=== PATIENT | male | born 1980 | race American Indian/Alaskan Native ===

== ENCOUNTER 2016-11-02 08:32 | Outpatient (CLI) | payer MEDICARE ==
[2016-11-02 09:35] LABS: Blood Urea Nitrogen 16 mg/dL (9-20)
== END 2016-11-02 08:33 | disposition home or self-care (01) ==
LOC: CT 08:32
PROVIDERS: ATTEND Radiology Vascular & Interventional Radiology
DX: I70.221 Atherosclerosis of native arteries of extremities with rest pain, right leg (principal)
CPT/HCPCS: 36415; 82565; 84520

== ENCOUNTER 2016-11-21 11:20 | Inpatient (IN) | payer MEDICARE ==
[2016-11-21 13:29] LABS: Blood Urea Nitrogen 23 mg/dL (9-20)
[2016-11-21] MEDS ORDERED: DIPRIVAN 10 MG/ML IV ONE ×6 (13:52→17:26)
[2016-11-21] MEDS ORDERED: DILAUDID ONE (13:52)
[2016-11-21] MEDS ORDERED: VERSED ONE (13:52)
--- NOTE | 2016-11-21 13:52 | Anesthesia Day of Surgery ---
Anesthesia Day of Surgery - Day of Surgery Patient Examined: Yes Patient H&P Reviewed: Yes Patient is NPO: Yes Beta Blockers: Yes
--- NOTE | 2016-11-21 13:52 | Anesthesia Consultation ---
Anesthesia Consult and Med Hx Date of service: 11/21/16 - Airway Anesthetic Teeth Evaluation: Good ROM Head & Neck: Adequate Mental/Hyoid Distance: Adequate Mallampati Class: Class II Intubation Access Assessment: Probably Good - Pulmonary Exam CTA: Yes - Cardiac Exam Cardiac Exam: RRR - Pre-Operative Health Status ASA Pre-Surgery Classification: ASA3 Proposed Anesthetic Plan: General - Pulmonary Hx Smoking: Yes (1 PPD) Hx Asthma: Yes COPD: Yes Hx Pneumonia: No Hx Sleep Apnea: Yes (+CPAP) - Cardiovascular System Hx Hypertension: Yes Hx Heart Attack/AMI: No (Echo in 04/2013 revealed EF-20-25%) Hx Cardia Arrhythmia: Yes (AFIB) Hx Heart Murmur: Yes - Central Nervous System Hx Seizures: No CVA: No Hx Psychiatric Problems: No - Endocrine Hx Renal Disease: No (STONES) Hx End Stage Renal Disease: No Hx Non-Insulin Dependent Diabetes: No (PRE-DIABETES) Hx Thyroid Disease: No - Other Systems Hx Alcohol Use: Yes Hx Substance Use: No Hx Cancer: No Hx Obesity: Yes (MORBID)
[2016-11-21] MEDS ORDERED: BENADRYL ONE ×2 (14:00→14:02)
[2016-11-21] MEDS ORDERED: ANCEF/STERILE WATER 2 GM/20 ML 2 GM/20 ML SYRINGE IV ONE (14:02)
[2016-11-21] MEDS ORDERED: NACL 0.9% 500 ML 500 ML ONE (14:02)
[2016-11-21] MEDS ORDERED: WATER FOR INJ (PF) 10 ML ONE ×2 (14:04→16:41)
[2016-11-21] MEDS ORDERED: HEPARIN/NS 5000 UNIT/500ML(CATH LAB) 1,000 ML IR ONE (14:04)
[2016-11-21] MEDS ORDERED: HEPARIN 10,000 UNITS/10 ML ONE ×2 (14:04→16:47)
[2016-11-21] MEDS ORDERED: XYLOCAINE 2% INFILTRATI ONE (14:04)
[2016-11-21] MEDS ORDERED: HEPARIN/NS 5000 UNIT/500ML(CATH LAB) 500 ML IR ONE ×2 (14:33→16:20)
[2016-11-21] MEDS ORDERED: NITROGLYCERIN SYRINGE 3 ML ONE (14:48)
[2016-11-21] MEDS ORDERED: NITROGLYCERIN SYRINGE 9 ML ONE (14:55)
[2016-11-21] MEDS: CATHFLO ONE ×2 (15:02→15:41)
[2016-11-21] MEDS ORDERED: CATHFLO ONE (16:32)
[2016-11-21] MEDS ORDERED: NACL 0.9% 1000 ML 1,000 ML SHEATH SCH (17:00)
[2016-11-21] MEDS ORDERED: NACL 0.9% 1000 ML 1,000 ML EKOSCLUMEN SCH (17:00)
[2016-11-21] MEDS ORDERED: MORPHINE IV PRN (17:07)
[2016-11-21] MEDS ORDERED: ALUM-MAG HYDROX-SIMETH 200-200-20MG/5ML PO PRN (17:07)
[2016-11-21] MEDS ORDERED: ZOFRAN IV PRN (17:07)
[2016-11-21] MEDS ORDERED: MILK OF MAGNESIA PO PRN (17:07)
[2016-11-21] MEDS ORDERED: DULCOLAX PR PRN (17:07)
[2016-11-21] MEDS ORDERED: HEPARIN/ 0.45% NACL-25,000 UNIT/500 ML 25,000 UNIT/500 ML BAG ONE (17:12)
[2016-11-21] MEDS ORDERED: NACL 0.9% 1000 ML 1,000 ML ONE (17:12)
[2016-11-21 17:20] LABS: INR 1.18 (0.87-1.13)
[2016-11-21] MEDS: HEPARIN/ 0.45% NACL-25,000 UNIT/500 ML 25,000 UNIT/500 ML BAG SHEATH SCH ×2 (17:30→21:30)
[2016-11-21] MEDS: NACL 0.9% 1000 ML 1,000 ML IV SCH (17:30)
[2016-11-21] MEDS: CATHFLO 20 MG in NACL 0.9% 500 ML 500 ML EKOSDLUMEN SCH (17:30)
[2016-11-21 17:39] LABS: Partial Thromboplastin Time 171.4 Sec. (24.2-36.6)
[2016-11-21] MEDS ORDERED: ZOFRAN ONE (19:09)
[2016-11-21] MEDS ORDERED: LANOXIN IV ONE (20:00)
[2016-11-21] MEDS: LANOXIN PO SCH (20:28)
[2016-11-21] MEDS ORDERED: PERCOCET 5/325 ONE (20:59)
[2016-11-21] MEDS: PERCOCET 5/325 PO PRN (21:01)
[2016-11-21 22:17] LABS: Basophils % (Auto) 0.4 % (0.0-1.8); Hematocrit 51.9 % (35.5-45.6); Hemoglobin 16.8 gm/dl (11.8-15.2); Mean Corpuscular HGB Conc 32 % (32-34); Mean Corpuscular Hemoglobin 30 pg (28-32); Mean Corpuscular Volume 94 fl (84-94); Platelet Count 199 K/mm3 (140-440); Red Blood Count 5.55 M/mm3 (3.65-5.03); Red Cell Distribution Width 15.9 % (13.2-15.2); White Blood Count 20.1 K/mm3 (4.5-11.0)
[2016-11-21 22:29] LABS: INR 1.01 (0.87-1.13)
[2016-11-21 22:30] LABS: Anion Gap 17 mmol/L; Blood Urea Nitrogen 21 mg/dL (9-20); Calcium 9.3 mg/dL (8.4-10.2); Carbon Dioxide 22 mmol/L (22-30); Chloride 100.6 mmol/L (98-107); Glucose 259 mg/dL (75-100); Potassium 5.2 mmol/L (3.6-5.0); Sodium 134 mmol/L (137-145)
[2016-11-21 22:30] LABS: Partial Thromboplastin Time 26.7 Sec. (24.2-36.6)
[2016-11-22] MEDS: CATHFLO 20 MG in NACL 0.9% 500 ML 500 ML EKOSDLUMEN SCH (00:05)
[2016-11-22] MEDS: NACL 0.9% 1000 ML 1,000 ML IV SCH (00:12)
[2016-11-22] MEDS: PERCOCET 5/325 PO PRN ×4 (04:12→23:40)
[2016-11-22 04:51] LABS: Eosinophils % (Auto) 0.1 % (0.0-4.3); Hematocrit 51.7 % (35.5-45.6); Hemoglobin 16.6 gm/dl (11.8-15.2); Mean Corpuscular HGB Conc 32 % (32-34); Mean Corpuscular Hemoglobin 30 pg (28-32); Mean Corpuscular Volume 93 fl (84-94); Platelet Count 192 K/mm3 (140-440); Red Blood Count 5.53 M/mm3 (3.65-5.03); White Blood Count 17.9 K/mm3 (4.5-11.0)
[2016-11-22 04:58] LABS: INR 1.03 (0.87-1.13)
[2016-11-22 04:59] LABS: Partial Thromboplastin Time 26.1 Sec. (24.2-36.6)
--- NOTE | 2016-11-22 07:32 | History and Physical Report ---
History of Present Illness Date of examination: 11/21/16 Date of admission: 11/21/16 16:45 Chief complaint: Right foot ischemic rest pain History of present illness: 36 year old man with a history of A-fib and CHF. Has been having right foot pain with numbness and tingling for approximately 5-6 weeks. Worsens when walking. Was not on anticoagulation for his A-fib. Past History Past Medical History: atrial fib, CAD, heart failure, hypertension, other ( renal stones) Past Surgical History: Other (coronary stent) Social history: smoking Medications and Allergies Allergies Allergy/AdvReac Type Severity Reaction Status Date / Time ibuprofen [From Motrin] Allergy Swelling Verified 03/29/16 13:24 lisinopril Allergy COUGH Verified 03/29/16 13:24 metoprolol Allergy Nausea Verified 03/29/16 13:24 Iodinated Contrast Media - AdvReac KIDNEYS Verified 03/29/16 13:24 IV Dye SHUT DOWN Home Medications Medication Instructions Recorded Confirmed Last Taken Type RX: Digoxin [Lanoxin] 0.25 mg PO DAILY@1700 #30 tablet 06/01/14 11/21/16 Rx Aspirin [Aspirin TAB] 325 mg PO QDAY 11/21/16 11/21/16 11/20/16 History Furosemide [Lasix TAB] 40 mg PO QDAY 11/21/16 11/21/16 11/20/16 History Losartan [Cozaar] 50 mg PO QDAY 11/21/16 11/21/16 11/20/16 History Active Meds: Active Medications Al Hydrox/Mg Hydrox/Simethicone (Alum-Mag Hydrox-Simeth [id number]/5ml) 30 ml PO Q4H PRN PRN Reason: Indigestion Bisacodyl (Dulcolax) 10 mg MD QDAY PRN PRN Reason: constipation unrelieved by MOM Digoxin (Lanoxin) 0.125 mg PO DAILY@1700 [facility] Last Admin: 11/21/16 20:28 Dose: 0.125 mg Furosemide (Lasix) 40 mg PO DAILY@0600 [facility] Alteplase, Recombinant 20 mg/ (Sodium Chloride) 500 mls @ 25 mls/hr EKOSDLUMEN DIRECT [facility] Last Admin: 11/22/16 00:05 Dose: 25 mls/hr Heparin Sodium/Sodium Chloride (Heparin/ 0.45% Nacl-25,000 Unit/500 Ml) 25,000 unit in 500 mls @ 10 mls/hr SHEATH DIRECT [place]; 500 UNITS/HR PRN Reason: Protocol Last Admin: 11/21/16 21:30 Dose: 500 units/hr, 10 mls/hr Sodium Chloride (Nacl 0.9% 1000 Ml) 1,000 mls @ 30 mls/hr IV DIRECT [place] Last Admin: 11/22/16 00:12 Dose: 30 mls/hr Sodium Chloride (Nacl 0.9% 1000 Ml) 1,000 mls @ 30 mls/hr SHEATH DIRECT [place] Sodium Chloride (Nacl 0.9% 1000 Ml) 1,000 mls @ 35 mls/hr EKOSCLUMEN DIRECT [place] Losartan Potassium (Cozaar) 50 mg PO QDAY [place] Magnesium Hydroxide (Milk Of Magnesia) 30 ml PO Q4H PRN PRN Reason: Constipation Morphine Sulfate (Morphine) 2 mg IV Q4H PRN PRN Reason: Pain, Moderate (4-6) Last Admin: 11/21/16 19:00 Dose: 2 mg Morphine Sulfate (Morphine) 4 mg IV Q4H PRN PRN Reason: Pain , Severe (7-10) Last Admin: 11/22/16 00:00 Dose: 4 mg Ondansetron HCl (Zofran) 4 mg IV Q8H PRN PRN Reason: N/V unrelieved by Miki Last Admin: 11/21/16 19:20 Dose: 4 mg Oxycodone/Acetaminophen (Percocet 5/325) 2 tab PO Q4H PRN PRN Reason: Pain, Moderate (4-6) Last Admin: 11/22/16 04:12 Dose: 2 tab Review of Systems Cardiovascular: rapid/irregular heart beat, dyspnea on exertion, high blood pressure Respiratory: sleep apnea Genitourinary Male: kidney stones Endocrine: high blood sugars Exam - Constitutional Vitals: Temp Pulse Resp BP Pulse Ox 97.5 F L 81 14 131/78 98 11/22/16 04:00 11/22/16 06:01 11/22/16 06:01 11/22/16 06:01 11/22/16 06:01 General appearance: Present: mild distress - EENT Eyes: Present: PERRL ENT: hearing intact, clear oral mucosa - Neck Neck: Present: supple, normal ROM - Respiratory Respiratory effort: normal - Cardiovascular Rhythm: irregularly irregular Heart Sounds: Present: S1 & S2 - Extremities Extremities: abnormal (No palpable pulses in the right foot. Dopplerable with monophasic flow. Right foot cooler than the left. No ulcerations.) Extremity abnormal: pulses diminished, tenderness - Abdominal General gastrointestinal: Present: soft, non-tender, normal bowel sounds Male genitourinary: Present: deferred - Rectal Rectal Exam: deferred - Integumentary Integumentary: Present: clear - Musculoskeletal Musculoskeletal: strength equal bilaterally - Psychiatric Psychiatric: appropriate mood/affect - Neurologic Neurologic: moves all extremities, gait normal Results - Labs CBC & Chem 7: 11/22/16 12:29 11/22/16 12:37 Labs: Abnormal lab results 11/21/16 11/21/16 11/21/16 Range/Units 12:55 16:30 21:56 WBC 20.1 H (4.5-11.0) K/mm3 RBC 5.55 H (3.65-5.03) M/mm3 Hgb 16.8 H (11.8-15.2) gm/dl Hct 51.9 H (35.5-45.6) % RDW 15.9 H (13.2-15.2) % Lymph % (Auto) 6.0 L (13.4-35.0) % Shannon % (Auto) (0.0-7.3) % Shannon # 1.5 H (0.0-0.8) K/mm3 Seg Neutrophils % 86.3 H (40.0-70.0) % Seg Neutrophils # 17.3 H (1.8-7.7) K/mm3 PT 15.6 H (12.2-14.9) Sec. INR 1.18 H (0.87-1.13) APTT 171.4 H* (24.2-36.6) Sec. Sodium (137-145) mmol/L Potassium (3.6-5.0) mmol/L BUN 23 H (9-20) mg/dL Glucose (75-100) mg/dL 11/21/16 11/22/16 Range/Units 22:00 04:21 WBC 17.9 H (4.5-11.0) K/mm3 RBC 5.53 H (3.65-5.03) M/mm3 Hgb 16.6 H (11.8-15.2) gm/dl Hct 51.7 H (35.5-45.6) % RDW 16.0 H (13.2-15.2) % Lymph % (Auto) 7.6 L (13.4-35.0) % Shannon % (Auto) 9.6 H (0.0-7.3) % Shannon # 1.7 H (0.0-0.8) K/mm3 Seg Neutrophils % 82.7 H (40.0-70.0) % Seg Neutrophils # 14.8 H (1.8-7.7) K/mm3 PT (12.2-14.9) Sec. INR (0.87-1.13) APTT (24.2-36.6) Sec. Sodium 134 L (137-145) mmol/L Potassium 5.2 H (3.6-5.0) mmol/L BUN 21 H (9-20) mg/dL Glucose 259 H (75-100) mg/dL Assessment and Plan 1. Right lower extremity angiogram performed 2. Evidence for distal embolus involving the right anterior tibial, peroneal and posterior tibial arteries. 3. Attempted thrombectomy performed. 4. Infustion of tPA into the anterior tibial artery overnight with evaluation on 11/22/16
--- NOTE | 2016-11-22 07:35 | Vascular Lab Report ---
MISCELLANEOUS VESSEL IDENTIFICATION: COMMENTS ON THE SCAN: The left common femoral artery was identified and under real-time ultrasound guidance was cannulated. IMPRESSION: Successful ultrasound guided arterial cannulation.
[2016-11-22] MEDS ORDERED: BENADRYL PO NR ×3 (08:00→13:00)
--- NOTE | 2016-11-22 08:08 | Admit Criteria Form ---
Admission Criteria Documentation: VASCULAR DISEASE GRG Clinical Indications for Admission to Inpatient Care (Place 'X' for any and all applicable criteria): Hospital admission is needed for appropriate care of the patient because of ANY ONE of the following (1)(2)(3)(4): [ ]I. Life-threatening or limb-threatening skin ulcer as indicated by ANY ONE of the following(5): [ ]a) Surrounding cellulitis unresponsive to outpatient treatment [ ]b) Wet gangrene [ ]c) Lymphangitis [ ]d) Bacteremia [ ]II. Gangrene requiring intensity and frequency of care not manageable to outpatient, emergency, or observation level of care(5) [ ]III. Severe pain requiring acute inpatient management [X ]IV. Interventional revascularization (eg, surgery, thrombolysis) needed (eg , critical limb ischemia)(21) [ ]V. Urgent inpatient IV anticoagulation needed due to ALL of the following: [ ]a) Temporary subtherapeutic anticoagulation unacceptable because of high risk of short-term venous or arterial thromboembolism due to ANY ONE of the following(7)(8)(9): [ ]i) Venous thromboembolism within the past 12 months [ ]ii) Underlying malignancy [ ]iii) Patient with mechanical cardiac valve(10)(11) [ ]iv) Underlying hypercoagulable state (eg, protein C or protein S deficiency, antithrombin deficiency, antiphospholipid antibodies) [ ]v) Patient at high risk of thromboembolism (eg, status post orthopedic surgery, history of recurrent venous thromboembolism) [ ]vi) Atrial fibrillation with rheumatic valvular heart disease [ ]vii) Atrial fibrillation with 3 or MORE of the following : [ ]1) Congestive heart failure [ ]2) Hypertension [ ]3) Age 65 years or older [ ]4) Diabetes mellitus [ ]5) History of thromboembolism (eg, stroke, TIA , or systemic embolization) more than 3 months ago [ ]6) Female gender [ ]b) Contraindications to outpatient use of "bridging" agent or alternative oral anticoagulant as indicated by ALL of the following: [ ]i) Contraindication to outpatient use of low-molecular -weight heparin as "bridging" agent as indicated by ANY ONE of the following(8) : [ ]1) Documented current or history of heparin- induced thrombocytopenia(12) [ ]2) Severe thrombocytopenia (eg, platelet count less than 50,000/mm3 (50 x109/L)) [ ]3) Documented allergy to heparin, low- molecular-weight heparin, or pork products [ ]4) Renal failure (creatinine clearance < 30 mL /min/1.73m2 (0.50 mL/sec/1.73m2) or on dialysis) [ ]5) Inability to manage self-injection (eg, by patient, caregiver, or visiting nurse) [ ]ii) Contraindication to outpatient use of fondaparinux as "bridging" agent as indicated by ANY ONE of the following(13)(14)(15)(16): [ ]1) Severe thrombocytopenia (eg, platelet count less than 50,000/mm3 (50 x109/L)) [ ]2) Hypersensitivity to fondaparinux, related drugs, or product components [ ]3) Renal failure (creatinine clearance less than 30 mL/min/1.73m2 (0.50 mL/sec/1.73m2) or on dialysis) [ ]4) Inability to manage self-injection (eg, by patient, caregiver, or visiting nurse) [ ]iii) Oral direct thrombin inhibitor (eg, dabigatran) or oral coagulation factor Xa inhibitor (eg, rivaroxaban) not appropriate as oral anticoagulation (eg, indication not appropriate) or contraindicated (eg, hypersensitivity, renal failure)(13)(16)(17)(18)(19)(20) [ ]. Suspected severe acute ischemia due to peripheral vascular disease as indicated by ANY ONE of the following(5)(6): [ ]a) Tissue necrosis [ ]b) Severe pain [ ]c) Acute pulselessness [ ]d) Other evidence of acute severe ischemia (eg, lactic acidosis , motor dysfunction) [ ]VII. Acute or newly diagnosed major vessel (eg, aorta) dissection, rupture, or leakage(5)(6)(22)(23) [ ]VIII.Vascular Disease and ALL of the following: [ ]a) Symptom or finding for which emergency and observation care have failed or are not considered appropriate (Use General Criteria: Observation Care as appropriate) [ ]b) Presence of ANY ONE of the following: [ ]i) A General Admission Criteria [ ]ii) A Pediatric General Admission Criteria The [facility] content created by Radha Gallagher has been revised. The portions of the content which have been revised are identified through the use of italic text or in bold, and [facility] has neither reviewed nor approved the modified material. All other unmodified content is copyright [facility]. Please see references footnoted in the original [facility] edition 2016 Admission Criteria Met: Yes
[2016-11-22] MEDS: COZAAR PO SCH ×2 (09:28→12:01)
[2016-11-22] MEDS: DELTASONE PO SCH (09:30)
[2016-11-22] MEDS: LASIX PO SCH (12:00)
--- NOTE | 2016-11-22 12:08 | Consultation ---
History of Present Illness Consult date: 11/22/16 Requesting physician: NATASHA MARAVILLA History of present illness: PULMONARY/CCM CONSULT NOTE (Full dictation # [id number]) Please see dictated notes for full details Past History Past Medical History: atrial fib, CAD, heart failure, hypertension, other ( renal stones) Past Surgical History: Other (coronary stent) Social history: smoking Medications and Allergies Allergies Allergy/AdvReac Type Severity Reaction Status Date / Time ibuprofen [From Motrin] Allergy Swelling Verified 03/29/16 13:24 lisinopril Allergy COUGH Verified 03/29/16 13:24 metoprolol Allergy Nausea Verified 03/29/16 13:24 Iodinated Contrast Media - AdvReac KIDNEYS Verified 03/29/16 13:24 IV Dye SHUT DOWN Home Medications Medication Instructions Recorded Confirmed Last Taken Type Digoxin [Lanoxin] 0.25 mg PO DAILY@1700 #30 tablet 06/01/14 11/21/16 11/20/16 Rx Aspirin [Aspirin TAB] 325 mg PO QDAY 11/21/16 11/21/16 11/20/16 History Furosemide [Lasix TAB] 40 mg PO QDAY 11/21/16 11/21/16 11/20/16 History Losartan [Cozaar] 50 mg PO QDAY 11/21/16 11/21/16 11/20/16 History Active Meds: Active Medications Al Hydrox/Mg Hydrox/Simethicone (Alum-Mag Hydrox-Simeth [phone]/5ml) 30 ml PO Q4H PRN PRN Reason: Indigestion Bisacodyl (Dulcolax) 10 mg MO QDAY PRN PRN Reason: constipation unrelieved by MOM Digoxin (Lanoxin) 0.125 mg PO DAILY@1700 [facility] Last Admin: 11/21/16 20:28 Dose: 0.125 mg Diphenhydramine HCl (Benadryl) 50 mg PO PREOP NR Stop: 11/22/16 23:59 Diphenhydramine HCl (Benadryl) 50 mg PO ONCE NR Stop: 11/22/16 23:59 Last Admin: 11/22/16 09:30 Dose: 50 mg Furosemide (Lasix) 40 mg PO DAILY@0600 [facility] Last Admin: 11/22/16 12:00 Dose: Not Given Alteplase, Recombinant 20 mg/ (Sodium Chloride) 500 mls @ 25 mls/hr EKOSDLUMEN DIRECT [place] Last Admin: 11/22/16 00:05 Dose: 25 mls/hr Heparin Sodium/Sodium Chloride (Heparin/ 0.45% Nacl-25,000 Unit/500 Ml) 25,000 unit in 500 mls @ 10 mls/hr SHEATH DIRECT [place]; 500 UNITS/HR PRN Reason: Protocol Last Admin: 11/21/16 21:30 Dose: 500 units/hr, 10 mls/hr Sodium Chloride (Nacl 0.9% 1000 Ml) 1,000 mls @ 30 mls/hr IV DIRECT [place] Last Admin: 11/22/16 00:12 Dose: 30 mls/hr Sodium Chloride (Nacl 0.9% 1000 Ml) 1,000 mls @ 30 mls/hr SHEATH DIRECT [place] Sodium Chloride (Nacl 0.9% 1000 Ml) 1,000 mls @ 35 mls/hr EKOSCLUMEN DIRECT [place] Losartan Potassium (Cozaar) 50 mg PO QDAY [facility] Last Admin: 11/22/16 12:01 Dose: 50 mg Magnesium Hydroxide (Milk Of Magnesia) 30 ml PO Q4H PRN PRN Reason: Constipation Morphine Sulfate (Morphine) 2 mg IV Q4H PRN PRN Reason: Pain, Moderate (4-6) Last Admin: 11/21/16 19:00 Dose: 2 mg Morphine Sulfate (Morphine) 4 mg IV Q4H PRN PRN Reason: Pain , Severe (7-10) Last Admin: 11/22/16 00:00 Dose: 4 mg Ondansetron HCl (Zofran) 4 mg IV Q8H PRN PRN Reason: N/V unrelieved by Regjovani Last Admin: 11/21/16 19:20 Dose: 4 mg Oxycodone/Acetaminophen (Percocet 5/325) 2 tab PO Q4H PRN PRN Reason: Pain, Moderate (4-6) Last Admin: 11/22/16 09:25 Dose: 2 tab Prednisone (Deltasone) 50 mg PO QDAY [place] Last Admin: 11/22/16 09:30 Dose: 50 mg Physical Examination Vital signs: Vital Signs Temp Pulse Resp BP Pulse Ox 98.2 F 81 20 141/105 95 11/21/16 12:53 11/21/16 12:53 11/21/16 12:53 11/21/16 12:53 11/21/16 12:53 Results - Laboratory Findings CBC and BMP: 11/22/16 12:29 11/22/16 12:37 PT/INR, D-dimer PT 14.0 Sec. (12.2-14.9) 11/22/16 04:21 INR 1.03 (0.87-1.13) 11/22/16 04:21 Abnormal lab findings: Abnormal Labs 11/21/16 11/21/16 11/21/16 12:55 16:30 21:56 WBC 20.1 H RBC 5.55 H Hgb 16.8 H Hct 51.9 H RDW 15.9 H Lymph % (Auto) 6.0 L Gillespie % (Auto) Gillespie # 1.5 H Seg Neutrophils % 86.3 H Seg Neutrophils # 17.3 H PT 15.6 H INR 1.18 H APTT 171.4 H* Sodium Potassium BUN 23 H Glucose 11/21/16 11/22/16 22:00 04:21 WBC 17.9 H RBC 5.53 H Hgb 16.6 H Hct 51.7 H RDW 16.0 H Lymph % (Auto) 7.6 L Gillespie % (Auto) 9.6 H Gillespie # 1.7 H Seg Neutrophils % 82.7 H Seg Neutrophils # 14.8 H PT INR APTT Sodium 134 L Potassium 5.2 H BUN 21 H Glucose 259 H
[2016-11-22] MEDS: MORPHINE IV PRN ×3 (12:44→20:19)
[2016-11-22 12:53] LABS: Basophils % (Auto) 0.5 % (0.0-1.8); Eosinophils % (Auto) 0.1 % (0.0-4.3); Hematocrit 54.2 % (35.5-45.6); Hemoglobin 17.3 gm/dl (11.8-15.2); Mean Corpuscular HGB Conc 32 % (32-34); Mean Corpuscular Hemoglobin 30 pg (28-32); Mean Corpuscular Volume 94 fl (84-94); Platelet Count 194 K/mm3 (140-440); Red Blood Count 5.79 M/mm3 (3.65-5.03); Red Cell Distribution Width 15.6 % (13.2-15.2); White Blood Count 17.2 K/mm3 (4.5-11.0)
[2016-11-22 13:03] LABS: INR 1.02 (0.87-1.13)
[2016-11-22 13:04] LABS: Partial Thromboplastin Time 27.6 Sec. (24.2-36.6)
[2016-11-22 13:07] LABS: Anion Gap 18 mmol/L; Blood Urea Nitrogen 18 mg/dL (9-20); Calcium 9.5 mg/dL (8.4-10.2); Carbon Dioxide 25 mmol/L (22-30); Chloride 99.3 mmol/L (98-107); Glucose 191 mg/dL (75-100); Potassium 5.1 mmol/L (3.6-5.0); Sodium 137 mmol/L (137-145)
[2016-11-22] MEDS ORDERED: SUBLIMAZE ONE (13:57)
[2016-11-22] MEDS ORDERED: HEPARIN/NS 5000 UNIT/500ML(CATH LAB) 1,500 ML IR ONE (13:57)
[2016-11-22] MEDS ORDERED: VERSED IV ONE (13:57)
[2016-11-22] MEDS ORDERED: XYLOCAINE 2% INFILTRATI ONE (13:57)
[2016-11-22] MEDS ORDERED: ANCEF/STERILE WATER 2 GM/20 ML 2 GM/20 ML SYRINGE IV ONE (13:58)
[2016-11-22] MEDS ORDERED: NACL 0.9% 500 ML 500 ML ONE (13:58)
--- NOTE | 2016-11-22 14:12 | Progress Note ---
Assessment and Plan 1. Right lower extremity angiogram performed 2. Evidence for distal embolus involving the right anterior tibial, peroneal and posterior tibial arteries. 3. Attempted thrombectomy performed. 4. Infustion of tPA into the anterior tibial artery overnight with evaluation on 11/22/16 5. Repeat angio today with possible further intervention if needed. Subjective Date of service: 11/22/16 Principal diagnosis: Right foot ischemic rest pain Interval history: Patient s/p day one of EKOS catheter infusion right lower extremity. He states he has been having more throbbing pain in the right foot. His numbness has resolved however. No other complaints. Objective - Exam Narrative Exam: Left going sheath and EKOS catheter entrance site with blood tinged bandage. No hematoma. Right plaster machine tender to palpation. Remains mildly cool. Normal sensation. - Constitutional Vitals: Vital Signs - 12hr 11/22/16 11/22/16 11/22/16 02:00 02:31 03:01 Temperature Pulse Rate 124 H 105 H 96 H Pulse Rate [ Left From Monitor] Pulse Rate [ Left Radial] Respiratory 15 15 15 Rate Blood Pressure 124/87 124/87 126/91 O2 Sat by Pulse 96 96 92 Oximetry 11/22/16 11/22/16 11/22/16 03:31 04:00 04:01 Temperature 97.5 F L Pulse Rate 133 H 96 H Pulse Rate [ 96 H Left From Monitor] Pulse Rate [ 96 H Left Radial] Respiratory 22 15 Rate Blood Pressure 126/91 131/78 O2 Sat by Pulse 96 97 97 Oximetry 11/22/16 11/22/16 11/22/16 04:31 05:01 05:31 Temperature Pulse Rate 117 H 98 H 92 H Pulse Rate [ Left From Monitor] Pulse Rate [ Left Radial] Respiratory 17 13 15 Rate Blood Pressure 131/78 131/78 131/78 O2 Sat by Pulse 94 98 98 Oximetry 11/22/16 11/22/16 11/22/16 06:00 06:01 06:31 Temperature Pulse Rate 81 81 101 H Pulse Rate [ 93 H Left From Monitor] Pulse Rate [ Left Radial] Respiratory 14 14 20 Rate Blood Pressure 131/78 131/78 108/89 O2 Sat by Pulse 98 98 98 Oximetry 11/22/16 11/22/16 11/22/16 07:00 07:23 07:30 Temperature Pulse Rate 114 H 99 H 108 H Pulse Rate [ Left From Monitor] Pulse Rate [ Left Radial] Respiratory 14 13 13 Rate Blood Pressure 108/89 108/89 141/90 O2 Sat by Pulse 98 98 99 Oximetry 11/22/16 11/22/16 11/22/16 08:00 08:23 08:30 Temperature 98.6 F 98.6 F Pulse Rate 99 H 107 H 109 H Pulse Rate [ 103 H Left From Monitor] Pulse Rate [ 103 H Left Radial] Respiratory 13 18 13 Rate Blood Pressure 137/104 141/90 137/104 O2 Sat by Pulse 99 98 99 Oximetry 11/22/16 11/22/16 11/22/16 09:00 09:23 09:25 Temperature Pulse Rate 115 H 114 H Pulse Rate [ Left From Monitor] Pulse Rate [ Left Radial] Respiratory 21 18 24 Rate Blood Pressure 141/84 137/104 O2 Sat by Pulse 96 94 Oximetry 11/22/16 11/22/16 11/22/16 09:30 10:00 10:30 Temperature Pulse Rate 131 H 119 H 125 H Pulse Rate [ Left From Monitor] Pulse Rate [ Left Radial] Respiratory 22 14 13 Rate Blood Pressure 141/84 141/84 133/94 O2 Sat by Pulse 98 98 99 Oximetry 11/22/16 11/22/16 11/22/16 11:00 11:30 12:00 Temperature 97.9 F Pulse Rate 99 H 103 H Pulse Rate [ Left From Monitor] Pulse Rate [ Left Radial] Respiratory 16 14 Rate Blood Pressure 143/104 143/104 O2 Sat by Pulse 98 99 Oximetry 11/22/16 11/22/16 12:01 12:44 Temperature Pulse Rate 119 H Pulse Rate [ Left From Monitor] Pulse Rate [ Left Radial] Respiratory 15 Rate Blood Pressure 143/104 O2 Sat by Pulse Oximetry General appearance: Present: no acute distress - EENT Eyes: PERRL ENT: hearing intact - Respiratory Respiratory effort: normal - Cardiovascular Rhythm: irregularly irregular Extremity abnormal: pulses diminished (No palpable pulse on the right side. Capillary refill less than 5 sec. No ulcerations present.) - Labs CBC & Chem 7: 11/23/16 00:09 11/22/16 12:37 Labs: Abnormal lab results 11/21/16 11/21/16 11/21/16 Range/Units 16:30 21:56 22:00 WBC 20.1 H (4.5-11.0) K/mm3 RBC 5.55 H (3.65-5.03) M/mm3 Hgb 16.8 H (11.8-15.2) gm/dl Hct 51.9 H (35.5-45.6) % RDW 15.9 H (13.2-15.2) % Lymph % (Auto) 6.0 L (13.4-35.0) % Brooke % (Auto) (0.0-7.3) % Lymph # (1.2-5.4) K/mm3 Brooke # 1.5 H (0.0-0.8) K/mm3 Seg Neutrophils % 86.3 H (40.0-70.0) % Seg Neutrophils # 17.3 H (1.8-7.7) K/mm3 PT 15.6 H (12.2-14.9) Sec. INR 1.18 H (0.87-1.13) APTT 171.4 H* (24.2-36.6) Sec. Sodium 134 L (137-145) mmol/L Potassium 5.2 H (3.6-5.0) mmol/L BUN 21 H (9-20) mg/dL Glucose 259 H (75-100) mg/dL 11/22/16 11/22/16 11/22/16 Range/Units 04:21 12:29 12:37 WBC 17.9 H 17.2 H (4.5-11.0) K/mm3 RBC 5.53 H 5.79 H (3.65-5.03) M/mm3 Hgb 16.6 H 17.3 H (11.8-15.2) gm/dl Hct 51.7 H 54.2 H (35.5-45.6) % RDW 16.0 H 15.6 H (13.2-15.2) % Lymph % (Auto) 7.6 L 6.6 L (13.4-35.0) % Brooke % (Auto) 9.6 H 7.6 H (0.0-7.3) % Lymph # 1.1 L (1.2-5.4) K/mm3 Brooke # 1.7 H 1.3 H (0.0-0.8) K/mm3 Seg Neutrophils % 82.7 H 85.2 H (40.0-70.0) % Seg Neutrophils # 14.8 H 14.7 H (1.8-7.7) K/mm3 PT (12.2-14.9) Sec. INR (0.87-1.13) APTT (24.2-36.6) Sec. Sodium (137-145) mmol/L Potassium 5.1 H (3.6-5.0) mmol/L BUN (9-20) mg/dL Glucose 191 H (75-100) mg/dL
[2016-11-22] MEDS: LANOXIN PO SCH (15:00)
[2016-11-22] MEDS ORDERED: LANOXIN PO SCH (17:00)
[2016-11-22] MEDS: CARDIZEM/D5W 100MG/100ML 100 MG/100 ML BAG IV SCH (19:33)
[2016-11-23] LABS: INR 1.12 (0.87-1.13)
[2016-11-23 00:01] LABS: Partial Thromboplastin Time 27.3 Sec. (24.2-36.6)
[2016-11-23 00:33] LABS: Basophils % (Auto) 0.4 % (0.0-1.8); Eosinophils % (Auto) 0.1 % (0.0-4.3); Hematocrit 52.5 % (35.5-45.6); Hemoglobin 17.3 gm/dl (11.8-15.2); Mean Corpuscular HGB Conc 33 % (32-34); Mean Corpuscular Hemoglobin 31 pg (28-32); Mean Corpuscular Volume 93 fl (84-94); Platelet Count 190 K/mm3 (140-440); Red Blood Count 5.63 M/mm3 (3.65-5.03); Red Cell Distribution Width 15.6 % (13.2-15.2); White Blood Count 16.7 K/mm3 (4.5-11.0)
[2016-11-23 00:33] LABS: ISTAT Base Excess 1; ISTAT HCO3 26.5; ISTAT PCO2 46.3 (35-45); ISTAT PH 7.366 (7.35-7.45); ISTAT PO2 81 (80-105); ISTAT SO2 95; ISTAT TCO2 28
[2016-11-23] MEDS: LASIX PO SCH (05:35)
[2016-11-23] MEDS: CARDIZEM/D5W 100MG/100ML 100 MG/100 ML BAG IV SCH (05:36)
[2016-11-23] MEDS: PERCOCET 5/325 PO PRN ×3 (05:54→14:27)
--- NOTE | 2016-11-23 08:57 | Progress Note ---
Assessment and Plan 1. Right foot ischemic pain. Overall stable. tPA infusion performed for 24 hours. Re-evaluation yesterday demonstrates little impovement. Collateral flow into the foot. 2. Discussed with patient findings. 3. A-fib. Better controlled. Cardiology following. 4. 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 Will consider vascular surgery consult based on his ambulation today prior to discharge. Subjective Date of service: 11/23/16 Principal diagnosis: Right foot ischemic rest pain Interval history: Patient is s/p overnight infusion of tpa. He states he does not have any numbness in his foot any longer. Foot still feels cold. Intermittent pain which is relieved by percocet. Has no been ambulatory as of yet. Objective - Constitutional Vitals: Vital Signs - 12hr 11/22/16 11/22/16 11/22/16 21:00 21:10 21:13 Temperature 98.4 F 98.5 F Pulse Rate 113 H 134 H Pulse Rate [ Right Dorsalis Pedis] Respiratory 13 20 22 Rate Blood Pressure 148/79 145/68 135/76 O2 Sat by Pulse 93 98 98 Oximetry 11/22/16 11/22/16 11/22/16 21:15 21:16 21:30 Temperature Pulse Rate 114 H 98 H Pulse Rate [ Right Dorsalis Pedis] Respiratory 20 14 18 Rate Blood Pressure 145/101 140/104 O2 Sat by Pulse 93 94 Oximetry 11/22/16 11/22/16 11/22/16 21:46 22:00 22:16 Temperature Pulse Rate 107 H 108 H 88 Pulse Rate [ Right Dorsalis Pedis] Respiratory 22 20 15 Rate Blood Pressure 139/110 145/119 125/83 O2 Sat by Pulse 94 97 93 Oximetry 11/22/16 11/22/16 11/22/16 22:30 22:46 23:00 Temperature Pulse Rate 82 97 H 87 Pulse Rate [ Right Dorsalis Pedis] Respiratory 13 22 20 Rate Blood Pressure 125/88 137/82 167/98 O2 Sat by Pulse 94 94 98 Oximetry 11/22/16 11/22/16 11/22/16 23:15 23:30 23:34 Temperature Pulse Rate 85 83 102 H Pulse Rate [ 89 Right Dorsalis Pedis] Respiratory 18 16 21 Rate Blood Pressure 128/96 138/101 138/101 O2 Sat by Pulse 95 99 96 Oximetry 11/22/16 11/22/16 11/23/16 23:40 23:46 00:00 Temperature 98.9 F Pulse Rate 91 H 89 Pulse Rate [ Right Dorsalis Pedis] Respiratory 20 21 22 Rate Blood Pressure 131/86 129/90 O2 Sat by Pulse 96 96 Oximetry 11/23/16 11/23/16 11/23/16 00:15 00:30 00:45 Temperature Pulse Rate 102 H 83 78 Pulse Rate [ Right Dorsalis Pedis] Respiratory 22 19 15 Rate Blood Pressure 125/83 134/80 130/83 O2 Sat by Pulse 95 95 94 Oximetry 11/23/16 11/23/16 11/23/16 01:00 01:15 01:30 Temperature Pulse Rate 87 79 86 Pulse Rate [ Right Dorsalis Pedis] Respiratory 12 16 12 Rate Blood Pressure 136/88 128/85 137/84 O2 Sat by Pulse 96 96 88 Oximetry 11/23/16 11/23/16 11/23/16 01:46 02:00 02:16 Temperature Pulse Rate 91 H 68 55 L Pulse Rate [ Right Dorsalis Pedis] Respiratory 13 12 14 Rate Blood Pressure 112/68 113/71 117/63 O2 Sat by Pulse 85 90 84 Oximetry 11/23/16 11/23/16 11/23/16 02:30 02:45 03:00 Temperature Pulse Rate 73 72 71 Pulse Rate [ Right Dorsalis Pedis] Respiratory 11 L 15 14 Rate Blood Pressure 114/72 112/69 102/70 O2 Sat by Pulse 94 89 91 Oximetry 11/23/16 11/23/16 11/23/16 03:15 03:30 03:46 Temperature Pulse Rate 58 L 72 76 Pulse Rate [ Right Dorsalis Pedis] Respiratory 17 12 15 Rate Blood Pressure 94/51 116/78 114/72 O2 Sat by Pulse 89 91 Oximetry 11/23/16 11/23/16 11/23/16 04:00 04:16 04:30 Temperature 98.6 F Pulse Rate 73 58 L 76 Pulse Rate [ Right Dorsalis Pedis] Respiratory 13 13 19 Rate Blood Pressure 125/83 127/74 124/91 O2 Sat by Pulse 92 91 Oximetry 11/23/16 11/23/16 11/23/16 04:45 05:00 05:15 Temperature Pulse Rate 54 L 68 71 Pulse Rate [ Right Dorsalis Pedis] Respiratory 15 14 18 Rate Blood Pressure 122/84 130/85 122/82 O2 Sat by Pulse 92 94 93 Oximetry 11/23/16 11/23/16 11/23/16 05:30 05:45 06:00 Temperature Pulse Rate 64 71 63 Pulse Rate [ Right Dorsalis Pedis] Respiratory 14 11 L 20 Rate Blood Pressure 126/88 128/82 125/84 O2 Sat by Pulse 91 95 94 Oximetry 11/23/16 11/23/16 11/23/16 06:15 06:30 06:46 Temperature Pulse Rate 71 65 58 L Pulse Rate [ Right Dorsalis Pedis] Respiratory 16 19 19 Rate Blood Pressure 121/82 154/107 129/72 O2 Sat by Pulse 93 95 88 Oximetry 11/23/16 11/23/16 11/23/16 07:00 07:16 07:30 Temperature Pulse Rate 69 72 71 Pulse Rate [ Right Dorsalis Pedis] Respiratory 16 12 20 Rate Blood Pressure 119/62 131/86 139/85 O2 Sat by Pulse 82 L 94 Oximetry General appearance: Present: no acute distress - Respiratory Respiratory effort: normal - Cardiovascular Rhythm: irregularly irregular Extremity abnormal: pulses diminished (Right foot pulses continue to be absent without doppler signal. Right foot remains cool compared to the left. No signficant change overall. Normal sensation to light touch. Capillary refill <5 sec. Symmetric color bilaterally. No ulcerations present.) - Labs CBC & Chem 7: 11/23/16 00:09 11/22/16 12:37 Labs: Abnormal lab results 11/22/16 11/22/16 11/22/16 Range/Units 12:29 12:37 23:10 WBC 17.2 H (4.5-11.0) K/mm3 RBC 5.79 H (3.65-5.03) M/mm3 Hgb 17.3 H (11.8-15.2) gm/dl Hct 54.2 H (35.5-45.6) % RDW 15.6 H (13.2-15.2) % Lymph % (Auto) 6.6 L (13.4-35.0) % [place] % (Auto) 7.6 H (0.0-7.3) % Lymph # 1.1 L (1.2-5.4) K/mm3 [place] # 1.3 H (0.0-0.8) K/mm3 Seg Neutrophils % 85.2 H (40.0-70.0) % Seg Neutrophils # 14.7 H (1.8-7.7) K/mm3 PT 15.0 H (12.2-14.9) Sec. POC ABG pCO2 (35-45) Potassium 5.1 H (3.6-5.0) mmol/L Glucose 191 H (75-100) mg/dL 11/23/16 11/23/16 Range/Units 00:09 00:25 WBC 16.7 H (4.5-11.0) K/mm3 RBC 5.63 H (3.65-5.03) M/mm3 Hgb 17.3 H (11.8-15.2) gm/dl Hct 52.5 H (35.5-45.6) % RDW 15.6 H (13.2-15.2) % Lymph % (Auto) 6.1 L (13.4-35.0) % [place] % (Auto) (0.0-7.3) % Lymph # 1.0 L (1.2-5.4) K/mm3 [place] # (0.0-0.8) K/mm3 Seg Neutrophils % 90.0 H (40.0-70.0) % Seg Neutrophils # 15.0 H (1.8-7.7) K/mm3 PT (12.2-14.9) Sec. POC ABG pCO2 46.3 H (35-45) Potassium (3.6-5.0) mmol/L Glucose (75-100) mg/dL
--- NOTE | 2016-11-23 09:16 | Consultation ---
History of Present Illness Consult date: 11/23/16 Requesting physician: NATASHA MARAVILLA Consult reason: atrial fibrillation, known to you History of present illness: The patient is a 36 YO male with a past medical history significant for atrial fibrillation (has only been on ASA 325; has tried Xarelto and Pradaxa, has not been on anticoagulation secondary to hematuria - was advised to start Eliquis and to see Dr. Sesay for treatment of his kidney stones but he has not yet followed up), NICMP (has declined AICD in the past), PAD, kidney stones, COPD, KASANDRA (does not currently have CPAP d/t insurance issues), obesity, and tobacco use. Pt has seen several cardiologists, Dr. Andersen with [facility] and [facility]. He was recently consulted in our office by Dr. Veliz. He presented with c/o right foot pain with numbness, tingling, and pain that is worsened with activity for approximately 5-6 weeks. Per pt report, he presented on 11/21 for scheduled OP peripheral angiogram with possible intervention and evidence for distal embolus involving the right anterior tibial, peroneal and posterior tibial arteries was found. Thrombectomy was attempted and EKOS with tPA was initiated and pt was admitted. [facility] on 11[facility]22 for repeat angiogram and EKOS was d/c' d. During this admission, he was noted to be in AFib with RVR and thus cardiology has been consulted. He was initiated on digoxin per Dr. Veliz and is in AFib with CVR on evaluation. He denies any cardiac complaints. LHC done 11/01/2015 at [facility] showed normal coronaries with mild plaque in the PDA, severe NICMP, EF 25%. Echo done 11/17/2016 showed EF 25-30%, no clot in LV noted, moderate LVH, RV moderately dilated, mild RV systolic dysfunction, LA severely enlarged, mild MR, mild TR, mild pulmonary HTN, RVSP 41mmHg, mild CO , proximal ascending aorta mildly enlarged at 4cm. Past History Past Medical History: atrial fib, COPD, heart failure, hypertension, other ( renal stones; sleep apnea) Social history: lives with family, smoking Medications and Allergies Allergies Allergy/AdvReac Type Severity Reaction Status Date / Time ibuprofen [From Motrin] Allergy Swelling Verified 03/29/16 13:24 lisinopril Allergy COUGH Verified 03/29/16 13:24 metoprolol Allergy Nausea Verified 03/29/16 13:24 Iodinated Contrast Media - AdvReac KIDNEYS Verified 03/29/16 13:24 IV Dye SHUT DOWN Home Medications Medication Instructions Recorded Confirmed Last Taken Type Digoxin [Lanoxin] 0.25 mg PO DAILY@1700 #30 tablet 06/01/14 11/21/16 11/20/16 Rx Aspirin [Aspirin TAB] 325 mg PO QDAY 11/21/16 11/21/16 11/20/16 History Furosemide [Lasix TAB] 40 mg PO QDAY 11/21/16 11/21/16 11/20/16 History Losartan [Cozaar] 50 mg PO QDAY 11/21/16 11/21/16 11/20/16 History Active Meds: Active Medications Al Hydrox/Mg Hydrox/Simethicone (Alum-Mag Hydrox-Simeth [id number]/5ml) 30 ml PO Q4H PRN PRN Reason: Indigestion Bisacodyl (Dulcolax) 10 mg CO QDAY PRN PRN Reason: constipation unrelieved by MOM Digoxin (Lanoxin) 0.125 mg PO DAILY@1700 [place] Last Admin: 11/22/16 15:00 Dose: 0.125 mg Enoxaparin Sodium (Lovenox) 40 mg SUB-Q QDAY@2200 [place] Furosemide (Lasix) 40 mg PO DAILY@0600 [place] Last Admin: 11/23/16 05:35 Dose: 40 mg Diltiazem HCl (Cardizem/D5w 100mg/100ml) 100 mg in 100 mls @ 5 mls/hr IV TITR [place]; 5 MG/HR PRN Reason: Protocol Last Admin: 11/23/16 05:36 Dose: 5 mg/hr, 5 mls/hr Losartan Potassium (Cozaar) 50 mg PO QDAY [place] Last Admin: 11/22/16 12:01 Dose: 50 mg Magnesium Hydroxide (Milk Of Magnesia) 30 ml PO Q4H PRN PRN Reason: Constipation Morphine Sulfate (Morphine) 2 mg IV Q4H PRN PRN Reason: Pain, Moderate (4-6) Last Admin: 11/21/16 19:00 Dose: 2 mg Morphine Sulfate (Morphine) 4 mg IV Q4H PRN PRN Reason: Pain , Severe (7-10) Last Admin: 11/22/16 20:19 Dose: 4 mg Ondansetron HCl (Zofran) 4 mg IV Q8H PRN PRN Reason: N/V unrelieved by Reglan Last Admin: 11/21/16 19:20 Dose: 4 mg Oxycodone/Acetaminophen (Percocet 5/325) 2 tab PO Q4H PRN PRN Reason: Pain, Moderate (4-6) Last Admin: 11/23/16 05:54 Dose: 2 tab Pantoprazole (Protonix) 40 mg PO QDAY [place] Prednisone (Deltasone) 50 mg PO QDAY K[place] Last Admin: 11/22/16 09:30 Dose: 50 mg Review of Systems All systems: negative Musculoskeletal: other (RLE numbness, tingling, and pain) Physical Examination Vital Signs Temp Pulse Resp BP Pulse Ox 98.2 F 81 20 141/105 95 11/21/16 12:53 11/21/16 12:53 11/21/16 12:53 11/21/16 12:53 11/21/16 12:53 General appearance: no acute distress HEENT: Positive: PERRL, Normocephaly, Mucus Membranes Moist Neck: Positive: neck supple, trachea midline Cardiac: Positive: Reg Rate and Rhythm, S1/S2 Lungs: Positive: Normal Exam, clear to auscultation, Normal Breath Sounds Neuro: Positive: Grossly Intact, Cranial Nerve 2-12 Intact Abdomen: Positive: Unremarkable, Soft, Active Bowel Sounds. Negative: Tender Skin: Positive: Clear. Negative: Rash, Wound Musculoskeletal: No Fluid Collection, No Pain, Normal Range of Motion Extremities: Absent: edema Results 11/23/16 00:09 11/22/16 12:37 Coagulation 11/22/16 11/22/16 Range/Units 12:29 23:10 PT 13.9 15.0 H (12.2-14.9) Sec. INR 1.02 1.12 (0.87-1.13) APTT 27.6 27.3 (24.2-36.6) Sec. CBC 11/22/16 11/23/16 Range/Units 12:29 00:09 WBC 17.2 H 16.7 H (4.5-11.0) K/mm3 RBC 5.79 H 5.63 H (3.65-5.03) M/mm3 Hgb 17.3 H 17.3 H (11.8-15.2) gm/dl Hct 54.2 H 52.5 H (35.5-45.6) % Plt Count 194 190 (140-440) K/mm3 Lymph # 1.1 L 1.0 L (1.2-5.4) K/mm3 [place] # 1.3 H 0.6 (0.0-0.8) K/mm3 Eos # 0.0 0.0 (0.0-0.4) K/mm3 Baso # 0.1 0.1 (0.0-0.1) K/mm3 Comprehensive Metabolic Panel 11/22/16 Range/Units 12:37 Sodium 137 (137-145) mmol/L Potassium 5.1 H (3.6-5.0) mmol/L Chloride 99.3 (98-107) mmol/L Carbon Dioxide 25 (22-30) mmol/L BUN 18 (9-20) mg/dL Creatinine 1.0 (0.8-1.5) mg/dL Glucose 191 H (75-100) mg/dL Calcium 9.5 (8.4-10.2) mg/dL - Imaging and Cardiology Echo: report reviewed Cardiac cath: report reviewed EKG: pending Assessment and Plan Assessment: PAD / RLE embolus - s/p EKOS; Await vascular recommendations for further eval/ management. Atrial fibrillation with RVR --> now with CVR NICMP - normal coronaries on LHC 10/2015; EF 25-30% on echo 10/2016. KASANDRA HTN Leukocytosis - on prednisone per vascular specialist. Hyperkalemia H/o nephrolithiasis / hematura Tobacco use - cessation encouraged Obesity Noncompliance Plan: Obtain 12-lead EKG. Pt with CHADS score 2 and thus systemic anticoagulation in regards to AFib is recommend. Pt reports that is is agreeable to anticoaguation at this time. Will await vascular recommendations and readdress systemic AC prior to discharge. Continue PO digoxin. Cont home losartan and PO lasix. Initiate lopressor, 25mg PO BID. Hold for HR <60 and/or SBP <100. Repeat BMP in AM. Obtain thyroid panel in AM. Assessment and plan reviewed with pt at bedside. The patient has been seen in conjunction with Dr. NATASHA Valenzuela who agrees with the assessment and plan of care.
[2016-11-23] MEDS: COZAAR PO SCH (09:22)
[2016-11-23] MEDS: DELTASONE PO SCH (09:23)
[2016-11-23] MEDS ORDERED: PROTONIX PO SCH (10:00)
[2016-11-23] MEDS ORDERED: LOPRESSOR PO SCH (11:00)
[2016-11-23] MEDS ORDERED: ELIQUIS PO SCH (12:00)
[2016-11-23 13:04] VITALS: BP 140/95
--- NOTE | 2016-11-23 13:21 | Progress Note ---
Assessment and Plan - Patient Problems (1) Digital arterial occlusive disease Status: Acute Plan to address problem: - s/p vascular surgery intervention - clinically improved - will defer (2) Atrial fibrillation with RVR Status: Acute Plan to address problem: - seen by cardiology - rate control meds resumed (Digoxin; metoprolol) - on eliquis - better compliance counselled (3) Congestive heart failure Status: Acute Qualifiers: Congestive heart failure type: C Congestive heart failure chronicity: C Plan to address problem: - clinically stable - per cardiology Subjective Date of service: 11/23/16 Principal diagnosis: KASANDRA; CHF; Right foot ischemic rest pain Interval history: Seen and examined at bedside; 24 hour events reviewed; nursing and respiratory care staff consulted; no adverse overnight events reported to me; resting in bed ; denies acute chest pains or increased SOB; refused CPAP therapy overnight; seen by cardiology and anticoagulation recommended Objective Vital Signs - 12hr 11/23/16 11/23/16 11/23/16 01:30 01:46 02:00 Temperature Pulse Rate 86 91 H 68 Pulse Rate [ Left From Monitor] Respiratory 12 13 12 Rate Blood Pressure 137/84 112/68 113/71 O2 Sat by Pulse 88 85 90 Oximetry 11/23/16 11/23/16 11/23/16 02:16 02:30 02:45 Temperature Pulse Rate 55 L 73 72 Pulse Rate [ Left From Monitor] Respiratory 14 11 L 15 Rate Blood Pressure 117/63 114/72 112/69 O2 Sat by Pulse 84 94 89 Oximetry 11/23/16 11/23/16 11/23/16 03:00 03:15 03:30 Temperature Pulse Rate 71 58 L 72 Pulse Rate [ Left From Monitor] Respiratory 14 17 12 Rate Blood Pressure 102/70 94/51 116/78 O2 Sat by Pulse 91 89 Oximetry 11/23/16 11/23/16 11/23/16 03:46 04:00 04:16 Temperature 98.6 F Pulse Rate 76 73 58 L Pulse Rate [ Left From Monitor] Respiratory 15 13 13 Rate Blood Pressure 114/72 125/83 127/74 O2 Sat by Pulse 91 92 Oximetry 11/23/16 11/23/16 11/23/16 04:30 04:45 05:00 Temperature Pulse Rate 76 54 L 68 Pulse Rate [ Left From Monitor] Respiratory 19 15 14 Rate Blood Pressure 124/91 122/84 130/85 O2 Sat by Pulse 91 92 94 Oximetry 11/23/16 11/23/16 11/23/16 05:15 05:30 05:45 Temperature Pulse Rate 71 64 71 Pulse Rate [ Left From Monitor] Respiratory 18 14 11 L Rate Blood Pressure 122/82 126/88 128/82 O2 Sat by Pulse 93 91 95 Oximetry 11/23/16 11/23/16 11/23/16 06:00 06:15 06:30 Temperature Pulse Rate 63 71 65 Pulse Rate [ Left From Monitor] Respiratory 20 16 19 Rate Blood Pressure 125/84 121/82 154/107 O2 Sat by Pulse 94 93 95 Oximetry 11/23/16 11/23/16 11/23/16 06:46 07:00 07:16 Temperature Pulse Rate 58 L 69 72 Pulse Rate [ Left From Monitor] Respiratory 19 16 12 Rate Blood Pressure 129/72 119/62 131/86 O2 Sat by Pulse 88 82 L 94 Oximetry 11/23/16 11/23/16 11/23/16 07:30 07:46 08:00 Temperature 97.9 F Pulse Rate 71 78 74 Pulse Rate [ 92 H Left From Monitor] Respiratory 20 17 12 Rate Blood Pressure 139/85 127/79 133/87 O2 Sat by Pulse 91 92 Oximetry 11/23/16 11/23/16 11/23/16 08:15 08:30 08:46 Temperature Pulse Rate 74 75 92 H Pulse Rate [ Left From Monitor] Respiratory 11 L 13 17 Rate Blood Pressure 146/102 135/92 136/99 O2 Sat by Pulse 91 93 91 Oximetry 11/23/16 11/23/16 11/23/16 09:00 09:15 09:22 Temperature Pulse Rate 81 87 93 H Pulse Rate [ Left From Monitor] Respiratory 17 13 Rate Blood Pressure 135/92 114/75 125/84 O2 Sat by Pulse 90 94 Oximetry 11/23/16 11/23/16 11/23/16 09:30 09:45 10:00 Temperature Pulse Rate 76 84 95 H Pulse Rate [ 95 H Left From Monitor] Respiratory 14 18 18 Rate Blood Pressure 125/77 135/78 134/75 O2 Sat by Pulse 94 92 99 Oximetry 11/23/16 11/23/16 11/23/16 10:16 10:30 10:46 Temperature Pulse Rate 89 81 77 Pulse Rate [ Left From Monitor] Respiratory 15 10 L 20 Rate Blood Pressure 134/75 116/67 120/72 O2 Sat by Pulse 95 95 92 Oximetry 11/23/16 11/23/16 11/23/16 11:00 11:16 11:30 Temperature Pulse Rate 93 H 78 87 Pulse Rate [ Left From Monitor] Respiratory 18 21 17 Rate Blood Pressure 120/72 138/100 140/102 O2 Sat by Pulse 97 93 Oximetry 11/23/16 11/23/16 11/23/16 11:46 12:00 12:16 Temperature 97.6 F Pulse Rate 102 H 108 H 117 H Pulse Rate [ 95 H Left From Monitor] Respiratory 22 21 21 Rate Blood Pressure 121/96 121/96 140/95 O2 Sat by Pulse 90 92 91 Oximetry Constitutional: no acute distress, alert Eyes: non-icteric ENT: oropharynx moist Neck: supple, no lymphadenopathy Effort: normal Ascultation: Bilateral: clear Cardiovascular: irregular rhythm Gastrointestinal: normoactive bowel sounds, soft, non-tender, non-distended Integumentary: normal Extremities: no cyanosis, no edema, pulses normal, other (s/p EkOS for right foot digital ischemia) Neurologic: normal mental status, non-focal exam, pupils equal and round, motor strength normal and Psychiatric: mood appropriate, affect normal CBC and BMP: 11/23/16 00:09 11/22/16 12:37 ABG, PT/INR, D-dimer: ABG POC ABG pH 7.366 (7.35-7.45) 11/23/16 00:25 POC ABG pCO2 46.3 (35-45) H 11/23/16 00:25 POC ABG pO2 81 (80-105) 11/23/16 00:25 POC ABG HCO3 26.5 11/23/16 00:25 POC ABG Total CO2 28 11/23/16 00:25 POC ABG O2 Sat 95 11/23/16 00:25 PT/INR, D-dimer PT 15.0 Sec. (12.2-14.9) H 11/22/16 23:10 INR 1.12 (0.87-1.13) 11/22/16 23:10 Abnormal lab findings: Abnormal Labs 11/21/16 11/21/16 11/21/16 12:55 16:30 21:56 WBC 20.1 H RBC 5.55 H Hgb 16.8 H Hct 51.9 H RDW 15.9 H Lymph % (Auto) 6.0 L [place] % (Auto) Lymph # [place] # 1.5 H Seg Neutrophils % 86.3 H Seg Neutrophils # 17.3 H PT 15.6 H INR 1.18 H APTT 171.4 H* POC ABG pCO2 Sodium Potassium BUN 23 H Glucose 11/21/16 11/22/16 11/22/16 22:00 04:21 12:29 WBC 17.9 H 17.2 H RBC 5.53 H 5.79 H Hgb 16.6 H 17.3 H Hct 51.7 H 54.2 H RDW 16.0 H 15.6 H Lymph % (Auto) 7.6 L 6.6 L [place] % (Auto) 9.6 H 7.6 H Lymph # 1.1 L [place] # 1.7 H 1.3 H Seg Neutrophils % 82.7 H 85.2 H Seg Neutrophils # 14.8 H 14.7 H PT INR APTT POC ABG pCO2 Sodium 134 L Potassium 5.2 H BUN 21 H Glucose 259 H 11/22/16 11/22/16 11/23/16 12:37 23:10 00:09 WBC 16.7 H RBC 5.63 H Hgb 17.3 H Hct 52.5 H RDW 15.6 H Lymph % (Auto) 6.1 L [place] % (Auto) Lymph # 1.0 L [place] # Seg Neutrophils % 90.0 H Seg Neutrophils # 15.0 H PT 15.0 H INR APTT POC ABG pCO2 Sodium Potassium 5.1 H BUN Glucose 191 H 11/23/16 00:25 WBC RBC Hgb Hct RDW Lymph % (Auto) [place] % (Auto) Lymph # [place] # Seg Neutrophils % Seg Neutrophils # PT INR APTT POC ABG pCO2 46.3 H Sodium Potassium BUN Glucose
--- NOTE | 2016-11-23 17:58 | Consultation ---
History of Present Illness - Reason for Consult Consult date: 11/23/16 Requesting physician: NATASHA MARAVILLA - History of Present Illness This patient is a 36-year-old -[place] male that was admitted on 2016 due to right lower extremity ischemia. He has a history of atrial fibrillation. Unfortunately, anticoagulation had to be held due to hematuria. He was advised to follow with urology (due to kidney stones), but has not done so thus far. He developed right lower extremity discomfort approximately 5-6 weeks ago. He was evaluated by Dr Maravilla as an outpatient, and set up for angiography. This revealed evidence of distal mobilization involving the right anterior tibial, peroneal, and posterior tibial arteries. Mechanical thrombectomy was attempted, without significant improvement. Thrombolysis was performed overnight utilizing an EKOS catheter. Postoperatively the patient continued to have a cool pale right foot with distal discomfort. A Vascular surgery consult is requested to further evaluate. Past History Past Medical History: atrial fib, COPD, heart failure (with a reported ejection fraction of approximately 25%), hypertension, other (renal stones; sleep apnea) Past Surgical History: Other (coronary stent) Social history: lives with family, smoking (1 pack of cigarettes per day) Family history: diabetes Medications and Allergies Allergies Allergy/AdvReac Type Severity Reaction Status Date / Time ibuprofen [From Motrin] Allergy Swelling Verified 03/29/16 13:24 lisinopril Allergy COUGH Verified 03/29/16 13:24 metoprolol Allergy Nausea Verified 03/29/16 13:24 Iodinated Contrast Media - AdvReac KIDNEYS Verified 03/29/16 13:24 IV Dye SHUT DOWN Home Medications Medication Instructions Recorded Confirmed Last Taken Type Digoxin [Lanoxin] 0.25 mg PO DAILY@1700 #30 tablet 06/01/14 11/21/16 11/20/16 Rx Aspirin [Aspirin TAB] 325 mg PO QDAY 11/21/16 11/21/16 11/20/16 History Furosemide [Lasix TAB] 40 mg PO QDAY 11/21/16 11/21/16 11/20/16 History Losartan [Cozaar] 50 mg PO QDAY 11/21/16 11/21/16 11/20/16 History Review of Systems All systems: negative Exam - Constitutional Vitals: Temp Pulse Resp BP Pulse Ox 97.6 F 117 H 21 140/95 91 11/23/16 12:00 11/23/16 12:16 11/23/16 12:16 11/23/16 12:16 11/23/16 12:16 General appearance: Present: no acute distress - EENT Eyes: Present: EOM intact ENT: hearing intact - Neck Neck: Present: supple - Respiratory Respiratory effort: normal - Extremities Extremity abnormal: pulses diminished (nonpalpable pedal pulses on the right, palpable dorsalis pedis pulse on the left), other (patient's right foot is mildly pale and cool from his ankle to his toes. His skin appears viable without noticeable skin lesions) - Psychiatric Psychiatric: appropriate mood/affect, intact judgment & insight, cooperative - Neurologic Neurologic: no focal deficits (motor and sensory function to the right foot appeared to be intact), moves all extremities Results - Labs CBC & Chem 7: 11/23/16 00:09 11/22/16 12:37 Labs: Abnormal lab results 11/22/16 11/23/16 11/23/16 Range/Units 23:10 00:09 00:25 WBC 16.7 H (4.5-11.0) K/mm3 RBC 5.63 H (3.65-5.03) M/mm3 Hgb 17.3 H (11.8-15.2) gm/dl Hct 52.5 H (35.5-45.6) % RDW 15.6 H (13.2-15.2) % Lymph % (Auto) 6.1 L (13.4-35.0) % Lymph # 1.0 L (1.2-5.4) K/mm3 Seg Neutrophils % 90.0 H (40.0-70.0) % Seg Neutrophils # 15.0 H (1.8-7.7) K/mm3 PT 15.0 H (12.2-14.9) Sec. POC ABG pCO2 46.3 H (35-45) Assessment and Plan This patient has a history of atrial fibrillation. Anticoagulation had to be held due to hematuria. He developed right lower extremity pain approximate 5-6 weeks ago. Angiography was performed which revealed embolic disease to the tibial vessels. Mechanical thrombectomy and thrombolysis were attempted, but unsuccessful in restoring named blood vessels to his foot. He has multiple small collaterals. A vascular surgery consult was requested to evaluate for surgical options. Percutaneous intervention has been attempted. Unfortunately , bypass is unlikely to be successful as he does not have a target vessel. If a bypass were attempted and unsuccessful, it would likely necessitate amputation. Indications for amputation were discussed with the patient: Ascending infection , uncontrollable pain, or gangrene/uncontrolled wounds. At this point the patient does have [id number] discomfort (and he seems to tolerate). Although, his foot is presently viable. He has retained motor and sensory function at this point. He likely has decreased ability to heal distal wounds. We stressed he should avoid wounds and provide good foot care as this could escalate quickly and necessitate amputation. We stressed to the patient he should stop smoking immediately, as this likely increases the risk of amputation. He should follow up in our office in 1-2 weeks. If his condition deteriorates he can contact our office to be seen sooner if needed. - Patient Problems (1) Ischemia of right lower extremity Status: Acute (2) Afib Status: Chronic Qualifiers: Atrial fibrillation type: A (3) Tobacco abuse Status: Acute (4) History of noncompliance with medical treatment Status: Acute (5) Cardiomyopathy Status: Chronic Qualifiers: Cardiomyopathy type: C (6) COPD (chronic obstructive pulmonary disease) Status: Acute Qualifiers: COPD type: C Chronic bronchitis type: C Emphysema type: E (7) Obstructive sleep apnea Status: Acute
[2016-11-23] MEDS ORDERED: LOVENOX SUB-Q SCH (22:00)
--- NOTE | 2016-11-24 08:08 | Discharge Summary ---
Providers - Providers Date of Admission: 11/21/16 16:45 Date of discharge: 11/23/16 Attending physician: NATASHA MARAVILLA 11/22/16 22:17 Consult to Physician [CONS] Urgent Consulting Provider: NATASHA MARAVILLA Reason For Exam: [facility] consult to:: ethan Notified:: yes Was contact made?: Yes If yes, spoke with:: ethan 11/22/16 22:26 Consult to Physician [CONS] Urgent Consulting Provider: BERLIN LONG Reason For Exam: admit to ICU Place consult to:: [facility] Notified:: yes Was contact made?: Yes If yes, spoke with:: Dr long Time called:: 21:00 11/22/16 22:36 Consult to Physician [CONS] Urgent Consulting Provider: ESTEPHANIA GARZA Reason For Exam: Atrial fibrilation Notified:: no 11/23/16 12:59 Consult to Physician [CONS] Routine Consulting Provider: INEZ KIM Reason For Exam: Right foot ischemia Place consult to:: Inez Kim Notified:: yes Phone number called:: [phone] Was contact made?: Yes If yes, spoke with:: Inez Kim Time called:: 13:30 Primary care physician: SHLOMO HUITRON Hospitalization Reason for admission: Right foot rest pain Condition: Fair Pertinent studies: Right lower extremity arteriogram Procedures: Right lower extremity angiography Right lower extremity thrombectomy and thrombolysis and angioplasty Hospital course: Stable without complication Disposition: DC-01 TO HOME OR SELFCARE - Discharge Diagnoses (1) Atherosclerotic peripheral vascular disease with rest pain Status: Acute Core Measure Documentation - Palliative Care Palliative Care/ Comfort Measures: Not Applicable - Core Measures Any of the following diagnoses?: heart failure, none - VTE Discharge Requirements Deep Vein Thrombosis/Pulmonary Embolism Present on Admission: No - Acute VT Discharge Requirements Aspirin at discharge: Yes - Heart Failure Discharge Requirements WILLIE/ARB for LVSD if EF <40%: Yes Beta paco at discharge: Yes - Stroke Discharge Requirements Statin for LDL = or >70 mg/dl on DC: No Exam - Constitutional Vitals: Temp Pulse Resp BP Pulse Ox 97.6 F 117 H 21 140/95 91 11/23/16 12:00 11/23/16 12:16 11/23/16 12:16 11/23/16 12:16 11/23/16 12:16 General appearance: Present: mild distress - EENT Eyes: Present: PERRL ENT: hearing intact - Neck Neck: Present: supple - Respiratory Respiratory effort: normal - Cardiovascular Rhythm: irregularly irregular - Extremities Extremity abnormal: pulses diminished (Non palpable on the right. Foot is cool. No ulcerations or evidence for gangrene) Plan Activity: advance as tolerated Weight Bearing Status: Full Weight Bearing Diet: regular Special Instructions: smoking cessation, other (Need careful foot care and avoid any cuts or wounds. ) Follow up with: SHLOMO HUITRON MD [Primary Care Provider] - 7 Days NATASHA MARAVILLA MD [Staff Physician] - 7 Days
--- NOTE | 2016-11-25 09:47 | Operative Report ---
Operative Report Operative Report: Procedure: Right lower extremity arteriogram Right lower extremity thrombectomy Right lower extremity thrombolysis Right anterior tibial artery angioplasty Indication: Right foot ischemic rest pain Physician: Bryant Anesthesia: Provided by anesthesia service Contrast: 125 cc visipaque Procedure: Following informed and written consent the patient was taken to the angiographic suite and the left groin was prepped and draped in the usual sterile fashion. Lidocaine was used for local anesthetic and using ultrasound guidance the left common femoral artery and a micropuncture access set utilized and then the dilator exchanged for a 5 Fr vascular sheath. A rim catheter was utilized the cross over the bifurcation with the aid of a glide wire and this was exchanged for a 5 fr vertebral catheter which was advanced into the popliteal artery. Selective DSA runs were made to the foot. A 6 Fr cross over sheath was inserted. A v-18 guidewire was then advanced into the anterior tibial artery and a rubicon catheter along with the guidewire advanced into the distal AT. Selective injection was performed here as well. 4 mg of tPA was pulse sprayed into the AT. 200 mcg of nitroglycerin IA was also given (wtih a total of 800 mcq given throughout the procedure). Also 5000 units of heparin was given IV. The catheter was exchanged for a CAT-3 penumbra thrombectomy catheter and multiple passes with the catheter and separator was performed using vacuum assisted suction. Contrast was injected which demonstrated overall mild improvement. At this point another 4mg of tPA IA was given and an additional 1000 units of heparin intravenously. The anterior tibial artery was dilated witha 2 x 125 mm balloon from distal to mid level. This did not resolve the occlusion. Another pass with the CAT-3 was performed. The AT remained thombosed. AT this point an EKOS catheter was advanced into the anterior tibial artery and overnight infusion was established with the catheter and sheath secured to the left groin with a 3-0 ethilon suture and tegaderm. Infusion rate was set a 1mg per hour with standard EKOS protocol. The patient was transferred to the ICU for observation and re-evaluated tomorrow. Findings: Thee is evidence for subacute to chronic thrombus resulting in occlusion of the right mid anterior tibial artery and distal peroneal and posterior tibial arteries. The popliteal artery is widely patent. The remainder of the right lower extremity was unremarkable from previous recent arteriogram. There is extensive collateral flow from the peroneal resulting in reconstitution of collaterals to the dorsal foot. There is no visible distal AT or DP. The peroneal and posterior tibial arteries supply collateral flow to the plantar arch. Following thrombectomy, thrombolysis and angioplasty there was mild improvement. Impression: 1. Occlusion of right mid AT, distal peroneal and distal PT. 2. This is consistent with subacute to chronic thrombus likely from embolus 5-6 weeks ago. 3. Minimal improvement following intervention 4. Patient will placed on overnight infusion of thrombolytic and evaluated tomorrow
== END 2016-11-23 15:30 | disposition home or self-care (01) | DRG 271 ==
LOC: OPU 11:20 → CC1 16:45
PROVIDERS: ADMIT Radiology Vascular & Interventional Radiology; ATTEND Radiology Vascular & Interventional Radiology
PROC: 04CY3ZZ Extirpation of Matter from Lower Artery, Percutaneous Approach (ICD-10-PCS; principal; 2016-11-23)
PROC: 047P3ZZ Dilation of Right Anterior Tibial Artery, Percutaneous Approach (ICD-10-PCS; 2016-11-23)
PROC: 3E05317 Introduction of Other Thrombolytic into Peripheral Artery, Percutaneous Approach (ICD-10-PCS; 2016-11-23)
PROC: B41F1ZZ Fluoroscopy of Right Lower Extremity Arteries using Low Osmolar Contrast (ICD-10-PCS; 2016-11-23)
DX: I70.229 Atherosclerosis of native arteries of extremities with rest pain, unspecified extremity (principal); I42.9 Cardiomyopathy, unspecified; I74.3 Embolism and thrombosis of arteries of the lower extremities; Z68.41 Body mass index [BMI] 40.0-44.9, adult; F17.200 Nicotine dependence, unspecified, uncomplicated; I48.91 Unspecified atrial fibrillation; I50.9 Heart failure, unspecified; I11.0 Hypertensive heart disease with heart failure; I25.10 Atherosclerotic heart disease of native coronary artery without angina pectoris; I99.8 Other disorder of circulatory system; E66.9 Obesity, unspecified; E87.5 Hyperkalemia; G47.33 Obstructive sleep apnea (adult) (pediatric); Z83.3 Family history of diabetes mellitus; Z95.5 Presence of coronary angioplasty implant and graft; Z88.8 Allergy status to other drugs, medicaments and biological substances; Z91.041 Radiographic dye allergy status; Z91.19 Patient's noncompliance with other medical treatment and regimen
CPT/HCPCS: 36415; 36600; 37184; 37211; 37214; 37228; 75710; 76937; 80048; 82565; 82803; 83735; 84520; 85025; 85384; 85610; 85730; 93005; 93010; 96365; 96366; 96367; 96374; 96375; C1725; C1757; C1769; C1887; C1894; J0690; J1160; J1170; J1200; J1644; J2250; J2270; J2405; J2704; J2930; J2997; J3010; J3246; J7030; J7040; J7512; Q9967

== ENCOUNTER 2017-03-20 10:43 | Outpatient (CLI) | payer MEDICARE ==
--- NOTE | 2017-03-20 14:37 | Fluoroscopy Report ---
MODIFIED BARIUM SWALLOW History: dysphagia. Findings: Video radiography was provided by the radiologist for speech therapy to assess the swallowing mechanism. Please refer to the formal report by speech therapy. Impression: Successful modified barium swallow.
== END 2017-03-20 10:44 | disposition home or self-care (01) ==
LOC: PT 10:43
PROVIDERS: ATTEND Psychiatry & Neurology Neurology
DX: I69.952 Hemiplegia and hemiparesis following unspecified cerebrovascular disease affecting left dominant side (principal)
CPT/HCPCS: 74230; 92611; G8996; G8997; G8998

== ENCOUNTER 2019-07-24 04:22 | Emergency (ER) | payer MEDICARE ==
[2019-07-24] MEDS ORDERED: ACETAMINOPHEN 500 MG TAB PO ONE (04:39)
[2019-07-24] MEDS ORDERED: cloNIDine 0.2 MG TAB PO ONE (04:46)
--- NOTE | 2019-07-24 04:46 | Emergency Department Report ---
ED General Adult HPI - General Chief complaint: Dental/Oral Stated complaint: TOOTHACHE Time Seen by Provider: 07/24/19 04:39 Source: patient Mode of arrival: Ambulatory Limitations: No Limitations - History of Present Illness Initial comments: 38 y.o. male with PMHx of cardiomyopathy, CHF, COPD and CVA presents with complaint of dental pain. Patient complains of right upper molar pain. Patient states his tooth broke 2 months ago but states that today after eating a meal that the pain worsened for the past 12 hours and Tylenol was not controlling. Patient denies any sore throat. Patient denies any facial swelling. Patient denies any chest pain or shortness of breath. - Related Data Home Medications Medication Instructions Recorded Confirmed Last Taken Aspirin 325 mg PO QDAY 11/21/16 11/21/16 11/20/16 Furosemide [Lasix TAB] 40 mg PO QDAY 11/21/16 11/21/16 11/20/16 Losartan [Cozaar] 50 mg PO QDAY 11/21/16 11/21/16 11/20/16 Previous Rx's Medication Instructions Recorded Last Taken Type Digoxin [Lanoxin] 0.25 mg PO DAILY@1700 #30 tablet 06/01/14 11/20/16 Rx HYDROcodone/APAP 5-325 [Glennie 1 each PO Q6HR PRN #20 tablet 07/24/19 Unknown Rx 5/325] Penicillin Vk [Veetids TAB] 500 mg PO QID #21 tablet 07/24/19 Unknown Rx Allergies Allergy/AdvReac Type Severity Reaction Status Date / Time ibuprofen [From Motrin] Allergy Swelling Verified 03/29/16 13:24 lisinopril Allergy COUGH Verified 03/29/16 13:24 metoprolol Allergy Nausea Verified 03/29/16 13:24 Iodinated Contrast Media AdvReac KIDNEYS Verified 03/29/16 13:24 [Iodinated Contrast Media - SHUT DOWN IV Dye] ED Review of Systems ROS: Stated complaint: TOOTHACHE Other details as noted in HPI Constitutional: denies: chills, fever Eyes: denies: eye pain, eye discharge, vision change ENT: dental pain Respiratory: denies: cough, shortness of breath, wheezing Cardiovascular: denies: chest pain, palpitations Endocrine: no symptoms reported Gastrointestinal: denies: abdominal pain, nausea, diarrhea Genitourinary: denies: urgency, dysuria Musculoskeletal: denies: back pain, joint swelling, arthralgia Skin: denies: rash, lesions Neurological: denies: headache, weakness, paresthesias Psychiatric: denies: anxiety, depression Hematological/Lymphatic: denies: easy bleeding, easy bruising ED Past Medical Hx - Past Medical History Previous Medical History?: Yes Hx Hypertension: Yes Hx CVA: Yes Hx Heart Attack/AMI: Yes (Echo in 04/2013, EF-20-25%, [place] 2015) Hx Congestive Heart Failure: Yes Hx Diabetes: No Hx Renal Disease: Yes Hx Seizures: No Hx Kidney Stones: Yes Hx Asthma: Yes Hx COPD: Yes Additional medical history: a fib. , Cardiomyopathy 20% ejection fraction, atrial clot - Surgical History Past Surgical History?: Yes Hx Coronary Stent: Yes (10/2016) - Social History Smoking Status: Current Every Day Smoker Substance Use Type: None - Medications Home Medications: Home Medications Medication Instructions Recorded Confirmed Last Taken Type Digoxin [Lanoxin] 0.25 mg PO DAILY@1700 #30 tablet 06/01/14 11/21/16 11/20/16 Rx Aspirin 325 mg PO QDAY 11/21/16 11/21/16 11/20/16 History Furosemide [Lasix TAB] 40 mg PO QDAY 11/21/16 11/21/16 11/20/16 History Losartan [Cozaar] 50 mg PO QDAY 11/21/16 11/21/16 11/20/16 History HYDROcodone/APAP 5-325 [Glennie 1 each PO Q6HR PRN #20 tablet 07/24/19 Unknown Rx 5/325] Penicillin Vk [Veetids TAB] 500 mg PO QID #21 tablet 07/24/19 Unknown Rx ED Physical Exam - General Limitations: No Limitations General appearance: alert, other (uncomfortable) - Head Head exam: Present: atraumatic, normocephalic - Eye Eye exam: Present: normal appearance - ENT ENT exam: Present: mucous membranes moist, other (pain and dental fracture noted at tooth #4 with no surrounding erythema or exudate) - Neck Neck exam: Present: normal inspection - Respiratory Respiratory exam: Present: normal lung sounds bilaterally. Absent: respiratory distress - Cardiovascular Cardiovascular Exam: Present: regular rate, normal rhythm. Absent: systolic murmur, diastolic murmur, rubs, gallop - GI/Abdominal GI/Abdominal exam: Present: soft, normal bowel sounds - Rectal Rectal exam: Present: deferred - Extremities Exam Extremities exam: Present: normal inspection - Back Exam Back exam: Present: normal inspection - Neurological Exam Neurological exam: Present: alert, oriented X3 - Psychiatric Psychiatric exam: Present: normal affect, normal mood - Skin Skin exam: Present: warm, dry, intact, normal color. Absent: rash ED Course Vital Signs 07/24/19 07/24/19 07/24/19 04:26 04:58 05:10 Temperature 98.5 F Pulse Rate 95 H 85 Respiratory 18 18 Rate Blood Pressure 183/119 178/107 O2 Sat by Pulse 95 98 Oximetry ED Medical Decision Making - Medical Decision Making Patient received tylenol while in the emergency department. Patient also received clonidine therapy for his blood pressure while in emergency department. Patient be discharged to follow-up with oral surgery as an outpatient will be given Glennie and penicillin therapy as an outpatient. - Differential Diagnosis Dental Fracture; Dentalgia Critical care attestation.: If time is entered above; I have spent that time in minutes in the direct care of this critically ill patient, excluding procedure time. ED Disposition Clinical Impression: Pain, dental Disposition: - TO HOME OR SELFCARE Is pt being admited?: No Condition: Stable Instructions: Dental Caries (ED) Prescriptions: HYDROcodone/APAP 5-325 [Glennie 5/325] 1 each PO Q6HR PRN #20 tablet PRN Reason: Pain Penicillin Vk [Veetids TAB] 500 mg PO QID #21 tablet Referrals: MIRELA PERSAUD DDS [Staff Physician] - 3-5 Days Time of Disposition: 05:22 Print Language: TAMAZIGHT
[2019-07-24 06:13] VITALS: BP 146/97
== END 2019-07-24 05:30 | disposition home or self-care (01) ==
LOC: ED 04:22
DX: K08.89 Other specified disorders of teeth and supporting structures (principal); I11.0 Hypertensive heart disease with heart failure; I50.9 Heart failure, unspecified; J44.9 Chronic obstructive pulmonary disease, unspecified; I25.2 Old myocardial infarction; I48.91 Unspecified atrial fibrillation; F17.200 Nicotine dependence, unspecified, uncomplicated; Z87.442 Personal history of urinary calculi; Z91.041 Radiographic dye allergy status; Z86.73 Personal history of transient ischemic attack (TIA), and cerebral infarction without residual deficits; Z88.6 Allergy status to analgesic agent; Z88.8 Allergy status to other drugs, medicaments and biological substances; Z95.5 Presence of coronary angioplasty implant and graft; Z79.899 Other long term (current) drug therapy
CPT/HCPCS: 99282

== ENCOUNTER 2019-10-22 01:44 | Emergency (ER) | payer MEDICARE ==
--- NOTE | 2019-10-22 05:23 | Emergency Department Report ---
ED Extremity Problem HPI - General Chief complaint: Extremity Problem,Nontraumatic Stated complaint: LEFT FOOT SWOLLEN Source: patient Mode of arrival: Ambulatory Limitations: No Limitations - History of Present Illness Initial comments: Mr Ochoa is a 39 y/o aam with hx of htn,DVT, and chf on eliquis po for dvt, pt left foot pain and swllelling for 5 days. pt denies sob, no wheezing, no wang , no n/v no chest pain. left leg pain described as 5/10 on ofs. MD Complaint: extremity swelling Onset/Timin -: days(s) Location: lower extremity History of Same: Yes -: Yes myalgia, Yes arthralgia Severity scale (0 -10): 4 Quality: aching Consistency: intermittent Improves with: nothing Worsens with: nothing Associated Symptoms: denies other symptoms - Related Data Home Medications Medication Instructions Recorded Confirmed Last Taken Aspirin 325 mg PO QDAY 11/21/16 11/21/16 11/20/16 Furosemide [Lasix TAB] 40 mg PO QDAY 11/21/16 11/21/16 11/20/16 Losartan [Cozaar] 50 mg PO QDAY 11/21/16 11/21/16 11/20/16 Previous Rx's Medication Instructions Recorded Last Taken Type Digoxin [Lanoxin] 0.25 mg PO DAILY@1700 #30 tablet 06/01/14 11/20/16 Rx HYDROcodone/APAP 5-325 [[place] 1 each PO Q6HR PRN #20 tablet 07/24/19 Unknown Rx 5/325] Penicillin Vk [Veetids TAB] 500 mg PO QID #21 tablet 07/24/19 Unknown Rx cephALEXin [Keflex] 500 mg PO Q8HR #30 cap 10/22/19 Unknown Rx traMADoL [Ultram] 50 mg PO Q6HR PRN #12 tablet 10/22/19 Unknown Rx Allergies Allergy/AdvReac Type Severity Reaction Status Date / Time adhesive Allergy Rash Verified 10/22/19 01:51 ibuprofen [From Motrin] Allergy Swelling Verified 03/29/16 13:24 lisinopril Allergy COUGH Verified 03/29/16 13:24 metoprolol Allergy Nausea Verified 03/29/16 13:24 amiodarone AdvReac Nausea Verified 10/22/19 01:51 Iodinated Contrast Media AdvReac KIDNEYS Verified 03/29/16 13:24 [Iodinated Contrast Media - SHUT DOWN IV Dye] ED Review of Systems ROS: Stated complaint: LEFT FOOT SWOLLEN Other details as noted in HPI Constitutional: denies: chills, fever Eyes: denies: eye pain, eye discharge, vision change ENT: denies: ear pain, throat pain Respiratory: denies: cough, orthopnea, shortness of breath, SOB with exertion, wheezing Cardiovascular: denies: chest pain, palpitations Endocrine: no symptoms reported Gastrointestinal: denies: abdominal pain, nausea, diarrhea Genitourinary: denies: urgency, dysuria Musculoskeletal: denies: back pain, joint swelling, arthralgia Skin: denies: rash, lesions Neurological: denies: headache, weakness, paresthesias Psychiatric: denies: anxiety, depression Hematological/Lymphatic: denies: easy bleeding, easy bruising ED Past Medical Hx - Past Medical History Hx Hypertension: Yes Hx CVA: Yes Hx Heart Attack/AMI: Yes (Echo in 04/2013, EF-20-25%, [place] 2015) Hx Congestive Heart Failure: Yes Hx Diabetes: No Hx Renal Disease: Yes Hx Seizures: No Hx Kidney Stones: Yes Hx Asthma: Yes Hx COPD: Yes Additional medical history: a fib. , Cardiomyopathy 20% ejection fraction, atrial clot - Surgical History Hx Coronary Stent: Yes (10/2016) Additional Surgical History: r/l lithotripsy Mar 2019 - Social History Smoking Status: Current Every Day Smoker Substance Use Type: None - Medications Home Medications: Home Medications Medication Instructions Recorded Confirmed Last Taken Type Digoxin [Lanoxin] 0.25 mg PO DAILY@1700 #30 tablet 06/01/14 11/21/16 11/20/16 Rx Aspirin 325 mg PO QDAY 11/21/16 11/21/16 11/20/16 History Furosemide [Lasix TAB] 40 mg PO QDAY 11/21/16 11/21/16 11/20/16 History Losartan [Cozaar] 50 mg PO QDAY 11/21/16 11/21/16 11/20/16 History HYDROcodone/APAP 5-325 [[place] 1 each PO Q6HR PRN #20 tablet 07/24/19 Unknown Rx 5/325] Penicillin Vk [Veetids TAB] 500 mg PO QID #21 tablet 07/24/19 Unknown Rx cephALEXin [Keflex] 500 mg PO Q8HR #30 cap 10/22/19 Unknown Rx traMADoL [Ultram] 50 mg PO Q6HR PRN #12 tablet 10/22/19 Unknown Rx ED Physical Exam - General Limitations: No Limitations General appearance: alert, in no apparent distress - Head Head exam: Present: atraumatic, normocephalic - Eye Eye exam: Present: normal appearance, PERRL, EOMI Pupils: Present: normal accommodation - ENT ENT exam: Present: normal orophraynx, mucous membranes moist, TM's normal bilaterally. Absent: normal external ear exam - Neck Neck exam: Present: normal inspection, full ROM. Absent: lymphadenopathy - Respiratory Respiratory exam: Present: normal lung sounds bilaterally. Absent: respiratory distress, wheezes, stridor, chest wall tenderness - Cardiovascular Cardiovascular Exam: Present: regular rate, normal rhythm, normal heart sounds. Absent: systolic murmur, diastolic murmur, rubs, gallop - GI/Abdominal GI/Abdominal exam: Present: soft, normal bowel sounds. Absent: distended, tenderness, bruit, hernia - Rectal Rectal exam: Present: deferred - Extremities Exam Extremities exam: Present: full ROM, tenderness, normal capillary refill, pedal edema. Absent: joint swelling, calf tenderness - Back Exam Back exam: Present: normal inspection. Absent: tenderness, CVA tenderness (R), CVA tenderness (L) - Neurological Exam Neurological exam: Present: alert, CN II-XII intact, normal gait, reflexes normal. Absent: oriented X3, motor sensory deficit - Psychiatric Psychiatric exam: Present: normal affect, normal mood - Skin Skin exam: Present: warm, dry, intact, normal color. Absent: rash ED Course Vital Signs 10/22/19 01:51 Temperature 98.6 F Pulse Rate 73 Respiratory 18 Rate Blood Pressure 158/109 O2 Sat by Pulse 94 Oximetry ED Medical Decision Making - Medical Decision Making pt decline cxr :denies sob, states not chf exacerbation. labs: pt declines labs , states he was bitten ty outdoor insect , distal pulses are intact +2, rom intact, no calf tenderness, neg homans, plan: will follow up with pcp in 1-2 days, take medications as prescribed, pt verbalized agreeemet and understanding of discharge plan . Critical care attestation.: If time is entered above; I have spent that time in minutes in the direct care of this critically ill patient, excluding procedure time. ED Disposition Clinical Impression: Left leg cellulitis Disposition: DC- TO HOME OR SELFCARE Is pt being admited?: No Does the pt Need Aspirin: No Condition: Stable Instructions: Cellulitis (ED) Prescriptions: cephALEXin [Keflex] 500 mg PO Q8HR #30 cap traMADoL [Ultram] 50 mg PO Q6HR PRN #12 tablet PRN Reason: Pain Referrals: PRIMARY CARE,MD [Primary Care Provider] - 3-5 Days Forms: Work/School Release Form(ED) Time of Disposition: 05:52
[2019-10-22 05:33] LABS: Hematocrit 54.6 % (35.5-45.6); Hemoglobin 18.1 gm/dl (11.8-15.2); Mean Corpuscular HGB Conc 33 % (32-34); Mean Corpuscular Volume 95 fl (84-94); Platelet Count 228 K/mm3 (140-440); Red Blood Count 5.76 M/mm3 (3.65-5.03); Red Cell Distribution Width 14.2 % (13.2-15.2)
[2019-10-22 05:59] LABS: Alanine Aminotransferase 22 units/L (7-56); BUN/Creatinine Ratio 18; Blood Urea Nitrogen 18 mg/dL (9-20); Calcium 9.7 mg/dL (8.4-10.2); Hemolysis Index 30
[2019-10-22 06:31] VITALS: BP 149/97
== END 2019-10-22 06:33 | disposition home or self-care (01) ==
LOC: ED 01:44
DX: L03.116 Cellulitis of left lower limb (principal); I11.0 Hypertensive heart disease with heart failure; I50.9 Heart failure, unspecified; J44.9 Chronic obstructive pulmonary disease, unspecified; I48.91 Unspecified atrial fibrillation; F17.200 Nicotine dependence, unspecified, uncomplicated; Z87.442 Personal history of urinary calculi; Z79.899 Other long term (current) drug therapy; Z88.8 Allergy status to other drugs, medicaments and biological substances; Z88.6 Allergy status to analgesic agent; Z86.73 Personal history of transient ischemic attack (TIA), and cerebral infarction without residual deficits; Z98.890 Other specified postprocedural states
CPT/HCPCS: 36415; 80053; 83880; 85027; 99283

== ENCOUNTER 2021-12-19 11:34 | Inpatient (IN) | payer MEDICARE ==
[2021-12-19] MEDS ORDERED: SODIUM CHLORIDE 0.9% 1000 ML 2,000 ML IV ONE (12:26)
[2021-12-19] MEDS ORDERED: GLUCAGON (HUMAN RECOMBINANT) 1 MG/ML INJ IM ONE (12:31)
--- NOTE | 2021-12-19 13:03 | Emergency Department Report ---
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 Patient came to the ER today because of generalized weakness and also hypoglycemia Patient has also unable to urinate for the past 2 days. According to patient he has a CVA back in 2020 which resulted in complete left-sided weakness and patient is bed ridden. At the time my evaluation patient denies any discomfort. Patient denies fever shortness with dizziness blurred vision lightheadedness headache tinnitus ear pain runny nose sore throat loss of taste or smell chest pain palpitation short breath cough abdominal pain nausea vomiting diarrhea constipation joint pain muscle pain new rash and heat or cold intolerance - Related Data Home Medications Medication Instructions Recorded Confirmed Last Taken Aspirin 325 mg PO QDAY 11/21/16 11/21/16 11/20/16 Furosemide [Lasix TAB] 40 mg PO QDAY 11/21/16 11/21/16 11/20/16 Losartan [Cozaar] 50 mg PO QDAY 11/21/16 11/21/16 11/20/16 Previous Rx's Medication Instructions Recorded Last Taken Type Digoxin [Lanoxin] 0.25 mg PO DAILY@1700 #30 tablet 06/01/14 11/20/16 Rx HYDROcodone/APAP 5-325 [[place] 1 each PO Q6HR PRN #20 tablet 07/24/19 Unknown Rx 5/325] Penicillin Vk [Veetids TAB] 500 mg PO QID #21 tablet 07/24/19 Unknown Rx Acetaminophen [Acetaminophen TAB] 1,000 mg PO Q6HR #30 tablet 10/22/19 Unknown Rx cephALEXin [Keflex] 500 mg PO Q8HR #30 cap 10/22/19 Unknown Rx Allergies Allergy/AdvReac Type Severity Reaction Status Date / Time adhesive Allergy Rash Verified 12/19/21 14:07 ibuprofen [From Motrin] Allergy Swelling Verified 12/19/21 14:07 lisinopril Allergy COUGH Verified 12/19/21 14:07 metoprolol Allergy Nausea Verified 12/19/21 14:07 amiodarone AdvReac Nausea Verified 12/19/21 14:07 Iodinated Contrast Media AdvReac KIDNEYS Verified 12/19/21 14:07 [Iodinated Contrast Media - SHUT DOWN IV Dye] ED Review of Systems ROS: Stated complaint: NOT ABLE TO URINATE Other details as noted in HPI ED Past Medical Hx - Past Medical History Hx Hypertension: Yes Hx CVA: Yes Hx Heart Attack/AMI: Yes (Echo in 04/2013, EF-20-25%, [place] 2015) Hx Congestive Heart Failure: Yes Hx Diabetes: No Hx Renal Disease: Yes Hx Seizures: No Hx Kidney Stones: Yes Hx Asthma: Yes Hx COPD: Yes Additional medical history: a fib. , Cardiomyopathy 20% ejection fraction, atrial clot - Surgical History Hx Coronary Stent: Yes (10/2016) Additional Surgical History: r/l lithotripsy Mar 2019 - Social History Smoking Status: Current Every Day Smoker Substance Use Type: None - Medications Home Medications: Home Medications Medication Instructions Recorded Confirmed Last Taken Type Digoxin [Lanoxin] 0.25 mg PO DAILY@1700 #30 tablet 06/01/14 11/21/16 11/20/16 Rx Aspirin 325 mg PO QDAY 11/21/16 11/21/16 11/20/16 History Furosemide [Lasix TAB] 40 mg PO QDAY 11/21/16 11/21/16 11/20/16 History Losartan [Cozaar] 50 mg PO QDAY 11/21/16 11/21/16 11/20/16 History HYDROcodone/APAP 5-325 [[place] 1 each PO Q6HR PRN #20 tablet 07/24/19 Unknown Rx 5/325] Penicillin Vk [Veetids TAB] 500 mg PO QID #21 tablet 07/24/19 Unknown Rx Acetaminophen [Acetaminophen TAB] 1,000 mg PO Q6HR #30 tablet 10/22/19 Unknown Rx cephALEXin [Keflex] 500 mg PO Q8HR #30 cap 10/22/19 Unknown Rx ED Physical Exam - General Limitations: Physical Limitation ED Course Vital Signs 12/19/21 11:52 Temperature 99.0 F Pulse Rate 120 H Respiratory 16 Rate Blood Pressure 150/90 [Left] O2 Sat by Pulse 98 Oximetry - Reevaluation(s) Reevaluation #1: 12/19/21 13:00 Finger glucose of 28 and patient doesn't have IV access; therefore, Glucagon 1mg IM immediately. Pending nurse to obtain IV access. 12/19/21 14:32 D10 STARTED; NURSE BROUGHT TO MY ATTENTION PATIENT REFUSE STRAIGHT I/O AND WANTS TO URINATE ON HIS OWN; I HAVE SPOKE TO THE PATIENT AND STILL REFUSES STRAIGHT CATH; PATIENT AWARE HE IS DELAYING MEDICAL WORK UP AND CARE. 12/19/21 14:46 RECEIVED LAB OF ELEVATED K; INFORMED RN CALCIUM GLUCONATE, EKG, ETC. 12/19/21 14:[address] ESPOSITO AND DR. NAVARRETE (BRASS POURER) WHO ARE AWARE OF PATIENT AND APPRECIATE THEIR ASSISTANCE. ED Medical Decision Making - Lab Data Result diagrams: 12/19/21 13:19 12/19/21 13:19 Critical care attestation.: If time is entered above; I have spent that time in minutes in the direct care of this critically ill patient, excluding procedure time. ED Disposition Clinical Impression: GRANT (acute kidney injury), Hyperkalemia, Hypoglycemia Disposition: ADMITTED INPATIENT Is pt being admited?: Yes Does the pt Need Aspirin: No Condition: Stable Referrals: PRIMARY CARE, [Primary Care Provider] - 3-5 Days Time of Disposition: 14:57
[2021-12-19 14:27] LABS: Albumin 3.1 g/dL (3.9-5); Calcium 9.1 mg/dL (8.4-10.2); Hemoglobin 15.7 gm/dl (11.8-15.2); Mean Corpuscular HGB Conc 34 % (32-34); Mean Corpuscular Volume 90 fl (84-94); Platelet Count 306 K/mm3 (140-440); Red Blood Count 5.24 M/mm3 (3.65-5.03); Red Cell Distribution Width 14.2 % (13.2-15.2)
[2021-12-19] MEDS ORDERED: CALCIUM GLUCONATE 1,000 MG in SODIUM CHLORIDE 0.9% 100 ML IV ONE ×2 (14:46→23:22)
[2021-12-19] MEDS ORDERED: IPRATROPIUM/ALBUTEROL SULFATE 3 ML AMPUL.NEB IH ONE ×2 (14:48)
[2021-12-19] MEDS: DEXTROSE 10% IN WATER 1,000 ML IV SCH (15:12)
--- NOTE | 2021-12-19 15:25 | XRay Report ---
CHEST 1 VIEW 12/19/2021 2:15 PM INDICATION / CLINICAL INFORMATION: WEAKNESS. COMPARISON: None available FINDINGS: SUPPORT DEVICES: None. HEART / MEDIASTINUM: There is prominence of the cardiac silhouette. LUNGS / PLEURA: There is bilateral venous congestion. No pneumothorax. ADDITIONAL FINDINGS: No significant additional findings. IMPRESSION: 1. There is enlargement of cardiac silhouette. There is bilateral venous congestion. Signer Name: Tima Alvarenga MD Signed: 12/19/2021 3:21 PM Workstation Name: [email or web address]
[2021-12-19] MEDS ORDERED: CALC GLUCONATE 1GM/NS 100 ML 1 GM/100 ML BAG IV ONE ×2 (15:30→23:30)
[2021-12-19] MEDS ORDERED: GLUCAGON (HUMAN RECOMBINANT) 1 MG/ML INJ IV PRN (15:39)
[2021-12-19] MEDS ORDERED: CALC GLUCONATE 1GM/NS 100 ML 1 GM/100 ML BAG IV SCH (16:00)
[2021-12-19] MEDS ORDERED: ONDANSETRON 4 MG/2 ML INJ ONE (16:54)
[2021-12-19] MEDS ORDERED: FUROSEMIDE 40 MG TAB PO SCH (17:00)
[2021-12-19] MEDS: ONDANSETRON 4 MG/2 ML INJ IV PRN ×2 (17:00→23:30)
[2021-12-19] MEDS: DEXTROSE 50% IN WATER (25GM) 50 ML SYRINGE IV PRN ×2 (17:15→23:59)
[2021-12-19] MEDS ORDERED: ACETAMINOPHEN 500 MG TAB PO SCH (18:00)
[2021-12-19] MEDS ORDERED: DIGOXIN 0.25 MG TAB PO SCH (18:00)
[2021-12-19] MEDS ORDERED: hydrALAZINE 20 MG/1 ML INJ IV PRN (18:41)
[2021-12-19] MEDS ORDERED: dilTIAZem 25 MG/5 ML INJ IV ONE (19:24)
[2021-12-19] MEDS ORDERED: HEPARIN 5,000 UNIT/1 ML VIAL ONE (19:31)
[2021-12-19] MEDS: amLODIPine 10 MG TAB PO SCH (19:40)
[2021-12-19] MEDS ORDERED: AMIODARONE 900 MG in DEXTROSE 5% IN WATER 482 ML IV SCH (20:00)
[2021-12-19 23:18] LABS: Calcium 8.8 mg/dL (8.4-10.2)
[2021-12-19] MEDS ORDERED: DEXTROSE 50% IN WATER (25GM) 50 ML SYRINGE IV PRN (23:23)
[2021-12-19] MEDS ORDERED: SODIUM BICARB 8.4% 50 MEQ/50 ML SYRINGE IV ONE (23:34)
[2021-12-19] MEDS ORDERED: DEXTROSE 10% IN WATER 1,000 ML IV SCH (23:45)
[2021-12-19] MEDS ORDERED: SODIUM BICARBONATE 150 MEQ in DEXTROSE 5% IN WATER 1,000 ML IV SCH (23:45)
--- NOTE | 2021-12-19 23:52 | Event Note ---
Date: 12/19/21 41 years old male with history of diabetes was admitted by Dr. Taylor because of potassium of 7.2, glucose 49, BUN 107 and creatinine 15.7. Will consult nephrology. We will put the patient up calcium gluconate, D10 and D50 and bicarb drip and give Kayexalate 30 g p.o. every 4 hours x3. Recheck BMP. Transfer the patient to the ICU and consulted critical care. Case discussed with Dr. Harris
[2021-12-19] MEDS: HEPARIN 5,000 UNIT/1 ML VIAL SUB-Q SCH (23:58)
[2021-12-20 01:36] LABS: Calcium 8.8 mg/dL (8.4-10.2)
[2021-12-20] MEDS: DEXTROSE 50% IN WATER (25GM) 50 ML SYRINGE IV PRN (03:43)
[2021-12-20] MEDS: SODIUM POLYSTYRENE 15 GM/60 ML ORAL LIQD PO SCH ×3 (03:45→10:05)
[2021-12-20] MEDS: DEXTROSE 10% IN WATER 1,000 ML IV SCH ×2 (04:28→23:12)
[2021-12-20 05:21] LABS: Hematocrit 41.1 % (35.5-45.6); Hemoglobin 13.5 gm/dl (11.8-15.2); Mean Corpuscular HGB Conc 33 % (32-34); Mean Corpuscular Volume 91 fl (84-94); Platelet Count 283 K/mm3 (140-440); Red Blood Count 4.51 M/mm3 (3.65-5.03); Red Cell Distribution Width 14.3 % (13.2-15.2)
[2021-12-20 05:34] LABS: Albumin 2.4 g/dL (3.9-5); Calcium 8.9 mg/dL (8.4-10.2)
--- NOTE | 2021-12-20 05:44 | History and Physical Report ---
History of Present Illness Date of examination: 12/19/21 Date of admission: 12/19/21 16:54 Chief complaint: Severe weakness and low blood glucose levels History of present illness: 41-year-old -Welsh male with history of hypertension and right cerebrovascular accident in May 2020 with left side hemiplegia and bedridden and noncompliant comes in for generalized weakness and low blood glucose level. Patient called EMS. As per EMS blood glucose levels were in the 40s. Patient also not able to urinate for 2 days. Shortness of breath present. Patient has been bedridden for the last 1 and half years since May 2020. Patient was admitted to [facility] in May 2020. His baseline Creatinine was 18/1.0 on 10/22/2019. No chest pain. Shortness of breath on minimal exertion present. No fever or chills. 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 Takes his blood pressure medicine. Does not know whether it is controlled or not. Patient has a history of cardiac stent in 2016 and cardiomyopathy with ejection fraction of 20% and atrial fibrillation but not on any anticoagulation. Nausea present. No vomiting. ED Course--in the emergency room blood pressure was very high with the diastolics in 120 and potassium of 7.3 and a creatinine of about 18 - Past Medical History --Hypertension: Yes --CVA: Yes --Heart Attack/AMI: Yes (Echo in 04/2013, EF-20-25%, [place] 2015) --Congestive Heart Failure: Yes --Renal Disease: Yes --Kidney Stones: Yes --Asthma: Yes --COPD: Yes --Additional medical history: a fib. , Cardiomyopathy 20% ejection fraction, atrial clot - Surgical History --Coronary Stent: Yes (10/2016) --Additional Surgical History: r/l lithotripsy Mar 2019 - Social History Smoking Status: Current Every Day Smoker Substance Use Type: None - Medications Home Medications: Home Medications Medication Instructions Recorded Confirmed Last Taken Type Digoxin [Lanoxin] 0.25 mg PO DAILY@1700 #30 tablet 06/01/14 11/21/16 11/20/16 Rx Aspirin 325 mg PO QDAY 11/21/16 11/21/16 11/20/16 History Furosemide [Lasix TAB] 40 mg PO QDAY 11/21/16 11/21/16 11/20/16 History Losartan [Cozaar] 50 mg PO QDAY 11/21/16 11/21/16 11/20/16 History HYDROcodone/APAP 5-325 [[place] 1 each PO Q6HR PRN #20 tablet 07/24/19 Unknown Rx 5/325] Penicillin Vk [Veetids TAB] 500 mg PO QID #21 tablet 07/24/19 Unknown Rx Acetaminophen [Acetaminophen TAB] 1,000 mg PO Q6HR #30 tablet 10/22/19 Unknown Rx cephALEXin patient is s/p cardiac stent and 2017 and has history of cardiomyopathy with ejection fraction of 20%. Also A. fib but not on any anticoagulation. 500 mg PO Q8HR #30 cap 10/22/19 Unknown Rx Review of Systems ROS: Constitutional generalized weakness HEENT no sore throat no post nasal drip no diplopia Neck no neck stiffness no lymph gland enlargement Chest and lungs shortness of breath present. CVS left hemiplegia and bedridden GI no nausea no vomiting no diarrhea Genitourinary system no dysuria no flank pain Musculoskeletal system no muscle pains no joint pains BOBTAILER no syncope no seizures Skin no rash no itching Psychiatric no depression no homicidal or suicidal tendencies Hematologic no lymphedema or bruising Endocrine no polydipsia no polyuria no cold intolerance no heat intolerance Medications and Allergies Allergies Allergy/AdvReac Type Severity Reaction Status Date / Time adhesive Allergy Rash Verified 12/19/21 14:07 ibuprofen [From Motrin] Allergy Swelling Verified 12/19/21 14:07 lisinopril Allergy COUGH Verified 12/19/21 14:07 metoprolol Allergy Nausea Verified 12/19/21 14:07 amiodarone AdvReac Nausea Verified 12/19/21 14:07 Iodinated Contrast Media AdvReac KIDNEYS Verified 12/19/21 14:07 [Iodinated Contrast Media - SHUT DOWN IV Dye] Home Medications Medication Instructions Recorded Confirmed Last Taken Type Digoxin [Lanoxin] 0.25 mg PO DAILY@1700 #30 tablet 06/01/14 11/21/16 11/20/16 Rx Aspirin 325 mg PO QDAY 11/21/16 11/21/16 11/20/16 History Furosemide [Lasix TAB] 40 mg PO QDAY 11/21/16 11/21/16 11/20/16 History Losartan [Cozaar] 50 mg PO QDAY 11/21/16 11/21/16 11/20/16 History HYDROcodone/APAP 5-325 [[place] 1 each PO Q6HR PRN #20 tablet 07/24/19 Unknown Rx 5/325] Penicillin Vk [Veetids TAB] 500 mg PO QID #21 tablet 07/24/19 Unknown Rx Acetaminophen [Acetaminophen TAB] 1,000 mg PO Q6HR #30 tablet 10/22/19 Unknown Rx cephALEXin [Keflex] 500 mg PO Q8HR #30 cap 10/22/19 Unknown Rx Active Meds: Active Medications Acetaminophen (Acetaminophen 325 Mg Tab) 650 mg PO Q4H PRN PRN Reason: Pain MILD(1-3)/Fever >100.5/[place] Amlodipine Besylate (Amlodipine 10 Mg Tab) 10 mg PO QDAY [facility] Last Admin: 12/19/21 19:40 Dose: 10 mg Aspirin (Aspirin 325 Mg Tab) 325 mg PO QDAY [facility] Dextrose (Dextrose 50% In Water (25gm) 50 Ml Syringe) 0 ml IV Q1H PRN PRN Reason: Hypoglycemia Last Admin: 12/20/21 03:43 Dose: 50 ml Dextrose (Dextrose 50% In Water (25gm) 50 Ml Syringe) 100 ml IV Q30MIN PRN; Protocol PRN Reason: Hypoglycemia Digoxin (Digoxin 0.25 Mg Tab) 0.25 mg PO DAILY@1700 [facility] Last Admin: 12/19/21 19:43 Dose: 0.25 mg Glucagon (Glucagon (Human Recombinant) 1 Mg/Ml Inj) 1 mg IV Q1H PRN PRN Reason: Hypoglycemia Last Admin: 12/19/21 16:08 Dose: 1 mg Heparin Sodium (Porcine) (Heparin 5,000 Unit/1 Ml Vial) 5,000 unit SUB-Q Q12HR [facility] Last Admin: 12/19/21 23:58 Dose: 5,000 unit Hydralazine HCl (Hydralazine 20 Mg/1 Ml Inj) 10 mg IV Q2H PRN PRN Reason: Blood Pressure Hydralazine HCl (Hydralazine 100 Mg Tab) 100 mg PO Q8HR [facility] Dextrose (D10w) 1,000 mls @ 100 mls/hr IV DIRECT [facility] Last Admin: 12/20/21 04:28 Dose: 100 mls/hr CALC GLUCONATE 1GM/NS 100 ML (Calcium Gluonate/Ns 1,000mg/100ml) 1 gm in 100 mls @ 200 mls/hr IV Q30MIN [place] Stop: 12/20/21 16:29 Last Admin: 12/19/21 18:04 Dose: 200 mls/hr Amiodarone HCl 900 mg/ (Dextrose) 500 mls @ 33.333 mls/hr IV DIRECT [place]; Protocol Dextrose (D10w) 1,000 mls @ 100 mls/hr IV DIRECT [place] Sodium Bicarbonate 150 meq/ (Dextrose) 1,150 mls @ 100 mls/hr IV DIRECT [place] Last Admin: 12/20/21 01:10 Dose: 100 mls/hr Morphine Sulfate (Morphine 2 Mg/1 Ml Inj) 2 mg IV Q4H PRN PRN Reason: Pain, Moderate (4-6) Ondansetron HCl (Ondansetron 4 Mg/2 Ml Inj) 4 mg IV Q8H PRN PRN Reason: Nausea And Vomiting Last Admin: 12/19/21 23:30 Dose: 4 mg Oxycodone/Acetaminophen (Oxycodone /Acetaminophen 5-325mg Tab) 1 tab PO Q6H PRN PRN Reason: Pain, Moderate (4-6) Sodium Chloride (Sodium Chloride 0.9% 10 Ml Flush Syringe) 10 ml IV BID [place] Last Admin: 12/19/21 23:58 Dose: 10 ml Sodium Chloride (Sodium Chloride 0.9% 10 Ml Flush Syringe) 10 ml IV PRN PRN PRN Reason: LINE FLUSH Sodium Polystyrene Sulfonate (Sodium Polystyrene 15 Gm/60 Ml Oral Liqd) 30 gm PO Q4HR [place] Stop: 12/20/21 10:01 Last Admin: 12/20/21 03:45 Dose: 30 gm Exam - Constitutional Vitals: Temp Pulse Resp BP Pulse Ox 98.2 F 106 H 40 H 128/76 95 12/20/21 04:00 12/20/21 04:57 12/20/21 04:41 12/20/21 04:41 12/20/21 04:41 General appearance: Present: mild distress, well-nourished - EENT Eyes: Present: PERRL ENT: hearing intact, clear oral mucosa - Neck Neck: Present: supple, normal ROM - Respiratory Respiratory effort: normal Respiratory: bilateral: CTA - Cardiovascular Heart rate: 120 Rhythm: irregularly irregular Heart Sounds: Present: S1 & S2. Absent: rub, click - Extremities Extremities: no ischemia, pulses symmetrical, No edema Peripheral Pulses: within normal limits - Abdominal General gastrointestinal: Present: soft, non-tender, non-distended, normal bowel sounds Male genitourinary: Present: normal - Integumentary Integumentary: Present: clear, warm, dry - Musculoskeletal Musculoskeletal: left sided weakness (Left hemiplegia) - Psychiatric Psychiatric: appropriate mood/affect, intact judgment & insight - Neurologic Neurologic: CNII-XII intact, focal deficits (Left hemiplegia), moves all extremities HEART Score - HEART Score Age: 45-65 Risk factors: > 3 risk factors or hx of atherosclerotic disease Troponin: 1-3x normal limit - Critical Actions Critical Actions: 4-6 pts:12-16.6% risk of adverse cardiac event. Should be admitted Results - Labs CBC & Chem 7: 12/20/21 04:16 12/20/21 04:16 Labs: Laboratory Last Values WBC 16.0 K/mm3 (4.5-11.0) H 12/20/21 04:16 RBC 4.51 M/mm3 (3.65-5.03) 12/20/21 04:16 Hgb 13.5 gm/dl (11.8-15.2) 12/20/21 04:16 Hct 41.1 % (35.5-45.6) 12/20/21 04:16 MCV 91 fl (84-94) 12/20/21 04:16 MCH 30 pg (28-32) 12/20/21 04:16 MCHC 33 % (32-34) 12/20/21 04:16 RDW 14.3 % (13.2-15.2) 12/20/21 04:16 Plt Count 283 K/mm3 (140-440) 12/20/21 04:16 Sodium 127 mmol/L (137-145) L 12/20/21 04:16 Potassium 7.2 mmol/L (3.6-5.0) H* 12/20/21 04:16 Chloride 92.6 mmol/L (98-107) L 12/20/21 04:16 Carbon Dioxide 14 mmol/L (22-30) L 12/20/21 04:16 Anion Gap 28 mmol/L 12/20/21 04:16 BUN 113 mg/dL (9-20) H 12/20/21 04:16 Creatinine 16.1 mg/dL (0.8-1.3) H 12/20/21 04:16 Estimated GFR 4 ml/min 12/20/21 04:16 BUN/Creatinine Ratio 7 % 12/20/21 04:16 Glucose 83 mg/dL (75-100) 12/20/21 04:16 POC Glucose 112 mg/dL (70-105) H 12/20/21 05:30 Calcium 8.9 mg/dL (8.4-10.2) 12/20/21 04:16 Magnesium 2.00 mg/dL (1.7-2.3) 12/19/21 13:19 Total Bilirubin 0.80 mg/dL (0.1-1.2) 12/20/21 04:16 AST 45 units/L (5-40) H 12/20/21 04:16 ALT 33 units/L (7-56) 12/20/21 04:16 Alkaline Phosphatase 131 units/L (35-129) H 12/20/21 04:16 Total Protein 7.2 g/dL (6.3-8.2) 12/20/21 04:16 Albumin 2.4 g/dL (3.9-5) L 12/20/21 04:16 Albumin/Globulin Ratio 0.5 % 12/20/21 04:16 Short CBC 12/19/21 12/20/21 Range/Units 13:19 04:16 WBC 15.3 H 16.0 H (4.5-11.0) K/mm3 Hgb 15.7 H 13.5 (11.8-15.2) gm/dl Hct 47.0 H 41.1 (35.5-45.6) % Plt Count 306 283 (140-440) K/mm3 BMP 12/19/21 12/19/21 12/20/21 13:19 22:33 00:56 Sodium 128 L 130 L 130 L Potassium 7.2 H* 7.8 H* 7.2 H* Chloride 93.1 L 92.6 L 92.2 L Carbon Dioxide 17 L 17 L 17 L BUN 107 H 110 H 111 H Creatinine 15.7 H 16.5 H 16.0 H Glucose 54 L 49 L 103 H Calcium 9.1 8.8 8.8 12/20/21 04:16 Sodium 127 L Potassium 7.2 H* Chloride 92.6 L Carbon Dioxide 14 L BUN 113 H Creatinine 16.1 H Glucose 83 Calcium 8.9 Liver Function 12/19/21 12/20/21 Range/Units 13:19 04:16 Total Bilirubin 0.70 0.80 (0.1-1.2) mg/dL AST 61 H 45 H (5-40) units/L ALT 37 33 (7-56) units/L Alkaline Phosphatase 138 H 131 H (35-129) units/L Albumin 3.1 L 2.4 L (3.9-5) g/dL - Imaging and Cardiology EKG: report reviewed (Atrial fibrillation with heart rate of 120) Chest x-ray: report reviewed Imaging and Cardiology: Chest x-ray Enlargement of cardiac silhouette Bilateral venous congestion Assessment and Plan Assessment and plan: Critical care statement The high probability OF a clinically significant sudden or life-threatening deterioration of the cardiorespiratory system and endocrine system required my full and direct attention, intervention and postoperative management. The aggregate critical l care time was 62 minutes. The time is in addition to time spent performing reported procedures but includes the followin: Data review and interpretation 2: Patient assessment and monitoring of vital signs 3: Documentation 4:: Medication orders and management Advance Directives: Yes (Full code) VTE prophylaxis?: Chemical Plan of care discussed with patient/family: Yes - Patient Problems (1) Hypertensive emergency Current Visit: Yes Status: Acute Plan to address problem: Patient initiated on hydralazine 100 mg every 8 hours: Coreg and amlodipine. IV hydralazine 10 mg every 3 hours as needed. Cardene drip if necessary. (2) Hypoglycemia Current Visit: Yes Status: Acute Plan to address problem: Persistent hypoglycemia Secondary to worsening renal function D50 W and IV glucagon as necessary. IV D5NSW at 75 mL/h for the next 8 to 12 hours. May precipitate more volume overload. Close observation. (3) Hyperkalemia Current Visit: Yes Status: Acute Plan to address problem: Treated to have hyperkalemia aggressively. Patient given Kayexalate calcium gluconate IV, sodium bicarbonate and IV insulin. Repeat BMP. Discussed with nephrology. Patient may need emergent hemodialysis. (4) GRANT (acute kidney injury) Current Visit: Yes Status: Acute Plan to address problem: Baseline wasBUN/creatinine was 18 and 1.0 Creatinine has increased from 1.0-15.7 and 24 months. Patient was not following up with any nephrology. Noncompliance. Possible new onset end-stage renal disease. Work-up for ESRD defer to nephrology. Vascular surgery consult for Vas-Cath. (5) CHF (congestive heart failure), NYHA class II Current Visit: Yes Status: Chronic Qualifiers: Congestive heart failure chronicity: chronic Plan to address problem: On Lasix. Patient has not been urinating. For the last 48 hrs. Needs emergent hemodialysis for removal of volume. Needs emergent hemodialysis for volume removal. (6) Atrial fibrillation with RVR Current Visit: No Status: Acute Plan to address problem: Patient initiated on IV diltiazem. Patient is allergic to amiodarone. (7) DVT prophylaxis Current Visit: Yes Status: Acute Plan to address problem: On heparin and GI prophylaxis (8) Advance care planning Current Visit: Yes Status: Acute Plan to address problem: Disease education conducted, care plan discussed, diagnosis discussed, prognosis discussed. Patient and mother acknowledges understanding of the care plan Care plan +30 minutes.
[2021-12-20 06:04] LABS: Basophils % (Manual) 0 % (0.0-1.8); Eosinophils % (Manual) 0 % (0.0-4.3); Total Cells Counted 100
[2021-12-20 06:05] LABS: Platelet Estimate Consistent w Auto
[2021-12-20] MEDS: hydrALAZINE 100 MG TAB PO SCH ×3 (06:28→21:41)
[2021-12-20] MEDS ORDERED: SODIUM CHLORIDE 0.9% 100 ML IV PRN (07:08)
--- NOTE | 2021-12-20 09:41 | Electrocardiograph Report ---
[facility] [place] Test Date: 2021-12-19 Test Time: 13:55:08 Pat Name: VALENCIA YANES Department: Room: A257 Gender: M Events Intern: NURSE : 1980 Requested By: FLORA GRAHAM Order Number: [id number] Reading MD: Thanh Valenzuela Measurements Intervals [place] Rate: 122 P: NV: QRS: 187 QRSD: 88 T: 34 QT: 320 QTc: 456 Interpretive Statements Atrial fibrillation Anterolateral infarct, old No previous ECG available for comparison Electronically Signed On 12-20-2021 9:40:34 EDT by Thanh Valenzuela
--- NOTE | 2021-12-20 10:14 | Procedure Note ---
Date of procedure: 12/20/21 Pre-op diagnosis: apolinar requiring HD, Acute metabolic encephalopathy Post-op diagnosis: same Procedure: Statement of consent: Telephone consent obtained from mother Peggy Ochoa at [phone] Trialysis catheter was placed in Right internal jugular vein. Sterile technique was utilized. Patient prepped and placed in trendelenburg position. Area prepped with chlorhexidine/ full body drape utilized. Target vessel visualized with ultrasound. Using seldinger technique, a finder needle was used to puncture target vessel. Wire was threaded through the needle, skin was nicked and needle was withdrawn over wire. A dilator was passed over the wire and tract was dilated. A central venous line catheter was threaded over a wire. All three ports withdrew blood and flushed without difficulty with saline. Line sutured in place, biopatch not available and dressed with tegaderm. Chest x-ray to confirm placement. Pt tolerated procedure well. VS remained stable throughout procedure. (time spent placing line not included in daily critical care time) CCT: 60 mins
[2021-12-20] MEDS: HEPARIN 5,000 UNIT/1 ML VIAL SUB-Q SCH ×2 (10:16→21:40)
[2021-12-20] MEDS: ASPIRIN 325 MG TAB PO SCH (10:17)
[2021-12-20] MEDS: amLODIPine 10 MG TAB PO SCH (10:18)
--- NOTE | 2021-12-20 10:27 | XRay Report ---
CHEST 1 VIEW 12/20/2021 10:11 AM INDICATION / CLINICAL INFORMATION: trialysis catheter placement verification.. COMPARISON: 12/19/2021 FINDINGS: SUPPORT DEVICES: Right IJ central venous catheter tip projects over superior cavoatrial junction. HEART / MEDIASTINUM: Stable cardiomegaly. LUNGS / PLEURA: Stable pulmonary vascular congestion. No pneumothorax. ADDITIONAL FINDINGS: No significant additional findings. IMPRESSION: 1. Right IJ CVL tip projects over the superior cavoatrial junction. Signer Name: Prieto Solis MD Signed: 12/20/2021 10:22 AM Workstation Name: [id number]
--- NOTE | 2021-12-20 10:30 | Consultation ---
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 patient is brought in by EMS who reports that blood glucose levels were in the 40s. Patient states that he carcamo d decreased urine output for the last 2 days. Patient has been bedridden for the last 1 and half years since May 2020. Patient has a history of cardiac stent in 2016 and cardiomyopathy with ejection fraction of 20% and atrial fibrillation but not on any anticoagulation. Patient was admitted to [facility] in May 2020. His baseline Creatinine was 18/1.0 on 10/22/2019. 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 No chest pain. No fever or chills. Nausea present. No vomiting. Labs in ER showed elevated BUN/Cr at 113/16mg/dl with elevated K > 7 and low Na at 127. renal consult is requested for management of Acute renal failure, hyperkalemia. Past History Past Medical History: atrial fib, heart failure, hypertension, renal failure, stroke Past Surgical History: PTCA Social history: denies: smoking, alcohol abuse, prescription drug abuse, IV drug use Family history: hypertension Medications and Allergies Allergies Allergy/AdvReac Type Severity Reaction Status Date / Time adhesive Allergy Rash Verified 12/19/21 14:07 ibuprofen [From Motrin] Allergy Swelling Verified 12/19/21 14:07 lisinopril Allergy COUGH Verified 12/19/21 14:07 metoprolol Allergy Nausea Verified 12/19/21 14:07 amiodarone AdvReac Nausea Verified 12/19/21 14:07 Iodinated Contrast Media AdvReac KIDNEYS Verified 12/19/21 14:07 [Iodinated Contrast Media - SHUT DOWN IV Dye] Home Medications Medication Instructions Recorded Confirmed Last Taken Type Digoxin [Lanoxin] 0.25 mg PO DAILY@1700 #30 tablet 06/01/14 11/21/16 11/20/16 Rx Aspirin 325 mg PO QDAY 11/21/16 11/21/16 11/20/16 History Furosemide [Lasix TAB] 40 mg PO QDAY 11/21/16 11/21/16 11/20/16 History Losartan [Cozaar] 50 mg PO QDAY 11/21/16 11/21/16 11/20/16 History HYDROcodone/APAP 5-325 [[place] 1 each PO Q6HR PRN #20 tablet 07/24/19 Unknown Rx 5/325] Penicillin Vk [Veetids TAB] 500 mg PO QID #21 tablet 07/24/19 Unknown Rx Acetaminophen [Acetaminophen TAB] 1,000 mg PO Q6HR #30 tablet 10/22/19 Unknown Rx cephALEXin [Keflex] 500 mg PO Q8HR #30 cap 10/22/19 Unknown Rx Active Meds: Active Medications Acetaminophen (Acetaminophen 325 Mg Tab) 650 mg PO Q4H PRN PRN Reason: Pain MILD(1-3)/Fever >100.5/CARCAMO Amlodipine Besylate (Amlodipine 10 Mg Tab) 10 mg PO QDAY COUNTS INCLUDE 234 BEDS AT THE [facility] Last Admin: 12/19/21 19:40 Dose: 10 mg Aspirin (Aspirin 325 Mg Tab) 325 mg PO QDAY COUNTS INCLUDE 234 BEDS AT THE [facility] Dextrose (Dextrose 50% In Water (25gm) 50 Ml Syringe) 0 ml IV Q1H PRN PRN Reason: Hypoglycemia Last Admin: 12/20/21 03:43 Dose: 50 ml Dextrose (Dextrose 50% In Water (25gm) 50 Ml Syringe) 100 ml IV Q30MIN PRN; Protocol PRN Reason: Hypoglycemia Digoxin (Digoxin 0.25 Mg Tab) 0.25 mg PO DAILY@1700 COUNTS INCLUDE 234 BEDS AT THE [facility] Last Admin: 12/19/21 19:43 Dose: 0.25 mg Glucagon (Glucagon (Human Recombinant) 1 Mg/Ml Inj) 1 mg IV Q1H PRN PRN Reason: Hypoglycemia Last Admin: 12/19/21 16:08 Dose: 1 mg Heparin Sodium (Porcine) (Heparin 5,000 Unit/1 Ml Vial) 5,000 unit SUB-Q Q12HR COUNTS INCLUDE 234 BEDS AT THE [facility] Last Admin: 12/19/21 23:58 Dose: 5,000 unit Hydralazine HCl (Hydralazine 20 Mg/1 Ml Inj) 10 mg IV Q2H PRN PRN Reason: Blood Pressure Hydralazine HCl (Hydralazine 100 Mg Tab) 100 mg PO Q8HR COUNTS INCLUDE 234 BEDS AT THE [facility] Last Admin: 12/20/21 06:28 Dose: 100 mg CALC GLUCONATE 1GM/NS 100 ML (Calcium Gluonate/Ns 1,000mg/100ml) 1 gm in 100 mls @ 200 mls/hr IV Q30MIN KAROLINA Stop: 12/20/21 16:29 Last Admin: 12/19/21 18:04 Dose: 200 mls/hr Dextrose (D10w) 1,000 mls @ 100 mls/hr IV DIRECT KAROLINA Sodium Bicarbonate 150 meq/ (Dextrose) 1,150 mls @ 100 mls/hr IV DIRECT K[place]OLINA Last Admin: 12/20/21 01:10 Dose: 100 mls/hr Sodium Chloride (Nacl 0.9%) 100 mls @ 999 mls/hr IV KEVIN PRN PRN Reason: Hypotension Morphine Sulfate (Morphine 2 Mg/1 Ml Inj) 2 mg IV Q4H PRN PRN Reason: Pain, Moderate (4-6) Ondansetron HCl (Ondansetron 4 Mg/2 Ml Inj) 4 mg IV Q8H PRN PRN Reason: Nausea And Vomiting Last Admin: 12/19/21 23:30 Dose: 4 mg Oxycodone/Acetaminophen (Oxycodone /Acetaminophen 5-325mg Tab) 1 tab PO Q6H PRN PRN Reason: Pain, Moderate (4-6) Sodium Chloride (Sodium Chloride 0.9% 10 Ml Flush Syringe) 10 ml IV BID KAROLINA Last Admin: 12/19/21 23:58 Dose: 10 ml Sodium Chloride (Sodium Chloride 0.9% 10 Ml Flush Syringe) 10 ml IV PRN PRN PRN Reason: LINE FLUSH Review of Systems All systems: negative Constitutional: fatigue, weakness, malaise Cardiovascular: lightheadedness, dyspnea on exertion Exam - Vital Signs Vital signs: Vital Signs Temp Pulse Resp BP Pulse Ox 99.0 F 120 H 16 150/90 98 12/19/21 11:52 12/19/21 11:52 12/19/21 11:52 12/19/21 11:52 12/19/21 11:52 - General Appearance General appearance: well-developed, appears stated age EENT: ATNC, PERRL, mucous membranes moist Neck: Present: neck supple Respiratory: Decreased Breath Sounds Heart: regular, S1S2 Gastrointestinal: Present: normoactive bowel sounds, obese Integumentary: no rash Neurologic: no focal deficit, alert and oriented x3, strength 5/5, CN 3-12 intact Psychiatric: mood/affect appropriate, cooperative Results - Lab Results 12/20/21 04:16 12/20/21 04:16 Most recent lab results Calcium 8.9 mg/dL (8.4-10.2) 12/20/21 04:16 Magnesium 2.00 mg/dL (1.7-2.3) 12/19/21 13:19 Assessment and Plan - Patient Problems (1) GRANT (acute kidney injury) Current Visit: Yes Status: Acute Plan to address problem: given refractory hyperkalemia and metabolic acidosis, will initiate HD via vascath. Appreciate ICU team for vascath placement. plan for daily HD x 3 days for correction of solute clearance, hyperkalemia, metabolic acidosis. check renal US to rule out obstructive uropathy. check UA, urine lytes, urine protein/Cr ratio. avoid nephrotoxins, NSAIDs, IV contrast. Will monitor lytes and renal parameters closely and make further recommendations (2) Hyperkalemia Current Visit: Yes Status: Acute Plan to address problem: persistent hyperkalemia s/p medical treatment, will initiate HD (3) CHF (congestive heart failure), NYHA class II Current Visit: Yes Status: Chronic Qualifiers: Congestive heart failure chronicity: chronic Plan to address problem: volume control with HD. Echo pending, follow cardiology recommendations (4) Hyponatremia Current Visit: Yes Status: Acute Plan to address problem: likely hypervolemic hyponatremia, to be corrected with volume control via HD (5) Atrial fibrillation with RVR Current Visit: No Status: Acute
[2021-12-20] MEDS ORDERED: DEXTROSE 50% IN WATER (25GM) 50 ML SYRINGE IV PRN (10:45)
--- NOTE | 2021-12-20 10:55 | Consultation ---
History of Present Illness - Reason for Consult Consult date: 12/20/21 Hypoglycemia, Hyperkalemia Requesting physician: BIBI FOREMAN - History of Present Illness Called around 11:30pm last night first, by ICU nurse that this patient was deemed for step down with a K of 7.2 and on a D10 drip. I was not consulted as it was not an ICU patient. about 15 mins later, called by Dr. Foreman for admission and consult to the ICU secondary to hypoglycemia and hyperkalemia. Patient was first evaluated around 1300 yesterday for generalized weakness. Labs were back around 1400. This am, vascath placed and now patient is currently undergoing HD. Past History Past Medical History: atrial fib, diabetes (on oral medications), heart failure, hypertension, renal failure, stroke Past Surgical History: PTCA Social history: denies: smoking, alcohol abuse, prescription drug abuse, IV drug use Family history: hypertension Medications and Allergies Allergies Allergy/AdvReac Type Severity Reaction Status Date / Time adhesive Allergy Rash Verified 12/19/21 14:07 ibuprofen [From Motrin] Allergy Swelling Verified 12/19/21 14:07 lisinopril Allergy COUGH Verified 12/19/21 14:07 metoprolol Allergy Nausea Verified 12/19/21 14:07 amiodarone AdvReac Nausea Verified 12/19/21 14:07 Iodinated Contrast Media AdvReac KIDNEYS Verified 12/19/21 14:07 [Iodinated Contrast Media - SHUT DOWN IV Dye] Home Medications Medication Instructions Recorded Confirmed Last Taken Type Digoxin [Lanoxin] 0.25 mg PO DAILY@1700 #30 tablet 06/01/14 11/21/16 11/20/16 Rx Aspirin 325 mg PO QDAY 11/21/16 11/21/16 11/20/16 History Furosemide [Lasix TAB] 40 mg PO QDAY 11/21/16 11/21/16 11/20/16 History Losartan [Cozaar] 50 mg PO QDAY 11/21/16 11/21/16 11/20/16 History HYDROcodone/APAP 5-325 [[place] 1 each PO Q6HR PRN #20 tablet 07/24/19 Unknown Rx 5/325] Penicillin Vk [Veetids TAB] 500 mg PO QID #21 tablet 07/24/19 Unknown Rx Acetaminophen [Acetaminophen TAB] 1,000 mg PO Q6HR #30 tablet 10/22/19 Unknown Rx cephALEXin [Keflex] 500 mg PO Q8HR #30 cap 10/22/19 Unknown Rx Active Meds: Active Medications Acetaminophen (Acetaminophen 325 Mg Tab) 650 mg PO Q4H PRN PRN Reason: Pain MILD(1-3)/Fever >100.5/[place] Amlodipine Besylate (Amlodipine 10 Mg Tab) 10 mg PO QDAY [facility] Last Admin: 12/19/21 19:40 Dose: 10 mg Aspirin (Aspirin 325 Mg Tab) 325 mg PO QDAY [facility] Dextrose (Dextrose 50% In Water (25gm) 50 Ml Syringe) 50 ml IV Q30MIN PRN; Protocol PRN Reason: Hypoglycemia Glucagon (Glucagon (Human Recombinant) 1 Mg/Ml Inj) 1 mg IV Q1H PRN PRN Reason: Hypoglycemia Last Admin: 12/19/21 16:08 Dose: 1 mg Heparin Sodium (Porcine) (Heparin 5,000 Unit/1 Ml Vial) 5,000 unit SUB-Q Q12HR [facility] Last Admin: 12/19/21 23:58 Dose: 5,000 unit Hydralazine HCl (Hydralazine 20 Mg/1 Ml Inj) 10 mg IV Q2H PRN PRN Reason: Blood Pressure Hydralazine HCl (Hydralazine 100 Mg Tab) 100 mg PO Q8HR [facility] Last Admin: 12/20/21 06:28 Dose: 100 mg CALC GLUCONATE 1GM/NS 100 ML (Calcium Gluonate/Ns 1,000mg/100ml) 1 gm in 100 mls @ 200 mls/hr IV Q30MIN [facility] Stop: 12/20/21 16:29 Last Admin: 12/19/21 18:04 Dose: 200 mls/hr Dextrose (D10w) 1,000 mls @ 100 mls/hr IV DIRECT KAROLINA Sodium Bicarbonate 150 meq/ (Dextrose) 1,150 mls @ 100 mls/hr IV DIRECT KAROLINA Last Admin: 12/20/21 01:10 Dose: 100 mls/hr Sodium Chloride (Nacl 0.9%) 100 mls @ 999 mls/hr IV KEVIN PRN PRN Reason: Hypotension Morphine Sulfate (Morphine 2 Mg/1 Ml Inj) 2 mg IV Q4H PRN PRN Reason: Pain, Moderate (4-6) Ondansetron HCl (Ondansetron 4 Mg/2 Ml Inj) 4 mg IV Q8H PRN PRN Reason: Nausea And Vomiting Last Admin: 12/19/21 23:30 Dose: 4 mg Oxycodone/Acetaminophen (Oxycodone /Acetaminophen 5-325mg Tab) 1 tab PO Q6H PRN PRN Reason: Pain, Moderate (4-6) Sodium Chloride (Sodium Chloride 0.9% 10 Ml Flush Syringe) 10 ml IV BID KAROLINA Last Admin: 12/19/21 23:58 Dose: 10 ml Sodium Chloride (Sodium Chloride 0.9% 10 Ml Flush Syringe) 10 ml IV PRN PRN PRN Reason: LINE FLUSH Review of Systems All systems: negative Genitourinary Male: urinary retention Exam - Constitutional Vitals: Temp Pulse Resp BP Pulse Ox 97.3 F L 111 H 20 125/88 93 12/20/21 10:15 12/20/21 10:45 12/20/21 10:15 12/20/21 10:45 12/20/21 07:31 General appearance: Present: no acute distress, disheveled - EENT Eyes: Present: PERRL ENT: hearing intact - Neck Neck: Present: supple, normal ROM - Respiratory Respiratory effort: normal Respiratory: bilateral: diminished - Cardiovascular Rhythm: other (tachy) - Extremities Extremities: no ischemia - Abdominal General gastrointestinal: Present: soft, non-tender Male genitourinary: Present: deferred - Rectal Rectal Exam: deferred - Integumentary Integumentary: Present: warm, dry Results - Labs CBC & Chem 7: 12/20/21 04:16 12/20/21 04:16 Labs: Abnormal lab results 12/19/21 12/19/21 12/19/21 Range/Units 12:30 12:46 13:19 WBC 15.3 H (4.5-11.0) K/mm3 RBC 5.24 H (3.65-5.03) M/mm3 Hgb 15.7 H (11.8-15.2) gm/dl Hct 47.0 H (35.5-45.6) % Seg Neuts % (Manual) (40.0-70.0) % Lymphocytes % (Manual) (13.4-35.0) % Monocytes % (Manual) (0.0-7.3) % Seg Neutrophils # Man (1.8-7.7) K/mm3 Monocytes # (Manual) (0.0-0.8) K/mm3 Sodium (137-145) mmol/L Potassium (3.6-5.0) mmol/L Chloride (98-107) mmol/L Carbon Dioxide (22-30) mmol/L BUN (9-20) mg/dL Creatinine (0.8-1.3) mg/dL Glucose (75-100) mg/dL POC Glucose 28 L 44 L (70-105) mg/dL AST (5-40) units/L Alkaline Phosphatase (35-129) units/L Albumin (3.9-5) g/dL 12/19/21 12/19/21 12/19/21 Range/Units 13:19 13:33 14:01 WBC (4.5-11.0) K/mm3 RBC (3.65-5.03) M/mm3 Hgb (11.8-15.2) gm/dl Hct (35.5-45.6) % Seg Neuts % (Manual) (40.0-70.0) % Lymphocytes % (Manual) (13.4-35.0) % Monocytes % (Manual) (0.0-7.3) % Seg Neutrophils # Man (1.8-7.7) K/mm3 Monocytes # (Manual) (0.0-0.8) K/mm3 Sodium 128 L (137-145) mmol/L Potassium 7.2 H* (3.6-5.0) mmol/L Chloride 93.1 L (98-107) mmol/L Carbon Dioxide 17 L (22-30) mmol/L BUN 107 H (9-20) mg/dL Creatinine 15.7 H (0.8-1.3) mg/dL Glucose 54 L (75-100) mg/dL POC Glucose 67 L 57 L (70-105) mg/dL AST 61 H (5-40) units/L Alkaline Phosphatase 138 H (35-129) units/L Albumin 3.1 L (3.9-5) g/dL 12/19/21 12/19/21 12/19/21 Range/Units 14:57 15:31 16:58 WBC (4.5-11.0) K/mm3 RBC (3.65-5.03) M/mm3 Hgb (11.8-15.2) gm/dl Hct (35.5-45.6) % Seg Neuts % (Manual) (40.0-70.0) % Lymphocytes % (Manual) (13.4-35.0) % Monocytes % (Manual) (0.0-7.3) % Seg Neutrophils # Man (1.8-7.7) K/mm3 Monocytes # (Manual) (0.0-0.8) K/mm3 Sodium (137-145) mmol/L Potassium (3.6-5.0) mmol/L Chloride (98-107) mmol/L Carbon Dioxide (22-30) mmol/L BUN (9-20) mg/dL Creatinine (0.8-1.3) mg/dL Glucose (75-100) mg/dL POC Glucose 47 L 52 L 49 L (70-105) mg/dL AST (5-40) units/L Alkaline Phosphatase (35-129) units/L Albumin (3.9-5) g/dL 12/19/21 12/19/21 12/20/21 Range/Units 22:33 23:53 00:56 WBC (4.5-11.0) K/mm3 RBC (3.65-5.03) M/mm3 Hgb (11.8-15.2) gm/dl Hct (35.5-45.6) % Seg Neuts % (Manual) (40.0-70.0) % Lymphocytes % (Manual) (13.4-35.0) % Monocytes % (Manual) (0.0-7.3) % Seg Neutrophils # Man (1.8-7.7) K/mm3 Monocytes # (Manual) (0.0-0.8) K/mm3 Sodium 130 L 130 L (137-145) mmol/L Potassium 7.8 H* 7.2 H* (3.6-5.0) mmol/L Chloride 92.6 L 92.2 L (98-107) mmol/L Carbon Dioxide 17 L 17 L (22-30) mmol/L BUN 110 H 111 H (9-20) mg/dL Creatinine 16.5 H 16.0 H (0.8-1.3) mg/dL Glucose 49 L 103 H (75-100) mg/dL POC Glucose 49 L (70-105) mg/dL AST (5-40) units/L Alkaline Phosphatase (35-129) units/L Albumin (3.9-5) g/dL 12/20/21 12/20/21 12/20/21 Range/Units 03:32 04:13 04:16 WBC 16.0 H (4.5-11.0) K/mm3 RBC (3.65-5.03) M/mm3 Hgb (11.8-15.2) gm/dl Hct (35.5-45.6) % Seg Neuts % (Manual) 78.0 H (40.0-70.0) % Lymphocytes % (Manual) 11.0 L (13.4-35.0) % Monocytes % (Manual) 11.0 H (0.0-7.3) % Seg Neutrophils # Man 12.5 H (1.8-7.7) K/mm3 Monocytes # (Manual) 1.8 H (0.0-0.8) K/mm3 Sodium (137-145) mmol/L Potassium (3.6-5.0) mmol/L Chloride (98-107) mmol/L Carbon Dioxide (22-30) mmol/L BUN (9-20) mg/dL Creatinine (0.8-1.3) mg/dL Glucose (75-100) mg/dL POC Glucose 62 L 113 H (70-105) mg/dL AST (5-40) units/L Alkaline Phosphatase (35-129) units/L Albumin (3.9-5) g/dL 12/20/21 12/20/21 Range/Units 04:16 05:30 WBC (4.5-11.0) K/mm3 RBC (3.65-5.03) M/mm3 Hgb (11.8-15.2) gm/dl Hct (35.5-45.6) % Seg Neuts % (Manual) (40.0-70.0) % Lymphocytes % (Manual) (13.4-35.0) % Monocytes % (Manual) (0.0-7.3) % Seg Neutrophils # Man (1.8-7.7) K/mm3 Monocytes # (Manual) (0.0-0.8) K/mm3 Sodium 127 L (137-145) mmol/L Potassium 7.2 H* (3.6-5.0) mmol/L Chloride 92.6 L (98-107) mmol/L Carbon Dioxide 14 L (22-30) mmol/L BUN 113 H (9-20) mg/dL Creatinine 16.1 H (0.8-1.3) mg/dL Glucose (75-100) mg/dL POC Glucose 112 H (70-105) mg/dL AST 45 H (5-40) units/L Alkaline Phosphatase 131 H (35-129) units/L Albumin 2.4 L (3.9-5) g/dL - Imaging and Cardiology Chest x-ray: image reviewed (Cardiomegaly with venous congestion) Assessment and Plan 41 y/o male with hyperkalemia, secondary to acute renal failure of unknown etiology with hypoglycemia likely secondary to oral medications not fully being cleared secondary to renal impairment. 1. Renal-nephro already ordered HD and patient is on it. Unsure if bladder scan was done but patient has no Gunderson as he refused it in the ED. Still would consider bladder scan and will discuss placement of gunderson based on scan results. HD per renal. Likely needs renal ultrasound as well. 2. Endocrine-persistent hypoglycemia requiring D10 drip. Once patient has 3 consecutive sugars greater than 180 then would be ok with stopping D10. Hopeful HD will help to remove active metabolites of drugs that maybe adding to continu ed hypoglycemia. If not improvement post HD, will need further work up. Ok with feeding patient as long as he remains alert and can protect his airway. Continue q1 hour finger sticks 3. Cardiovascular-tachycardic. Questionable afib. Awaiting 12 lead EKG. Hold on therapy for right now. Cards is following as well. Stopped Dig given renal function. 4. GI- ok with feeding patient, needs prophylaxis for ulcers. 5. Neuro-some confusion on questioning but for the most part stable, will co ntinue to monitor 6. Guarded prognosis. CCt 31 minutes.
[2021-12-20 11:59] LABS: Hepatitis B Surface Antigen Non-Reactive (Negative); Hepatitis C Virus Antibody Non-Reactive (NonReactive)
[2021-12-20 15:29] LABS: Calcium 8.9 mg/dL (8.4-10.2)
--- NOTE | 2021-12-20 15:29 | Consultation ---
History of Present Illness Consult date: 12/20/21 Requesting physician: NASIR CARBAJAL History of present illness: Patient is a 41-year-old male with a past medical history of HFrEF, nonischemic cardiomyopathy, chronic A. 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 History is taken from chart due to patient mental status. Per documentation patient's civil defense director reported patient having weakness and unable to urinate for 2 days EMS was notified and found marie cope to to be hypoglycemic. Patient transported to ED for further evaluation. In the ED patient was found to be hyperkalemic with a potassium of 7.3 and a creatinine of 16. Of note patient was also in A. fib however patient is appears not to be on anticoagulation for unknown reason. Patient is previously unknown to our practice cardiology was consulted for heart failure. Past History Past Medical History: atrial fib, diabetes (on oral medications), heart failure, hypertension, renal failure, stroke Past Surgical History: PTCA Social history: denies: smoking, alcohol abuse, prescription drug abuse, IV drug use Family history: hypertension Medications and Allergies Allergies Allergy/AdvReac Type Severity Reaction Status Date / Time adhesive Allergy Rash Verified 12/19/21 14:07 ibuprofen [From Motrin] Allergy Swelling Verified 12/19/21 14:07 lisinopril Allergy COUGH Verified 12/19/21 14:07 metoprolol Allergy Nausea Verified 12/19/21 14:07 amiodarone AdvReac Nausea Verified 12/19/21 14:07 Iodinated Contrast Media AdvReac KIDNEYS Verified 12/19/21 14:07 [Iodinated Contrast Media - SHUT DOWN IV Dye] Home Medications Medication Instructions Recorded Confirmed Last Taken Type Digoxin [Lanoxin] 0.25 mg PO DAILY@1700 #30 tablet 06/01/14 11/21/16 11/20/16 Rx Aspirin 325 mg PO QDAY 11/21/16 11/21/16 11/20/16 History Furosemide [Lasix TAB] 40 mg PO QDAY 11/21/16 11/21/16 11/20/16 History Losartan [Cozaar] 50 mg PO QDAY 11/21/16 11/21/16 11/20/16 History HYDROcodone/APAP 5-325 [[place] 1 each PO Q6HR PRN #20 tablet 07/24/19 Unknown Rx 5/325] Penicillin Vk [Veetids TAB] 500 mg PO QID #21 tablet 07/24/19 Unknown Rx Acetaminophen [Acetaminophen TAB] 1,000 mg PO Q6HR #30 tablet 10/22/19 Unknown Rx cephALEXin [Keflex] 500 mg PO Q8HR #30 cap 10/22/19 Unknown Rx Active Meds: Active Medications Acetaminophen (Acetaminophen 325 Mg Tab) 650 mg PO Q4H PRN PRN Reason: Pain MILD(1-3)/Fever >100.5/CARCAMO Amlodipine Besylate (Amlodipine 10 Mg Tab) 10 mg PO QDAY [facility] Last Admin: 12/20/21 10:18 Dose: 10 mg Aspirin (Aspirin 325 Mg Tab) 325 mg PO QDAY [facility] Last Admin: 12/20/21 10:17 Dose: 325 mg Dextrose (Dextrose 50% In Water (25gm) 50 Ml Syringe) 50 ml IV Q30MIN PRN; Protocol PRN Reason: Hypoglycemia Glucagon (Glucagon (Human Recombinant) 1 Mg/Ml Inj) 1 mg IV Q1H PRN PRN Reason: Hypoglycemia Last Admin: 12/19/21 16:08 Dose: 1 mg Heparin Sodium (Porcine) (Heparin 5,000 Unit/1 Ml Vial) 5,000 unit SUB-Q Q12HR [facility] Last Admin: 12/20/21 10:16 Dose: 5,000 unit Hydralazine HCl (Hydralazine 20 Mg/1 Ml Inj) 10 mg IV Q2H PRN PRN Reason: Blood Pressure Hydralazine HCl (Hydralazine 100 Mg Tab) 100 mg PO Q8HR [facility] Last Admin: 12/20/21 06:28 Dose: 100 mg CALC GLUCONATE 1GM/NS 100 ML (Calcium Gluonate/Ns 1,000mg/100ml) 1 gm in 100 mls @ 200 mls/hr IV Q30MIN [facility] Stop: 12/20/21 16:29 Last Admin: 12/19/21 18:04 Dose: 200 mls/hr Sodium Chloride (Nacl 0.9%) 100 mls @ 999 mls/hr IV KEVIN PRN PRN Reason: Hypotension Dextrose (D10w) 1,000 mls @ 75 mls/hr IV DIRECT KAROLINA Morphine Sulfate (Morphine 2 Mg/1 Ml Inj) 2 mg IV Q4H PRN PRN Reason: Pain, Moderate (4-6) Ondansetron HCl (Ondansetron 4 Mg/2 Ml Inj) 4 mg IV Q8H PRN PRN Reason: Nausea And Vomiting Last Admin: 12/19/21 23:30 Dose: 4 mg Oxycodone/Acetaminophen (Oxycodone /Acetaminophen 5-325mg Tab) 1 tab PO Q6H PRN PRN Reason: Pain, Moderate (4-6) Sodium Chloride (Sodium Chloride 0.9% 10 Ml Flush Syringe) 10 ml IV BID KAROLINA Last Admin: 12/20/21 10:17 Dose: 10 ml Sodium Chloride (Sodium Chloride 0.9% 10 Ml Flush Syringe) 10 ml IV PRN PRN PRN Reason: LINE FLUSH Review of Systems ROS unobtainable: due to mental status Physical Examination Vital Signs Temp Pulse Resp BP Pulse Ox 99.0 F 120 H 16 150/90 98 12/19/21 11:52 12/19/21 11:52 12/19/21 11:52 12/19/21 11:52 12/19/21 11:52 General appearance: no acute distress Neck: Positive: trachea midline Cardiac: Positive: irregularly irregular Lungs: Positive: Decreased Breath Sounds Neuro: Positive: Grossly Intact Abdomen: Positive: Soft Skin: Negative: Rash, Suspicious Lesions, Ulceration Extremities: Present: upper extr. pulses, edema Results 12/20/21 04:16 12/20/21 11:27 Cardiac Enzymes 12/20/21 Range/Units 04:16 AST 45 H (5-40) units/L CBC 12/20/21 Range/Units 04:16 WBC 16.0 H (4.5-11.0) K/mm3 RBC 4.51 (3.65-5.03) M/mm3 Hgb 13.5 (11.8-15.2) gm/dl Hct 41.1 (35.5-45.6) % Plt Count 283 (140-440) K/mm3 Comprehensive Metabolic Panel 12/19/21 12/20/21 12/20/21 Range/Units 22:33 00:56 04:16 Sodium 130 L 130 L 127 L (137-145) mmol/L Potassium 7.8 H* 7.2 H* 7.2 H* (3.6-5.0) mmol/L Chloride 92.6 L 92.2 L 92.6 L (98-107) mmol/L Carbon Dioxide 17 L 17 L 14 L (22-30) mmol/L BUN 110 H 111 H 113 H (9-20) mg/dL Creatinine 16.5 H 16.0 H 16.1 H (0.8-1.3) mg/dL Glucose 49 L 103 H 83 (75-100) mg/dL Calcium 8.8 8.8 8.9 (8.4-10.2) mg/dL AST 45 H (5-40) units/L ALT 33 (7-56) units/L Alkaline Phosphatase 131 H (35-129) units/L Total Protein 7.2 (6.3-8.2) g/dL Albumin 2.4 L (3.9-5) g/dL 12/20/21 Range/Units 11:27 Sodium 133 L (137-145) mmol/L Potassium 5.4 H D (3.6-5.0) mmol/L Chloride 93.3 L (98-107) mmol/L Carbon Dioxide 21 L D (22-30) mmol/L BUN 96 H (9-20) mg/dL Creatinine 13.6 H (0.8-1.3) mg/dL Glucose 130 H (75-100) mg/dL Calcium 8.0 L (8.4-10.2) mg/dL AST (5-40) units/L ALT (7-56) units/L Alkaline Phosphatase (35-129) units/L Total Protein (6.3-8.2) g/dL Albumin (3.9-5) g/dL - Imaging and Cardiology Echo: report reviewed Assessment and Plan Patient is a 41-year-old male with a past medical history of HFrEF, nonischemic cardiomyopathy, chronic A. 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 fib Echo 04/04/2020-the study was technically difficult in quality. Arrhythmia was noted during the study LVEF is moderately decreased 35-40%. Regional wall motion abnormalities noted RV moderately dilated. RV systolic function is moderately reduced. RVSP is mildly elevated No pericardial effusion No definite or significant change in the EF from 03/11/2018 Consider an infiltrative cardiomyopathy such as amyloid Echo 12/20/2021-EF 20 to 25% moderate concentric LVH. Right ventricle is dilated. Right ventricle hypokinetic. Left atrium is severely dilated. Right atrium dilated Per documentation outpatient medications: Losartan 50 mg p.o. daily Lasix 40 mg p.o. daily, digoxin 0.25 mg p.o. daily, asa Plan: No EKG in chart. EKG pending Telemetry reviewed patient appears to be in A. fib rate 110s-120s No amiodarone or beta-paco due to documented allergy Review of records shows patient not started on anticoagulation in 2020 due to concern of hemorrhagic conversion. Unclear as to why patient is not currently on anticoagulation as an outpatient. Due to patients mental status would recommend clearance from neurology before starting anticoagulation Due to renal function digoxin currently being held Increased heart rate may be compensatory due to acute renal failure. Will continue to monitor Due to low EF did not recommend diltiazem at this time BNP noted to be elevated patient appears hypervolemic on exam however due to renal function will defer to nephrology recommendations for volume management No WILLIE/ARB due to renal function Patient seen in conjunction with Dr. Valenzuela who agrees with plan of care 30 minutes critical care time spent care coordination. - Patient Problems (1) GRANT (acute kidney injury) Current Visit: Yes Status: Acute (2) Hyperkalemia Current Visit: Yes Status: Acute (3) Hypoglycemia Current Visit: Yes Status: Acute (4) Hyponatremia Current Visit: Yes Status: Acute (5) Acute on chronic systolic CHF (congestive heart failure) Current Visit: No Status: Acute (6) Atrial fibrillation with RVR Current Visit: No Status: Acute (7) COPD (chronic obstructive pulmonary disease) Current Visit: No Status: Acute (8) History of noncompliance with medical treatment Current Visit: No Status: Acute (9) Obesity Current Visit: No Status: Acute (10) Cardiomyopathy Current Visit: No Status: Chronic
[2021-12-20] MEDS: ACETAMINOPHEN 325 MG TAB PO PRN (16:10)
[2021-12-20 16:56] LABS: Calcium 7.9 mg/dL (8.4-10.2)
--- NOTE | 2021-12-20 17:58 | Progress Note ---
Assessment and Plan Assessment and plan: This is a 41-year-old male with HTN, right-sided CVA with residual left-sided hemiplegia and bedridden's, HFrEF, [place] s/p stent placement, DM, asthma, COPD, current nicotine abuse, A. fib and noncompliance with A. fib with RVR, acute kidney injury with hypoglycemia and severe hypercalcemia Neuro: Acute metabolic encephalopathy, h/o right-sided CVA with residual left- sided hemiplegia and bedridden -Reorientation as needed -Maintain sleep-wake cycle -As needed analgesia -Neurology consulted, appreciate recommendations -consulted for guidence re anticougulation per cards request Cardiac: A. fib, Acute on Chronic Systolic HF, h/o [place] s/p stent placement, nonischemic cardiomyopathy, chronic A. fib -Cardiology consulted, appreciate recommendations -Blood pressure monitoring per protocol -Echocardiogram shows LVEF of 20 to 25%, severe hypokinesis of septal wall and apex -Digoxin discontinued -Hydralazine PO rosalina and PRN IV -Per cards: No amiodarone or beta-paco due to documented allergy, Due to low EF did not recommend diltiazem at this time, No WILLIE/ARB due to renal function -Admit proBNP [id number] Respiratory: h/o COPD -Currently on room air -CCM consulted, appreciate recommendations -Supplemental oxygen as needed -SPO2 monitoring -Pulmonary hygiene GI: Morbid obesity, mild protein calorie malnutrition -24 hours +10 mL -PPI -Renal cardiac CC diet with supplement -BR: Colace : Acute kidney injury, severe hyperkalemia, hyponatremia, metabolic acidosis -Nephrology consulted, appreciate recommendations -HD catheter placed today on 12/20 -HD per nephrology -Strict intake and output -Bladder scan possible placement of Silver catheter -Renally dose medications -Avoid nephrotoxic medications -Urine lites pending -Renal ultrasound pending -Trend BMP ID: SIRS, r/o sepsis -Tmax 101.5, tachycardia, leukocystosis, GRANT -UA pending -BC x 2 -cxr shows venous congestion -WODN consulted -f/u blood culture -Monitor WBC and temperature curve Endo: Hypoglycemia, h/o DM -Avoid hypoglycemia -D10 gtt -Accu-Cheks q. 1 Heme: Leukocytosis -Trend CBC -Transfuse hemoglobin less than 7 -SCDs to BLE while in bed The high probability of a clinically significant, sudden or life threatening det erioration of the [multi] system(s) required my full and direct attention, intervention and personal management. The aggregate critical care time was [60] minutes. This time is in addition to time spent performing reported procedures but includes the following: [x] Data Review and interpretation [x] Patient assessment and monitoring of vital signs [x] Documentation [x] Medication orders and management Disposition Plan: icu Total Time Spent with Patient (Minutes): 60 History Interval history: This is a 41-year-old male with HTN, right CVA (05/2020) with residual left-sided hemiplegia and bedridden, heart failure with reduced EF (EF 20 to 25% in 2012), [place] in 2015, s/p stent placement in 2016, DM, COPD,, current nicotine abuse, A. fib and noncompliance who presented to the emergency department on 12/19 via EMS for generalized weakness and low blood glucose. Per EMS patient's blood glucose levels were in the 40s and he complained of inability to urinate for 2 days and shortness of breath. Patient was admitted to [facility] in May 2020 and is status BUN/creatinine on 10/22/2019 was noted to be 18/1.0. Patient presented to emergency department with fever of 99, HR 120, BP 150/90, lab work showed leukocytosis, hyponatremia at 128, hyperkalemia at 7.2, metabolic acidosis of 17, elevated BUN/creatinine at 107/15.7 and hyperglycemia 54. Patient was medically treated with calcium gluconate and bicarbonate, received 2 L normal saline bolus and it was noted that patient refused Silver catheter placement. Nephrology was consulted in the emergency department. Patient was admitted to the hospitalist service with hypertensive emergency, hypoglycemia, hyperkalemia, acute kidney injury, A. fib RVR and CHF with consults to [facility] and cardiology. Hospital course to date: 12/20: Vas-Cath placed for emergent hemodialysis for which she received. RN asked to BladderScan the patient for possible placement of Silver catheter. Renal ultrasound pending. Sodium bicarbonate drip was discontinued due to bicarbonate improvement into the 20s and D10 was decreased to 75. Digoxin discontinued. Neurology consulted for guidance for anticoagulation as patient w as initially not anticoagulated for risk of hemorrhagic conversion of CVA. Hospitalist Physical - Constitutional Vitals: Temp Pulse Resp BP Pulse Ox 99.2 F 127 H 18 127/79 98 12/20/21 16:32 12/20/21 17:21 12/20/21 17:21 12/20/21 17:21 12/20/21 17:21 General appearance: Present: no acute distress - EENT Eyes: Present: PERRL, EOM intact ENT: hearing intact, poor dentition - Neck Neck: Present: normal ROM - Respiratory Respiratory effort: normal Respiratory: bilateral: diminished - Cardiovascular Rhythm: regular Heart Sounds: Present: S1 & S2. Absent: systolic murmur, diastolic murmur - Extremities Extremities: no ischemia, pulses intact, pulses symmetrical, normal temperature, normal color Extremity abnormal: edema Peripheral Pulses: within normal limits - Abdominal General gastrointestinal: soft, non-tender, normal bowel sounds - Integumentary Integumentary: Present: warm, dry - Psychiatric Psychiatric: cooperative - Neurologic Neurologic: CNII-XII intact, no focal deficits, moves all extremities - Allied Health Allied health notes reviewed: nursing, RT, social work HEART Score - HEART Score Age: 45-65 Risk factors: > 3 risk factors or hx of atherosclerotic disease Troponin: 1-3x normal limit - Critical Actions Critical Actions: 4-6 pts:12-16.6% risk of adverse cardiac event. Should be admi tted Results - Labs CBC & Chem 7: 12/20/21 04:16 12/20/21 Unknown Labs: Laboratory Last Values WBC 16.0 K/mm3 (4.5-11.0) H 12/20/21 04:16 RBC 4.51 M/mm3 (3.65-5.03) 12/20/21 04:16 Hgb 13.5 gm/dl (11.8-15.2) 12/20/21 04:16 Hct 41.1 % (35.5-45.6) 12/20/21 04:16 MCV 91 fl (84-94) 12/20/21 04:16 MCH 30 pg (28-32) 12/20/21 04:16 MCHC 33 % (32-34) 12/20/21 04:16 RDW 14.3 % (13.2-15.2) 12/20/21 04:16 Plt Count 283 K/mm3 (140-440) 12/20/21 04:16 Add Manual Diff Complete 12/20/21 04:16 Total Counted 100 12/20/21 04:16 Seg Neuts % (Manual) 78.0 % (40.0-70.0) H 12/20/21 04:16 Band Neutrophils % 0 % 12/20/21 04:16 Lymphocytes % (Manual) 11.0 % (13.4-35.0) L 12/20/21 04:16 Reactive Lymphs % (Man) 0 % 12/20/21 04:16 Monocytes % (Manual) 11.0 % (0.0-7.3) H 12/20/21 04:16 Eosinophils % (Manual) 0 % (0.0-4.3) 12/20/21 04:16 Basophils % (Manual) 0 % (0.0-1.8) 12/20/21 04:16 Metamyelocytes % 0 % 12/20/21 04:16 Myelocytes % 0 % 12/20/21 04:16 Promyelocytes % 0 % 12/20/21 04:16 Blast Cells % 0 % 12/20/21 04:16 Nucleated RBC % Not Reportable 12/20/21 04:16 Seg Neutrophils # Man 12.5 K/mm3 (1.8-7.7) H 12/20/21 04:16 Band Neutrophils # 0.0 K/mm3 12/20/21 04:16 Lymphocytes # (Manual) 1.8 K/mm3 (1.2-5.4) 12/20/21 04:16 Abs React Lymphs (Man) 0.0 K/mm3 12/20/21 04:16 Monocytes # (Manual) 1.8 K/mm3 (0.0-0.8) H 12/20/21 04:16 Eosinophils # (Manual) 0.0 K/mm3 (0.0-0.4) 12/20/21 04:16 Basophils # (Manual) 0.0 K/mm3 (0.0-0.1) 12/20/21 04:16 Metamyelocytes # 0.0 K/mm3 12/20/21 04:16 Myelocytes # 0.0 K/mm3 12/20/21 04:16 Promyelocytes # 0.0 K/mm3 12/20/21 04:16 Blast Cells # 0.0 K/mm3 12/20/21 04:16 WBC Morphology Not Reportable 12/20/21 04:16 Hypersegmented Neuts Not Reportable 12/20/21 04:16 Hyposegmented Neuts Not Reportable 12/20/21 04:16 Hypogranular Neuts Not Reportable 12/20/21 04:16 Smudge Cells Not Reportable 12/20/21 04:16 Toxic Granulation Not Reportable 12/20/21 04:16 Toxic Vacuolation Not Reportable 12/20/21 04:16 Dohle Bodies Not Reportable 12/20/21 04:16 Pelger-Huet Anomaly Not Reportable 12/20/21 04:16 Fern Rods Not Reportable 12/20/21 04:16 Platelet Estimate Consistent w auto 12/20/21 04:16 Clumped Platelets Not Reportable 12/20/21 04:16 Plt Clumps, EDTA Not Reportable 12/20/21 04:16 Large Platelets Not Reportable 12/20/21 04:16 Giant Platelets Not Reportable 12/20/21 04:16 Platelet Satelliting Not Reportable 12/20/21 04:16 Plt Morphology Comment Not Reportable 12/20/21 04:16 RBC Morphology Not Reportable 12/20/21 04:16 Dimorphic RBCs Not Reportable 12/20/21 04:16 Polychromasia Not Reportable 12/20/21 04:16 Hypochromasia Not Reportable 12/20/21 04:16 Poikilocytosis Not Reportable 12/20/21 04:16 Anisocytosis Not Reportable 12/20/21 04:16 Microcytosis Not Reportable 12/20/21 04:16 Macrocytosis Not Reportable 12/20/21 04:16 Spherocytes Not Reportable 12/20/21 04:16 Pappenheimer Bodies Not Reportable 12/20/21 04:16 Sickle Cells Not Reportable 12/20/21 04:16 Target Cells Not Reportable 12/20/21 04:16 Tear Drop Cells Not Reportable 12/20/21 04:16 Ovalocytes Not Reportable 12/20/21 04:16 Helmet Cells Not Reportable 12/20/21 04:16 [place] Bodies Not Reportable 12/20/21 04:16 [place] Rings Not Reportable 12/20/21 04:16 [place] Cells Not Reportable 12/20/21 04:16 Bite Cells Not Reportable 12/20/21 04:16 Crenated Cell Not Reportable 12/20/21 04:16 Elliptocytes Not Reportable 12/20/21 04:16 Acanthocytes (Spur) Not Reportable 12/20/21 04:16 Rouleaux Not Reportable 12/20/21 04:16 Hemoglobin C Crystals Not Reportable 12/20/21 04:16 Schistocytes Not Reportable 12/20/21 04:16 Malaria parasites Not Reportable 12/20/21 04:16 Abhishek Bodies Not Reportable 12/20/21 04:16 Hem Pathologist Commnt No 12/20/21 04:16 Sodium 129 mmol/L (137-145) L 12/20/21 Unknown Potassium 7.5 mmol/L (3.6-5.0) H* D 12/20/21 Unknown Chloride 91.8 mmol/L (98-107) L 12/20/21 Unknown Carbon Dioxide 13 mmol/L (22-30) L D 12/20/21 Unknown Anion Gap 32 mmol/L 12/20/21 Unknown BUN 113 mg/dL (9-20) H 12/20/21 Unknown Creatinine 16.1 mg/dL (0.8-1.3) H 12/20/21 Unknown Estimated GFR 4 ml/min 12/20/21 Unknown BUN/Creatinine Ratio 7 % 12/20/21 Unknown Glucose 83 mg/dL (75-100) 12/20/21 Unknown POC Glucose 84 mg/dL (70-105) 12/20/21 16:08 Calcium 8.9 mg/dL (8.4-10.2) 12/20/21 Unknown Magnesium 2.00 mg/dL (1.7-2.3) 12/19/21 13:19 Total Bilirubin 0.80 mg/dL (0.1-1.2) 12/20/21 04:16 AST 45 units/L (5-40) H 12/20/21 04:16 ALT 33 units/L (7-56) 12/20/21 04:16 Alkaline Phosphatase 131 units/L (35-129) H 12/20/21 04:16 NT-Pro-B Natriuret Pep 01240 pg/mL (0-450) H 12/20/21 04:16 Total Protein 7.2 g/dL (6.3-8.2) 12/20/21 04:16 Albumin 2.4 g/dL (3.9-5) L 12/20/21 04:16 Albumin/Globulin Ratio 0.5 % 12/20/21 04:16 Hepatitis A IgM Ab Non-reactive (NonReactive) 12/20/21 11:10 Hep Bs Antigen Non-reactive (Negative) 12/20/21 11:10 Hep B Core IgM Ab Non-reactive (NonReactive) 12/20/21 11:10 Hepatitis C Antibody Non-reactive (NonReactive) 12/20/21 11:10 Active Medications - Current Medications Current Medications: Generic Name Dose Route Start Last Admin Trade Name Freq PRN Reason Stop Dose Admin Acetaminophen 650 mg 12/19/21 16:54 12/20/21 16:10 Acetaminophen 325 Mg Tab PO 650 mg Q4H PRN Administration Pain MILD(1-3)/Fever >100.5/CARCAMO Amlodipine Besylate 10 mg 12/19/21 20:00 12/20/21 10:18 Amlodipine 10 Mg Tab PO 10 mg QDAY ROSALINA Administration Aspirin 325 mg 12/20/21 10:00 12/20/21 10:17 Aspirin 325 Mg Tab PO 325 mg QDAY ROSALINA Administration Dextrose 50 ml 12/20/21 10:45 Dextrose 50% In Water (25gm) 50 Ml Syringe IV Q30MIN PRN Hypoglycemia Protocol Glucagon 1 mg 12/19/21 15:39 12/19/21 16:08 Glucagon (Human Recombinant) 1 Mg/Ml Inj IV 1 mg Q1H PRN Administration Hypoglycemia Heparin Sodium (Porcine) 5,000 unit 12/19/21 22:00 12/20/21 10:16 Heparin 5,000 Unit/1 Ml Vial SUB-Q 5,000 unit Q12HR ROSALINA Administration Hydralazine HCl 10 mg 12/19/21 18:41 Hydralazine 20 Mg/1 Ml Inj IV Q2H PRN Blood Pressure Hydralazine HCl 100 mg 12/19/21 22:00 12/20/21 16:08 Hydralazine 100 Mg Tab PO 100 mg Q8HR ROSALINA Administration Sodium Chloride 100 mls @ 999 mls/hr 12/20/21 07:08 Nacl 0.9% IV KEVIN PRN Hypotension Dextrose 1,000 mls @ 75 mls/hr 12/20/21 14:00 D10w IV DIRECT ROSALINA Morphine Sulfate 2 mg 12/19/21 16:54 Morphine 2 Mg/1 Ml Inj IV Q4H PRN Pain, Moderate (4-6) Ondansetron HCl 4 mg 12/19/21 16:54 12/19/21 23:30 Ondansetron 4 Mg/2 Ml Inj IV 4 mg Q8H PRN Administration Nausea And Vomiting Oxycodone/Acetaminophen 1 tab 12/19/21 16:54 Oxycodone /Acetaminophen 5-325mg Tab PO Q6H PRN Pain, Moderate (4-6) Sodium Chloride 10 ml 12/19/21 22:00 12/20/21 10:17 Sodium Chloride 0.9% 10 Ml Flush Syringe IV 10 ml BID ROSALINA Administration Sodium Chloride 10 ml 12/19/21 16:54 Sodium Chloride 0.9% 10 Ml Flush Syringe IV PRN PRN LINE FLUSH
[2021-12-20] MEDS: MORPHINE 2 MG/1 ML INJ IV PRN (19:08)
[2021-12-20 21:25] LABS: Hematocrit 41.2 % (35.5-45.6); Hemoglobin 13.7 gm/dl (11.8-15.2); Mean Corpuscular HGB Conc 33 % (32-34); Mean Corpuscular Volume 89 fl (84-94); Platelet Count 262 K/mm3 (140-440); Red Cell Distribution Width 14.2 % (13.2-15.2)
[2021-12-20 21:36] LABS: Calcium 7.9 mg/dL (8.4-10.2)
[2021-12-21] MEDS: oxyCODONE /ACETAMINOPHEN 5-325MG TAB PO PRN ×3 (01:21→23:18)
[2021-12-21 03:50] LABS: Hematocrit 38.8 % (35.5-45.6); Hemoglobin 12.9 gm/dl (11.8-15.2); Mean Corpuscular HGB Conc 33 % (32-34); Mean Corpuscular Volume 89 fl (84-94); Platelet Count 260 K/mm3 (140-440); Red Blood Count 4.36 M/mm3 (3.65-5.03); Red Cell Distribution Width 14.5 % (13.2-15.2)
[2021-12-21 04:01] LABS: Albumin 2.6 g/dL (3.9-5); Calcium 7.9 mg/dL (8.4-10.2)
[2021-12-21] MEDS: hydrALAZINE 100 MG TAB PO SCH (05:44)
[2021-12-21] MEDS ORDERED: MAGNESIUM SULFATE 2 GM/50 ML BAG IV SCH (08:00)
[2021-12-21] MEDS: ONDANSETRON 4 MG/2 ML INJ IV PRN (08:14)
[2021-12-21] MEDS: MORPHINE 2 MG/1 ML INJ IV PRN ×2 (08:21→13:48)
--- NOTE | 2021-12-21 09:03 | Electrocardiograph Report ---
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
[2021-12-21] MEDS: ASPIRIN 325 MG TAB PO SCH (09:34)
[2021-12-21] MEDS: HEPARIN 5,000 UNIT/1 ML VIAL SUB-Q SCH (09:36)
[2021-12-21] MEDS: amLODIPine 5 MG TAB PO SCH (09:36)
[2021-12-21] MEDS: ACETAMINOPHEN 325 MG TAB PO PRN (09:52)
--- NOTE | 2021-12-21 09:52 | Ultrasound Report ---
ULTRASOUND RENAL INDICATION: GRANT. COMPARISON: No relevant prior imaging study available. FINDINGS: RIGHT KIDNEY: Size: 13.1 cm. Echogenicity: Echogenic. Cortical thickness: Normal. Hydronephrosis: None. Cyst or mass: Several simple cysts, largest of which measures 4 cm. Stones: None. LEFT KIDNEY: Size: 13.8 cm. Echogenicity: Echogenic. Cortical thickness: Normal. Hydronephrosis: None. Cyst or mass: Simple 2.1 cm left renal cyst. Stones: None. Urinary Bladder: No significant abnormality. Free Fluid: None. Additional Findings: None. IMPRESSION 1. Echogenic kidneys characteristic for medical renal disease. No hydronephrosis. 2. Simple bilateral renal cysts Signer Name: Kashif Weiss MD Signed: 12/21/2021 9:48 AM Workstation Name: [id number]
--- NOTE | 2021-12-21 10:42 | Progress Note ---
Assessment and Plan - Patient Problems (1) GRANT (acute kidney injury) Current Visit: Yes Status: Acute Plan to address problem: given refractory hyperkalemia and metabolic acidosis, initiated HD via vascath on 12/20/21. plan for daily HD x 3 days for correction of solute clearance, hyperkalemia, metabolic acidosis. renal US showed echogenic kidneys ch aracteristic for medical renal disease, no hydronephrosis seen. avoid nephrotoxins, NSAIDs, IV contrast. Will monitor lytes and renal parameters closely and make further recommendations (2) Hyperkalemia Current Visit: Yes Status: Acute Plan to address problem: persistent hyperkalemia s/p medical treatment, to be corrected with daily HD. cont 2g K renal diet (3) CHF (congestive heart failure), NYHA class II Current Visit: Yes Status: Chronic Qualifiers: Congestive heart failure chronicity: chronic Plan to address problem: volume control with HD. Echo showed LVEF 20 to 25% moderate concentric LVH. Right ventricle is dilated. Right ventricle hypokinetic. Left atrium is severely dilated. Right atrium dilated. follow cardiology recommendations (4) Hyponatremia Current Visit: Yes Status: Acute Plan to address problem: likely hypervolemic hyponatremia, to be corrected with volume control via HD (5) Atrial fibrillation with RVR Current Visit: No Status: Acute Subjective Date of service: 12/21/21 Principal diagnosis: GRANT Interval history: patient seen in the ICU, tolerated HD well yesterday. no overnight events reported. Objective - Vital Signs Vital signs: Vital Signs - 12hr 12/20/21 12/20/21 12/20/21 22:46 23:00 23:02 Temperature Pulse Rate 146 H 164 H 163 H Pulse Rate [ From Monitor] Respiratory 18 18 22 Rate Blood Pressure 125/92 116/78 116/78 O2 Sat by Pulse 100 99 97 Oximetry 12/20/21 12/20/21 12/20/21 23:15 23:30 23:45 Temperature Pulse Rate 162 H 145 H 145 H Pulse Rate [ From Monitor] Respiratory 18 17 18 Rate Blood Pressure 109/72 114/84 113/86 O2 Sat by Pulse 95 96 95 Oximetry 12/20/21 12/20/21 12/21/21 23:56 23:58 00:00 Temperature 99.9 F H Pulse Rate 151 H 158 H Pulse Rate [ 157 H From Monitor] Respiratory 19 18 Rate Blood Pressure 116/88 O2 Sat by Pulse 96 98 Oximetry 12/21/21 12/21/21 12/21/21 00:15 00:30 00:46 Temperature Pulse Rate 160 H 140 H 149 H Pulse Rate [ From Monitor] Respiratory 18 19 20 Rate Blood Pressure 122/82 105/76 114/72 O2 Sat by Pulse 97 97 97 Oximetry 12/21/21 12/21/21 12/21/21 01:00 01:15 01:30 Temperature Pulse Rate 146 H 149 H 134 H Pulse Rate [ From Monitor] Respiratory 15 20 20 Rate Blood Pressure 114/72 133/79 141/81 O2 Sat by Pulse 96 98 99 Oximetry 12/21/21 12/21/21 12/21/21 01:46 02:00 02:16 Temperature Pulse Rate 136 H 136 H 153 H Pulse Rate [ From Monitor] Respiratory 20 19 20 Rate Blood Pressure 126/81 122/75 113/66 O2 Sat by Pulse 97 97 96 Oximetry 12/21/21 12/21/21 12/21/21 02:30 02:45 03:00 Temperature Pulse Rate 149 H 133 H 148 H Pulse Rate [ From Monitor] Respiratory 19 16 15 Rate Blood Pressure 113/66 116/71 114/80 O2 Sat by Pulse 96 99 96 Oximetry 12/21/21 12/21/21 12/21/21 03:15 03:30 03:45 Temperature Pulse Rate 148 H 147 H 124 H Pulse Rate [ From Monitor] Respiratory 16 17 13 Rate Blood Pressure 116/65 107/78 114/74 O2 Sat by Pulse 96 96 95 Oximetry 12/21/21 12/21/21 12/21/21 03:57 04:00 04:15 Temperature 99.1 F Pulse Rate 137 H 135 H 137 H Pulse Rate [ 157 H From Monitor] Respiratory 19 15 17 Rate Blood Pressure 112/72 96/72 O2 Sat by Pulse 96 94 93 Oximetry 12/21/21 12/21/21 12/21/21 04:30 04:46 05:00 Temperature Pulse Rate 139 H 155 H 144 H Pulse Rate [ From Monitor] Respiratory 16 16 20 Rate Blood Pressure 100/70 120/78 102/75 O2 Sat by Pulse 93 94 92 Oximetry 12/21/21 12/21/21 12/21/21 05:15 05:30 05:45 Temperature Pulse Rate 128 H 143 H 140 H Pulse Rate [ From Monitor] Respiratory 16 17 15 Rate Blood Pressure 107/83 107/83 115/62 O2 Sat by Pulse 93 94 93 Oximetry 12/21/21 12/21/21 12/21/21 06:00 06:15 06:30 Temperature Pulse Rate 153 H 144 H 161 H Pulse Rate [ From Monitor] Respiratory 16 16 13 Rate Blood Pressure 115/62 117/69 122/80 O2 Sat by Pulse 93 93 97 Oximetry 12/21/21 12/21/21 12/21/21 06:46 07:00 07:15 Temperature Pulse Rate 150 H 140 H 143 H Pulse Rate [ From Monitor] Respiratory 15 16 14 Rate Blood Pressure 121/86 112/88 115/87 O2 Sat by Pulse 95 98 98 Oximetry 12/21/21 12/21/21 12/21/21 07:30 07:45 08:00 Temperature 99.9 F H Pulse Rate 153 H 127 H 123 H Pulse Rate [ 125 H From Monitor] Respiratory 14 13 16 Rate Blood Pressure 113/77 115/82 126/99 O2 Sat by Pulse 95 95 95 Oximetry 12/21/21 12/21/21 12/21/21 08:15 08:21 08:30 Temperature Pulse Rate 139 H 136 H Pulse Rate [ From Monitor] Respiratory 19 19 15 Rate Blood Pressure 125/98 125/98 O2 Sat by Pulse 96 96 Oximetry 12/21/21 12/21/21 12/21/21 08:45 08:51 09:00 Temperature Pulse Rate 136 H 159 H Pulse Rate [ From Monitor] Respiratory 14 19 13 Rate Blood Pressure 131/90 131/96 O2 Sat by Pulse 97 96 Oximetry 12/21/21 12/21/21 12/21/21 09:16 09:30 09:36 Temperature Pulse Rate 132 H 148 H 144 H Pulse Rate [ From Monitor] Respiratory 20 18 Rate Blood Pressure 137/87 144/100 144/100 O2 Sat by Pulse 97 96 Oximetry 12/21/21 12/21/21 12/21/21 09:46 09:52 10:00 Temperature Pulse Rate 140 H 141 H Pulse Rate [ From Monitor] Respiratory 16 16 15 Rate Blood Pressure 140/74 130/94 O2 Sat by Pulse 94 94 Oximetry 12/21/21 10:21 Temperature Pulse Rate Pulse Rate [ From Monitor] Respiratory 19 Rate Blood Pressure O2 Sat by Pulse Oximetry - General Appearance General appearance: well-developed, well-nourished, appears stated age, obese EENT: ATNC, PERRL, mucous membranes moist Neck: no JVD Respiratory: Present: Clear to Ascultation Cardiology: regular, S1S2 Gastrointestinal: normoactive bowel sounds Integumentary: no rash Neurologic: no focal deficit, alert and oriented x3, strength 5/5, CN 3-12 intact Psychiatric: mood/affect appropriate, cooperative - Lab 12/21/21 Unknown 12/21/21 04:00 Most recent lab results Calcium 7.9 mg/dL (8.4-10.2) L 12/21/21 04:00 Phosphorus 7.40 mg/dL (2.5-4.5) H 12/21/21 04:00 Magnesium 1.50 mg/dL (1.7-2.3) L 12/21/21 04:00 Medications & Allergies - Medications Allergies/Adverse Reactions: Allergies adhesive Allergy (Verified 12/19/21 14:07) Rash ibuprofen [From Motrin] Allergy (Verified 12/19/21 14:07) Swelling lisinopril Allergy (Verified 12/19/21 14:07) COUGH metoprolol Allergy (Verified 12/19/21 14:07) Nausea amiodarone Adverse Reaction (Verified 12/19/21 14:07) Nausea Iodinated Contrast Media [Iodinated Contrast Media - IV Dye] Adverse Reaction (V erified 12/19/21 14:07) KIDNEYS SHUT DOWN Home Medications: Home Medications Medication Instructions Recorded Confirmed Last Taken Type Digoxin [Lanoxin] 0.25 mg PO DAILY@1700 #30 tablet 06/01/14 11/21/16 11/20/16 Rx Aspirin 325 mg PO QDAY 11/21/16 11/21/16 11/20/16 History Furosemide [Lasix TAB] 40 mg PO QDAY 11/21/16 11/21/16 11/20/16 History Losartan [Cozaar] 50 mg PO QDAY 11/21/16 11/21/16 11/20/16 History HYDROcodone/APAP 5-325 [[place] 1 each PO Q6HR PRN #20 tablet 07/24/19 Unknown Rx 5/325] Penicillin Vk [Veetids TAB] 500 mg PO QID #21 tablet 07/24/19 Unknown Rx Acetaminophen [Acetaminophen TAB] 1,000 mg PO Q6HR #30 tablet 10/22/19 Unknown Rx cephALEXin [Keflex] 500 mg PO Q8HR #30 cap 10/22/19 Unknown Rx Active Medications: Generic Name Dose Route Start Last Admin Trade Name Freq PRN Reason Stop Dose Admin Acetaminophen 650 mg 12/19/21 16:54 12/21/21 09:52 Acetaminophen 325 Mg Tab PO 650 mg Q4H PRN Administration Pain MILD(1-3)/Fever >100.5/CARCAMO Amlodipine Besylate 5 mg 12/21/21 10:00 12/21/21 09:36 Amlodipine 5 Mg Tab PO 5 mg QDAY KAROLINA Administration Aspirin 325 mg 12/20/21 10:00 12/21/21 09:34 Aspirin 325 Mg Tab PO 325 mg QDAY KAROLINA Administration Dextrose 50 ml 12/20/21 10:45 Dextrose 50% In Water (25gm) 50 Ml Syringe IV Q30MIN PRN Hypoglycemia Protocol Glucagon 1 mg 12/19/21 15:39 12/19/21 16:08 Glucagon (Human Recombinant) 1 Mg/Ml Inj IV 1 mg Q1H PRN Administration Hypoglycemia Heparin Sodium (Porcine) 5,000 unit 12/19/21 22:00 12/21/21 09:36 Heparin 5,000 Unit/1 Ml Vial SUB-Q 5,000 unit Q12HR KAROLINA Administration Hydralazine HCl 10 mg 12/19/21 18:41 Hydralazine 20 Mg/1 Ml Inj IV Q2H PRN Blood Pressure Sodium Chloride 100 mls @ 999 mls/hr 12/20/21 07:08 Nacl 0.9% IV KEVIN PRN Hypotension Dextrose 1,000 mls @ 75 mls/hr 12/20/21 14:00 12/20/21 23:12 D10w IV 75 mls/hr DIRECT KAROLINA Administration Magnesium Sulfate 2 gm in 50 mls @ 25 mls/hr 12/21/21 08:00 12/21/21 08:19 Magnesium Sulfate 2gm/50ml IV 12/21/21 12:00 25 mls/hr ONCE@0800 KAROLINA Administration Morphine Sulfate 2 mg 12/19/21 16:54 12/21/21 08:21 Morphine 2 Mg/1 Ml Inj IV 2 mg Q4H PRN Administration Pain, Moderate (4-6) Ondansetron HCl 4 mg 12/19/21 16:54 12/21/21 08:14 Ondansetron 4 Mg/2 Ml Inj IV 4 mg Q8H PRN Administration Nausea And Vomiting Oxycodone/Acetaminophen 1 tab 12/19/21 16:54 12/21/21 10:21 Oxycodone /Acetaminophen 5-325mg Tab PO 1 tab Q6H PRN Administration Pain, Moderate (4-6) Sodium Chloride 10 ml 12/19/21 22:00 12/21/21 09:38 Sodium Chloride 0.9% 10 Ml Flush Syringe IV 10 ml BID KAROLINA Administration Sodium Chloride 10 ml 12/19/21 16:54 Sodium Chloride 0.9% 10 Ml Flush Syringe IV PRN PRN LINE FLUSH
[2021-12-21] MEDS: DEXTROSE 10% IN WATER 1,000 ML IV SCH (11:14)
[2021-12-21] MEDS ORDERED: AMIODARONE 75 MG in DEXTROSE 5% IN WATER 97 ML IV SCH (11:15)
[2021-12-21] MEDS: AMIODARONE 900 MG in DEXTROSE 5% IN WATER 482 ML IV SCH (11:58)
[2021-12-21] MEDS ORDERED: ONDANSETRON 4 MG/2 ML INJ IV PRN (12:00)
--- NOTE | 2021-12-21 12:01 | Progress Note ---
Assessment and Plan 41 y/o male with hyperkalemia, secondary to acute renal failure of unknown etiology with hypoglycemia likely secondary to oral medications not fully being cleared secondary to renal impairment. 12/21/21: Bladder scan showed no urine in bladder so will hold on gunderson placement. HD per renal for 3 days straight so again tomorrow. Patient still on D10 at 75 and highest Blood sugar has been 195. Will continue for now but will drop down to 50. Has a diet. Likely oral hypoglycemics are still in system. If not improved after HD session tomorrow, may need to ask renal about further sessions to help with removal of active metabolites. Given that no real allergy to amio, cards will initiate today. Weighed the risk and benefits and will start anticoagulation but with heparin as patient will likely need long-term dialysis catheter placement. Continue ICU care. Prognosis still remains guarded. 1. Renal-nephro already ordered HD and patient is on it. Unsure if bladder scan was done but patient has no Gunderson as he refused it in the ED. Still would consider bladder scan and will discuss placement of gunderson based on scan results. HD per renal. Likely needs renal ultrasound as well. 2. Endocrine-persistent hypoglycemia requiring D10 drip. Once patient has 3 consecutive sugars greater than 180 then would be ok with stopping D10. Hopeful HD will help to remove active metabolites of drugs that maybe adding to continued hypoglycemia. If not improvement post HD, will need further work up. Ok with feeding patient as long as he remains alert and can protect his airway. Continue q1 hour finger sticks 3. Cardiovascular-tachycardic. Questionable afib. Awaiting 12 lead EKG. Hold on therapy for right now. Cards is following as well. Stopped Dig given renal function. 4. GI- ok with feeding patient, needs prophylaxis for ulcers. 5. Neuro-some confusion on questioning but for the most part stable, will cont inue to monitor 6. Guarded prognosis. CCt 31 minutes. Subjective Date of service: 12/21/21 Principal diagnosis: GRANT Interval history: No acute events overnight. Tolerated HD on yesterday. Currently undergoing HD now. K is better, BUN is better. Rate is still not controlled. Allergy to Amio is not a true allergy, only nausea. Objective - Constitutional Vitals: Vital Signs - 12hr 12/20/21 12/20/21 12/21/21 23:56 23:58 00:00 Temperature 99.9 F H Pulse Rate 151 H 158 H Pulse Rate [ 157 H From Monitor] Respiratory 19 18 Rate Blood Pressure 116/88 O2 Sat by Pulse 96 98 Oximetry O2 Sat by Pulse Oximetry [ Anterior Bilateral Throughout] 12/21/21 12/21/21 12/21/21 00:15 00:30 00:46 Temperature Pulse Rate 160 H 140 H 149 H Pulse Rate [ From Monitor] Respiratory 18 19 20 Rate Blood Pressure 122/82 105/76 114/72 O2 Sat by Pulse 97 97 97 Oximetry O2 Sat by Pulse Oximetry [ Anterior Bilateral Throughout] 12/21/21 12/21/21 12/21/21 01:00 01:15 01:30 Temperature Pulse Rate 146 H 149 H 134 H Pulse Rate [ From Monitor] Respiratory 15 20 20 Rate Blood Pressure 114/72 133/79 141/81 O2 Sat by Pulse 96 98 99 Oximetry O2 Sat by Pulse Oximetry [ Anterior Bilateral Throughout] 12/21/21 12/21/21 12/21/21 01:46 02:00 02:16 Temperature Pulse Rate 136 H 136 H 153 H Pulse Rate [ From Monitor] Respiratory 20 19 20 Rate Blood Pressure 126/81 122/75 113/66 O2 Sat by Pulse 97 97 96 Oximetry O2 Sat by Pulse Oximetry [ Anterior Bilateral Throughout] 12/21/21 12/21/21 12/21/21 02:30 02:45 03:00 Temperature Pulse Rate 149 H 133 H 148 H Pulse Rate [ From Monitor] Respiratory 19 16 15 Rate Blood Pressure 113/66 116/71 114/80 O2 Sat by Pulse 96 99 96 Oximetry O2 Sat by Pulse Oximetry [ Anterior Bilateral Throughout] 12/21/21 12/21/21 12/21/21 03:15 03:30 03:45 Temperature Pulse Rate 148 H 147 H 124 H Pulse Rate [ From Monitor] Respiratory 16 17 13 Rate Blood Pressure 116/65 107/78 114/74 O2 Sat by Pulse 96 96 95 Oximetry O2 Sat by Pulse Oximetry [ Anterior Bilateral Throughout] 12/21/21 12/21/21 12/21/21 03:57 04:00 04:15 Temperature 99.1 F Pulse Rate 137 H 135 H 137 H Pulse Rate [ 157 H From Monitor] Respiratory 19 15 17 Rate Blood Pressure 112/72 96/72 O2 Sat by Pulse 96 94 93 Oximetry O2 Sat by Pulse Oximetry [ Anterior Bilateral Throughout] 12/21/21 12/21/21 12/21/21 04:30 04:46 05:00 Temperature Pulse Rate 139 H 155 H 144 H Pulse Rate [ From Monitor] Respiratory 16 16 20 Rate Blood Pressure 100/70 120/78 102/75 O2 Sat by Pulse 93 94 92 Oximetry O2 Sat by Pulse Oximetry [ Anterior Bilateral Throughout] 12/21/21 12/21/21 12/21/21 05:15 05:30 05:45 Temperature Pulse Rate 128 H 143 H 140 H Pulse Rate [ From Monitor] Respiratory 16 17 15 Rate Blood Pressure 107/83 107/83 115/62 O2 Sat by Pulse 93 94 93 Oximetry O2 Sat by Pulse Oximetry [ Anterior Bilateral Throughout] 12/21/21 12/21/21 12/21/21 06:00 06:15 06:30 Temperature Pulse Rate 153 H 144 H 161 H Pulse Rate [ From Monitor] Respiratory 16 16 13 Rate Blood Pressure 115/62 117/69 122/80 O2 Sat by Pulse 93 93 97 Oximetry O2 Sat by Pulse Oximetry [ Anterior Bilateral Throughout] 12/21/21 12/21/21 12/21/21 06:46 07:00 07:15 Temperature Pulse Rate 150 H 140 H 143 H Pulse Rate [ From Monitor] Respiratory 15 16 14 Rate Blood Pressure 121/86 112/88 115/87 O2 Sat by Pulse 95 98 98 Oximetry O2 Sat by Pulse Oximetry [ Anterior Bilateral Throughout] 12/21/21 12/21/21 12/21/21 07:30 07:45 08:00 Temperature 99.9 F H Pulse Rate 153 H 127 H 123 H Pulse Rate [ 125 H From Monitor] Respiratory 14 13 16 Rate Blood Pressure 113/77 115/82 126/99 O2 Sat by Pulse 95 95 95 Oximetry O2 Sat by Pulse Oximetry [ Anterior Bilateral Throughout] 12/21/21 12/21/21 12/21/21 08:15 08:21 08:30 Temperature Pulse Rate 139 H 136 H Pulse Rate [ From Monitor] Respiratory 19 19 15 Rate Blood Pressure 125/98 125/98 O2 Sat by Pulse 96 96 Oximetry O2 Sat by Pulse Oximetry [ Anterior Bilateral Throughout] 12/21/21 12/21/21 12/21/21 08:45 08:51 09:00 Temperature Pulse Rate 136 H 159 H Pulse Rate [ From Monitor] Respiratory 14 19 13 Rate Blood Pressure 131/90 131/96 O2 Sat by Pulse 97 96 Oximetry O2 Sat by Pulse Oximetry [ Anterior Bilateral Throughout] 12/21/21 12/21/21 12/21/21 09:16 09:30 09:36 Temperature Pulse Rate 132 H 148 H 144 H Pulse Rate [ From Monitor] Respiratory 20 18 Rate Blood Pressure 137/87 144/100 144/100 O2 Sat by Pulse 97 96 Oximetry O2 Sat by Pulse Oximetry [ Anterior Bilateral Throughout] 12/21/21 12/21/21 12/21/21 09:40 09:46 09:52 Temperature 99.9 F H Pulse Rate 122 H 140 H Pulse Rate [ From Monitor] Respiratory 20 16 16 Rate Blood Pressure 130/94 140/74 O2 Sat by Pulse 94 Oximetry O2 Sat by Pulse 96 Oximetry [ Anterior Bilateral Throughout] 12/21/21 12/21/21 12/21/21 10:00 10:10 10:15 Temperature Pulse Rate 141 H 122 H 169 H Pulse Rate [ From Monitor] Respiratory 15 17 Rate Blood Pressure 130/94 130/94 136/93 O2 Sat by Pulse 94 96 Oximetry O2 Sat by Pulse Oximetry [ Anterior Bilateral Throughout] 12/21/21 12/21/21 12/21/21 10:21 10:30 10:45 Temperature Pulse Rate 145 H 144 H Pulse Rate [ From Monitor] Respiratory 19 20 16 Rate Blood Pressure 137/89 130/82 O2 Sat by Pulse 96 97 Oximetry O2 Sat by Pulse Oximetry [ Anterior Bilateral Throughout] 12/21/21 12/21/21 12/21/21 10:46 11:00 11:15 Temperature Pulse Rate 147 H 136 H 138 H Pulse Rate [ From Monitor] Respiratory 15 Rate Blood Pressure 130/82 124/90 114/79 O2 Sat by Pulse 97 Oximetry O2 Sat by Pulse Oximetry [ Anterior Bilateral Throughout] 12/21/21 12/21/21 11:30 11:45 Temperature Pulse Rate 135 H 133 H Pulse Rate [ From Monitor] Respiratory Rate Blood Pressure 121/76 124/74 O2 Sat by Pulse Oximetry O2 Sat by Pulse Oximetry [ Anterior Bilateral Throughout] - Labs CBC & Chem 7: 12/21/21 Unknown 12/21/21 04:00 Labs: Abnormal lab results 12/20/21 12/20/21 12/20/21 Range/Units 11:27 16:15 21:00 WBC 16.8 H (4.5-11.0) K/mm3 Sodium 131 L (137-145) mmol/L Potassium 5.4 H D (3.6-5.0) mmol/L Chloride 91.1 L (98-107) mmol/L Carbon Dioxide 21 L D (22-30) mmol/L BUN 79 H (9-20) mg/dL Creatinine 13.6 H 12.1 H (0.8-1.3) mg/dL Glucose (75-100) mg/dL POC Glucose (70-105) mg/dL Calcium 7.9 L (8.4-10.2) mg/dL Phosphorus (2.5-4.5) mg/dL Magnesium (1.7-2.3) mg/dL AST (5-40) units/L Albumin (3.9-5) g/dL 12/20/21 12/20/21 12/20/21 Range/Units 21:00 23:57 Unknown WBC (4.5-11.0) K/mm3 Sodium 129 L 129 L (137-145) mmol/L Potassium 7.5 H* D (3.6-5.0) mmol/L Chloride 89.7 L 91.8 L (98-107) mmol/L Carbon Dioxide 13 L D (22-30) mmol/L BUN 83 H 113 H (9-20) mg/dL Creatinine 13.0 H 16.1 H (0.8-1.3) mg/dL Glucose (75-100) mg/dL POC Glucose 112 H (70-105) mg/dL Calcium 7.9 L (8.4-10.2) mg/dL Phosphorus (2.5-4.5) mg/dL Magnesium (1.7-2.3) mg/dL AST (5-40) units/L Albumin (3.9-5) g/dL 12/21/21 12/21/21 12/21/21 Range/Units 01:04 02:00 04:00 WBC (4.5-11.0) K/mm3 Sodium 128 L (137-145) mmol/L Potassium 5.1 H (3.6-5.0) mmol/L Chloride 88.0 L (98-107) mmol/L Carbon Dioxide (22-30) mmol/L BUN 84 H (9-20) mg/dL Creatinine 13.5 H (0.8-1.3) mg/dL Glucose 139 H (75-100) mg/dL POC Glucose 117 H 127 H (70-105) mg/dL Calcium 7.9 L (8.4-10.2) mg/dL Phosphorus 7.40 H (2.5-4.5) mg/dL Magnesium 1.50 L (1.7-2.3) mg/dL AST 65 H (5-40) units/L Albumin 2.6 L (3.9-5) g/dL 12/21/21 12/21/21 12/21/21 Range/Units 05:43 08:34 10:18 WBC (4.5-11.0) K/mm3 Sodium (137-145) mmol/L Potassium (3.6-5.0) mmol/L Chloride (98-107) mmol/L Carbon Dioxide (22-30) mmol/L BUN (9-20) mg/dL Creatinine (0.8-1.3) mg/dL Glucose (75-100) mg/dL POC Glucose 138 H 195 H 180 H (70-105) mg/dL Calcium (8.4-10.2) mg/dL Phosphorus (2.5-4.5) mg/dL Magnesium (1.7-2.3) mg/dL AST (5-40) units/L Albumin (3.9-5) g/dL 12/21/21 Range/Units Unknown WBC 17.9 H (4.5-11.0) K/mm3 Sodium (137-145) mmol/L Potassium (3.6-5.0) mmol/L Chloride (98-107) mmol/L Carbon Dioxide (22-30) mmol/L BUN (9-20) mg/dL Creatinine (0.8-1.3) mg/dL Glucose (75-100) mg/dL POC Glucose (70-105) mg/dL Calcium (8.4-10.2) mg/dL Phosphorus (2.5-4.5) mg/dL Magnesium (1.7-2.3) mg/dL AST (5-40) units/L Albumin (3.9-5) g/dL Medications & Allergies - Medications Allergies/Adverse Reactions: Allergies adhesive Allergy (Verified 12/19/21 14:07) Rash ibuprofen [From Motrin] Allergy (Verified 12/19/21 14:07) Swelling lisinopril Allergy (Verified 12/19/21 14:07) COUGH metoprolol Allergy (Verified 12/19/21 14:07) Nausea amiodarone Adverse Reaction (Verified 12/19/21 14:07) Nausea Iodinated Contrast Media [Iodinated Contrast Media - IV Dye] Adverse Reaction (Verified 12/19/21 14:07) KIDNEYS SHUT DOWN Home Medications: Home Medications Medication Instructions Recorded Confirmed Last Taken Type Digoxin [Lanoxin] 0.25 mg PO DAILY@1700 #30 tablet 06/01/14 11/21/16 11/20/16 Rx Aspirin 325 mg PO QDAY 11/21/16 11/21/16 11/20/16 History Furosemide [Lasix TAB] 40 mg PO QDAY 11/21/16 11/21/16 11/20/16 History Losartan [Cozaar] 50 mg PO QDAY 11/21/16 11/21/16 11/20/16 History HYDROcodone/APAP 5-325 [[place] 1 each PO Q6HR PRN #20 tablet 07/24/19 Unknown Rx 5/325] Penicillin Vk [Veetids TAB] 500 mg PO QID #21 tablet 07/24/19 Unknown Rx Acetaminophen [Acetaminophen TAB] 1,000 mg PO Q6HR #30 tablet 10/22/19 Unknown Rx cephALEXin [Keflex] 500 mg PO Q8HR #30 cap 10/22/19 Unknown Rx Active Medications: Generic Name Dose Route Start Last Admin Trade Name Freq PRN Reason Stop Dose Admin Acetaminophen 650 mg 12/19/21 16:54 12/21/21 09:52 Acetaminophen 325 Mg Tab PO 650 mg Q4H PRN Administration Pain MILD(1-3)/Fever >100.5/[place] Amlodipine Besylate 5 mg 12/21/21 10:00 12/21/21 09:36 Amlodipine 5 Mg Tab PO 5 mg QDAY KAROLINA Administration Aspirin 325 mg 12/20/21 10:00 12/21/21 09:34 Aspirin 325 Mg Tab PO 325 mg QDAY KAROLINA Administration Dextrose 50 ml 12/20/21 10:45 Dextrose 50% In Water (25gm) 50 Ml Syringe IV Q30MIN PRN Hypoglycemia Protocol Glucagon 1 mg 12/19/21 15:39 12/19/21 16:08 Glucagon (Human Recombinant) 1 Mg/Ml Inj IV 1 mg Q1H PRN Administration Hypoglycemia Hydralazine HCl 10 mg 12/19/21 18:41 Hydralazine 20 Mg/1 Ml Inj IV Q2H PRN Blood Pressure Sodium Chloride 100 mls @ 999 mls/hr 12/20/21 07:08 Nacl 0.9% IV KEVIN PRN Hypotension Dextrose 1,000 mls @ 50 mls/hr 12/20/21 14:00 12/21/21 11:14 D10w IV 50 mls/hr DIRECT KAROLINA Administration Magnesium Sulfate 2 gm in 50 mls @ 25 mls/hr 12/21/21 08:00 12/21/21 08:19 Magnesium Sulfate 2gm/50ml IV 12/21/21 12:00 25 mls/hr ONCE@0800 KAROLINA Administration Amiodarone HCl 75 mg/ Dextrose 98.5 mls @ 600 mls/hr 12/21/21 11:15 12/21/21 11:49 IV 12/21/21 12:15 600 mls/hr ONCE@1115 KAROLINA Administration Amiodarone HCl 900 mg/ 500 mls @ 33.333 mls/hr 12/21/21 11:15 Dextrose IV DIRECT KAROLINA Protocol 1 MG/MIN Heparin Sodium/Sodium Chloride 25,000 unit in 500 mls @ 30 mls/hr 12/21/21 12:00 Heparin/ 0.45% Nacl-25,000 Unit/500 Ml IV TITR KAROLINA Protocol 1,500 UNITS/HR Ceftriaxone Sodium 2 gm in 100 mls @ 200 mls/hr 12/21/21 12:00 Rocephin/Ns 2 Gm/100 Ml IV Q24H KAROLINA Protocol Morphine Sulfate 2 mg 12/19/21 16:54 12/21/21 08:21 Morphine 2 Mg/1 Ml Inj IV 2 mg Q4H PRN Administration Pain, Moderate (4-6) Ondansetron HCl 4 mg 12/21/21 12:00 Ondansetron 4 Mg/2 Ml Inj IV Q6H PRN Nausea And Vomiting Oxycodone/Acetaminophen 1 tab 12/19/21 16:54 12/21/21 10:21 Oxycodone /Acetaminophen 5-325mg Tab PO 1 tab Q6H PRN Administration Pain, Moderate (4-6) Sodium Chloride 10 ml 12/19/21 22:00 12/21/21 09:38 Sodium Chloride 0.9% 10 Ml Flush Syringe IV 10 ml BID KAROLINA Administration Sodium Chloride 10 ml 12/19/21 16:54 Sodium Chloride 0.9% 10 Ml Flush Syringe IV PRN PRN LINE FLUSH HEART Score - HEART Score Age: 45-65 Risk factors: > 3 risk factors or hx of atherosclerotic disease Troponin: 1-3x normal limit - Critical Actions Critical Actions: 4-6 pts:12-16.6% risk of adverse cardiac event. Should be admitted
--- NOTE | 2021-12-21 12:30 | Progress Note ---
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 fib and noncompliance with A. fib with RVR, acute kidney injury with hypoglycemia and severe hypercalcemia Neuro: Acute metabolic encephalopathy, h/o right-sided CVA with residual left- sided hemiplegia and bedridden -Reorientation as needed -Maintain sleep-wake cycle -As needed analgesia -Neurology consulted, appreciate recommendations -consulted for guidance re anticoagulation per cards request -PT/OT consulted Cardiac: A. fib, Acute on Chronic Systolic HF, h/o SC s/p stent placement, nonischemic cardiomyopathy, chronic A. fib -Cardiology consulted, appreciate recommendations -Blood pressure monitoring per protocol -Echocardiogram shows LVEF of 20 to 25%, severe hypokinesis of septal wall and apex -Digoxin discontinued -Dc hydral, reduce amlodipine -Amio bolus and gtt -Per cards: Due to low EF did not recommend diltiazem at this time, No WILLIE/ARB due to renal function -Admit proBNP [id number] Respiratory: h/o COPD -Currently on room air -CCM consulted, appreciate recommendations -Supplemental oxygen as needed -SPO2 monitoring -Pulmonary hygiene GI: Morbid obesity, mild protein calorie malnutrition -24 hours +10 mL -PPI -Renal cardiac CC diet with supplement -BR: Colace : Acute kidney injury, Hyperkalemia, hyponatremia, hypochloremia, hypomagnesemia ,metabolic acidosis -Nephrology consulted, appreciate recommendations -HD catheter placed 12/20 -HD per nephrology -Strict intake and output -Renally dose medications -Avoid nephrotoxic medications -Urine lites pending -Renal ultrasound consistent with medical renal disease -Replete Mg -Trend BMP ID: SIRS, r/o Sepsis -Tmax 101.5, tachycardia, leukocystosis, GRANT -UA pending -BC x 2 pending -cxr shows venous congestion -WOCN consulted for right great toe -Started on rocephin -f/u blood culture -Monitor WBC and temperature curve Endo: Hypoglycemia, h/o DM -Avoid hypoglycemia -D10 gtt -Accu-Cheks q. 2 Heme: Leukocytosis -Trend CBC -Transfuse hemoglobin less than 7 -SCDs to BLE while in bed The high probability of a clinically significant, sudden or life threatening deterioration of the [multi] system(s) required my full and direct attention, intervention and personal management. The aggregate critical care time was [60] minutes. This time is in addition to time spent performing reported procedures but includes the following: [x] Data Review and interpretation [x] Patient assessment and monitoring of vital signs [x] Documentation [x] Medication orders and management Disposition Plan: icu Total Time Spent with Patient (Minutes): 60 History Interval history: This is a 41-year-old male with HTN, right CVA (05/2020) with residual left-sided hemiplegia and bedridden, heart failure with reduced EF (EF 20 to 25% in 2012), SC in 2015, s/p stent placement in 2016, DM, COPD, current nicotine abuse, A. fib and noncompliance who presented to the emergency department on 12/19 via EMS for generalized weakness and low blood glucose. Per EMS patient's blood glucose levels were in the 40s and he complained of inability to urinate for 2 days and shortness of breath. Patient was admitted to [facility] in May 2020 and is status BUN/creatinine on 10/22/2019 was noted to be 18/1.0. Patient presented to emergency department with fever of 99, HR 120, BP 150/90, lab work showed leukocytosis, hyponatremia at 128, hyperkalemia at 7.2, metabolic acidosis of 17, elevated BUN/creatinine at 107/15.7 and hyperglycemia 54. Patient was medically treated with calcium gluconate and bicarbonate, received 2 L normal saline bolus and it was noted that patient refused Silver catheter placement. Nephrology was consulted in the emergency department. Patient was admitted to the hospitalist service with hypertensive emergency, hypoglycemia, hyperkalemia, acute kidney injury, A. fib RVR and CHF with consults to [facility] and cardiology. Hospital course to date: 12/20: Vas-Cath placed for emergent hemodialysis for which she received. RN asked to BladderScan the patient for possible placement of Silver catheter. Renal ultrasound pending. Sodium bicarbonate drip was discontinued due to bicarbonate improvement into the 20s and D10 was decreased to 75. Digoxin discontinued. Neurology consulted for guidance for anticoagulation as patient was initially not anticoagulated for risk of hemorrhagic conversion of CVA. 12/21: Cardio will start amio as documented allergy is not a true allergy. HD again today. DC hydral given and decrease amlodipine re soft BPs. Bladder scan revealed no urine. [facility] will like to continue D10 but decrease rate and will start heparin gtt given afib (was on home eliquis) given possible need for vascath. Hospitalist Physical - Constitutional Vitals: Temp Pulse Resp BP Pulse Ox 99.9 F H 135 H 15 127/81 97 12/21/21 09:40 12/21/21 12:00 12/21/21 11:00 12/21/21 12:00 12/21/21 11:00 General appearance: Present: no acute distress - EENT Eyes: Present: PERRL, EOM intact ENT: hearing intact, clear oral mucosa, dentition normal - Neck Neck: Present: normal ROM - Respiratory Respiratory effort: normal Respiratory: bilateral: diminished - Cardiovascular Rhythm: regular Heart Sounds: Present: S1 & S2. Absent: systolic murmur, diastolic murmur - Extremities Extremities: no ischemia, pulses intact, pulses symmetrical, normal temperature, normal color Extremity abnormal: edema Peripheral Pulses: within normal limits - Abdominal General gastrointestinal: soft, non-tender, non-distended, normal bowel sounds - Integumentary Integumentary: Present: warm, dry - Psychiatric Psychiatric: cooperative - Neurologic Neurologic: CNII-XII intact, focal deficits (hemiplegia to left ) - Allied Health Allied health notes reviewed: nursing, RT, social work HEART Score - HEART Score Age: 45-65 Risk factors: > 3 risk factors or hx of atherosclerotic disease Troponin: 1-3x normal limit - Critical Actions Critical Actions: 4-6 pts:12-16.6% risk of adverse cardiac event. Should be admitted Results - Labs CBC & Chem 7: 12/21/21 Unknown 12/21/21 04:00 Labs: Laboratory Last Values WBC 17.9 K/mm3 (4.5-11.0) H 12/21/21 Unknown RBC 4.36 M/mm3 (3.65-5.03) 12/21/21 Unknown Hgb 12.9 gm/dl (11.8-15.2) 12/21/21 Unknown Hct 38.8 % (35.5-45.6) 12/21/21 Unknown MCV 89 fl (84-94) 12/21/21 Unknown MCH 30 pg (28-32) 12/21/21 Unknown MCHC 33 % (32-34) 12/21/21 Unknown RDW 14.5 % (13.2-15.2) 12/21/21 Unknown Plt Count 260 K/mm3 (140-440) 12/21/21 Unknown Add Manual Diff Complete 12/20/21 04:16 Total Counted 100 12/20/21 04:16 Seg Neuts % (Manual) 78.0 % (40.0-70.0) H 12/20/21 04:16 Band Neutrophils % 0 % 12/20/21 04:16 Lymphocytes % (Manual) 11.0 % (13.4-35.0) L 12/20/21 04:16 Reactive Lymphs % (Man) 0 % 12/20/21 04:16 Monocytes % (Manual) 11.0 % (0.0-7.3) H 12/20/21 04:16 Eosinophils % (Manual) 0 % (0.0-4.3) 12/20/21 04:16 Basophils % (Manual) 0 % (0.0-1.8) 12/20/21 04:16 Metamyelocytes % 0 % 12/20/21 04:16 Myelocytes % 0 % 12/20/21 04:16 Promyelocytes % 0 % 12/20/21 04:16 Blast Cells % 0 % 12/20/21 04:16 Nucleated RBC % Not Reportable 12/20/21 04:16 Seg Neutrophils # Man 12.5 K/mm3 (1.8-7.7) H 12/20/21 04:16 Band Neutrophils # 0.0 K/mm3 12/20/21 04:16 Lymphocytes # (Manual) 1.8 K/mm3 (1.2-5.4) 12/20/21 04:16 Abs React Lymphs (Man) 0.0 K/mm3 12/20/21 04:16 Monocytes # (Manual) 1.8 K/mm3 (0.0-0.8) H 12/20/21 04:16 Eosinophils # (Manual) 0.0 K/mm3 (0.0-0.4) 12/20/21 04:16 Basophils # (Manual) 0.0 K/mm3 (0.0-0.1) 12/20/21 04:16 Metamyelocytes # 0.0 K/mm3 12/20/21 04:16 Myelocytes # 0.0 K/mm3 12/20/21 04:16 Promyelocytes # 0.0 K/mm3 12/20/21 04:16 Blast Cells # 0.0 K/mm3 12/20/21 04:16 WBC Morphology Not Reportable 12/20/21 04:16 Hypersegmented Neuts Not Reportable 12/20/21 04:16 Hyposegmented Neuts Not Reportable 12/20/21 04:16 Hypogranular Neuts Not Reportable 12/20/21 04:16 Smudge Cells Not Reportable 12/20/21 04:16 Toxic Granulation Not Reportable 12/20/21 04:16 Toxic Vacuolation Not Reportable 12/20/21 04:16 Dohle Bodies Not Reportable 12/20/21 04:16 Pelger-Huet Anomaly Not Reportable 12/20/21 04:16 Fern Rods Not Reportable 12/20/21 04:16 Platelet Estimate Consistent w auto 12/20/21 04:16 Clumped Platelets Not Reportable 12/20/21 04:16 Plt Clumps, EDTA Not Reportable 12/20/21 04:16 Large Platelets Not Reportable 12/20/21 04:16 Giant Platelets Not Reportable 12/20/21 04:16 Platelet Satelliting Not Reportable 12/20/21 04:16 Plt Morphology Comment Not Reportable 12/20/21 04:16 RBC Morphology Not Reportable 12/20/21 04:16 Dimorphic RBCs Not Reportable 12/20/21 04:16 Polychromasia Not Reportable 12/20/21 04:16 Hypochromasia Not Reportable 12/20/21 04:16 Poikilocytosis Not Reportable 12/20/21 04:16 Anisocytosis Not Reportable 12/20/21 04:16 Microcytosis Not Reportable 12/20/21 04:16 Macrocytosis Not Reportable 12/20/21 04:16 Spherocytes Not Reportable 12/20/21 04:16 Pappenheimer Bodies Not Reportable 12/20/21 04:16 Sickle Cells Not Reportable 12/20/21 04:16 Target Cells Not Reportable 12/20/21 04:16 Tear Drop Cells Not Reportable 12/20/21 04:16 Ovalocytes Not Reportable 12/20/21 04:16 Helmet Cells Not Reportable 12/20/21 04:16 George-Burleigh Bodies Not Reportable 12/20/21 04:16 Nutrioso Rings Not Reportable 12/20/21 04:16 Lisman Cells Not Reportable 12/20/21 04:16 Bite Cells Not Reportable 12/20/21 04:16 Crenated Cell Not Reportable 12/20/21 04:16 Elliptocytes Not Reportable 12/20/21 04:16 Acanthocytes (Spur) Not Reportable 12/20/21 04:16 Rouleaux Not Reportable 12/20/21 04:16 Hemoglobin C Crystals Not Reportable 12/20/21 04:16 Schistocytes Not Reportable 12/20/21 04:16 Malaria parasites Not Reportable 12/20/21 04:16 Abhishek Bodies Not Reportable 12/20/21 04:16 Hem Pathologist Commnt No 12/20/21 04:16 Sodium 128 mmol/L (137-145) L 12/21/21 04:00 Potassium 5.1 mmol/L (3.6-5.0) H 12/21/21 04:00 Chloride 88.0 mmol/L (98-107) L 12/21/21 04:00 Carbon Dioxide 24 mmol/L (22-30) 12/21/21 04:00 Anion Gap 21 mmol/L 12/21/21 04:00 BUN 84 mg/dL (9-20) H 12/21/21 04:00 Creatinine 13.5 mg/dL (0.8-1.3) H 12/21/21 04:00 Estimated GFR 5 ml/min 12/21/21 04:00 BUN/Creatinine Ratio 6 % 12/21/21 04:00 Glucose 139 mg/dL (75-100) H 12/21/21 04:00 POC Glucose 180 mg/dL (70-105) H 12/21/21 10:18 Calcium 7.9 mg/dL (8.4-10.2) L 12/21/21 04:00 Phosphorus 7.40 mg/dL (2.5-4.5) H 12/21/21 04:00 Magnesium 1.50 mg/dL (1.7-2.3) L 12/21/21 04:00 Total Bilirubin 0.70 mg/dL (0.1-1.2) 12/21/21 04:00 AST 65 units/L (5-40) H 12/21/21 04:00 ALT 36 units/L (7-56) 12/21/21 04:00 Alkaline Phosphatase 129 units/L (35-129) 12/21/21 04:00 NT-Pro-B Natriuret Pep 00621 pg/mL (0-450) H 12/20/21 04:16 Total Protein 6.5 g/dL (6.3-8.2) 12/21/21 04:00 Albumin 2.6 g/dL (3.9-5) L 12/21/21 04:00 Albumin/Globulin Ratio 0.7 % 12/21/21 04:00 Hepatitis A IgM Ab Non-reactive (NonReactive) 12/20/21 11:10 Hep Bs Antigen Non-reactive (Negative) 12/20/21 11:10 Hep B Core IgM Ab Non-reactive (NonReactive) 12/20/21 11:10 Hepatitis C Antibody Non-reactive (NonReactive) 12/20/21 11:10 Microbiology: Microbiology 12/20/21 18:00 Peripheral/Venous Blood Culture - Preliminary Culture in Progress 12/20/21 18:00 Peripheral/Venous Blood Culture - Preliminary Culture in Progress Active Medications - Current Medications Current Medications: Generic Name Dose Route Start Last Admin Trade Name Freq PRN Reason Stop Dose Admin Acetaminophen 650 mg 12/19/21 16:54 12/21/21 09:52 Acetaminophen 325 Mg Tab PO 650 mg Q4H PRN Administration Pain MILD(1-3)/Fever >100.5/CARCAMO Amlodipine Besylate 5 mg 12/21/21 10:00 12/21/21 09:36 Amlodipine 5 Mg Tab PO 5 mg QDAY KAROLINA Administration Aspirin 325 mg 12/20/21 10:00 12/21/21 09:34 Aspirin 325 Mg Tab PO 325 mg QDAY KAROLINA Administration Dextrose 50 ml 12/20/21 10:45 Dextrose 50% In Water (25gm) 50 Ml Syringe IV Q30MIN PRN Hypoglycemia Protocol Glucagon 1 mg 12/19/21 15:39 12/19/21 16:08 Glucagon (Human Recombinant) 1 Mg/Ml Inj IV 1 mg Q1H PRN Administration Hypoglycemia Hydralazine HCl 10 mg 12/19/21 18:41 Hydralazine 20 Mg/1 Ml Inj IV Q2H PRN Blood Pressure Sodium Chloride 100 mls @ 999 mls/hr 12/20/21 07:08 Nacl 0.9% IV KEVIN PRN Hypotension Dextrose 1,000 mls @ 50 mls/hr 12/20/21 14:00 12/21/21 11:14 D10w IV 50 mls/hr DIRECT KAROLINA Administration Amiodarone HCl 900 mg/ 500 mls @ 33.333 mls/hr 12/21/21 11:15 12/21/21 11:58 Dextrose IV 1 mg/min DIRECT KAROLINA 33.333 mls/hr Administration Protocol 1 MG/MIN Heparin Sodium/Sodium Chloride 25,000 unit in 500 mls @ 30 mls/hr 12/21/21 12:00 Heparin/ 0.45% Nacl-25,000 Unit/500 Ml IV TITR KAROLINA Protocol 1,500 UNITS/HR Ceftriaxone Sodium 2 gm in 100 mls @ 200 mls/hr 12/21/21 12:00 Rocephin/Ns 2 Gm/100 Ml IV Q24H KAROLINA Protocol Morphine Sulfate 2 mg 12/19/21 16:54 12/21/21 08:21 Morphine 2 Mg/1 Ml Inj IV 2 mg Q4H PRN Administration Pain, Moderate (4-6) Ondansetron HCl 4 mg 12/21/21 12:00 Ondansetron 4 Mg/2 Ml Inj IV Q6H PRN Nausea And Vomiting Oxycodone/Acetaminophen 1 tab 12/19/21 16:54 12/21/21 10:21 Oxycodone /Acetaminophen 5-325mg Tab PO 1 tab Q6H PRN Administration Pain, Moderate (4-6) Sodium Chloride 10 ml 12/19/21 22:00 12/21/21 09:38 Sodium Chloride 0.9% 10 Ml Flush Syringe IV 10 ml BID KAROLINA Administration Sodium Chloride 10 ml 12/19/21 16:54 Sodium Chloride 0.9% 10 Ml Flush Syringe IV PRN PRN LINE FLUSH
--- NOTE | 2021-12-21 12:34 | Progress Note ---
Assessment and Plan Patient is a 41-year-old male with a past medical history of HFrEF, nonischemic cardiomyopathy, chronic A. 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 fib Echo 04/04/2020-the study was technically difficult in quality. Arrhythmia was noted during the study LVEF is moderately decreased 35-40%. Regional wall motion abnormalities noted RV moderately dilated. RV systolic function is moderately reduced. RVSP is mildly elevated No pericardial effusion No definite or significant change in the EF from 03/11/2018 Consider an infiltrative cardiomyopathy such as amyloid Echo 12/20/2021-EF 20 to 25% moderate concentric LVH. Right ventricle is dilated. Right ventricle hypokinetic. Left atrium is severely dilated. Right atrium dilated Per documentation outpatient medications: Losartan 50 mg p.o. daily Lasix 40 mg p.o. daily, digoxin 0.25 mg p.o. daily, asa Plan: EKG shows A. fib with RVR rate 127 old anterolateral infarct. No acute ischemic change Telemetry reviewed patient appears to be in A. fib rate 140s Patient's documented allergy to amiodarone does not appear to be a true allergy will initiate half amnio bolus and drip Per conversation with staff patient reports being on Eliquis as an outpatient for anticoagulation however due to patient possibly needing permacath placement patient to be anticoagulated with heparin drip at this time Due to renal function digoxin currently being held BNP noted to be elevated patient appears hypervolemic on exam however due to renal function will defer to nephrology recommendations for volume management No WILLIE/ARB due to renal function Patient seen in conjunction with Dr. Valenzuela who agrees with plan of care 30 minutes critical care time spent care coordination. - Patient Problems (1) GRANT (acute kidney injury) Current Visit: Yes Status: Acute (2) Hyperkalemia Current Visit: Yes Status: Acute (3) Hypoglycemia Current Visit: Yes Status: Acute (4) Hyponatremia Current Visit: Yes Status: Acute (5) Acute on chronic systolic CHF (congestive heart failure) Current Visit: No Status: Acute (6) Atrial fibrillation with RVR Current Visit: No Status: Acute (7) COPD (chronic obstructive pulmonary disease) Current Visit: No Status: Acute (8) History of noncompliance with medical treatment Current Visit: No Status: Acute (9) Obesity Current Visit: No Status: Acute (10) Cardiomyopathy Current Visit: No Status: Chronic Subjective Date of service: 12/21/21 Principal diagnosis: GRANT Interval history: Patient resting in bed in no acute distress. Patient more alert and oriented this a.m. A. fib with RVR rate into the 140 Objective Vital Signs Temp Pulse Pulse Resp BP Pulse Ox Pulse Ox 12/21/21 12:00 135 H 127/81 12/21/21 11:45 133 H 124/74 12/21/21 11:30 135 H 121/76 12/21/21 11:15 138 H 114/79 12/21/21 11:00 136 H 15 124/90 97 12/21/21 10:46 147 H 130/82 12/21/21 10:45 144 H 16 130/82 97 12/21/21 10:30 145 H 20 137/89 96 12/21/21 10:21 19 12/21/21 10:15 169 H 17 136/93 96 12/21/21 10:10 122 H 130/94 12/21/21 10:00 141 H 15 130/94 94 12/21/21 09:52 16 12/21/21 09:46 140 H 16 140/74 94 12/21/21 09:40 99.9 F H 122 H 20 130/94 96 12/21/21 09:36 144 H 144/100 12/21/21 09:30 148 H 18 144/100 96 12/21/21 09:16 132 H 20 137/87 97 12/21/21 09:00 159 H 13 131/96 96 12/21/21 08:51 19 12/21/21 08:45 136 H 14 131/90 97 12/21/21 08:30 136 H 15 125/98 96 12/21/21 08:21 19 12/21/21 08:15 139 H 19 125/98 96 12/21/21 08:00 99.9 F H 123 H 125 H 16 126/99 95 12/21/21 07:45 127 H 13 115/82 95 12/21/21 07:30 153 H 14 113/77 95 12/21/21 07:15 143 H 14 115/87 98 12/21/21 07:00 140 H 16 112/88 98 12/21/21 06:46 150 H 15 121/86 95 12/21/21 06:30 161 H 13 122/80 97 12/21/21 06:15 144 H 16 117/69 93 12/21/21 06:00 153 H 16 115/62 93 12/21/21 05:45 140 H 15 115/62 93 12/21/21 05:30 143 H 17 107/83 94 12/21/21 05:15 128 H 16 107/83 93 12/21/21 05:00 144 H 20 102/75 92 12/21/21 04:46 155 H 16 120/78 94 12/21/21 04:30 139 H 16 100/70 93 12/21/21 04:15 137 H 17 96/72 93 12/21/21 04:00 135 H 15 112/72 94 12/21/21 03:57 99.1 F 137 H 157 H 19 96 12/21/21 03:45 124 H 13 114/74 95 12/21/21 03:30 147 H 17 107/78 96 12/21/21 03:15 148 H 16 116/65 96 12/21/21 03:00 148 H 15 114/80 96 12/21/21 02:45 133 H 16 116/71 99 12/21/21 02:30 149 H 19 113/66 96 12/21/21 02:16 153 H 20 113/66 96 12/21/21 02:00 136 H 19 122/75 97 12/21/21 01:46 136 H 20 126/81 97 12/21/21 01:30 134 H 20 141/81 99 12/21/21 01:15 149 H 20 133/79 98 12/21/21 01:00 146 H 15 114/72 96 12/21/21 00:46 149 H 20 114/72 97 12/21/21 00:30 140 H 19 105/76 97 12/21/21 00:15 160 H 18 122/82 97 12/21/21 00:00 158 H 18 116/88 98 12/20/21 23:58 157 H 19 96 12/20/21 23:56 99.9 F H 151 H 12/20/21 23:45 145 H 18 113/86 95 07/26/22 23:30 145 H 17 114/84 96 12/20/21 23:15 162 H 18 109/72 95 12/20/21 23:02 163 H 22 116/78 97 12/20/21 23:00 164 H 18 116/78 99 12/20/21 22:46 146 H 18 125/92 100 12/20/21 22:30 142 H 20 132/100 98 12/20/21 22:16 141 H 19 132/100 98 12/20/21 22:00 165 H 17 139/89 99 12/20/21 21:45 153 H 18 125/93 96 12/20/21 21:30 146 H 18 140/94 97 12/20/21 21:16 167 H 19 133/85 97 12/20/21 21:00 155 H 20 134/83 97 12/20/21 20:46 157 H 27 H 134/83 97 12/20/21 20:30 149 H 19 138/104 96 12/20/21 20:15 153 H 20 139/100 96 12/20/21 20:00 100 F H 140 H 157 H 19 134/99 96 12/20/21 19:46 134 H 19 125/97 96 12/20/21 19:30 140 H 19 118/74 96 12/20/21 19:10 137 H 22 130/64 94 12/20/21 19:00 148 H 20 93 12/20/21 18:50 144 H 22 94 12/20/21 18:41 147 H 22 139/108 94 12/20/21 18:31 132 H 23 139/108 96 12/20/21 18:21 134 H 24 139/108 92 12/20/21 18:11 145 H 20 139/108 95 12/20/21 18:01 128 H 22 139/108 97 12/20/21 17:51 122 H 18 139/108 96 12/20/21 17:41 131 H 24 133/69 94 12/20/21 17:31 128 H 20 133/69 97 12/20/21 17:21 127 H 18 127/79 98 12/20/21 17:11 144 H 21 147/77 98 12/20/21 17:01 119 H 21 147/77 98 12/20/21 16:51 147 H 18 131/82 100 12/20/21 16:41 132 H 22 140/88 99 12/20/21 16:32 99.2 F 12/20/21 16:31 101.5 F H 12/20/21 16:30 125 H 18 140/88 100 12/20/21 16:21 132 H 22 130/100 99 12/20/21 16:11 134 H 18 135/85 98 12/20/21 16:01 130 H 17 135/85 99 12/20/21 16:00 130 H 17 99 12/20/21 15:51 127 H 19 131/87 100 12/20/21 15:41 132 H 17 139/97 100 12/20/21 15:30 118 H 18 139/97 100 12/20/21 15:21 131 H 18 128/92 100 12/20/21 15:11 126 H 19 112/85 99 12/20/21 15:00 128 H 18 112/85 98 12/20/21 14:51 131 H 19 125/92 97 12/20/21 14:41 127 H 21 106/88 98 12/20/21 14:31 134 H 17 106/88 100 12/20/21 14:21 139 H 22 122/90 99 12/20/21 14:11 135 H 18 125/96 97 12/20/21 14:01 124 H 17 125/96 99 12/20/21 13:51 122 H 23 131/92 100 12/20/21 13:41 120 H 18 121/82 98 12/20/21 13:31 148 H 18 116/92 98 12/20/21 13:21 115 H 16 116/92 99 12/20/21 13:16 99.5 F 129 H 16 116/92 12/20/21 13:11 145 H 17 112/82 100 12/20/21 13:00 126 H 16 112/82 100 12/20/21 12:51 124 H 13 115/85 100 12/20/21 12:45 128 H 114/72 12/20/21 12:41 133 H 16 109/79 100 12/20/21 12:31 130 H 20 109/79 98 12/20/21 12:30 133 H 109/79 - Physical Examination General: No Apparent Distress HEENT: Positive: PERRL Neck: Positive: neck supple Cardiac: Positive: irregularly irregular, Tachycardia Lungs: Positive: Decreased Breath Sounds Neuro: Positive: Grossly Intact Abdomen: Positive: Soft Skin: Negative: Rash, Suspicious Lesions, Ulceration Extremities: Present: upper extr. pulses, edema - Labs and Meds Cardiac Enzymes 12/21/21 Range/Units 04:00 AST 65 H (5-40) units/L CBC 12/20/21 12/21/21 Range/Units 21:00 Unknown WBC 16.8 H 17.9 H (4.5-11.0) K/mm3 RBC 4.60 4.36 (3.65-5.03) M/mm3 Hgb 13.7 12.9 (11.8-15.2) gm/dl Hct 41.2 38.8 (35.5-45.6) % Plt Count 262 260 (140-440) K/mm3 Comprehensive Metabolic Panel 12/20/21 12/20/21 12/20/21 Range/Units 16:15 21:00 Unknown Sodium 131 L 129 L 129 L (137-145) mmol/L Potassium 4.5 D 4.6 7.5 H* D (3.6-5.0) mmol/L Chloride 91.1 L 89.7 L 91.8 L (98-107) mmol/L Carbon Dioxide 24 D 23 13 L D (22-30) mmol/L BUN 79 H 83 H 113 H (9-20) mg/dL Creatinine 12.1 H 13.0 H 16.1 H (0.8-1.3) mg/dL Glucose 92 78 83 (75-100) mg/dL Calcium 7.9 L 7.9 L 8.9 (8.4-10.2) mg/dL AST (5-40) units/L ALT (7-56) units/L Alkaline Phosphatase (35-129) units/L Total Protein (6.3-8.2) g/dL Albumin (3.9-5) g/dL 12/21/21 Range/Units 04:00 Sodium 128 L (137-145) mmol/L Potassium 5.1 H (3.6-5.0) mmol/L Chloride 88.0 L (98-107) mmol/L Carbon Dioxide 24 (22-30) mmol/L BUN 84 H (9-20) mg/dL Creatinine 13.5 H (0.8-1.3) mg/dL Glucose 139 H (75-100) mg/dL Calcium 7.9 L (8.4-10.2) mg/dL AST 65 H (5-40) units/L ALT 36 (7-56) units/L Alkaline Phosphatase 129 (35-129) units/L Total Protein 6.5 (6.3-8.2) g/dL Albumin 2.6 L (3.9-5) g/dL - Imaging and Cardiology EKG: report reviewed (Atrial fibrillation with heart rate of 120) Echo: report reviewed - Telemetry EKG Rhythm: Atrial Fibrillation - EKG Supraventricular dysrhythmia: atrial fibrillation
[2021-12-21] MEDS: cefTRIAXone/NS 2 GM/100 ML 2 GM/100 ML BAG IV SCH (13:16)
[2021-12-21 14:28] LABS: INR 1.13 (0.87-1.13); Partial Thromboplastin Time 33.5 Sec. (24.2-36.6)
[2021-12-21] MEDS: HEPARIN/ 0.45% NACL DRIP 25,000 UNIT/500 ML BAG IV SCH (14:44)
[2021-12-22 04:51] LABS: Hematocrit 34.9 % (35.5-45.6); Hemoglobin 12.2 gm/dl (11.8-15.2); Mean Corpuscular HGB Conc 35 % (32-34); Mean Corpuscular Volume 89 fl (84-94); Platelet Count 255 K/mm3 (140-440); Red Blood Count 3.93 M/mm3 (3.65-5.03); Red Cell Distribution Width 14.8 % (13.2-15.2)
[2021-12-22 05:13] LABS: Calcium 8.6 mg/dL (8.4-10.2)
[2021-12-22] MEDS: HEPARIN/ 0.45% NACL DRIP 25,000 UNIT/500 ML BAG IV SCH (06:07)
[2021-12-22 08:10] LABS: Creatinine,Urine 62.6 mg/dL (0.1-20.0)
--- NOTE | 2021-12-22 08:18 | Consultation ---
History of Present Illness Consult date: 12/21/21 Reason for Consult: anticoagulation on afib Chief complaint: Weakness with low BGL History of present illness: 41 yo male with hx of ishcemic stroke then hemorrhagic stroke w/ residual left hemiparesis/plegia, chf, afib (on eliquis), hypertension, who presented for generalized weakness in the setting of BGL in the 40s. Patient notes that the hemorrhagic stroke occurred while taking eliquis but it was also associated with a fall. He is followed by [facility]. Past History Past Medical History: atrial fib, heart failure, hypertension, renal failure, stroke Past Surgical History: PTCA Social history: denies: smoking, alcohol abuse, prescription drug abuse, IV drug use Family history: hypertension Medications and Allergies Allergies Allergy/AdvReac Type Severity Reaction Status Date / Time adhesive Allergy Rash Verified 12/19/21 14:07 ibuprofen [From Motrin] Allergy Swelling Verified 12/19/21 14:07 lisinopril Allergy COUGH Verified 12/19/21 14:07 metoprolol Allergy Nausea Verified 12/19/21 14:07 amiodarone AdvReac Nausea Verified 12/19/21 14:07 Iodinated Contrast Media AdvReac KIDNEYS Verified 12/19/21 14:07 [Iodinated Contrast Media - SHUT DOWN IV Dye] Home Medications Medication Instructions Recorded Confirmed Last Taken Type Digoxin [Lanoxin] 0.25 mg PO DAILY@1700 #30 tablet 06/01/14 11/21/16 11/20/16 Rx Aspirin 325 mg PO QDAY 11/21/16 11/21/16 11/20/16 History Furosemide [Lasix TAB] 40 mg PO QDAY 11/21/16 11/21/16 11/20/16 History Losartan [Cozaar] 50 mg PO QDAY 11/21/16 11/21/16 11/20/16 History HYDROcodone/APAP 5-325 [[place] 1 each PO Q6HR PRN #20 tablet 07/24/19 Unknown Rx 5/325] Penicillin Vk [Veetids TAB] 500 mg PO QID #21 tablet 07/24/19 Unknown Rx Acetaminophen [Acetaminophen TAB] 1,000 mg PO Q6HR #30 tablet 10/22/19 Unknown Rx cephALEXin [Keflex] 500 mg PO Q8HR #30 cap 10/22/19 Unknown Rx Active Meds: Active Medications Acetaminophen (Acetaminophen 325 Mg Tab) 650 mg PO Q4H PRN PRN Reason: Pain MILD(1-3)/Fever >100.5/CARCAMO Last Admin: 12/21/21 09:52 Dose: 650 mg Amlodipine Besylate (Amlodipine 5 Mg Tab) 5 mg PO QDAY KAROLINA Last Admin: 12/21/21 09:36 Dose: 5 mg Aspirin (Aspirin 325 Mg Tab) 325 mg PO QDAY KAROLINA Last Admin: 12/21/21 09:34 Dose: 325 mg Dextrose (Dextrose 50% In Water (25gm) 50 Ml Syringe) 50 ml IV Q30MIN PRN; Protocol PRN Reason: Hypoglycemia Glucagon (Glucagon (Human Recombinant) 1 Mg/Ml Inj) 1 mg IV Q1H PRN PRN Reason: Hypoglycemia Last Admin: 12/19/21 16:08 Dose: 1 mg Hydralazine HCl (Hydralazine 20 Mg/1 Ml Inj) 10 mg IV Q2H PRN PRN Reason: Blood Pressure Sodium Chloride (Nacl 0.9%) 100 mls @ 999 mls/hr IV KEVIN PRN PRN Reason: Hypotension Amiodarone HCl 900 mg/ (Dextrose) 500 mls @ 33.333 mls/hr IV DIRECT KAROLINA; Protocol Last Infusion: 12/22/21 06:03 Dose: 0.5 mg/min, 16.667 mls/hr Heparin Sodium/Sodium Chloride (Heparin/ 0.45% Nacl-25,000 Unit/500 Ml) 25,000 unit in 500 mls @ 30 mls/hr IV TITR KAROLINA; Protocol Last Titration: 12/22/21 06:46 Dose: 1,350 units/hr, 27 mls/hr Ceftriaxone Sodium (Rocephin/Ns 2 Gm/100 Ml) 2 gm in 100 mls @ 200 mls/hr IV Q24H KARLOINA; Protocol Last Admin: 12/21/21 13:16 Dose: 200 mls/hr Morphine Sulfate (Morphine 2 Mg/1 Ml Inj) 2 mg IV Q4H PRN PRN Reason: Pain, Moderate (4-6) Last Admin: 12/21/21 13:48 Dose: 2 mg Ondansetron HCl (Ondansetron 4 Mg/2 Ml Inj) 4 mg IV Q6H PRN PRN Reason: Nausea And Vomiting Last Admin: 12/21/21 13:48 Dose: 4 mg Oxycodone/Acetaminophen (Oxycodone /Acetaminophen 5-325mg Tab) 1 tab PO Q6H PRN PRN Reason: Pain, Moderate (4-6) Last Admin: 12/21/21 23:18 Dose: 1 tab Sodium Chloride (Sodium Chloride 0.9% 10 Ml Flush Syringe) 10 ml IV BID KAROLINA Last Admin: 12/21/21 21:40 Dose: 10 ml Sodium Chloride (Sodium Chloride 0.9% 10 Ml Flush Syringe) 10 ml IV PRN PRN PRN Reason: LINE FLUSH Review of Systems All systems: negative (as per hpi;) Physical Examination - Vital Signs Vital Signs: Vital Signs Temp Pulse Resp BP Pulse Ox 99.0 F 120 H 16 150/90 98 12/19/21 11:52 12/19/21 11:52 12/19/21 11:52 12/19/21 11:52 12/19/21 11:52 - Physical Exam Narrative exam: Gen: nad, well-nourished; Head: normocephalic; Eyes: no gaze deviation; no ptosis; ENT: normal vocalization; CVS: warm and well-perfused; Pulm: no respiratory distress; GI: appears non-distended; Ext: no cyanosis appreciated at distal extremities; Skin: no acute rash at distal extremities; Heme: no pathologic ecchymosis appreciated at distal extremities; Neuro: alert, oriented to name, age, month, year, surroundings, mild dysarthria, no aphasia, CN 2 - PERRL, visual almanzar grossly intact, CN 3, 4, 6 - EOMI, CN 5 - facial sensation symmetric to light touch, CN 7 - facial movement decreased on the left, CN 8 - hearing grossly intact, CN 9, 10 - uvula midline, CN 11 decreased left shoulder movement, CN 12 - tongue midline; Motor - at least 4/5 at right exts; at least 1/5 at proximal left arm; 0/5 at distal left arm; at least 2-/5 at proximal left leg; at least 1/5 at left leg; Sensory - light touch symmetric, Cerebellar - fnf intact on right, Gait - deferred secondary to fall risk; Results - Laboratory Findings CBC and BMP: 12/22/21 04:03 12/22/21 04:03 Abnormal Lab Findings: Abnormal Labs 0712/19/21 12/19/21 12:30 12:46 13:19 WBC 15.3 H RBC 5.24 H Hgb 15.7 H Hct 47.0 H MCHC Seg Neuts % (Manual) Lymphocytes % (Manual) Monocytes % (Manual) Seg Neutrophils # Man Monocytes # (Manual) PT Heparin Anti-Xa Level Sodium Potassium Chloride Carbon Dioxide BUN Creatinine Glucose POC Glucose 28 L 44 L Calcium Phosphorus Magnesium AST Alkaline Phosphatase NT-Pro-B Natriuret Pep Albumin Urine Creatinine Urine Total Protein 12/19/21 12/19/21 12/19/21 13:19 13:33 14:01 WBC RBC Hgb Hct MCHC Seg Neuts % (Manual) Lymphocytes % (Manual) Monocytes % (Manual) Seg Neutrophils # Man Monocytes # (Manual) PT Heparin Anti-Xa Level Sodium 128 L Potassium 7.2 H* Chloride 93.1 L Carbon Dioxide 17 L BUN 107 H Creatinine 15.7 H Glucose 54 L POC Glucose 67 L 57 L Calcium Phosphorus Magnesium AST 61 H Alkaline Phosphatase 138 H NT-Pro-B Natriuret Pep Albumin 3.1 L Urine Creatinine Urine Total Protein 12/19/21 12/19/21 12/19/21 14:57 15:31 16:58 WBC RBC Hgb Hct MCHC Seg Neuts % (Manual) Lymphocytes % (Manual) Monocytes % (Manual) Seg Neutrophils # Man Monocytes # (Manual) PT Heparin Anti-Xa Level Sodium Potassium Chloride Carbon Dioxide BUN Creatinine Glucose POC Glucose 47 L 52 L 49 L Calcium Phosphorus Magnesium AST Alkaline Phosphatase NT-Pro-B Natriuret Pep Albumin Urine Creatinine Urine Total Protein 12/19/21 12/19/21 12/20/21 22:33 23:53 00:56 WBC RBC Hgb Hct MCHC Seg Neuts % (Manual) Lymphocytes % (Manual) Monocytes % (Manual) Seg Neutrophils # Man Monocytes # (Manual) PT Heparin Anti-Xa Level Sodium 130 L 130 L Potassium 7.8 H* 7.2 H* Chloride 92.6 L 92.2 L Carbon Dioxide 17 L 17 L BUN 110 H 111 H Creatinine 16.5 H 16.0 H Glucose 49 L 103 H POC Glucose 49 L Calcium Phosphorus Magnesium AST Alkaline Phosphatase NT-Pro-B Natriuret Pep Albumin Urine Creatinine Urine Total Protein 12/20/21 12/20/21 12/20/21 03:32 04:13 04:16 WBC 16.0 H RBC Hgb Hct MCHC Seg Neuts % (Manual) 78.0 H Lymphocytes % (Manual) 11.0 L Monocytes % (Manual) 11.0 H Seg Neutrophils # Man 12.5 H Monocytes # (Manual) 1.8 H PT Heparin Anti-Xa Level Sodium Potassium Chloride Carbon Dioxide BUN Creatinine Glucose POC Glucose 62 L 113 H Calcium Phosphorus Magnesium AST Alkaline Phosphatase NT-Pro-B Natriuret Pep Albumin Urine Creatinine Urine Total Protein 12/20/21 12/20/21 12/20/21 04:16 04:16 05:30 WBC RBC Hgb Hct MCHC Seg Neuts % (Manual) Lymphocytes % (Manual) Monocytes % (Manual) Seg Neutrophils # Man Monocytes # (Manual) PT Heparin Anti-Xa Level Sodium 127 L Potassium 7.2 H* Chloride 92.6 L Carbon Dioxide 14 L BUN 113 H Creatinine 16.1 H Glucose POC Glucose 112 H Calcium Phosphorus Magnesium AST 45 H Alkaline Phosphatase 131 H NT-Pro-B Natriuret Pep 79682 H Albumin 2.4 L Urine Creatinine Urine Total Protein 12/20/21 12/20/21 12/20/21 11:22 11:27 16:15 WBC RBC Hgb Hct MCHC Seg Neuts % (Manual) Lymphocytes % (Manual) Monocytes % (Manual) Seg Neutrophils # Man Monocytes # (Manual) PT Heparin Anti-Xa Level Sodium 133 L 131 L Potassium 5.4 H D Chloride 93.3 L 91.1 L Carbon Dioxide 21 L D BUN 96 H 79 H Creatinine 13.6 H 12.1 H Glucose 130 H POC Glucose 125 H Calcium 8.0 L 7.9 L Phosphorus Magnesium AST Alkaline Phosphatase NT-Pro-B Natriuret Pep Albumin Urine Creatinine Urine Total Protein 12/20/21 12/20/21 12/20/21 21:00 21:00 23:57 WBC 16.8 H RBC Hgb Hct MCHC Seg Neuts % (Manual) Lymphocytes % (Manual) Monocytes % (Manual) Seg Neutrophils # Man Monocytes # (Manual) PT Heparin Anti-Xa Level Sodium 129 L Potassium Chloride 89.7 L Carbon Dioxide BUN 83 H Creatinine 13.0 H Glucose POC Glucose 112 H Calcium 7.9 L Phosphorus Magnesium AST Alkaline Phosphatase NT-Pro-B Natriuret Pep Albumin Urine Creatinine Urine Total Protein 12/20/21 12/21/21 12/21/21 Unknown 01:04 02:00 WBC RBC Hgb Hct MCHC Seg Neuts % (Manual) Lymphocytes % (Manual) Monocytes % (Manual) Seg Neutrophils # Man Monocytes # (Manual) PT Heparin Anti-Xa Level Sodium 129 L Potassium 7.5 H* D Chloride 91.8 L Carbon Dioxide 13 L D BUN 113 H Creatinine 16.1 H Glucose POC Glucose 117 H 127 H Calcium Phosphorus Magnesium AST Alkaline Phosphatase NT-Pro-B Natriuret Pep Albumin Urine Creatinine Urine Total Protein 12/21/21 12/21/21 12/21/21 04:00 05:43 08:34 WBC RBC Hgb Hct MCHC Seg Neuts % (Manual) Lymphocytes % (Manual) Monocytes % (Manual) Seg Neutrophils # Man Monocytes # (Manual) PT Heparin Anti-Xa Level Sodium 128 L Potassium 5.1 H Chloride 88.0 L Carbon Dioxide BUN 84 H Creatinine 13.5 H Glucose 139 H POC Glucose 138 H 195 H Calcium 7.9 L Phosphorus 7.40 H Magnesium 1.50 L AST 65 H Alkaline Phosphatase NT-Pro-B Natriuret Pep Albumin 2.6 L Urine Creatinine Urine Total Protein 12/21/21 12/21/21 12/21/21 10:18 12:54 12:54 WBC RBC Hgb Hct MCHC Seg Neuts % (Manual) Lymphocytes % (Manual) Monocytes % (Manual) Seg Neutrophils # Man Monocytes # (Manual) PT 15.8 H Heparin Anti-Xa Level Sodium Potassium Chloride Carbon Dioxide BUN Creatinine Glucose POC Glucose 180 H 208 H Calcium Phosphorus Magnesium AST Alkaline Phosphatase NT-Pro-B Natriuret Pep Albumin Urine Creatinine Urine Total Protein 12/21/21 12/21/21 12/21/21 14:35 17:58 23:20 WBC RBC Hgb Hct MCHC Seg Neuts % (Manual) Lymphocytes % (Manual) Monocytes % (Manual) Seg Neutrophils # Man Monocytes # (Manual) PT Heparin Anti-Xa Level Sodium Potassium Chloride Carbon Dioxide BUN Creatinine Glucose POC Glucose 225 H 219 H 197 H Calcium Phosphorus Magnesium AST Alkaline Phosphatase NT-Pro-B Natriuret Pep Albumin Urine Creatinine Urine Total Protein 12/21/21 12/22/21 12/22/21 Unknown 04:03 04:03 WBC 17.9 H 15.5 H RBC Hgb Hct 34.9 L MCHC 35 H Seg Neuts % (Manual) Lymphocytes % (Manual) Monocytes % (Manual) Seg Neutrophils # Man Monocytes # (Manual) PT Heparin Anti-Xa Level Sodium 132 L Potassium Chloride 89.9 L Carbon Dioxide BUN 67 H Creatinine 11.5 H Glucose 157 H POC Glucose Calcium Phosphorus Magnesium AST Alkaline Phosphatase NT-Pro-B Natriuret Pep Albumin Urine Creatinine Urine Total Protein 12/22/21 12/22/21 12/22/21 06:07 06:15 07:10 WBC RBC Hgb Hct MCHC Seg Neuts % (Manual) Lymphocytes % (Manual) Monocytes % (Manual) Seg Neutrophils # Man Monocytes # (Manual) PT Heparin Anti-Xa Level 0.25 L Sodium Potassium Chloride Carbon Dioxide BUN Creatinine Glucose POC Glucose 139 H Calcium Phosphorus Magnesium AST Alkaline Phosphatase NT-Pro-B Natriuret Pep Albumin Urine Creatinine 62.6 H Urine Total Protein 15 H Assessment and Plan 41 yo male with hx of ishcemic stroke then hemorrhagic stroke w/ residual left hemiparesis/plegia, chf, afib (on eliquis), hypertension, who presented for generalized weakness in the setting of BGL in the 40s. Patient notes that the hemorrhagic stroke occurred while taking eliquis but it was also associated with a fall. He is followed by [facility]. 1. History of ICH - pt notes this event occurred where he passed out while urinating (?micturition syncope) and hit the floor and while on eliquis; pt is not able to recall if he was told that the bleed was a traumatic bleed due to the fall or whether he had a primary bleed that led to the fall; would defer further evaluation to [facility] who has access to these records. 2. History of Completed (Ischemic) Stroke - concern is raised for embolic event in the setting of underlying low-ef chf and afib; if no contraindications (see #1), recommend continuing eliquis for secondary stroke prophylaxis, that is assuming that the patient has non-valvular afib (?cardiology confirmation). 3. Hypertension - maintain normotension at all times. 4. Chronic Left Hemiparesis - continue home regimen of motor rehab. Omar Vee MD Neurology [id number]
[2021-12-22] MEDS: ASPIRIN 325 MG TAB PO SCH (09:19)
[2021-12-22] MEDS: amLODIPine 5 MG TAB PO SCH (09:20)
[2021-12-22] MEDS: AMIODARONE 900 MG in DEXTROSE 5% IN WATER 482 ML IV SCH (10:00)
[2021-12-22] MEDS: oxyCODONE /ACETAMINOPHEN 5-325MG TAB PO PRN ×2 (11:47→17:29)
[2021-12-22] MEDS: AMIODARONE 200 MG TAB PO SCH (11:47)
[2021-12-22] MEDS ORDERED: DEXTROSE 50% IN WATER (25GM) 50 ML SYRINGE IV PRN (11:48)
[2021-12-22] MEDS: INSULIN REGULAR, HUMAN 100 UNITS/1 ML SUB-Q SCH ×2 (12:22→18:23)
--- NOTE | 2021-12-22 12:29 | Progress Note ---
Assessment and Plan Patient is a 41-year-old male with a past medical history of HFrEF, nonischemic cardiomyopathy, chronic A. 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 fib Echo 04/04/2020-the study was technically difficult in quality. Arrhythmia was noted during the study LVEF is moderately decreased 35-40%. Regional wall motion abnormalities noted RV moderately dilated. RV systolic function is moderately reduced. RVSP is mildly elevated No pericardial effusion No definite or significant change in the EF from 03/11/2018 Consider an infiltrative cardiomyopathy such as amyloid Echo 12/20/2021-EF 20 to 25% moderate concentric LVH. Right ventricle is dilated. Right ventricle hypokinetic. Left atrium is severely dilated. Right atrium dilated Per documentation outpatient medications: Losartan 50 mg p.o. daily Lasix 40 mg p.o. daily, digoxin 0.25 mg p.o. daily, asa Plan: Telemetry reviewed patient appears to be in A. fib rate 110s to 120s Patient currently on amiodarone drip with no complaints. Do not believe documented amiodarone allergy is a true allergy Continue amiodarone drip. Will initiate amiodarone 200 mg p.o. twice daily No beta-paco due to documented allergy Patient currently anticoagulated on heparin Will defer to nephrology recommendations for volume management No WILLIE/ARB due to renal function and documented allergy Patient seen in conjunction with Dr. Valenzuela who agrees with plan of care 30 minutes critical care time spent care coordination. - Patient Problems (1) GRANT (acute kidney injury) Current Visit: Yes Status: Acute (2) Hyperkalemia Current Visit: Yes Status: Acute (3) Hypoglycemia Current Visit: Yes Status: Acute (4) Hyponatremia Current Visit: Yes Status: Acute (5) Acute on chronic systolic CHF (congestive heart failure) Current Visit: No Status: Acute (6) Atrial fibrillation with RVR Current Visit: No Status: Acute (7) COPD (chronic obstructive pulmonary disease) Current Visit: No Status: Acute (8) History of noncompliance with medical treatment Current Visit: No Status: Acute (9) Obesity Current Visit: No Status: Acute (10) Cardiomyopathy Current Visit: No Status: Chronic Subjective Date of service: 12/22/21 Principal diagnosis: GRANT Interval history: Patient resting in bed in no acute distress. Patient reports feeling significantly better A. fib rates 110s to 120s Objective Vital Signs Temp Pulse Pulse Resp BP Pulse Ox Pulse Ox 12/22/21 12:15 96 H 115/87 12/22/21 12:00 120 H 18 120/79 95 12/22/21 11:47 14 12/22/21 11:45 96 H 118/77 12/22/21 11:30 87 128/73 12/22/21 11:15 74 121/80 12/22/21 11:00 114 H 18 123/80 12/22/21 10:00 98.6 F 115 H 16 117/92 98 97 12/22/21 09:20 112 H 118/85 12/22/21 09:00 119 H 16 118/85 93 12/22/21 08:00 98.5 F 113 H 12 112/76 100 12/22/21 07:55 116 H 100 12/22/21 07:37 122 H 12/22/21 07:00 98 H 13 124/70 100 12/22/21 06:00 117 H 11 L 112/71 100 12/22/21 05:00 100 H 12 107/71 100 12/22/21 04:00 98.2 F 109 H 17 125/71 98 12/22/21 03:00 114 H 14 122/69 96 12/22/21 02:00 111 H 17 109/69 99 12/22/21 01:00 134 H 14 113/77 98 12/22/21 00:00 137 H 18 116/84 97 12/21/21 23:34 99.1 F 139 H 97 12/21/21 23:20 129 H 18 114/96 97 12/21/21 23:00 128 H 18 114/96 98 12/21/21 22:42 135 H 16 121/86 96 12/21/21 22:00 116 H 18 130/96 98 12/21/21 21:00 119 H 16 130/96 98 12/21/21 20:00 129 H 17 138/93 100 12/21/21 19:51 138 H 12/21/21 19:50 98.6 F 12/21/21 19:00 132 H 17 129/97 99 12/21/21 18:00 109 H 18 127/85 98 12/21/21 17:45 117 H 15 126/92 97 12/21/21 17:30 122 H 15 130/91 99 12/21/21 17:15 111 H 14 129/93 99 12/21/21 17:00 116 H 15 133/97 99 12/21/21 16:45 105 H 16 139/88 97 12/21/21 16:30 140 H 18 127/91 94 12/21/21 16:16 138 H 17 127/91 96 12/21/21 16:00 99.2 F 118 H 106 H 13 127/91 95 12/21/21 15:45 123 H 16 122/89 98 12/21/21 15:30 121 H 15 136/85 97 12/21/21 15:15 132 H 12 127/81 97 12/21/21 15:00 117 H 15 125/91 97 12/21/21 14:46 122 H 14 123/87 97 12/21/21 14:30 139 H 14 124/85 96 12/21/21 14:18 16 12/21/21 14:16 123 H 17 133/87 97 12/21/21 14:00 118 H 15 123/86 99 12/21/21 13:48 17 12/21/21 13:45 127 H 16 132/84 97 12/21/21 13:30 131 H 18 132/84 96 12/21/21 13:15 140 H 17 130/93 95 12/21/21 13:00 140 H 17 128/87 96 12/21/21 12:54 99.9 F H 131 H 20 127/90 96 12/21/21 12:45 137 H 18 127/90 96 12/21/21 12:40 129 H 127/90 12/21/21 12:30 134 H 16 125/89 97 - Physical Examination General: No Apparent Distress HEENT: Positive: PERRL Neck: Positive: neck supple Cardiac: Positive: irregularly irregular, Tachycardia Lungs: Positive: Normal Breath Sounds Neuro: Positive: Grossly Intact Abdomen: Positive: Soft Skin: Negative: Rash, Suspicious Lesions, Ulceration Extremities: Present: upper extr. pulses, edema - Labs and Meds Coagulation 12/21/21 Range/Units 12:54 PT 15.8 H (12.2-14.9) Sec. INR 1.13 (0.87-1.13) APTT 33.5 (24.2-36.6) Sec. CBC 12/22/21 Range/Units 04:03 WBC 15.5 H (4.5-11.0) K/mm3 RBC 3.93 (3.65-5.03) M/mm3 Hgb 12.2 (11.8-15.2) gm/dl Hct 34.9 L (35.5-45.6) % Plt Count 255 (140-440) K/mm3 Comprehensive Metabolic Panel 12/22/21 Range/Units 04:03 Sodium 132 L (137-145) mmol/L Potassium 4.9 (3.6-5.0) mmol/L Chloride 89.9 L (98-107) mmol/L Carbon Dioxide 25 (22-30) mmol/L BUN 67 H (9-20) mg/dL Creatinine 11.5 H (0.8-1.3) mg/dL Glucose 157 H (75-100) mg/dL Calcium 8.6 (8.4-10.2) mg/dL - Imaging and Cardiology EKG: report reviewed (Atrial fibrillation with heart rate of 120) Echo: report reviewed - Telemetry EKG Rhythm: Atrial Fibrillation - EKG Supraventricular dysrhythmia: atrial fibrillation
--- NOTE | 2021-12-22 13:12 | Progress Note ---
Assessment and Plan - Patient Problems (1) GRANT (acute kidney injury) Current Visit: Yes Status: Acute Plan to address problem: given refractory hyperkalemia and metabolic acidosis, initiated HD via vascath on 12/20/21. plan for daily HD x 3 days for correction of solute clearance, hyperkalemia, metabolic acidosis. renal US showed echogenic kidneys ch aracteristic for medical renal disease, no hydronephrosis seen. avoid nephrotoxins, NSAIDs, IV contrast. Will monitor lytes and renal parameters closely and make further recommendations. UOP is significantly increased over the last 24hrs. (2) Hyperkalemia Current Visit: Yes Status: Acute Plan to address problem: to be corrected with daily HD. cont 2g K renal diet (3) CHF (congestive heart failure), NYHA class II Current Visit: Yes Status: Chronic Qualifiers: Congestive heart failure chronicity: chronic Plan to address problem: volume control with HD. Echo showed LVEF 20 to 25% moderate concentric LVH. Right ventricle is dilated. Right ventricle hypokinetic. Left atrium is severely dilated. Right atrium dilated. follow cardiology recommendations (4) Hyponatremia Current Visit: Yes Status: Acute Plan to address problem: likely hypervolemic hyponatremia, to be corrected with volume control via HD (5) Atrial fibrillation with RVR Current Visit: No Status: Acute Plan to address problem: rate control as per cardiology recommendations. Cleared from renal stand point for initiation of eliquis 2.5mg po bid for anticoagulation. May need to be held 3-4 days prior possible permcath placement, if no significant renal recovery is seen Subjective Date of service: 12/22/21 Principal diagnosis: GRANT Interval history: patient seen in the ICU, tolerating HD well, without acute issues. increased urine output > 2L/24h noted Objective - Vital Signs Vital signs: Vital Signs - 12hr 12/22/21 12/22/21 12/22/21 02:00 03:00 04:00 Temperature 98.2 F Pulse Rate 111 H 114 H 109 H Pulse Rate [ From Monitor] Respiratory 17 14 17 Rate Respiratory Rate [Throat] Blood Pressure 109/69 122/69 125/71 O2 Sat by Pulse 99 96 98 Oximetry O2 Sat by Pulse Oximetry [ Anterior Bilateral Throughout] 12/22/21 12/22/21 12/22/21 05:00 06:00 07:00 Temperature Pulse Rate 100 H 117 H 98 H Pulse Rate [ From Monitor] Respiratory 12 11 L 13 Rate Respiratory Rate [Throat] Blood Pressure 107/71 112/71 124/70 O2 Sat by Pulse 100 100 100 Oximetry O2 Sat by Pulse Oximetry [ Anterior Bilateral Throughout] 12/22/21 12/22/21 12/22/21 07:37 07:55 08:00 Temperature 98.5 F Pulse Rate 122 H 113 H Pulse Rate [ 116 H From Monitor] Respiratory 12 Rate Respiratory Rate [Throat] Blood Pressure 112/76 O2 Sat by Pulse 100 100 Oximetry O2 Sat by Pulse Oximetry [ Anterior Bilateral Throughout] 12/22/21 12/22/21 12/22/21 09:00 09:20 10:00 Temperature 98.6 F Pulse Rate 119 H 112 H 115 H Pulse Rate [ From Monitor] Respiratory 16 16 Rate Respiratory Rate [Throat] Blood Pressure 118/85 118/85 117/92 O2 Sat by Pulse 93 98 Oximetry O2 Sat by Pulse 97 Oximetry [ Anterior Bilateral Throughout] 12/22/21 12/22/21 12/22/21 11:00 11:15 11:30 Temperature Pulse Rate 114 H 74 87 Pulse Rate [ From Monitor] Respiratory 18 Rate Respiratory Rate [Throat] Blood Pressure 123/80 121/80 128/73 O2 Sat by Pulse Oximetry O2 Sat by Pulse Oximetry [ Anterior Bilateral Throughout] 12/22/21 12/22/21 12/22/21 11:45 11:47 12:00 Temperature 98.8 F Pulse Rate 96 H 120 H Pulse Rate [ 120 H From Monitor] Respiratory 14 18 Rate Respiratory 14 Rate [Throat] Blood Pressure 118/77 120/79 O2 Sat by Pulse 95 Oximetry O2 Sat by Pulse Oximetry [ Anterior Bilateral Throughout] 12/22/21 12/22/21 12/22/21 12:15 12:30 12:45 Temperature Pulse Rate 96 H 120 H 96 H Pulse Rate [ From Monitor] Respiratory Rate Respiratory Rate [Throat] Blood Pressure 115/87 111/80 120/78 O2 Sat by Pulse Oximetry O2 Sat by Pulse Oximetry [ Anterior Bilateral Throughout] 12/22/21 13:00 Temperature Pulse Rate 53 L Pulse Rate [ From Monitor] Respiratory Rate Respiratory Rate [Throat] Blood Pressure 113/70 O2 Sat by Pulse Oximetry O2 Sat by Pulse Oximetry [ Anterior Bilateral Throughout] - General Appearance General appearance: well-developed, well-nourished, appears stated age, obese EENT: ATNC, PERRL, mucous membranes moist Neck: no JVD Respiratory: Present: Clear to Ascultation Cardiology: regular, S1S2 Gastrointestinal: normoactive bowel sounds Integumentary: no rash Neurologic: no focal deficit, alert and oriented x3, strength 5/5, CN 3-12 intact Psychiatric: mood/affect appropriate, cooperative - Lab 12/22/21 04:03 12/22/21 04:03 Most recent lab results Calcium 8.6 mg/dL (8.4-10.2) 12/22/21 04:03 Phosphorus 7.40 mg/dL (2.5-4.5) H 12/21/21 04:00 Magnesium 1.50 mg/dL (1.7-2.3) L 12/21/21 04:00 Urine Creatinine 62.6 mg/dL (0.1-20.0) H 12/22/21 07:10 Urine Sodium 26 mmol/L 12/22/21 07:10 Urine Total Protein 15 mg/dL (5-11.8) H 12/22/21 07:10 Medications & Allergies - Medications Allergies/Adverse Reactions: Allergies adhesive Allergy (Verified 12/19/21 14:07) Rash ibuprofen [From Motrin] Allergy (Verified 12/19/21 14:07) Swelling lisinopril Allergy (Verified 12/19/21 14:07) COUGH metoprolol Allergy (Verified 12/19/21 14:07) Nausea amiodarone Adverse Reaction (Verified 12/19/21 14:07) Nausea Iodinated Contrast Media [Iodinated Contrast Media - IV Dye] Adverse Reaction (Verified 12/19/21 14:07) KIDNEYS SHUT DOWN Home Medications: Home Medications Medication Instructions Recorded Confirmed Last Taken Type Digoxin [Lanoxin] 0.25 mg PO DAILY@1700 #30 tablet 06/01/14 11/21/16 11/20/16 Rx Aspirin 325 mg PO QDAY 11/21/16 11/21/16 11/20/16 History Furosemide [Lasix TAB] 40 mg PO QDAY 11/21/16 11/21/16 11/20/16 History Losartan [Cozaar] 50 mg PO QDAY 11/21/16 11/21/16 11/20/16 History HYDROcodone/APAP 5-325 [[place] 1 each PO Q6HR PRN #20 tablet 02/27/20 Unknown Rx 5/325] Penicillin Vk [Veetids TAB] 500 mg PO QID #21 tablet 07/24/19 Unknown Rx Acetaminophen [Acetaminophen TAB] 1,000 mg PO Q6HR #30 tablet 10/22/19 Unknown Rx cephALEXin [Keflex] 500 mg PO Q8HR #30 cap 10/22/19 Unknown Rx Active Medications: Generic Name Dose Route Start Last Admin Trade Name Freq PRN Reason Stop Dose Admin Acetaminophen 650 mg 12/19/21 16:54 12/21/21 09:52 Acetaminophen 325 Mg Tab PO 650 mg Q4H PRN Administration Pain MILD(1-3)/Fever >100.5/CARCAMO Amiodarone HCl 200 mg 12/22/21 11:00 12/22/21 11:47 Amiodarone 200 Mg Tab PO 200 mg BID KAROLINA Administration Aspirin 325 mg 12/20/21 10:00 12/22/21 09:19 Aspirin 325 Mg Tab PO 325 mg QDAY KAROLINA Administration Dextrose 50 ml 12/20/21 10:45 Dextrose 50% In Water (25gm) 50 Ml Syringe IV Q30MIN PRN Hypoglycemia Protocol Glucagon 1 mg 12/19/21 15:39 12/19/21 16:08 Glucagon (Human Recombinant) 1 Mg/Ml Inj IV 1 mg Q1H PRN Administration Hypoglycemia Hydralazine HCl 10 mg 12/19/21 18:41 Hydralazine 20 Mg/1 Ml Inj IV Q2H PRN Blood Pressure Sodium Chloride 100 mls @ 999 mls/hr 12/20/21 07:08 Nacl 0.9% IV KEVIN PRN Hypotension Amiodarone HCl 900 mg/ 500 mls @ 33.333 mls/hr 12/21/21 11:15 12/22/21 10:00 Dextrose IV 0.5 mg/min DIRECT KAROLINA 16.667 mls/hr Administration Protocol 1 MG/MIN Heparin Sodium/Sodium Chloride 25,000 unit in 500 mls @ 30 mls/hr 12/21/21 12:00 12/22/21 06:46 Heparin/ 0.45% Nacl-25,000 Unit/500 Ml IV 1,350 units/hr TITR KAROLINA 27 mls/hr Titration Protocol 1,500 UNITS/HR Ceftriaxone Sodium 2 gm in 100 mls @ 200 mls/hr 12/21/21 12:00 12/21/21 13:16 Rocephin/Ns 2 Gm/100 Ml IV 200 mls/hr Q24H KAROLINA Administration Protocol Insulin Human Regular 0 units 12/22/21 13:00 12/22/21 12:22 Insulin Regular, Human 100 Units/1 Ml SUB-Q 1 units Q6H KAROLINA Administration Protocol Morphine Sulfate 2 mg 12/19/21 16:54 12/21/21 13:48 Morphine 2 Mg/1 Ml Inj IV 2 mg Q4H PRN Administration Pain, Moderate (4-6) Ondansetron HCl 4 mg 12/21/21 12:00 12/21/21 13:48 Ondansetron 4 Mg/2 Ml Inj IV 4 mg Q6H PRN Administration Nausea And Vomiting Oxycodone/Acetaminophen 1 tab 12/19/21 16:54 12/22/21 11:47 Oxycodone /Acetaminophen 5-325mg Tab PO 1 tab Q6H PRN Administration Pain, Moderate (4-6) Sodium Chloride 10 ml 12/19/21 22:00 12/22/21 09:22 Sodium Chloride 0.9% 10 Ml Flush Syringe IV 10 ml BID KAROLINA Administration Sodium Chloride 10 ml 12/19/21 16:54 Sodium Chloride 0.9% 10 Ml Flush Syringe IV PRN PRN LINE FLUSH
--- NOTE | 2021-12-22 13:36 | Progress Note ---
Assessment and Plan 41 y/o male with hyperkalemia, secondary to acute renal failure of unknown etiology with hypoglycemia likely secondary to oral medications not fully being cleared secondary to renal impairment. 12/22/21: Off D10 now, tolerating PO. From a critical care standpoint, stable for transfer. Continue Amio and follow up cards recs. Vascular consulted given toe appearance and concern for infection. Continue IV abx therapy and follow up cultures. Will likely sign off once out of unit. 12/21/21: Bladder scan showed no urine in bladder so will hold on gunderson placement. HD per renal for 3 days straight so again tomorrow. Patient still o n D10 at 75 and highest Blood sugar has been 195. Will continue for now but will drop down to 50. Has a diet. Likely oral hypoglycemics are still in system. If not improved after HD session tomorrow, may need to ask renal about further sessions to help with removal of active metabolites. Given that no real allergy to amio, cards will initiate today. 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 Continue ICU care. Prognosis still remains guarded. 1. Renal-nephro already ordered HD and patient is on it. Unsure if bladder scan was done but patient has no Gunderson as he refused it in the ED. Still would consider bladder scan and will discuss placement of gunderson based on scan results. HD per renal. Likely needs renal ultrasound as well. 2. Endocrine-persistent hypoglycemia requiring D10 drip. Once patient has 3 consecutive sugars greater than 180 then would be ok with stopping D10. Hopeful HD will help to remove active metabolites of drugs that maybe adding to continued hypoglycemia. If not improvement post HD, will need further work up. Ok with feeding patient as long as he remains alert and can protect his airway. Continue q1 hour finger sticks 3. Cardiovascular-tachycardic. Questionable afib. Awaiting 12 lead EKG. Hold on therapy for right now. Cards is following as well. Stopped Dig given renal function. 4. GI- ok with feeding patient, needs prophylaxis for ulcers. 5. Neuro-some confusion on questioning but for the most part stable, will continue to monitor 6. Guarded prognosis. CCt 31 minutes. Subjective Date of service: 12/22/21 Principal diagnosis: GRANT Interval history: Blood sugars finally broke 200 and patient is starting to make urine again. Currently on HD. HR is still not controlled but lower. Currently on Amiodarone drip. Remains on room air. Objective - Constitutional Vitals: Vital Signs - 12hr 12/22/21 12/22/21 12/22/21 02:00 03:00 04:00 Temperature 98.2 F Pulse Rate 111 H 114 H 109 H Pulse Rate [ From Monitor] Respiratory 17 14 17 Rate Respiratory Rate [Throat] Blood Pressure 109/69 122/69 125/71 O2 Sat by Pulse 99 96 98 Oximetry O2 Sat by Pulse Oximetry [ Anterior Bilateral Throughout] 12/22/21 12/22/21 12/22/21 05:00 06:00 07:00 Temperature Pulse Rate 100 H 117 H 98 H Pulse Rate [ From Monitor] Respiratory 12 11 L 13 Rate Respiratory Rate [Throat] Blood Pressure 107/71 112/71 124/70 O2 Sat by Pulse 100 100 100 Oximetry O2 Sat by Pulse Oximetry [ Anterior Bilateral Throughout] 12/22/21 12/22/21 12/22/21 07:37 07:55 08:00 Temperature 98.5 F Pulse Rate 122 H 113 H Pulse Rate [ 116 H From Monitor] Respiratory 12 Rate Respiratory Rate [Throat] Blood Pressure 112/76 O2 Sat by Pulse 100 100 Oximetry O2 Sat by Pulse Oximetry [ Anterior Bilateral Throughout] 12/22/21 12/22/21 12/22/21 09:00 09:20 10:00 Temperature 98.6 F Pulse Rate 119 H 112 H 115 H Pulse Rate [ From Monitor] Respiratory 16 16 Rate Respiratory Rate [Throat] Blood Pressure 118/85 118/85 117/92 O2 Sat by Pulse 93 98 Oximetry O2 Sat by Pulse 97 Oximetry [ Anterior Bilateral Throughout] 12/22/21 12/22/21 12/22/21 11:00 11:15 11:30 Temperature Pulse Rate 114 H 74 87 Pulse Rate [ From Monitor] Respiratory 18 Rate Respiratory Rate [Throat] Blood Pressure 123/80 121/80 128/73 O2 Sat by Pulse Oximetry O2 Sat by Pulse Oximetry [ Anterior Bilateral Throughout] 12/22/21 12/22/21 12/22/21 11:45 11:47 12:00 Temperature 98.8 F Pulse Rate 96 H 120 H Pulse Rate [ 120 H From Monitor] Respiratory 14 18 Rate Respiratory 14 Rate [Throat] Blood Pressure 118/77 120/79 O2 Sat by Pulse 95 Oximetry O2 Sat by Pulse Oximetry [ Anterior Bilateral Throughout] 12/22/21 12/22/21 12/22/21 12:15 12:30 12:45 Temperature Pulse Rate 96 H 120 H 96 H Pulse Rate [ From Monitor] Respiratory Rate Respiratory Rate [Throat] Blood Pressure 115/87 111/80 120/78 O2 Sat by Pulse Oximetry O2 Sat by Pulse Oximetry [ Anterior Bilateral Throughout] 12/22/21 12/22/21 13:00 13:15 Temperature Pulse Rate 121 H 64 Pulse Rate [ From Monitor] Respiratory 14 Rate Respiratory Rate [Throat] Blood Pressure 113/70 116/72 O2 Sat by Pulse 97 Oximetry O2 Sat by Pulse Oximetry [ Anterior Bilateral Throughout] - Labs CBC & Chem 7: 12/22/21 04:03 12/22/21 04:03 Labs: Abnormal lab results 12/21/21 12/21/21 12/21/21 Range/Units 12:54 14:35 17:58 WBC (4.5-11.0) K/mm3 Hct (35.5-45.6) % MCHC (32-34) % PT 15.8 H (12.2-14.9) Sec. Heparin Anti-Xa Level (0.3-0.7) U.I./ml Sodium (137-145) mmol/L Chloride (98-107) mmol/L BUN (9-20) mg/dL Creatinine (0.8-1.3) mg/dL Glucose (75-100) mg/dL POC Glucose 225 H 219 H (70-105) mg/dL Urine Creatinine (0.1-20.0) mg/dL Urine Total Protein (5-11.8) mg/dL 12/21/21 12/22/21 12/22/21 Range/Units 23:20 04:03 04:03 WBC 15.5 H (4.5-11.0) K/mm3 Hct 34.9 L (35.5-45.6) % MCHC 35 H (32-34) % PT (12.2-14.9) Sec. Heparin Anti-Xa Level (0.3-0.7) U.I./ml Sodium 132 L (137-145) mmol/L Chloride 89.9 L (98-107) mmol/L BUN 67 H (9-20) mg/dL Creatinine 11.5 H (0.8-1.3) mg/dL Glucose 157 H (75-100) mg/dL POC Glucose 197 H (70-105) mg/dL Urine Creatinine (0.1-20.0) mg/dL Urine Total Protein (5-11.8) mg/dL 12/22/21 12/22/21 12/22/21 Range/Units 06:07 06:15 07:10 WBC (4.5-11.0) K/mm3 Hct (35.5-45.6) % MCHC (32-34) % PT (12.2-14.9) Sec. Heparin Anti-Xa Level 0.25 L (0.3-0.7) U.I./ml Sodium (137-145) mmol/L Chloride (98-107) mmol/L BUN (9-20) mg/dL Creatinine (0.8-1.3) mg/dL Glucose (75-100) mg/dL POC Glucose 139 H (70-105) mg/dL Urine Creatinine 62.6 H (0.1-20.0) mg/dL Urine Total Protein 15 H (5-11.8) mg/dL 12/22/21 Range/Units 11:42 WBC (4.5-11.0) K/mm3 Hct (35.5-45.6) % MCHC (32-34) % PT (12.2-14.9) Sec. Heparin Anti-Xa Level (0.3-0.7) U.I./ml Sodium (137-145) mmol/L Chloride (98-107) mmol/L BUN (9-20) mg/dL Creatinine (0.8-1.3) mg/dL Glucose (75-100) mg/dL POC Glucose 191 H (70-105) mg/dL Urine Creatinine (0.1-20.0) mg/dL Urine Total Protein (5-11.8) mg/dL Medications & Allergies - Medications Allergies/Adverse Reactions: Allergies adhesive Allergy (Verified 12/19/21 14:07) Rash ibuprofen [From Motrin] Allergy (Verified 12/19/21 14:07) Swelling lisinopril Allergy (Verified 12/19/21 14:07) COUGH metoprolol Allergy (Verified 12/19/21 14:07) Nausea amiodarone Adverse Reaction (Verified 12/19/21 14:07) Nausea Iodinated Contrast Media [Iodinated Contrast Media - IV Dye] Adverse Reaction (Verified 12/19/21 14:07) KIDNEYS SHUT DOWN Home Medications: Home Medications Medication Instructions Recorded Confirmed Last Taken Type Digoxin [Lanoxin] 0.25 mg PO DAILY@1700 #30 tablet 06/01/14 11/21/16 11/20/16 Rx Aspirin 325 mg PO QDAY 11/21/16 11/21/16 11/20/16 History Furosemide [Lasix TAB] 40 mg PO QDAY 11/21/16 11/21/16 11/20/16 History Losartan [Cozaar] 50 mg PO QDAY 11/21/16 11/21/16 11/20/16 History HYDROcodone/APAP 5-325 [[place] 1 each PO Q6HR PRN #20 tablet 07/24/19 Unknown Rx 5/325] Penicillin Vk [Veetids TAB] 500 mg PO QID #21 tablet 07/24/19 Unknown Rx Acetaminophen [Acetaminophen TAB] 1,000 mg PO Q6HR #30 tablet 10/22/19 Unknown Rx cephALEXin [Keflex] 500 mg PO Q8HR #30 cap 10/22/19 Unknown Rx Active Medications: Generic Name Dose Route Start Last Admin Trade Name Freq PRN Reason Stop Dose Admin Acetaminophen 650 mg 12/19/21 16:54 12/21/21 09:52 Acetaminophen 325 Mg Tab PO 650 mg Q4H PRN Administration Pain MILD(1-3)/Fever >100.5/CARCAMO Amiodarone HCl 200 mg 12/22/21 11:00 12/22/21 11:47 Amiodarone 200 Mg Tab PO 200 mg BID KAROLINA Administration Aspirin 325 mg 12/20/21 10:00 12/22/21 09:19 Aspirin 325 Mg Tab PO 325 mg QDAY KAROLINA Administration Dextrose 50 ml 12/20/21 10:45 Dextrose 50% In Water (25gm) 50 Ml Syringe IV Q30MIN PRN Hypoglycemia Protocol Glucagon 1 mg 12/19/21 15:39 12/19/21 16:08 Glucagon (Human Recombinant) 1 Mg/Ml Inj IV 1 mg Q1H PRN Administration Hypoglycemia Hydralazine HCl 10 mg 12/19/21 18:41 Hydralazine 20 Mg/1 Ml Inj IV Q2H PRN Blood Pressure Sodium Chloride 100 mls @ 999 mls/hr 12/20/21 07:08 Nacl 0.9% IV KEVIN PRN Hypotension Amiodarone HCl 900 mg/ 500 mls @ 33.333 mls/hr 12/21/21 11:15 12/22/21 10:00 Dextrose IV 0.5 mg/min DIRECT KAROLINA 16.667 mls/hr Administration Protocol 1 MG/MIN Heparin Sodium/Sodium Chloride 25,000 unit in 500 mls @ 30 mls/hr 12/21/21 12:00 12/22/21 06:46 Heparin/ 0.45% Nacl-25,000 Unit/500 Ml IV 1,350 units/hr TITR KAROLINA 27 mls/hr Titration Protocol 1,500 UNITS/HR Ceftriaxone Sodium 2 gm in 100 mls @ 200 mls/hr 12/21/21 12:00 12/21/21 13:16 Rocephin/Ns 2 Gm/100 Ml IV 200 mls/hr Q24H KAROLINA Administration Protocol Insulin Human Regular 0 units 12/22/21 13:00 12/22/21 12:22 Insulin Regular, Human 100 Units/1 Ml SUB-Q 1 units Q6H KAROLINA Administration Protocol Morphine Sulfate 2 mg 12/19/21 16:54 12/21/21 13:48 Morphine 2 Mg/1 Ml Inj IV 2 mg Q4H PRN Administration Pain, Moderate (4-6) Ondansetron HCl 4 mg 12/21/21 12:00 12/21/21 13:48 Ondansetron 4 Mg/2 Ml Inj IV 4 mg Q6H PRN Administration Nausea And Vomiting Oxycodone/Acetaminophen 1 tab 12/19/21 16:54 12/22/21 11:47 Oxycodone /Acetaminophen 5-325mg Tab PO 1 tab Q6H PRN Administration Pain, Moderate (4-6) Sodium Chloride 10 ml 12/19/21 22:00 12/22/21 09:22 Sodium Chloride 0.9% 10 Ml Flush Syringe IV 10 ml BID KAROLINA Administration Sodium Chloride 10 ml 12/19/21 16:54 Sodium Chloride 0.9% 10 Ml Flush Syringe IV PRN PRN LINE FLUSH HEART Score - HEART Score Age: 45-65 Risk factors: > 3 risk factors or hx of atherosclerotic disease Troponin: 1-3x normal limit - Critical Actions Critical Actions: 4-6 pts:12-16.6% risk of adverse cardiac event. Should be admitted
--- NOTE | 2021-12-22 13:50 | Consultation ---
History of Present Illness - Reason for Consult Consult date: 12/22/21 Right Foot Gangrene Requesting physician: CAROLYNN VAUGHN - History of Present Illness The patient is a 41-year-old male with a history of diabetes, congestive heart failure, and hypertension who presented to the hospital with complaints of weakness and the inability to urinate. He was found to be in acute renal failure with hyperkalemia and despite medical management he required placement of a Vas-Cath for the initiation of hemodialysis. His work-up also revealed atrial fibrillation as well as gangrenous changes to his right first toe. The patient states that his toenail fell off approximately 2 months ago and since that time his toe has failed to heal. He does not know why or how the toenail fell off. The patient had a CVA approximately 1 year ago resulting in severe weakness of his left side. Given the left-sided weakness the patient does not ambulate however he does use his right leg to pivot and transfer. He reports a history of clot to his arteries approximately 2 years ago that was unable to be adequately treated here. He states he was referred to an outside facility for management. He denies any pain or numbness of the right foot. He has no additional complaints at this time. Past History Past Medical History: atrial fib (With atrial thrombus), diabetes, heart failure, hypertension, renal failure, stroke Past Surgical History: PTCA, Other (Attempted thrombolysis of his right tibial vessels in 2017) Social history: denies: smoking, alcohol abuse, prescription drug abuse, IV drug use Family history: hypertension Medications and Allergies Allergies Allergy/AdvReac Type Severity Reaction Status Date / Time adhesive Allergy Rash Verified 12/19/21 14:07 ibuprofen [From Motrin] Allergy Swelling Verified 12/19/21 14:07 lisinopril Allergy COUGH Verified 12/19/21 14:07 metoprolol Allergy Nausea Verified 12/19/21 14:07 amiodarone AdvReac Nausea Verified 12/19/21 14:07 Iodinated Contrast Media AdvReac KIDNEYS Verified 12/19/21 14:07 [Iodinated Contrast Media - SHUT DOWN IV Dye] Home Medications Medication Instructions Recorded Confirmed Last Taken Type Digoxin [Lanoxin] 0.25 mg PO DAILY@1700 #30 tablet 06/01/14 11/21/16 11/20/16 Rx Aspirin 325 mg PO QDAY 11/21/16 11/21/16 11/20/16 History Furosemide [Lasix TAB] 40 mg PO QDAY 11/21/16 11/21/16 11/20/16 History Losartan [Cozaar] 50 mg PO QDAY 11/21/16 11/21/16 11/20/16 History HYDROcodone/APAP 5-325 [[place] 1 each PO Q6HR PRN #20 tablet 07/24/19 Unknown Rx 5/325] Penicillin Vk [Veetids TAB] 500 mg PO QID #21 tablet 07/24/19 Unknown Rx Acetaminophen [Acetaminophen TAB] 1,000 mg PO Q6HR #30 tablet 10/22/19 Unknown Rx cephALEXin [Keflex] 500 mg PO Q8HR #30 cap 10/22/19 Unknown Rx Active Meds: Active Medications Acetaminophen (Acetaminophen 325 Mg Tab) 650 mg PO Q4H PRN PRN Reason: Pain MILD(1-3)/Fever >100.5/CARCAMO Last Admin: 12/21/21 09:52 Dose: 650 mg Amiodarone HCl (Amiodarone 200 Mg Tab) 200 mg PO BID KAROLINA Last Admin: 12/22/21 11:47 Dose: 200 mg Aspirin (Aspirin 325 Mg Tab) 325 mg PO QDAY KAROLINA Last Admin: 12/22/21 09:19 Dose: 325 mg Dextrose (Dextrose 50% In Water (25gm) 50 Ml Syringe) 50 ml IV Q30MIN PRN; Protocol PRN Reason: Hypoglycemia Glucagon (Glucagon (Human Recombinant) 1 Mg/Ml Inj) 1 mg IV Q1H PRN PRN Reason: Hypoglycemia Last Admin: 12/19/21 16:08 Dose: 1 mg Hydralazine HCl (Hydralazine 20 Mg/1 Ml Inj) 10 mg IV Q2H PRN PRN Reason: Blood Pressure Sodium Chloride (Nacl 0.9%) 100 mls @ 999 mls/hr IV KEVIN PRN PRN Reason: Hypotension Amiodarone HCl 900 mg/ (Dextrose) 500 mls @ 33.333 mls/hr IV DIRECT KAROLINA; Protocol Last Admin: 12/22/21 10:00 Dose: 0.5 mg/min, 16.667 mls/hr Heparin Sodium/Sodium Chloride (Heparin/ 0.45% Nacl-25,000 Unit/500 Ml) 25,000 unit in 500 mls @ 30 mls/hr IV TITR KAROLINA; Protocol Last Titration: 12/22/21 06:46 Dose: 1,350 units/hr, 27 mls/hr Ceftriaxone Sodium (Rocephin/Ns 2 Gm/100 Ml) 2 gm in 100 mls @ 200 mls/hr IV Q24H [facility]; Protocol Last Admin: 12/21/21 13:16 Dose: 200 mls/hr Insulin Human Regular (Insulin Regular, Human 100 Units/1 Ml) 0 units SUB-Q Q6H [facility]; Protocol Last Admin: 12/22/21 12:22 Dose: 1 units Morphine Sulfate (Morphine 2 Mg/1 Ml Inj) 2 mg IV Q4H PRN PRN Reason: Pain, Moderate (4-6) Last Admin: 12/21/21 13:48 Dose: 2 mg Ondansetron HCl (Ondansetron 4 Mg/2 Ml Inj) 4 mg IV Q6H PRN PRN Reason: Nausea And Vomiting Last Admin: 12/21/21 13:48 Dose: 4 mg Oxycodone/Acetaminophen (Oxycodone /Acetaminophen 5-325mg Tab) 1 tab PO Q6H PRN PRN Reason: Pain, Moderate (4-6) Last Admin: 12/22/21 11:47 Dose: 1 tab Sodium Chloride (Sodium Chloride 0.9% 10 Ml Flush Syringe) 10 ml IV BID [facility] Last Admin: 12/22/21 09:22 Dose: 10 ml Sodium Chloride (Sodium Chloride 0.9% 10 Ml Flush Syringe) 10 ml IV PRN PRN PRN Reason: LINE FLUSH Review of Systems All systems: negative Exam - Constitutional Vitals: Temp Pulse Resp BP Pulse Ox 98.6 F 121 H 15 114/72 93 12/22/21 13:43 12/22/21 13:43 12/22/21 13:43 12/22/21 13:43 12/22/21 13:43 General appearance: Present: no acute distress, other (On hemodialysis during the exam) - Respiratory Respiratory effort: normal - Cardiovascular Rhythm: irregularly irregular - Extremities Extremities: pulses intact (Weakly palpable dorsalis pedis pulses bilaterally), normal temperature, abnormal (Right first toe with toenail missing, dry gangrenous changes to the distal right first toe) - Abdominal General gastrointestinal: Present: soft Male genitourinary: Present: deferred - Rectal Rectal Exam: deferred - Musculoskeletal Musculoskeletal: left sided weakness Results - Labs CBC & Chem 7: 12/22/21 04:03 12/22/21 04:03 Labs: Abnormal lab results 12/21/21 12/21/21 12/21/21 Range/Units 12:54 14:35 17:58 WBC (4.5-11.0) K/mm3 Hct (35.5-45.6) % MCHC (32-34) % PT 15.8 H (12.2-14.9) Sec. Heparin Anti-Xa Level (0.3-0.7) U.I./ml Sodium (137-145) mmol/L Chloride (98-107) mmol/L BUN (9-20) mg/dL Creatinine (0.8-1.3) mg/dL Glucose (75-100) mg/dL POC Glucose 225 H 219 H (70-105) mg/dL Urine Creatinine (0.1-20.0) mg/dL Urine Total Protein (5-11.8) mg/dL 12/21/21 12/22/21 12/22/21 Range/Units 23:20 04:03 04:03 WBC 15.5 H (4.5-11.0) K/mm3 Hct 34.9 L (35.5-45.6) % MCHC 35 H (32-34) % PT (12.2-14.9) Sec. Heparin Anti-Xa Level (0.3-0.7) U.I./ml Sodium 132 L (137-145) mmol/L Chloride 89.9 L (98-107) mmol/L BUN 67 H (9-20) mg/dL Creatinine 11.5 H (0.8-1.3) mg/dL Glucose 157 H (75-100) mg/dL POC Glucose 197 H (70-105) mg/dL Urine Creatinine (0.1-20.0) mg/dL Urine Total Protein (5-11.8) mg/dL 12/22/21 12/22/21 12/22/21 Range/Units 06:07 06:15 07:10 WBC (4.5-11.0) K/mm3 Hct (35.5-45.6) % MCHC (32-34) % PT (12.2-14.9) Sec. Heparin Anti-Xa Level 0.25 L (0.3-0.7) U.I./ml Sodium (137-145) mmol/L Chloride (98-107) mmol/L BUN (9-20) mg/dL Creatinine (0.8-1.3) mg/dL Glucose (75-100) mg/dL POC Glucose 139 H (70-105) mg/dL Urine Creatinine 62.6 H (0.1-20.0) mg/dL Urine Total Protein 15 H (5-11.8) mg/dL 12/22/21 Range/Units 11:42 WBC (4.5-11.0) K/mm3 Hct (35.5-45.6) % MCHC (32-34) % PT (12.2-14.9) Sec. Heparin Anti-Xa Level (0.3-0.7) U.I./ml Sodium (137-145) mmol/L Chloride (98-107) mmol/L BUN (9-20) mg/dL Creatinine (0.8-1.3) mg/dL Glucose (75-100) mg/dL POC Glucose 191 H (70-105) mg/dL Urine Creatinine (0.1-20.0) mg/dL Urine Total Protein (5-11.8) mg/dL Assessment and Plan The patient is a 41-year-old male with a history of multiple medical problems who has dry gangrene to the right first toe. 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 He had an attempted thrombolysis that was unsuccessful. On exam the patient has weakly palpable pulses in his dorsalis pedis artery however this is likely secondary to collaterals from the chronic occlusion in his right lower extremity. The patient requires an arterial duplex of bilateral lower extremities with ABIs to evaluate his flow however I suspect that he will require an arteriogram with possible intervention to improve flow to the right foot at some point. Given the acute renal failure and stable dry gangrene this may not be performed in the hospital setting at this time. If it is determined that he is in end-stage renal disease and recovery of his renal function is unlikely then it is possible that he may undergo the procedure during the setting. We will follow-up the results of the ultrasound to make any further recommendations. I discussed this plan with the patient who expressed understanding and agrees.
[2021-12-22] MEDS: cefTRIAXone/NS 2 GM/100 ML 2 GM/100 ML BAG IV SCH (13:54)
--- NOTE | 2021-12-22 14:26 | XRay Report ---
Right leg-4 views Right foot-2 views INDICATION: pain. COMPARISON: None available. IMPRESSION: No acute fracture in the right leg or right foot. There appears to be a small soft tissu e wound along the medial aspect of the great toe distal phalanx with no gross underlying bone destruc tion or periostitis to suggest osteomyelitis. Normal alignment. Mild tricompartmental DJD in the kne e and degenerative changes in the forefoot with enthesopathic change along the calcaneal tuberosity. Remaining soft tissues are unremarkable. Signer Name: Anthony Mckeon MD Signed: 12/22/2021 2:22 PM Workstation Name: [id number]
--- NOTE | 2021-12-22 14:36 | Progress Note ---
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 fib and noncompliance with A. fib with RVR, acute kidney injury with hypoglycemia and severe hypercalcemia Neuro: Acute metabolic encephalopathy, h/o right-sided CVA with residual left- sided hemiplegia and bedridden -Reorientation as needed -Maintain sleep-wake cycle -As needed analgesia -Neurology consulted, appreciate recommendations -consulted for guidance re anticoagulation per cards request -PT/OT consulted Cardiac: A. fib, Acute on Chronic Systolic HF, h/o NC s/p stent placement, nonischemic cardiomyopathy, chronic A. fib -Cardiology consulted, appreciate recommendations -Blood pressure monitoring per protocol -Echocardiogram shows LVEF of 20 to 25%, severe hypokinesis of septal wall and apex -Digoxin discontinued -Amio bolus and gtt along with PO -Per cards: Due to low EF did not recommend diltiazem at this time, No WILLIE/ARB due to renal function -Admit proBNP [id number] Respiratory: h/o COPD -Currently on room air -CCM consulted, appreciate recommendations -Supplemental oxygen as needed -SPO2 monitoring -Pulmonary hygiene GI: Morbid obesity, mild protein calorie malnutrition -24 hours +1967 mL -PPI -Renal cardiac CC diet with supplement -BR: Colace : Acute kidney injury, hyponatremia, hypochloremia, -Nephrology consulted, appreciate recommendations -HD catheter placed 12/20 -HD per nephrology -Record intake and output -Renally dose medications -Avoid nephrotoxic medications -Urine lites pending -Renal ultrasound consistent with medical renal disease -Replete Mg -Trend BMP ID: SIRS, r/o Sepsis, Dry gangrene? -Vascular surgery consulted, appreciate recommendations -WALE pending -Tmax 101.5, tachycardia, leukocystosis, GRANT -UA pending -BC x 2 pending -cxr shows venous congestion -WOCN consulted for right great toe -Started on rocephin -f/u blood culture -Monitor WBC and temperature curve Endo: Hypoglycemia, h/o DM -Avoid hypoglycemia -s/p D10 gtt -Accu-Cheks q.6 Heme: Leukocytosis -Trend CBC -Transfuse hemoglobin less than 7 -SCDs to BLE while in bed The high probability of a clinically significant, sudden or life threatening deterioration of the [multi] system(s) required my full and direct attention, intervention and personal management. The aggregate critical care time was [60] minutes. This time is in addition to time spent performing reported procedures but includes the following: [x] Data Review and interpretation [x] Patient assessment and monitoring of vital signs [x] Documentation [x] Medication orders and management Disposition Plan: imcu Total Time Spent with Patient (Minutes): 60 History Interval history: This is a 41-year-old male with HTN, right CVA (05/2020) with residual left-sided hemiplegia and bedridden, heart failure with reduced EF (EF 20 to 25% in 2012), NC in 2015, s/p stent placement in 2016, DM, COPD, current nicotine abuse, A. fib and noncompliance who presented to the emergency department on 12/19 via EMS for generalized weakness and low blood glucose. Per EMS patient's blood glucose levels were in the 40s and he complained of inability to urinate for 2 days and shortness of breath. Patient was admitted to [facility] in May 2020 and is status BUN/creatinine on 10/22/2019 was noted to be 18/1.0. Patient presented to emergency department with fever of 99, HR 120, BP 150/90, lab work showed leukocytosis, hyponatremia at 128, hyperkalemia at 7.2, metabolic acidosis of 17, elevated BUN/creatinine at 107/15.7 and hyperglycemia 54. Patient was medically treated with calcium gluconate and bicarbonate, received 2 L normal saline bolus and it was noted that patient refused Silver catheter placement. Nephrology was consulted in the emergency department. Patient was admitted to the hospitalist service with hypertensive emergency, hypoglycemia, hyperkalemia, acute kidney injury, A. fib RVR and CHF with consults to [facility] and cardiology. Hospital course to date: 12/20: Vas-Cath placed for emergent hemodialysis for which she received. RN asked to BladderScan the patient for possible placement of Silver catheter. Renal ultrasound pending. Sodium bicarbonate drip was discontinued due to bicarbonate improvement into the 20s and D10 was decreased to 75. Digoxin discontinued. Neurology consulted for guidance for anticoagulation as patient was initially not anticoagulated for risk of hemorrhagic conversion of CVA. 12/21: Cardio will start amio as documented allergy is not a true allergy. HD again today. DC hydral given and decrease amlodipine re soft BPs. Bladder scan revealed no urine. [facility] will like to continue D10 but decrease rate and will start heparin gtt given afib (was on home eliquis) given possible need for vascath. 12/22: Cardiology started patient on p.o. amiodarone to be given along with amiodarone drip, hemodialysis today. Patient started having urine output. Vascular surgery consulted for great toe. Patient will be transferred to [facility]. Hospitalist Physical - Constitutional Vitals: Temp Pulse Resp BP Pulse Ox 98.6 F 125 H 15 108/79 97 12/22/21 13:43 12/22/21 14:00 12/22/21 14:00 12/22/21 14:00 12/22/21 14:00 General appearance: Present: no acute distress, other (On hemodialysis during the exam) - EENT Eyes: Present: PERRL, EOM intact ENT: hearing intact, clear oral mucosa - Neck Neck: Present: normal ROM - Respiratory Respiratory effort: normal Respiratory: bilateral: diminished - Cardiovascular Rhythm: regular Heart Sounds: Present: S1 & S2. Absent: systolic murmur, diastolic murmur - Extremities Extremities: no ischemia, pulses intact, pulses symmetrical, No edema, normal temperature, normal color Peripheral Pulses: within normal limits - Abdominal General gastrointestinal: soft, non-tender, non-distended, normal bowel sounds - Integumentary Integumentary: Present: warm, dry - Psychiatric Psychiatric: cooperative - Neurologic Neurologic: CNII-XII intact, no focal deficits, moves all extremities - Allied Health Allied health notes reviewed: nursing, RT, social work HEART Score - HEART Score Age: 45-65 Risk factors: > 3 risk factors or hx of atherosclerotic disease Troponin: 1-3x normal limit - Critical Actions Critical Actions: 4-6 pts:12-16.6% risk of adverse cardiac event. Should be admitted Results - Labs CBC & Chem 7: 12/22/21 04:03 12/22/21 04:03 Labs: Laboratory Last Values WBC 15.5 K/mm3 (4.5-11.0) H 12/22/21 04:03 RBC 3.93 M/mm3 (3.65-5.03) 12/22/21 04:03 Hgb 12.2 gm/dl (11.8-15.2) 12/22/21 04:03 Hct 34.9 % (35.5-45.6) L 12/22/21 04:03 MCV 89 fl (84-94) 12/22/21 04:03 MCH 31 pg (28-32) 12/22/21 04:03 MCHC 35 % (32-34) H 12/22/21 04:03 RDW 14.8 % (13.2-15.2) 12/22/21 04:03 Plt Count 255 K/mm3 (140-440) 12/22/21 04:03 Add Manual Diff Complete 12/20/21 04:16 Total Counted 100 12/20/21 04:16 Seg Neuts % (Manual) 78.0 % (40.0-70.0) H 12/20/21 04:16 Band Neutrophils % 0 % 12/20/21 04:16 Lymphocytes % (Manual) 11.0 % (13.4-35.0) L 12/20/21 04:16 Reactive Lymphs % (Man) 0 % 12/20/21 04:16 Monocytes % (Manual) 11.0 % (0.0-7.3) H 12/20/21 04:16 Eosinophils % (Manual) 0 % (0.0-4.3) 12/20/21 04:16 Basophils % (Manual) 0 % (0.0-1.8) 12/20/21 04:16 Metamyelocytes % 0 % 12/20/21 04:16 Myelocytes % 0 % 12/20/21 04:16 Promyelocytes % 0 % 12/20/21 04:16 Blast Cells % 0 % 12/20/21 04:16 Nucleated RBC % Not Reportable 12/20/21 04:16 Seg Neutrophils # Man 12.5 K/mm3 (1.8-7.7) H 12/20/21 04:16 Band Neutrophils # 0.0 K/mm3 12/20/21 04:16 Lymphocytes # (Manual) 1.8 K/mm3 (1.2-5.4) 12/20/21 04:16 Abs React Lymphs (Man) 0.0 K/mm3 12/20/21 04:16 Monocytes # (Manual) 1.8 K/mm3 (0.0-0.8) H 12/20/21 04:16 Eosinophils # (Manual) 0.0 K/mm3 (0.0-0.4) 12/20/21 04:16 Basophils # (Manual) 0.0 K/mm3 (0.0-0.1) 12/20/21 04:16 Metamyelocytes # 0.0 K/mm3 12/20/21 04:16 Myelocytes # 0.0 K/mm3 12/20/21 04:16 Promyelocytes # 0.0 K/mm3 12/20/21 04:16 Blast Cells # 0.0 K/mm3 12/20/21 04:16 WBC Morphology Not Reportable 12/20/21 04:16 Hypersegmented Neuts Not Reportable 12/20/21 04:16 Hyposegmented Neuts Not Reportable 12/20/21 04:16 Hypogranular Neuts Not Reportable 12/20/21 04:16 Smudge Cells Not Reportable 12/20/21 04:16 Toxic Granulation Not Reportable 12/20/21 04:16 Toxic Vacuolation Not Reportable 12/20/21 04:16 Dohle Bodies Not Reportable 12/20/21 04:16 Pelger-Huet Anomaly Not Reportable 12/20/21 04:16 Fern Rods Not Reportable 12/20/21 04:16 Platelet Estimate Consistent w auto 12/20/21 04:16 Clumped Platelets Not Reportable 12/20/21 04:16 Plt Clumps, EDTA Not Reportable 12/20/21 04:16 Large Platelets Not Reportable 12/20/21 04:16 Giant Platelets Not Reportable 12/20/21 04:16 Platelet Satelliting Not Reportable 12/20/21 04:16 Plt Morphology Comment Not Reportable 12/20/21 04:16 RBC Morphology Not Reportable 12/20/21 04:16 Dimorphic RBCs Not Reportable 12/20/21 04:16 Polychromasia Not Reportable 12/20/21 04:16 Hypochromasia Not Reportable 12/20/21 04:16 Poikilocytosis Not Reportable 12/20/21 04:16 Anisocytosis Not Reportable 12/20/21 04:16 Microcytosis Not Reportable 12/20/21 04:16 Macrocytosis Not Reportable 12/20/21 04:16 Spherocytes Not Reportable 12/20/21 04:16 Pappenheimer Bodies Not Reportable 12/20/21 04:16 Sickle Cells Not Reportable 12/20/21 04:16 Target Cells Not Reportable 12/20/21 04:16 Tear Drop Cells Not Reportable 12/20/21 04:16 Ovalocytes Not Reportable 12/20/21 04:16 Helmet Cells Not Reportable 12/20/21 04:16 [place] Bodies Not Reportable 12/20/21 04:16 [place] Rings Not Reportable 12/20/21 04:16 [place] Cells Not Reportable 12/20/21 04:16 Bite Cells Not Reportable 12/20/21 04:16 Crenated Cell Not Reportable 12/20/21 04:16 Elliptocytes Not Reportable 12/20/21 04:16 Acanthocytes (Spur) Not Reportable 12/20/21 04:16 Rouleaux Not Reportable 12/20/21 04:16 Hemoglobin C Crystals Not Reportable 12/20/21 04:16 Schistocytes Not Reportable 12/20/21 04:16 Malaria parasites Not Reportable 12/20/21 04:16 Abhishek Bodies Not Reportable 12/20/21 04:16 Hem Pathologist Commnt No 12/20/21 04:16 PT 15.8 Sec. (12.2-14.9) H 12/21/21 12:54 INR 1.13 (0.87-1.13) 12/21/21 12:54 APTT 33.5 Sec. (24.2-36.6) 12/21/21 12:54 Heparin Anti-Xa Level 0.25 U.I./ml (0.3-0.7) L 12/22/21 06:15 Sodium 132 mmol/L (137-145) L 12/22/21 04:03 Potassium 4.9 mmol/L (3.6-5.0) 12/22/21 04:03 Chloride 89.9 mmol/L (98-107) L 12/22/21 04:03 Carbon Dioxide 25 mmol/L (22-30) 12/22/21 04:03 Anion Gap 22 mmol/L 12/22/21 04:03 BUN 67 mg/dL (9-20) H 12/22/21 04:03 Creatinine 11.5 mg/dL (0.8-1.3) H 12/22/21 04:03 Estimated GFR 6 ml/min 12/22/21 04:03 BUN/Creatinine Ratio 6 % 12/22/21 04:03 Glucose 157 mg/dL (75-100) H 12/22/21 04:03 POC Glucose 191 mg/dL (70-105) H 12/22/21 11:42 Calcium 8.6 mg/dL (8.4-10.2) 12/22/21 04:03 Phosphorus 7.40 mg/dL (2.5-4.5) H 12/21/21 04:00 Magnesium 1.50 mg/dL (1.7-2.3) L 12/21/21 04:00 Total Bilirubin 0.70 mg/dL (0.1-1.2) 12/21/21 04:00 AST 65 units/L (5-40) H 12/21/21 04:00 ALT 36 units/L (7-56) 12/21/21 04:00 Alkaline Phosphatase 129 units/L (35-129) 12/21/21 04:00 NT-Pro-B Natriuret Pep 01038 pg/mL (0-450) H 12/20/21 04:16 Total Protein 6.5 g/dL (6.3-8.2) 12/21/21 04:00 Albumin 2.6 g/dL (3.9-5) L 12/21/21 04:00 Albumin/Globulin Ratio 0.7 % 12/21/21 04:00 Urine Creatinine 62.6 mg/dL (0.1-20.0) H 12/22/21 07:10 Urine Sodium 26 mmol/L 12/22/21 07:10 Urine Total Protein 15 mg/dL (5-11.8) H 12/22/21 07:10 Hepatitis A IgM Ab Non-reactive (NonReactive) 12/20/21 11:10 Hep Bs Antigen Non-reactive (Negative) 12/20/21 11:10 Hep B Core IgM Ab Non-reactive (NonReactive) 12/20/21 11:10 Hepatitis C Antibody Non-reactive (NonReactive) 12/20/21 11:10 Microbiology: Microbiology 12/20/21 18:00 Peripheral/Venous Blood Culture - Preliminary NO GROWTH AFTER 24 HOURS 12/20/21 18:00 Peripheral/Venous Blood Culture - Preliminary NO GROWTH AFTER 24 HOURS Silver/IV: Voiding Method Urinal Active Medications - Current Medications Current Medications: Generic Name Dose Route Start Last Admin Trade Name Freq PRN Reason Stop Dose Admin Acetaminophen 650 mg 12/19/21 16:54 12/21/21 09:52 Acetaminophen 325 Mg Tab PO 650 mg Q4H PRN Administration Pain MILD(1-3)/Fever >100.5/CARCAMO Amiodarone HCl 200 mg 12/22/21 11:00 12/22/21 11:47 Amiodarone 200 Mg Tab PO 200 mg BID KAROLINA Administration Aspirin 325 mg 12/20/21 10:00 12/22/21 09:19 Aspirin 325 Mg Tab PO 325 mg QDAY KAROLINA Administration Dextrose 50 ml 12/20/21 10:45 Dextrose 50% In Water (25gm) 50 Ml Syringe IV Q30MIN PRN Hypoglycemia Protocol Glucagon 1 mg 12/19/21 15:39 12/19/21 16:08 Glucagon (Human Recombinant) 1 Mg/Ml Inj IV 1 mg Q1H PRN Administration Hypoglycemia Hydralazine HCl 10 mg 12/19/21 18:41 Hydralazine 20 Mg/1 Ml Inj IV Q2H PRN Blood Pressure Sodium Chloride 100 mls @ 999 mls/hr 12/20/21 07:08 Nacl 0.9% IV KEVIN PRN Hypotension Amiodarone HCl 900 mg/ 500 mls @ 33.333 mls/hr 12/21/21 11:15 12/22/21 10:00 Dextrose IV 0.5 mg/min DIRECT KAROLINA 16.667 mls/hr Administration Protocol 1 MG/MIN Heparin Sodium/Sodium Chloride 25,000 unit in 500 mls @ 30 mls/hr 12/21/21 12:00 12/22/21 06:46 Heparin/ 0.45% Nacl-25,000 Unit/500 Ml IV 1,350 units/hr TITR KAROLINA 27 mls/hr Titration Protocol 1,500 UNITS/HR Ceftriaxone Sodium 2 gm in 100 mls @ 200 mls/hr 12/21/21 12:00 12/22/21 13:54 Rocephin/Ns 2 Gm/100 Ml IV 200 mls/hr Q24H KAROLINA Administration Protocol Insulin Human Regular 0 units 12/22/21 13:00 12/22/21 12:22 Insulin Regular, Human 100 Units/1 Ml SUB-Q 1 units Q6H KAROLINA Administration Protocol Morphine Sulfate 2 mg 12/19/21 16:54 12/21/21 13:48 Morphine 2 Mg/1 Ml Inj IV 2 mg Q4H PRN Administration Pain, Moderate (4-6) Ondansetron HCl 4 mg 12/21/21 12:00 12/21/21 13:48 Ondansetron 4 Mg/2 Ml Inj IV 4 mg Q6H PRN Administration Nausea And Vomiting Oxycodone/Acetaminophen 1 tab 12/19/21 16:54 12/22/21 11:47 Oxycodone /Acetaminophen 5-325mg Tab PO 1 tab Q6H PRN Administration Pain, Moderate (4-6) Sodium Chloride 10 ml 12/19/21 22:00 12/22/21 09:22 Sodium Chloride 0.9% 10 Ml Flush Syringe IV 10 ml BID KAROLINA Administration Sodium Chloride 10 ml 12/19/21 16:54 Sodium Chloride 0.9% 10 Ml Flush Syringe IV PRN PRN LINE FLUSH
--- NOTE | 2021-12-22 17:31 | Vascular Lab Report ---
DUPLEX DOPPLER LOWER EXTREMITY ARTERIAL, BILATERAL INDICATION / CLINICAL INFORMATION: Right first toe gangrene. TECHNIQUE: Arterial duplex examination of both lower extremities performed using B-mode, color flow a nd spectral Doppler assessment. 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 Occlusion of the rig ht dorsalis pedis artery. Multifocal atherosclerosis. Common Femoral Artery: PSV 36 cm/sec. Monophasic waveform. Proximal SFA: PSV 33 cm/sec. Monophasic waveform. Mid SFA: PSV 35 cm/sec. Monophasic waveform. Distal SFA: PSV 37 cm/sec. Monophasic waveform. Popliteal Artery: PSV 18 cm/sec. Monophasic waveform. Posterior Tibial Artery: PSV 22 cm/sec. Monophasic waveform. Dorsalis Pedis Artery: Occluded LEFT: Multifocal atherosclerosis without occlusion. Common Femoral Artery: PSV 118 cm/sec. Triphasic waveform. Proximal SFA: PSV 100 cm/sec. Triphasic waveform. Mid SFA: PSV 48 cm/sec. Biphasic waveform. Distal SFA: PSV 72 cm/sec. Monophasic waveform. Popliteal Artery: PSV 34 cm/sec. Monophasic waveform. Posterior Tibial Artery: PSV 21 cm/sec. Monophasic waveform. Dorsalis Pedis Artery: PSV 22 cm/sec. Monophasic waveform. ADDITIONAL FINDINGS: None. WALE measurements not performed. IMPRESSION: 1. 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 2. Multifocal right greater than left lower extremity atherosclerosis with diffusely monophasic wavef orms on the right suggestive of at least a moderate grade inflow right iliac artery stenosis. 3. Monophasic waveforms develop at the level of the distal left SFA likely secondary to a mid to dist al SFA moderate grade stenosis. No left lower extremity arterial occlusion or focal elevated velocity . Ankle-Brachial Index (WALE): - Calcified arteries > 1.4 - Normal = 0.9-1.4 - Mild PAD = 0.7-0.89 - Moderate PAD = 0.51-0.69 - Severe PAD < 0.5 Doppler Waveform: - Triphasic is normal. - Biphasic is abnormal if clear transition from triphasic signal along vascular tree. - Monophasic is abnormal. Signer Name: Grady Walker MD Signed: 12/22/2021 5:26 PM Workstation Name: [employer]
[2021-12-23] MEDS: INSULIN REGULAR, HUMAN 100 UNITS/1 ML SUB-Q SCH ×5 (00:12→21:32)
[2021-12-23] MEDS: AMIODARONE 200 MG TAB PO SCH ×3 (00:12→21:32)
[2021-12-23] MEDS: HEPARIN/ 0.45% NACL DRIP 25,000 UNIT/500 ML BAG IV SCH ×2 (00:14→19:20)
[2021-12-23] MEDS: oxyCODONE /ACETAMINOPHEN 5-325MG TAB PO PRN ×2 (02:06→10:58)
[2021-12-23 06:18] LABS: Hematocrit 37.6 % (35.5-45.6); Hemoglobin 12.4 gm/dl (11.8-15.2); Mean Corpuscular HGB Conc 33 % (32-34); Mean Corpuscular Volume 90 fl (84-94); Platelet Count 284 K/mm3 (140-440); Red Blood Count 4.16 M/mm3 (3.65-5.03); Red Cell Distribution Width 14.6 % (13.2-15.2)
[2021-12-23 06:46] LABS: Calcium 8.8 mg/dL (8.4-10.2)
[2021-12-23] MEDS: ASPIRIN 325 MG TAB PO SCH (10:58)
--- NOTE | 2021-12-23 11:21 | Progress Note ---
Assessment and Plan - Patient Problems (1) GRANT (acute kidney injury) Current Visit: Yes Status: Acute Plan to address problem: given refractory hyperkalemia and metabolic acidosis, initiated HD via vascath on 12/20/21. s/p daily HD x 3 days for correction of solute clearance, hyperkalemia, metabolic acidosis. renal US showed echogenic kidneys charact eristic for medical renal disease, no hydronephrosis seen. avoid nephrotoxins, NSAIDs, IV contrast. UOP is significantly increased over the last 24hrs, will hold HD for now and monitor I/Os, lytes and renal parameters closely, to assess signs of renal recovery. (2) Hyperkalemia Current Visit: Yes Status: Acute Plan to address problem: corrected with daily HD. cont 2g K renal diet (3) CHF (congestive heart failure), NYHA class II Current Visit: Yes Status: Chronic Qualifiers: Congestive heart failure chronicity: chronic Plan to address problem: volume control with HD. Echo showed LVEF 20 to 25% moderate concentric LVH. Right ventricle is dilated. Right ventricle hypokinetic. Left atrium is severely dilated. Right atrium dilated. follow cardiology recommendations (4) Hyponatremia Current Visit: Yes Status: Acute Plan to address problem: likely hypervolemic hyponatremia, improved with volume control via HD (5) Atrial fibrillation with RVR Current Visit: No Status: Acute Plan to address problem: rate control as per cardiology recommendations. Cleared from renal stand point for initiation of eliquis 2.5mg po bid for anticoagulation. Subjective Date of service: 12/23/21 Principal diagnosis: GRANT Interval history: patient seen in the IMCU, without acute issues, no overnight events reported. increased urine output > 5L/24h noted Objective - Vital Signs Vital signs: Vital Signs - 12hr 12/22/21 12/23/21 12/23/21 23:59 00:00 01:00 Temperature 98.8 F Pulse Rate 116 H 107 H 95 H Pulse Rate [ 110 H From Monitor] Respiratory 18 17 16 Rate Blood Pressure 140/93 149/91 128/83 O2 Sat by Pulse 98 99 95 Oximetry 12/23/21 12/23/21 12/23/21 02:01 03:01 04:00 Temperature 97.3 F L Pulse Rate 111 H 118 H 107 H Pulse Rate [ 110 H From Monitor] Respiratory 16 14 13 Rate Blood Pressure 125/85 121/80 128/76 O2 Sat by Pulse 93 93 93 Oximetry 12/23/21 12/23/21 05:00 06:00 Temperature Pulse Rate 108 H 96 H Pulse Rate [ From Monitor] Respiratory 14 19 Rate Blood Pressure 112/82 126/87 O2 Sat by Pulse 95 98 Oximetry - General Appearance General appearance: well-developed, well-nourished, appears stated age, obese EENT: ATNC, PERRL, mucous membranes moist Neck: no JVD Respiratory: Present: Clear to Ascultation Cardiology: regular, S1S2 Gastrointestinal: normoactive bowel sounds Integumentary: no rash Neurologic: no focal deficit, alert and oriented x3, strength 5/5, CN 3-12 intact Psychiatric: mood/affect appropriate, cooperative - Lab 12/23/21 05:50 12/23/21 05:50 Most recent lab results Calcium 8.8 mg/dL (8.4-10.2) 12/23/21 05:50 Phosphorus 3.60 mg/dL (2.5-4.5) 12/23/21 05:50 Magnesium 1.80 mg/dL (1.7-2.3) 12/23/21 05:50 Urine Creatinine 62.6 mg/dL (0.1-20.0) H 12/22/21 07:10 Urine Sodium 26 mmol/L 12/22/21 07:10 Urine Total Protein 15 mg/dL (5-11.8) H 12/22/21 07:10 Medications & Allergies - Medications Allergies/Adverse Reactions: Allergies adhesive Allergy (Verified 12/19/21 14:07) Rash ibuprofen [From Motrin] Allergy (Verified 12/19/21 14:07) Swelling lisinopril Allergy (Verified 12/19/21 14:07) COUGH metoprolol Allergy (Verified 12/19/21 14:07) Nausea amiodarone Adverse Reaction (Verified 12/19/21 14:07) Nausea Iodinated Contrast Media [Iodinated Contrast Media - IV Dye] Adverse Reaction (Verified 12/19/21 14:07) KIDNEYS SHUT DOWN Home Medications: Home Medications Medication Instructions Recorded Confirmed Last Taken Type Digoxin [Lanoxin] 0.25 mg PO DAILY@1700 #30 tablet 06/01/14 11/21/16 11/20/16 Rx Aspirin 325 mg PO QDAY 11/21/16 11/21/16 11/20/16 History Furosemide [Lasix TAB] 40 mg PO QDAY 11/21/16 11/21/16 11/20/16 History Losartan [Cozaar] 50 mg PO QDAY 11/21/16 11/21/16 11/20/16 History HYDROcodone/APAP 5-325 [[place] 1 each PO Q6HR PRN #20 tablet 07/24/19 Unknown Rx 5/325] Penicillin Vk [Veetids TAB] 500 mg PO QID #21 tablet 07/24/19 Unknown Rx Acetaminophen [Acetaminophen TAB] 1,000 mg PO Q6HR #30 tablet 10/22/19 Unknown Rx cephALEXin [Keflex] 500 mg PO Q8HR #30 cap 10/22/19 Unknown Rx Active Medications: Generic Name Dose Route Start Last Admin Trade Name Freq PRN Reason Stop Dose Admin Acetaminophen 650 mg 12/19/21 16:54 12/21/21 09:52 Acetaminophen 325 Mg Tab PO 650 mg Q4H PRN Administration Pain MILD(1-3)/Fever >100.5/CARCAMO Amiodarone HCl 200 mg 12/22/21 11:00 12/23/21 10:58 Amiodarone 200 Mg Tab PO 200 mg BID KAROLINA Administration Aspirin 325 mg 12/20/21 10:00 12/23/21 10:58 Aspirin 325 Mg Tab PO 325 mg QDAY KAROLINA Administration Dextrose 50 ml 12/20/21 10:45 Dextrose 50% In Water (25gm) 50 Ml Syringe IV Q30MIN PRN Hypoglycemia Protocol Glucagon 1 mg 12/19/21 15:39 12/19/21 16:08 Glucagon (Human Recombinant) 1 Mg/Ml Inj IV 1 mg Q1H PRN Administration Hypoglycemia Hydralazine HCl 10 mg 12/19/21 18:41 Hydralazine 20 Mg/1 Ml Inj IV Q2H PRN Blood Pressure Sodium Chloride 100 mls @ 999 mls/hr 12/20/21 07:08 Nacl 0.9% IV KEVIN PRN Hypotension Amiodarone HCl 900 mg/ 500 mls @ 33.333 mls/hr 12/21/21 11:15 12/22/21 10:00 Dextrose IV 0.5 mg/min DIRECT KAROLINA 16.667 mls/hr Administration Protocol 1 MG/MIN Heparin Sodium/Sodium Chloride 25,000 unit in 500 mls @ 30 mls/hr 12/21/21 12:00 12/23/21 07:36 Heparin/ 0.45% Nacl-25,000 Unit/500 Ml IV 1,500 units/hr TITR KAROLINA 30 mls/hr Titration Protocol 1,500 UNITS/HR Ceftriaxone Sodium 2 gm in 100 mls @ 200 mls/hr 12/21/21 12:00 12/22/21 13:54 Rocephin/Ns 2 Gm/100 Ml IV 12/26/21 11:59 200 mls/hr Q24H KAROLINA Administration Protocol Insulin Human Regular 0 units 12/22/21 13:00 12/23/21 06:14 Insulin Regular, Human 100 Units/1 Ml SUB-Q Not Given Q6H [facility] Protocol Metoprolol Tartrate 25 mg 12/23/21 11:30 Metoprolol Tartrate 25 Mg Tab PO BID [facility] Morphine Sulfate 2 mg 12/19/21 16:54 12/21/21 13:48 Morphine 2 Mg/1 Ml Inj IV 2 mg Q4H PRN Administration Pain, Moderate (4-6) Ondansetron HCl 4 mg 12/21/21 12:00 12/21/21 13:48 Ondansetron 4 Mg/2 Ml Inj IV 4 mg Q6H PRN Administration Nausea And Vomiting Oxycodone/Acetaminophen 1 tab 12/19/21 16:54 12/23/21 10:58 Oxycodone /Acetaminophen 5-325mg Tab PO 1 tab Q6H PRN Administration Pain, Moderate (4-6) Sodium Chloride 10 ml 12/19/21 22:00 12/23/21 11:00 Sodium Chloride 0.9% 10 Ml Flush Syringe IV 10 ml BID KAROLINA Administration Sodium Chloride 10 ml 12/19/21 16:54 Sodium Chloride 0.9% 10 Ml Flush Syringe IV PRN PRN LINE FLUSH
--- NOTE | 2021-12-23 11:32 | Progress Note ---
Assessment and Plan Patient is a 41-year-old male with a past medical history of HFrEF, nonischemic cardiomyopathy, chronic A. 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 fib Echo 04/04/2020-the study was technically difficult in quality. Arrhythmia was noted during the study LVEF is moderately decreased 35-40%. Regional wall motion abnormalities noted RV moderately dilated. RV systolic function is moderately reduced. RVSP is mildly elevated No pericardial effusion No definite or significant change in the EF from 03/11/2018 Consider an infiltrative cardiomyopathy such as amyloid Echo 12/20/2021-EF 20 to 25% moderate concentric LVH. Right ventricle is dilated. Right ventricle hypokinetic. Left atrium is severely dilated. Right atrium dilated Per documentation outpatient medications: Losartan 50 mg p.o. daily Lasix 40 mg p.o. daily, digoxin 0.25 mg p.o. daily, asa Plan: Telemetry reviewed patient is in A. fib rate 110s to 130s Patient currently on amiodarone drip with no complaints. Do not believe documented amiodarone allergy is a true allergy Continue amiodarone drip and amiodarone 200 mg p.o. twice daily Discussed with patient his allergy to metoprolol patient reports nausea. This does not appear to bee a true allergy. Will initiate metoprolol 25 mg p.o. twice daily for further rate control Patient currently anticoagulated on heparin Will defer to nephrology recommendations for volume management No WILLIE/ARB due to renal function and documented allergy Discussed plan of care with patient who verbalized understanding and acknowledgment Patient seen in conjunction with Dr. Valenzuela who agrees with plan of care 30 minutes critical care time spent care coordination. - Patient Problems (1) GRANT (acute kidney injury) Current Visit: Yes Status: Acute (2) Hyperkalemia Current Visit: Yes Status: Acute (3) Hypoglycemia Current Visit: Yes Status: Acute (4) Hyponatremia Current Visit: Yes Status: Acute (5) Acute on chronic systolic CHF (congestive heart failure) Current Visit: No Status: Acute (6) Atrial fibrillation with RVR Current Visit: No Status: Acute (7) COPD (chronic obstructive pulmonary disease) Current Visit: No Status: Acute (8) History of noncompliance with medical treatment Current Visit: No Status: Acute (9) Obesity Current Visit: No Status: Acute (10) Cardiomyopathy Current Visit: No Status: Chronic Subjective Date of service: 12/23/21 Principal diagnosis: GRANT Interval history: Patient resting in bed in no acute distress. Patient transferred to [facility] A. fib rates 110s to 130s Objective Vital Signs Temp Pulse Pulse Resp Resp BP Pulse Ox 12/23/21 06:00 96 H 19 126/87 98 12/23/21 05:00 108 H 14 112/82 95 12/23/21 04:00 97.3 F L 107 H 110 H 13 128/76 93 12/23/21 03:01 118 H 14 121/80 93 12/23/21 02:01 111 H 16 125/85 93 12/23/21 01:00 95 H 16 128/83 95 12/23/21 00:00 98.8 F 107 H 110 H 17 149/91 99 12/22/21 23:59 116 H 18 140/93 98 12/22/21 23:00 109 H 18 140/93 97 12/22/21 22:00 105 H 18 117/51 94 12/22/21 21:01 121 H 15 134/99 95 12/22/21 20:00 98.6 F 110 H 110 H 17 122/88 96 12/22/21 19:00 110 H 16 124/82 92 12/22/21 18:03 117 H 17 95 12/22/21 17:00 142 H 14 130/89 93 12/22/21 16:22 110 H 17 95 12/22/21 16:00 97.8 F 120 H 120 H 17 14 96 12/22/21 15:00 114 H 15 116/72 100 12/22/21 14:00 125 H 15 108/79 97 12/22/21 13:43 98.6 F 121 H 15 114/72 12/22/21 13:30 102 H 112/78 12/22/21 13:15 64 116/72 12/22/21 13:00 121 H 14 113/70 97 12/22/21 12:45 96 H 120/78 12/22/21 12:30 120 H 111/80 12/22/21 12:15 96 H 115/87 12/22/21 12:00 98.8 F 120 H 120 H 18 14 120/79 95 12/22/21 11:47 14 12/22/21 11:45 96 H 118/77 12/22/21 11:30 87 128/73 Pulse Ox 12/23/21 06:00 12/23/21 05:00 12/23/21 04:00 12/23/21 03:01 12/23/21 02:01 12/23/21 01:00 12/23/21 00:00 12/22/21 23:59 12/22/21 23:00 12/22/21 22:00 12/22/21 21:01 12/22/21 20:00 12/22/21 19:00 12/22/21 18:03 12/22/21 17:00 12/22/21 16:22 12/22/21 16:00 12/22/21 15:00 12/22/21 14:00 12/22/21 13:43 93 12/22/21 13:30 12/22/21 13:15 12/22/21 13:00 12/22/21 12:45 12/22/21 12:30 12/22/21 12:15 12/22/21 12:00 12/22/21 11:47 12/22/21 11:45 12/22/21 11:30 - Physical Examination General: No Apparent Distress HEENT: Positive: PERRL Neck: Positive: neck supple Cardiac: Positive: irregularly irregular Neuro: Positive: Grossly Intact Abdomen: Positive: Soft Skin: Negative: Rash, Suspicious Lesions, Ulceration Extremities: Present: upper extr. pulses, edema - Labs and Meds CBC 12/23/21 Range/Units 05:50 WBC 14.8 H (4.5-11.0) K/mm3 RBC 4.16 (3.65-5.03) M/mm3 Hgb 12.4 (11.8-15.2) gm/dl Hct 37.6 (35.5-45.6) % Plt Count 284 (140-440) K/mm3 Comprehensive Metabolic Panel 12/23/21 Range/Units 05:50 Sodium 138 (137-145) mmol/L Potassium 3.9 D (3.6-5.0) mmol/L Chloride 99.1 (98-107) mmol/L Carbon Dioxide 30 (22-30) mmol/L BUN 31 H (9-20) mg/dL Creatinine 4.0 H D (0.8-1.3) mg/dL Glucose 158 H (75-100) mg/dL Calcium 8.8 (8.4-10.2) mg/dL - Imaging and Cardiology EKG: report reviewed (Atrial fibrillation with heart rate of 120) Echo: report reviewed - Telemetry EKG Rhythm: Atrial Fibrillation - EKG Supraventricular dysrhythmia: atrial fibrillation
[2021-12-23] MEDS: METOPROLOL TARTRATE 25 MG TAB PO SCH ×2 (12:30→21:32)
--- NOTE | 2021-12-23 13:08 | Progress Note ---
Assessment and Plan 41 y/o male with hyperkalemia, secondary to acute renal failure of unknown etiology with hypoglycemia likely secondary to oral medications not fully being cleared secondary to renal impairment. 12/23/21: Pulm status is stable. Will sign off. Call if questions. 12/22/21: Off D10 now, tolerating PO. From a critical care standpoint, stable for transfer. Continue Amio and follow up cards recs. Vascular consulted given toe appearance and concern for infection. Continue IV abx therapy and follow up cultures. Will likely sign off once out of unit. 12/21/21: Bladder scan showed no urine in bladder so will hold on gunderson placement. HD per renal for 3 days straight so again tomorrow. Patient still on D10 at 75 and highest Blood sugar has been 195. Will continue for now but will drop down to 50. Has a diet. Likely oral hypoglycemics are still in system. If not improved after HD session tomorrow, may need to ask renal about further sessions to help with removal of active metabolites. Given that no real allergy to amio, cards will initiate today. Weighed the risk and benefits and will start anticoagulation but with heparin as patient will likely need adjunct faculty for medical terminology dialysis catheter placement. Continue ICU care. Prognosis still remains guarded. 1. Renal-nephro already ordered HD and patient is on it. Unsure if bladder scan was done but patient has no Gunderson as he refused it in the ED. Still would consider bladder scan and will discuss placement of gunderson based on scan results. HD per renal. Likely needs renal ultrasound as well. 2. Endocrine-persistent hypoglycemia requiring D10 drip. Once patient has 3 consecutive sugars greater than 180 then would be ok with stopping D10. Hopeful HD will help to remove active metabolites of drugs that maybe adding to continued hypoglycemia. If not improvement post HD, will need further work up. Ok with feeding patient as long as he remains alert and can protect his airway. Continue q1 hour finger sticks 3. Cardiovascular-tachycardic. Questionable afib. Awaiting 12 lead EKG. Hold on therapy for right now. Cards is following as well. Stopped Dig given renal function. 4. GI- ok with feeding patient, needs prophylaxis for ulcers. 5. Neuro-some confusion on questioning but for the most part stable, will continue to monitor 6. Guarded prognosis. CCt 31 minutes. Subjective Date of service: 12/23/21 Principal diagnosis: GRANT Interval history: Transferred to [facility] on yesterday. Vascular evaluated on yesterday as well. Objective - Constitutional Vitals: Vital Signs - 12hr 12/23/21 12/23/21 12/23/21 02:01 03:01 04:00 Temperature 97.3 F L Pulse Rate 111 H 118 H 107 H Pulse Rate [ 110 H From Monitor] Respiratory 16 14 13 Rate Blood Pressure 125/85 121/80 128/76 O2 Sat by Pulse 93 93 93 Oximetry 12/23/21 12/23/21 05:00 06:00 Temperature Pulse Rate 108 H 96 H Pulse Rate [ From Monitor] Respiratory 14 19 Rate Blood Pressure 112/82 126/87 O2 Sat by Pulse 95 98 Oximetry - Labs CBC & Chem 7: 12/23/21 05:50 12/23/21 05:50 Labs: Abnormal lab results 12/22/21 12/22/21 12/23/21 Range/Units 18:14 23:48 05:50 WBC 14.8 H (4.5-11.0) K/mm3 Heparin Anti-Xa Level (0.3-0.7) U.I./ml BUN (9-20) mg/dL Creatinine (0.8-1.3) mg/dL Glucose (75-100) mg/dL POC Glucose 246 H 197 H (70-105) mg/dL 12/23/21 12/23/21 12/23/21 Range/Units 05:50 05:50 05:54 WBC (4.5-11.0) K/mm3 Heparin Anti-Xa Level 0.12 L (0.3-0.7) U.I./ml BUN 31 H (9-20) mg/dL Creatinine 4.0 H D (0.8-1.3) mg/dL Glucose 158 H (75-100) mg/dL POC Glucose 134 H (70-105) mg/dL Medications & Allergies - Medications Allergies/Adverse Reactions: Allergies adhesive Allergy (Verified 12/19/21 14:07) Rash ibuprofen [From Motrin] Allergy (Verified 12/19/21 14:07) Swelling lisinopril Allergy (Verified 12/19/21 14:07) COUGH metoprolol Allergy (Verified 12/19/21 14:07) Nausea amiodarone Adverse Reaction (Verified 12/19/21 14:07) Nausea Iodinated Contrast Media [Iodinated Contrast Media - IV Dye] Adverse Reaction (Verified 12/19/21 14:07) KIDNEYS SHUT DOWN Home Medications: Home Medications Medication Instructions Recorded Confirmed Last Taken Type Digoxin [Lanoxin] 0.25 mg PO DAILY@1700 #30 tablet 06/01/14 11/21/16 11/20/16 Rx Aspirin 325 mg PO QDAY 11/21/16 11/21/16 11/20/16 History Furosemide [Lasix TAB] 40 mg PO QDAY 11/21/16 11/21/16 11/20/16 History Losartan [Cozaar] 50 mg PO QDAY 11/21/16 11/21/16 11/20/16 History HYDROcodone/APAP 5-325 [[place] 1 each PO Q6HR PRN #20 tablet 07/24/19 Unknown Rx 5/325] Penicillin Vk [Veetids TAB] 500 mg PO QID #21 tablet 07/24/19 Unknown Rx Acetaminophen [Acetaminophen TAB] 1,000 mg PO Q6HR #30 tablet 10/22/19 Unknown Rx cephALEXin [Keflex] 500 mg PO Q8HR #30 cap 10/22/19 Unknown Rx Active Medications: Generic Name Dose Route Start Last Admin Trade Name Freq PRN Reason Stop Dose Admin Acetaminophen 650 mg 12/19/21 16:54 12/21/21 09:52 Acetaminophen 325 Mg Tab PO 650 mg Q4H PRN Administration Pain MILD(1-3)/Fever >100.5/CARCAMO Amiodarone HCl 200 mg 12/22/21 11:00 12/23/21 10:58 Amiodarone 200 Mg Tab PO 200 mg BID KAROLINA Administration Aspirin 325 mg 12/20/21 10:00 12/23/21 10:58 Aspirin 325 Mg Tab PO 325 mg QDAY KAROLINA Administration Dextrose 50 ml 12/20/21 10:45 Dextrose 50% In Water (25gm) 50 Ml Syringe IV Q30MIN PRN Hypoglycemia Protocol Glucagon 1 mg 12/19/21 15:39 12/19/21 16:08 Glucagon (Human Recombinant) 1 Mg/Ml Inj IV 1 mg Q1H PRN Administration Hypoglycemia Hydralazine HCl 10 mg 12/19/21 18:41 Hydralazine 20 Mg/1 Ml Inj IV Q2H PRN Blood Pressure Sodium Chloride 100 mls @ 999 mls/hr 12/20/21 07:08 Nacl 0.9% IV KEVIN PRN Hypotension Amiodarone HCl 900 mg/ 500 mls @ 33.333 mls/hr 12/21/21 11:15 12/22/21 10:00 Dextrose IV 0.5 mg/min DIRECT KAROLINA 16.667 mls/hr Administration Protocol 1 MG/MIN Heparin Sodium/Sodium Chloride 25,000 unit in 500 mls @ 30 mls/hr 12/21/21 12 :00 12/23/21 07:36 Heparin/ 0.45% Nacl-25,000 Unit/500 Ml IV 1,500 units/hr TITR KAROLINA 30 mls/hr Titration Protocol 1,500 UNITS/HR Ceftriaxone Sodium 2 gm in 100 mls @ 200 mls/hr 12/21/21 12:00 12/22/21 13:54 Rocephin/Ns 2 Gm/100 Ml IV 12/26/21 11:59 200 mls/hr Q24H KAROLINA Administration Protocol Insulin Human Regular 0 units 12/22/21 13:00 12/23/21 06:14 Insulin Regular, Human 100 Units/1 Ml SUB-Q Not Given Q6H [facility] Protocol Metoprolol Tartrate 25 mg 12/23/21 11:30 Metoprolol Tartrate 25 Mg Tab PO BID [facility] Morphine Sulfate 2 mg 12/19/21 16:54 12/21/21 13:48 Morphine 2 Mg/1 Ml Inj IV 2 mg Q4H PRN Administration Pain, Moderate (4-6) Ondansetron HCl 4 mg 12/21/21 12:00 12/21/21 13:48 Ondansetron 4 Mg/2 Ml Inj IV 4 mg Q6H PRN Administration Nausea And Vomiting Oxycodone/Acetaminophen 1 tab 12/19/21 16:54 12/23/21 10:58 Oxycodone /Acetaminophen 5-325mg Tab PO 1 tab Q6H PRN Administration Pain, Moderate (4-6) Sodium Chloride 10 ml 12/19/21 22:00 12/23/21 11:00 Sodium Chloride 0.9% 10 Ml Flush Syringe IV 10 ml BID KAROLINA Administration Sodium Chloride 10 ml 12/19/21 16:54 Sodium Chloride 0.9% 10 Ml Flush Syringe IV PRN PRN LINE FLUSH HEART Score - HEART Score Age: 45-65 Risk factors: > 3 risk factors or hx of atherosclerotic disease Troponin: 1-3x normal limit - Critical Actions Critical Actions: 4-6 pts:12-16.6% risk of adverse cardiac event. Should be admitted
[2021-12-23] MEDS: cefTRIAXone/NS 2 GM/100 ML 2 GM/100 ML BAG IV SCH (13:21)
--- NOTE | 2021-12-23 13:38 | Progress Note ---
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 fib and noncompliance with A. fib with RVR, acute kidney injury with hypoglycemia and severe hyperkalemia Neuro: Acute metabolic encephalopathy, h/o right-sided CVA with residual left- sided hemiplegia and bedridden -Reorientation as needed -Maintain sleep-wake cycle -As needed analgesia -Neurology consulted, appreciate recommendations -consulted for guidance re anticoagulation per cards request -PT/OT consulted Cardiac: A. fib, Acute on Chronic Systolic HF, h/o PA s/p stent placement, nonischemic cardiomyopathy, chronic A. fib -Cardiology consulted, appreciate recommendations -Blood pressure monitoring per protocol -Echocardiogram shows LVEF of 20 to 25%, severe hypokinesis of septal wall and apex -Digoxin discontinued -Amio bolus and gtt along with PO, Addition of BB -Per cards: Due to low EF did not recommend diltiazem at this time, No WILLIE/ARB due to renal function -Admit proBNP [id number] Respiratory: h/o COPD -Currently on room air -CCM consulted, appreciate recommendations -Supplemental oxygen as needed -SPO2 monitoring -Pulmonary hygiene GI: Morbid obesity, mild protein calorie malnutrition -24 hours -3815 mL -PPI -Renal cardiac CC diet with supplement -BR: Colace : Acute kidney injury, hyponatremia, hypochloremia -Nephrology consulted, appreciate recommendations -HD catheter placed 12/20 -HD per nephrology -Record intake and output -Renally dose medications -Serum osmo 212 -Avoid nephrotoxic medications -FeNa indicated intrarenal cause of renal failure -Renal ultrasound consistent with medical renal disease -Trend BMP ID: SIRS, r/o Sepsis, Dry gangrene? -Vascular surgery consulted, appreciate recommendations -Arterial dopplar shows occlusion of Right post tib and DP artery -Tmax 101.5, tachycardia, leukocystosis, GRANT -UA pending -BC x 2 pending -cxr shows venous congestion -WOCN consulted for right great toe -Started on rocephin -f/u blood culture -Monitor WBC and temperature curve Endo: s/p Hypoglycemia, h/o DM -Avoid hypoglycemia -s/p D10 gtt -Accu-Cheks q.6 Heme: Leukocytosis -Trend CBC -Transfuse hemoglobin less than 7 -SCDs to BLE while in bed The high probability of a clinically significant, sudden or life threatening deterioration of the [multi] system(s) required my full and direct attention, intervention and personal management. The aggregate critical care time was [60] minutes. This time is in addition to time spent performing reported procedures but includes the following: [x] Data Review and interpretation [x] Patient assessment and monitoring of vital signs [x] Documentation [x] Medication orders and management Disposition Plan: transfer to floor Total Time Spent with Patient (Minutes): 60 History Interval history: This is a 41-year-old male with HTN, right CVA (05/2020) with residual left-sided hemiplegia and bedridden, heart failure with reduced EF (EF 20 to 25% in 2012), PA in 2015, s/p stent placement in 2016, DM, COPD, current nicotine abuse, A. fib and noncompliance who presented to the emergency department on 12/19 via EMS for generalized weakness and low blood glucose. Per EMS patient's blood glucose levels were in the 40s and he complained of inability to urinate for 2 days and shortness of breath. Patient was admitted to [facility] in May 2020 and is status BUN/creatinine on 10/22/2019 was noted to be 18/1.0. Patient presented to emergency department with fever of 99, HR 120, BP 150/90, lab work showed leukocytosis, hyponatremia at 128, hyperkalemia at 7.2, metabolic acidosis of 17, elevated BUN/creatinine at 107/15.7 and hyperglycemia 54. Patient was medically treated with calcium gluconate and bicarbonate, received 2 L normal saline bolus and it was noted that patient refused Silver catheter placement. Nephrology was consulted in the emergency department. Patient was admitted to the hospitalist service with hypertensive emergency, hypoglycemia, hyperkalemia, acute kidney injury, A. fib RVR and CHF with consults to [facility] and cardiology. Hospital course to date: 12/20: Vas-Cath placed for emergent hemodialysis for which she received. RN asked to BladderScan the patient for possible placement of Silver catheter. Renal ultrasound pending. Sodium bicarbonate drip was discontinued due to bicarbonate improvement into the 20s and D10 was decreased to 75. Digoxin discontinued. Neurology consulted for guidance for anticoagulation as patient was initially not anticoagulated for risk of hemorrhagic conversion of CVA. 12/21: Cardio will start amio as documented allergy is not a true allergy. HD again today. DC hydral given and decrease amlodipine re soft BPs. Bladder scan revealed no urine. [facility] will like to continue D10 but decrease rate and will start heparin gtt given afib (was on home eliquis) given possible need for vascath. 12/22: Cardiology started patient on p.o. amiodarone to be given along with amiodarone drip, hemodialysis today. Patient started having urine output. Vascular surgery consulted for great toe. Patient will be transferred to [facility]. 12/23: No acute vents reported overnight, occlusion of right posterior tib and DP artery on vascular ultrasound. Continue on amiodarone drip and p.o. Patient started on metoprolol also. Hospitalist Physical - Constitutional Vitals: Temp Pulse Resp BP Pulse Ox 97.3 F L 125 H 19 132/78 98 12/23/21 04:00 12/23/21 12:30 12/23/21 06:00 12/23/21 12:30 12/23/21 06:00 General appearance: Present: no acute distress - EENT Eyes: Present: PERRL ENT: hearing intact, clear oral mucosa - Neck Neck: Present: normal ROM - Respiratory Respiratory effort: normal Respiratory: bilateral: CTA, diminished - Cardiovascular Rhythm: regular Heart Sounds: Present: S1 & S2. Absent: systolic murmur, diastolic murmur - Extremities Extremities: no ischemia, pulses intact, pulses symmetrical, normal temperature, normal color Extremity abnormal: edema Peripheral Pulses: within normal limits - Abdominal General gastrointestinal: soft, non-tender, normal bowel sounds - Integumentary Integumentary: Present: warm, dry - Psychiatric Psychiatric: appropriate mood/affect, cooperative - Neurologic Neurologic: CNII-XII intact, no focal deficits, moves all extremities - Allied Health Allied health notes reviewed: nursing, RT, social work HEART Score - HEART Score Age: 45-65 Risk factors: > 3 risk factors or hx of atherosclerotic disease Troponin: 1-3x normal limit - Critical Actions Critical Actions: 4-6 pts:12-16.6% risk of adverse cardiac event. Should be admitted Results - Labs CBC & Chem 7: 12/23/21 05:50 12/23/21 05:50 Labs: Laboratory Last Values WBC 14.8 K/mm3 (4.5-11.0) H 12/23/21 05:50 RBC 4.16 M/mm3 (3.65-5.03) 12/23/21 05:50 Hgb 12.4 gm/dl (11.8-15.2) 12/23/21 05:50 Hct 37.6 % (35.5-45.6) 12/23/21 05:50 MCV 90 fl (84-94) 12/23/21 05:50 MCH 30 pg (28-32) 12/23/21 05:50 MCHC 33 % (32-34) 12/23/21 05:50 RDW 14.6 % (13.2-15.2) 12/23/21 05:50 Plt Count 284 K/mm3 (140-440) 12/23/21 05:50 Add Manual Diff Complete 12/20/21 04:16 Total Counted 100 12/20/21 04:16 Seg Neuts % (Manual) 78.0 % (40.0-70.0) H 12/20/21 04:16 Band Neutrophils % 0 % 12/20/21 04:16 Lymphocytes % (Manual) 11.0 % (13.4-35.0) L 12/20/21 04:16 Reactive Lymphs % (Man) 0 % 12/20/21 04:16 Monocytes % (Manual) 11.0 % (0.0-7.3) H 12/20/21 04:16 Eosinophils % (Manual) 0 % (0.0-4.3) 12/20/21 04:16 Basophils % (Manual) 0 % (0.0-1.8) 12/20/21 04:16 Metamyelocytes % 0 % 12/20/21 04:16 Myelocytes % 0 % 12/20/21 04:16 Promyelocytes % 0 % 12/20/21 04:16 Blast Cells % 0 % 12/20/21 04:16 Nucleated RBC % Not Reportable 12/20/21 04:16 Seg Neutrophils # Man 12.5 K/mm3 (1.8-7.7) H 12/20/21 04:16 Band Neutrophils # 0.0 K/mm3 12/20/21 04:16 Lymphocytes # (Manual) 1.8 K/mm3 (1.2-5.4) 12/20/21 04:16 Abs React Lymphs (Man) 0.0 K/mm3 12/20/21 04:16 Monocytes # (Manual) 1.8 K/mm3 (0.0-0.8) H 12/20/21 04:16 Eosinophils # (Manual) 0.0 K/mm3 (0.0-0.4) 12/20/21 04:16 Basophils # (Manual) 0.0 K/mm3 (0.0-0.1) 12/20/21 04:16 Metamyelocytes # 0.0 K/mm3 12/20/21 04:16 Myelocytes # 0.0 K/mm3 12/20/21 04:16 Promyelocytes # 0.0 K/mm3 12/20/21 04:16 Blast Cells # 0.0 K/mm3 12/20/21 04:16 WBC Morphology Not Reportable 12/20/21 04:16 Hypersegmented Neuts Not Reportable 12/20/21 04:16 Hyposegmented Neuts Not Reportable 12/20/21 04:16 Hypogranular Neuts Not Reportable 12/20/21 04:16 Smudge Cells Not Reportable 12/20/21 04:16 Toxic Granulation Not Reportable 12/20/21 04:16 Toxic Vacuolation Not Reportable 12/20/21 04:16 Dohle Bodies Not Reportable 12/20/21 04:16 Pelger-Huet Anomaly Not Reportable 12/20/21 04:16 Fern Rods Not Reportable 12/20/21 04:16 Platelet Estimate Consistent w auto 12/20/21 04:16 Clumped Platelets Not Reportable 12/20/21 04:16 Plt Clumps, EDTA Not Reportable 12/20/21 04:16 Large Platelets Not Reportable 12/20/21 04:16 Giant Platelets Not Reportable 12/20/21 04:16 Platelet Satelliting Not Reportable 12/20/21 04:16 Plt Morphology Comment Not Reportable 12/20/21 04:16 RBC Morphology Not Reportable 12/20/21 04:16 Dimorphic RBCs Not Reportable 12/20/21 04:16 Polychromasia Not Reportable 12/20/21 04:16 Hypochromasia Not Reportable 12/20/21 04:16 Poikilocytosis Not Reportable 12/20/21 04:16 Anisocytosis Not Reportable 12/20/21 04:16 Microcytosis Not Reportable 12/20/21 04:16 Macrocytosis Not Reportable 12/20/21 04:16 Spherocytes Not Reportable 12/20/21 04:16 Pappenheimer Bodies Not Reportable 12/20/21 04:16 Sickle Cells Not Reportable 12/20/21 04:16 Target Cells Not Reportable 12/20/21 04:16 Tear Drop Cells Not Reportable 12/20/21 04:16 Ovalocytes Not Reportable 12/20/21 04:16 Helmet Cells Not Reportable 12/20/21 04:16 [place] Bodies Not Reportable 12/20/21 04:16 [place] Rings Not Reportable 12/20/21 04:16 [place] Cells Not Reportable 12/20/21 04:16 Bite Cells Not Reportable 12/20/21 04:16 Crenated Cell Not Reportable 12/20/21 04:16 Elliptocytes Not Reportable 12/20/21 04:16 Acanthocytes (Spur) Not Reportable 12/20/21 04:16 Rouleaux Not Reportable 12/20/21 04:16 Hemoglobin C Crystals Not Reportable 12/20/21 04:16 Schistocytes Not Reportable 12/20/21 04:16 Malaria parasites Not Reportable 12/20/21 04:16 Abhishek Bodies Not Reportable 12/20/21 04:16 Hem Pathologist Commnt No 12/20/21 04:16 PT 15.8 Sec. (12.2-14.9) H 12/21/21 12:54 INR 1.13 (0.87-1.13) 12/21/21 12:54 APTT 33.5 Sec. (24.2-36.6) 12/21/21 12:54 Heparin Anti-Xa Level 0.12 U.I./ml (0.3-0.7) L 12/23/21 05:50 Sodium 138 mmol/L (137-145) 12/23/21 05:50 Potassium 3.9 mmol/L (3.6-5.0) D 12/23/21 05:50 Chloride 99.1 mmol/L (98-107) 12/23/21 05:50 Carbon Dioxide 30 mmol/L (22-30) 12/23/21 05:50 Anion Gap 13 mmol/L 12/23/21 05:50 BUN 31 mg/dL (9-20) H 12/23/21 05:50 Creatinine 4.0 mg/dL (0.8-1.3) H D 12/23/21 05:50 Estimated GFR 20 ml/min 12/23/21 05:50 BUN/Creatinine Ratio 8 % 12/23/21 05:50 Glucose 158 mg/dL (75-100) H 12/23/21 05:50 POC Glucose 134 mg/dL (70-105) H 12/23/21 05:54 Calcium 8.8 mg/dL (8.4-10.2) 12/23/21 05:50 Phosphorus 3.60 mg/dL (2.5-4.5) 12/23/21 05:50 Magnesium 1.80 mg/dL (1.7-2.3) 12/23/21 05:50 Total Bilirubin 0.70 mg/dL (0.1-1.2) 12/21/21 04:00 AST 65 units/L (5-40) H 12/21/21 04:00 ALT 36 units/L (7-56) 12/21/21 04:00 Alkaline Phosphatase 129 units/L (35-129) 12/21/21 04:00 NT-Pro-B Natriuret Pep 10872 pg/mL (0-450) H 12/20/21 04:16 Total Protein 6.5 g/dL (6.3-8.2) 12/21/21 04:00 Albumin 2.6 g/dL (3.9-5) L 12/21/21 04:00 Albumin/Globulin Ratio 0.7 % 12/21/21 04:00 Urine Osmolality 212 Mosm/kg 12/22/21 11:46 Urine Creatinine 62.6 mg/dL (0.1-20.0) H 12/22/21 07:10 Urine Sodium 26 mmol/L 12/22/21 07:10 Urine Total Protein 15 mg/dL (5-11.8) H 12/22/21 07:10 Hepatitis A IgM Ab Non-reactive (NonReactive) 12/20/21 11:10 Hep Bs Antigen Non-reactive (Negative) 12/20/21 11:10 Hep B Core IgM Ab Non-reactive (NonReactive) 12/20/21 11:10 Hepatitis C Antibody Non-reactive (NonReactive) 12/20/21 11:10 Microbiology: Microbiology 12/20/21 18:00 Peripheral/Venous Blood Culture - Preliminary NO GROWTH AFTER 48 HOURS 12/20/21 18:00 Peripheral/Venous Blood Culture - Preliminary NO GROWTH AFTER 48 HOURS Silver/IV: Voiding Method Urinal Active Medications - Current Medications Current Medications: Generic Name Dose Route Start Last Admin Trade Name Freq PRN Reason Stop Dose Admin Acetaminophen 650 mg 12/19/21 16:54 12/21/21 09:52 Acetaminophen 325 Mg Tab PO 650 mg Q4H PRN Administration Pain MILD(1-3)/Fever >100.5/CARCAMO Amiodarone HCl 200 mg 12/22/21 11:00 12/23/21 10:58 Amiodarone 200 Mg Tab PO 200 mg BID KAROLINA Administration Aspirin 325 mg 12/20/21 10:00 12/23/21 10:58 Aspirin 325 Mg Tab PO 325 mg QDAY KAROLINA Administration Dextrose 50 ml 12/20/21 10:45 Dextrose 50% In Water (25gm) 50 Ml Syringe IV Q30MIN PRN Hypoglycemia Protocol Glucagon 1 mg 12/19/21 15:39 12/19/21 16:08 Glucagon (Human Recombinant) 1 Mg/Ml Inj IV 1 mg Q1H PRN Administration Hypoglycemia Hydralazine HCl 10 mg 12/19/21 18:41 Hydralazine 20 Mg/1 Ml Inj IV Q2H PRN Blood Pressure Sodium Chloride 100 mls @ 999 mls/hr 12/20/21 07:08 Nacl 0.9% IV KEVIN PRN Hypotension Amiodarone HCl 900 mg/ 500 mls @ 33.333 mls/hr 12/21/21 11:15 12/22/21 10:00 Dextrose IV 0.5 mg/min DIRECT KAROLINA 16.667 mls/hr Administration Protocol 1 MG/MIN Heparin Sodium/Sodium Chloride 25,000 unit in 500 mls @ 30 mls/hr 12/21/21 12:00 12/23/21 07:36 Heparin/ 0.45% Nacl-25,000 Unit/500 Ml IV 1,500 units/hr TITR KAROLINA 30 mls/hr Titration Protocol 1,500 UNITS/HR Ceftriaxone Sodium 2 gm in 100 mls @ 200 mls/hr 12/21/21 12:00 12/23/21 13:21 Rocephin/Ns 2 Gm/100 Ml IV 12/26/21 11:59 Not Given Q24H KAROLINA Protocol Insulin Human Regular 0 units 12/22/21 13:00 12/23/21 13:21 Insulin Regular, Human 100 Units/1 Ml SUB-Q Not Given Q6H [facility] Protocol Metoprolol Tartrate 25 mg 12/23/21 11:30 12/23/21 12:30 Metoprolol Tartrate 25 Mg Tab PO 25 mg BID KAROLINA Administration Morphine Sulfate 2 mg 12/19/21 16:54 12/21/21 13:48 Morphine 2 Mg/1 Ml Inj IV 2 mg Q4H PRN Administration Pain, Moderate (4-6) Ondansetron HCl 4 mg 12/21/21 12:00 12/21/21 13:48 Ondansetron 4 Mg/2 Ml Inj IV 4 mg Q6H PRN Administration Nausea And Vomiting Oxycodone/Acetaminophen 1 tab 12/19/21 16:54 12/23/21 10:58 Oxycodone /Acetaminophen 5-325mg Tab PO 1 tab Q6H PRN Administration Pain, Moderate (4-6) Sodium Chloride 10 ml 12/19/21 22:00 12/23/21 11:00 Sodium Chloride 0.9% 10 Ml Flush Syringe IV 10 ml BID KAROLINA Administration Sodium Chloride 10 ml 12/19/21 16:54 Sodium Chloride 0.9% 10 Ml Flush Syringe IV PRN PRN LINE FLUSH <AYDIN TERAN - Last Filed: 01/03/22 07:33> History Interval history: I saw and evaluated the patient. Discussed with the nurse practitioner and agree with their findings and plan as documented in this note. Hospitalist Physical - Constitutional Vitals: Temp Pulse Resp BP Pulse Ox 98.0 F 70 18 130/99 97 12/28/21 07:37 12/28/21 11:16 12/28/21 07:37 12/28/21 07:37 12/28/21 12:00 Results - Labs CBC & Chem 7: 12/27/21 11:33 12/28/21 05:21 Labs: Laboratory Last Values WBC 15.4 K/mm3 (4.5-11.0) H 12/27/21 11:33 RBC 4.40 M/mm3 (3.65-5.03) 12/27/21 11:33 Hgb 13.0 gm/dl (11.8-15.2) 12/27/21 11:33 Hct 39.8 % (35.5-45.6) 12/27/21 11:33 MCV 90 fl (84-94) 12/27/21 11:33 MCH 30 pg (28-32) 12/27/21 11:33 MCHC 33 % (32-34) 12/27/21 11:33 RDW 14.7 % (13.2-15.2) 12/27/21 11:33 Plt Count 369 K/mm3 (140-440) 12/27/21 11:33 Lymph % (Auto) 15.2 % (13.4-35.0) 12/27/21 11:33 [place] % (Auto) 7.3 % (0.0-7.3) 12/27/21 11:33 Eos % (Auto) 1.7 % (0.0-4.3) 12/27/21 11:33 Baso % (Auto) 1.6 % (0.0-1.8) 12/27/21 11:33 Lymph # (Auto) 2.4 K/mm3 (1.2-5.4) 12/27/21 11:33 [place] # (Auto) 1.1 K/mm3 (0.0-0.8) H 12/27/21 11:33 Eos # (Auto) 0.3 K/mm3 (0.0-0.4) 12/27/21 11:33 Baso # (Auto) 0.2 K/mm3 (0.0-0.1) H 12/27/21 11:33 Add Manual Diff Complete 12/26/21 03:56 Total Counted 100 12/26/21 03:56 Seg Neutrophils % 74.2 % (40.0-70.0) H 12/27/21 11:33 Seg Neuts % (Manual) 81.0 % (40.0-70.0) H 12/26/21 03:56 Band Neutrophils % 0 % 12/26/21 03:56 Lymphocytes % (Manual) 11.0 % (13.4-35.0) L 12/26/21 03:56 Reactive Lymphs % (Man) 0 % 12/26/21 03:56 Monocytes % (Manual) 5.0 % (0.0-7.3) 12/26/21 03:56 Eosinophils % (Manual) 3.0 % (0.0-4.3) 12/26/21 03:56 Basophils % (Manual) 0 % (0.0-1.8) 12/26/21 03:56 Metamyelocytes % 0 % 12/26/21 03:56 Myelocytes % 0 % 12/26/21 03:56 Promyelocytes % 0 % 12/26/21 03:56 Blast Cells % 0 % 12/26/21 03:56 Nucleated RBC % Not Reportable 12/26/21 03:56 Seg Neutrophils # 11.5 K/mm3 (1.8-7.7) H 12/27/21 11:33 Seg Neutrophils # Man 11.5 K/mm3 (1.8-7.7) H 12/26/21 03:56 Band Neutrophils # 0.0 K/mm3 12/26/21 03:56 Lymphocytes # (Manual) 1.6 K/mm3 (1.2-5.4) 12/26/21 03:56 Abs React Lymphs (Man) 0.0 K/mm3 12/26/21 03:56 Monocytes # (Manual) 0.7 K/mm3 (0.0-0.8) 12/26/21 03:56 Eosinophils # (Manual) 0.4 K/mm3 (0.0-0.4) 12/26/21 03:56 Basophils # (Manual) 0.0 K/mm3 (0.0-0.1) 12/26/21 03:56 Metamyelocytes # 0.0 K/mm3 12/26/21 03:56 Myelocytes # 0.0 K/mm3 12/26/21 03:56 Promyelocytes # 0.0 K/mm3 12/26/21 03:56 Blast Cells # 0.0 K/mm3 12/26/21 03:56 WBC Morphology Not Reportable 12/26/21 03:56 Hypersegmented Neuts Not Reportable 12/26/21 03:56 Hyposegmented Neuts Not Reportable 12/26/21 03:56 Hypogranular Neuts Not Reportable 12/26/21 03:56 Smudge Cells Not Reportable 12/26/21 03:56 Toxic Granulation Not Reportable 12/26/21 03:56 Toxic Vacuolation Not Reportable 12/26/21 03:56 Dohle Bodies Not Reportable 12/26/21 03:56 Pelger-Huet Anomaly Not Reportable 12/26/21 03:56 Fern Rods Not Reportable 12/26/21 03:56 Platelet Estimate Consistent w auto 12/26/21 03:56 Clumped Platelets Not Reportable 12/26/21 03:56 Plt Clumps, EDTA Not Reportable 12/26/21 03:56 Large Platelets Not Reportable 12/26/21 03:56 Giant Platelets Not Reportable 12/26/21 03:56 Platelet Satelliting Not Reportable 12/26/21 03:56 Plt Morphology Comment Not Reportable 12/26/21 03:56 RBC Morphology Not Reportable 12/26/21 03:56 Dimorphic RBCs Not Reportable 12/26/21 03:56 Polychromasia Not Reportable 12/26/21 03:56 Hypochromasia Not Reportable 12/26/21 03:56 Poikilocytosis Not Reportable 12/26/21 03:56 Anisocytosis 1+ 12/26/21 03:56 Microcytosis Not Reportable 12/26/21 03:56 Macrocytosis Not Reportable 12/26/21 03:56 Spherocytes Not Reportable 12/26/21 03:56 Pappenheimer Bodies Not Reportable 12/26/21 03:56 Sickle Cells Not Reportable 12/26/21 03:56 Target Cells Not Reportable 12/26/21 03:56 Tear Drop Cells Not Reportable 12/26/21 03:56 Ovalocytes Not Reportable 12/26/21 03:56 Helmet Cells Not Reportable 12/26/21 03:56 [place] Bodies Not Reportable 12/26/21 03:56 [place] Rings Not Reportable 12/26/21 03:56 [place] Cells Not Reportable 12/26/21 03:56 Bite Cells Not Reportable 12/26/21 03:56 Crenated Cell Not Reportable 12/26/21 03:56 Elliptocytes Not Reportable 12/26/21 03:56 Acanthocytes (Spur) Not Reportable 12/26/21 03:56 Rouleaux Not Reportable 12/26/21 03:56 Hemoglobin C Crystals Not Reportable 12/26/21 03:56 Schistocytes Not Reportable 12/26/21 03:56 Malaria parasites Not Reportable 12/26/21 03:56 Abhishek Bodies Not Reportable 12/26/21 03:56 Hem Pathologist Commnt No 12/26/21 03:56 PT 13.0 Sec. (12.2-14.9) 12/27/21 11:33 INR 0.87 (0.87-1.13) 12/27/21 11:33 APTT 51.9 Sec. (24.2-36.6) H 12/27/21 11:33 Heparin Anti-Xa Level < 0.10 U.I./ml (0.3-0.7) L 12/28/21 05:21 Sodium 142 mmol/L (137-145) 12/28/21 05:21 Potassium 4.0 mmol/L (3.6-5.0) 12/28/21 05:21 Chloride 105.2 mmol/L (98-107) 12/28/21 05:21 Carbon Dioxide 23 mmol/L (22-30) 12/28/21 05:21 Anion Gap 18 mmol/L 12/28/21 05:21 BUN 16 mg/dL (9-20) 12/28/21 05:21 Creatinine 1.3 mg/dL (0.8-1.3) 12/28/21 05:21 Estimated GFR > 60 ml/min 12/28/21 05:21 BUN/Creatinine Ratio 12 % 12/28/21 05:21 Glucose 124 mg/dL (75-100) H 12/28/21 05:21 POC Glucose 106 mg/dL (70-105) H 12/28/21 12:11 Calcium 8.8 mg/dL (8.4-10.2) 12/28/21 05:21 Phosphorus 3.60 mg/dL (2.5-4.5) 12/23/21 05:50 Magnesium 1.80 mg/dL (1.7-2.3) 12/23/21 05:50 Total Bilirubin 0.70 mg/dL (0.1-1.2) 12/21/21 04:00 AST 65 units/L (5-40) H 12/21/21 04:00 ALT 36 units/L (7-56) 12/21/21 04:00 Alkaline Phosphatase 129 units/L (35-129) 12/21/21 04:00 NT-Pro-B Natriuret Pep 11798 pg/mL (0-450) H 12/20/21 04:16 Total Protein 6.5 g/dL (6.3-8.2) 12/21/21 04:00 Albumin 2.6 g/dL (3.9-5) L 12/21/21 04:00 Albumin/Globulin Ratio 0.7 % 12/21/21 04:00 Urine Osmolality 212 Mosm/kg 12/22/21 11:46 Urine Creatinine 62.6 mg/dL (0.1-20.0) H 12/22/21 07:10 Urine Sodium 26 mmol/L 12/22/21 07:10 Urine Total Protein 15 mg/dL (5-11.8) H 12/22/21 07:10 Coronavirus (PCR) Negative (Negative) 12/24/21 11:58 Hepatitis A IgM Ab Non-reactive (NonReactive) 12/20/21 11:10 Hep Bs Antigen Non-reactive (Negative) 12/20/21 11:10 Hep B Core IgM Ab Non-reactive (NonReactive) 12/20/21 11:10 Hepatitis C Antibody Non-reactive (NonReactive) 12/20/21 11:10 Silver/IV: Voiding Method Urinal Nutrition/Malnutrition Assess - Dietary Evaluation Nutrition/Malnutrition Findings: Nutrition Notes Start: 12/26/21 14:11 Freq: Status: Discharge Protocol: Document 12/26/21 14:11 DAVON (Rec: 12/26/21 14:51 DAVON [id number]) Nutrition Notes Need for Assessment generated from: LOS Initial or Follow up Assessment Current Diagnosis Acute Kidney Injury,COPD, Malnutrition,Stroke Other Pertinent Diagnosis PAD, R-Great Toe Gangrene, Cardiomyopathy, Leukocytosis, Atrial Fibrilation Current Diet Renal Diet (since D 12/19). Labs/Tests 12/26: Crea 1.5, Glu 131. Pertinent Medications 12/26: Nutritionally unremarkable. 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 Weight Status Morbidly Obese Subjective/Other Information RD consult for LOS assessment. No reports available on Pt's PO intake of meals, but states that dies has been well tolerated at the time, according to Progress notes. Pt is on Room Air, O2 saturation @ 07%, according to Physical Assessment History notes. Pt has missing teeth, according to Physical Assessment History notes. Pt presents R-Toe gangrene and a sacral area of concern for skin risk at the time, according to Physical Assessment History notes. I will prescribe dietary supplements to support wound healing processes during LOS. Pt presents bilateral-LE Pitting Edema 1+, according to Physical Assessment History notes. Pt is bedridden, according to Physical Assessment History notes. Pt will undergo for possible revascularization on 12/28, according to Progress notes. Percent of energy/protein needs met: Prescribed Renal Diet provides for energy/protein needs (2, 072 Kcal/77 g) during LOS; additionally, Dietary Supplements will support wound healing processes with 190 Kcal and 5 g of protein. 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 Etiology Pt being bedridden, negligence . As Evidenced by Signs and Symptoms Pt presents R-Toe gangrene and a sacral area of concern for skin risk at the time, according to Physical Assessment History notes. Is patient on ventilator? No Is Patient Ambulatory and/or Out of Bed No REE-([facility]-confined to bed) 2795.784 Kcal/Kg value to use for calculation 16 Approximate Energy Requirements Using 2208 kcal/Kg Calculation Used for Recommendations Kcal/kg Additional Notes Protein: 1.25-1.5 g/Kg AdjBW; 138-165 g/day. Fluids: 1 ml/Kcal, or as per MD. Nutrition Intervention Change Diet Order: Continue Renal Diet. Add Supplement/Snack (indicate name/kcal Start 28.8 g pkt Zackary; BID. /protein ) Provides kCal: 190 Provides Protein (gm) 5 Goal #1 Support, through dietary supplementation, wound healing processes during LOS. Goal #2 Adjust the dietary intervention to better serve Pt's needs and clinical conditions during LOS. Follow-Up By: 01/02/22 Additional Comments Continue monitoring food tolerance, %PO intake of meals , dietary supplements, and BM.
--- NOTE | 2021-12-23 14:21 | Event Note ---
Date: 12/23/21 The patient had an arterial duplex that demonstrated evidence of aortoiliac occlusive disease as well as tibial disease in his right lower extremity. He is in need of a diagnostic angiogram with possible intervention to improve flow to his leg and heel his right first toe wounds. We will continue to follow and observe his renal function. Once he is back to his baseline we will discuss with nephrology the potential for the angiogram.
[2021-12-23] MEDS ORDERED: AMIODARONE 900 MG in DEXTROSE 5% IN WATER 482 ML IV SCH (17:00)
[2021-12-24 04:47] LABS: Hematocrit 40.2 % (35.5-45.6); Hemoglobin 13.3 gm/dl (11.8-15.2); Mean Corpuscular HGB Conc 33 % (32-34); Mean Corpuscular Volume 91 fl (84-94); Platelet Count 312 K/mm3 (140-440); Red Blood Count 4.44 M/mm3 (3.65-5.03); Red Cell Distribution Width 14.3 % (13.2-15.2)
[2021-12-24 05:10] LABS: Calcium 8.8 mg/dL (8.4-10.2)
[2021-12-24] MEDS: INSULIN REGULAR, HUMAN 100 UNITS/1 ML SUB-Q SCH ×4 (07:58→22:24)
--- NOTE | 2021-12-24 09:00 | Progress Note ---
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 fib and noncompliance with A. fib with RVR, acute kidney injury with hypoglycemia and severe hyperkalemia. #GRANT secondary to vasomotor nephropathyimproving Creatinine 1.7 (previously 2.9) Renally dose medications and avoid nephrotoxic drugs. Currently holding WILLIE inhibitors and ARB's. Nephrology consulted; appreciate recs Continue to monitor #Peripheral arterial disease #Dry gangrene of right great toe Vascular surgery consulted; appreciate recs Pending angiogram and revascularization once patient's renal status has returned back to baseline. Continue heparin drip #Atrial fibrillation #History of SC status post stent placement #Nonischemic cardiomyopathy Continue amiodarone 400 mg twice daily, heparin drip, and metoprolol tartrate 25 mg every 6 hours Cardiology consulted; appreciate recs Continue to monitor #Leukocytosis Continue to monitor. #History of right sided CVA with residual left-sided hemiplegia #Bedridden Continue goal-directed therapy #COPD Continue DuoNebs and albuterol nebs as needed #Mild protein caloric malnutrition Continue dietary supplementation #Morbid obesity #Weight loss counseling #Exercise counseling - BMI 41.4 - Counseled patient on the importance of weight loss, incorporating exercise, and dietary changes (lean meats, fresh fruits and vegetables, and water intake). Patient expresses understanding. - Time: +15 min #Tobacco dependence #Tobacco/Smoking cessation counseling - Counseled patient about the importance of smoking cessation and the possible sequelae as a result of continued tobacco consumption. The patient expresses understanding. -Time: +15 mins Resolved diagnoses: Hyponatremia Hypochloremia SIRS Hypoglycemia Acute metabolic encephalopathy Acute on chronic systolic heart failure Sepsis #Advanced care planning -Disease education conducted, care plan discussed, diagnoses discussed, prognosis discussed, and patient acknowledges understanding with care plan -Time: +30 min History Interval history: This is a 41-year-old male with HTN, right CVA (05/2020) with residual left-sided hemiplegia and bedridden, heart failure with reduced EF (EF 20 to 25% in 2012), SC in 2015, s/p stent placement in 2017, DM, COPD, current nicotine abuse, A. fib and noncompliance who presented to the emergency department on 12/19 via EMS for generalized weakness and low blood glucose. Per EMS patient's blood glucose levels were in the 40s and he complained of inability to urinate for 2 days and shortness of breath. Patient was admitted to [facility] in May 2020 and is status BUN/creatinine on 10/22/2019 was noted to be 18/1.0. Patient presented to emergency department with fever of 99, HR 120, BP 150/90, lab work showed leukocytosis, hyponatremia at 128, hyperkalemia at 7.2, metabolic acidosis of 17, elevated BUN/creatinine at 107/15.7 and hyperglycemia 54. Patient was medically treated with calcium gluconate and bicarbonate, received 2 L normal saline bolus and it was noted that patient refused Silver catheter placement. Nephrology was consulted in the emergency department. Patient was admitted to the hospitalist service with hypertensive emergency, hypoglycemia, hyperkalemia, acute kidney injury, A. fib RVR and CHF with consults to [facility] and cardiology. Hospital course to date: 12/20: Vas-Cath placed for emergent hemodialysis for which she received. RN aske d to [facility] the patient for possible placement of Silver catheter. Renal ultrasound pending. Sodium bicarbonate drip was discontinued due to bicarbonate improvement into the 20s and D10 was decreased to 75. Digoxin discontinued. Neurology consulted for guidance for anticoagulation as patient was initially not anticoagulated for risk of hemorrhagic conversion of CVA. 12/21: Cardio will start amio as documented allergy is not a true allergy. HD again today. DC hydral given and decrease amlodipine re soft BPs. Bladder scan revealed no urine. [facility] will like to continue D10 but decrease rate and will start heparin gtt given afib (was on home eliquis) given possible need for vascath. 12/22: Cardiology started patient on p.o. amiodarone to be given along with amiodarone drip, hemodialysis today. Patient started having urine output. Vascular surgery consulted for great toe. Patient will be transferred to [facility]. 12/23: No acute vents reported overnight, occlusion of right posterior tib and DP artery on vascular ultrasound. Continue on amiodarone drip and p.o. Patient started on metoprolol also. 12/24: Patient has been transferred to the floor. Patient having clinical improvement with creatinine decreasing from 4.0 to 2.9. Vascular surgery documented the following: "The patient had an arterial duplex that demonstrated evidence of aortoiliac occlusive disease as well as tibial disease in his right lower extremity. He is in need of a diagnostic angiogram with possible intervention to improve flow to his leg and heel his right first toe wounds. We will continue to follow and observe his renal function. Once he is back to his baseline we will discuss with nephrology the potential for the angiogram." Disposition Plan: Continue medical management Total Time Spent with Patient (Minutes): 45 minutes History Interval history: No acute events overnight. Hospitalist Physical - Constitutional Vitals: Temp Pulse Resp BP Pulse Ox 98.3 F 109 H 18 137/91 96 12/24/21 08:28 12/24/21 08:28 12/24/21 03:36 12/24/21 08:28 12/24/21 08:28 General appearance: Present: no acute distress HEART Score - HEART Score Age: 45-65 Risk factors: > 3 risk factors or hx of atherosclerotic disease Troponin: 1-3x normal limit - Critical Actions Critical Actions: 4-6 pts:12-16.6% risk of adverse cardiac event. Should be admitted Results - Labs CBC & Chem 7: 12/25/21 03:59 12/25/21 03:59 Labs: Laboratory Last Values WBC 15.1 K/mm3 (4.5-11.0) H 12/24/21 03:54 RBC 4.44 M/mm3 (3.65-5.03) 12/24/21 03:54 Hgb 13.3 gm/dl (11.8-15.2) 12/24/21 03:54 Hct 40.2 % (35.5-45.6) 12/24/21 03:54 MCV 91 fl (84-94) 12/24/21 03:54 MCH 30 pg (28-32) 12/24/21 03:54 MCHC 33 % (32-34) 12/24/21 03:54 RDW 14.3 % (13.2-15.2) 12/24/21 03:54 Plt Count 312 K/mm3 (140-440) 12/24/21 03:54 Add Manual Diff Complete 12/20/21 04:16 Total Counted 100 12/20/21 04:16 Seg Neuts % (Manual) 78.0 % (40.0-70.0) H 12/20/21 04:16 Band Neutrophils % 0 % 12/20/21 04:16 Lymphocytes % (Manual) 11.0 % (13.4-35.0) L 12/20/21 04:16 Reactive Lymphs % (Man) 0 % 12/20/21 04:16 Monocytes % (Manual) 11.0 % (0.0-7.3) H 12/20/21 04:16 Eosinophils % (Manual) 0 % (0.0-4.3) 12/20/21 04:16 Basophils % (Manual) 0 % (0.0-1.8) 12/20/21 04:16 Metamyelocytes % 0 % 12/20/21 04:16 Myelocytes % 0 % 12/20/21 04:16 Promyelocytes % 0 % 12/20/21 04:16 Blast Cells % 0 % 12/20/21 04:16 Nucleated RBC % Not Reportable 12/20/21 04:16 Seg Neutrophils # Man 12.5 K/mm3 (1.8-7.7) H 12/20/21 04:16 Band Neutrophils # 0.0 K/mm3 12/20/21 04:16 Lymphocytes # (Manual) 1.8 K/mm3 (1.2-5.4) 12/20/21 04:16 Abs React Lymphs (Man) 0.0 K/mm3 12/20/21 04:16 Monocytes # (Manual) 1.8 K/mm3 (0.0-0.8) H 12/20/21 04:16 Eosinophils # (Manual) 0.0 K/mm3 (0.0-0.4) 12/20/21 04:16 Basophils # (Manual) 0.0 K/mm3 (0.0-0.1) 12/20/21 04:16 Metamyelocytes # 0.0 K/mm3 12/20/21 04:16 Myelocytes # 0.0 K/mm3 12/20/21 04:16 Promyelocytes # 0.0 K/mm3 12/20/21 04:16 Blast Cells # 0.0 K/mm3 12/20/21 04:16 WBC Morphology Not Reportable 12/20/21 04:16 Hypersegmented Neuts Not Reportable 12/20/21 04:16 Hyposegmented Neuts Not Reportable 12/20/21 04:16 Hypogranular Neuts Not Reportable 12/20/21 04:16 Smudge Cells Not Reportable 12/20/21 04:16 Toxic Granulation Not Reportable 12/20/21 04:16 Toxic Vacuolation Not Reportable 12/20/21 04:16 Dohle Bodies Not Reportable 12/20/21 04:16 Pelger-Huet Anomaly Not Reportable 12/20/21 04:16 Fern Rods Not Reportable 12/20/21 04:16 Platelet Estimate Consistent w auto 12/20/21 04:16 Clumped Platelets Not Reportable 12/20/21 04:16 Plt Clumps, EDTA Not Reportable 12/20/21 04:16 Large Platelets Not Reportable 12/20/21 04:16 Giant Platelets Not Reportable 12/20/21 04:16 Platelet Satelliting Not Reportable 12/20/21 04:16 Plt Morphology Comment Not Reportable 12/20/21 04:16 RBC Morphology Not Reportable 12/20/21 04:16 Dimorphic RBCs Not Reportable 12/20/21 04:16 Polychromasia Not Reportable 12/20/21 04:16 Hypochromasia Not Reportable 12/20/21 04:16 Poikilocytosis Not Reportable 12/20/21 04:16 Anisocytosis Not Reportable 12/20/21 04:16 Microcytosis Not Reportable 12/20/21 04:16 Macrocytosis Not Reportable 12/20/21 04:16 Spherocytes Not Reportable 12/20/21 04:16 Pappenheimer Bodies Not Reportable 12/20/21 04:16 Sickle Cells Not Reportable 12/20/21 04:16 Target Cells Not Reportable 12/20/21 04:16 Tear Drop Cells Not Reportable 12/20/21 04:16 Ovalocytes Not Reportable 12/20/21 04:16 Helmet Cells Not Reportable 12/20/21 04:16 [place] Bodies Not Reportable 12/20/21 04:16 [place] Rings Not Reportable 12/20/21 04:16 S[place]er Cells Not Reportable 12/20/21 04:16 Bite Cells Not Reportable 12/20/21 04:16 Crenated Cell Not Reportable 12/20/21 04:16 Elliptocytes Not Reportable 12/20/21 04:16 Acanthocytes (Spur) Not Reportable 12/20/21 04:16 Rouleaux Not Reportable 12/20/21 04:16 Hemoglobin C Crystals Not Reportable 12/20/21 04:16 Schistocytes Not Reportable 12/20/21 04:16 Malaria parasites Not Reportable 12/20/21 04:16 Abhishek Bodies Not Reportable 12/20/21 04:16 Hem Pathologist Commnt No 12/20/21 04:16 PT 15.8 Sec. (12.2-14.9) H 12/21/21 12:54 INR 1.13 (0.87-1.13) 12/21/21 12:54 APTT 33.5 Sec. (24.2-36.6) 12/21/21 12:54 Heparin Anti-Xa Level < 0.10 U.I./ml (0.3-0.7) L 12/23/21 22:48 Sodium 140 mmol/L (137-145) 12/24/21 03:54 Potassium 4.8 mmol/L (3.6-5.0) D 12/24/21 03:54 Chloride 99.3 mmol/L (98-107) 12/24/21 03:54 Carbon Dioxide 25 mmol/L (22-30) 12/24/21 03:54 Anion Gap 21 mmol/L 12/24/21 03:54 BUN 25 mg/dL (9-20) H 12/24/21 03:54 Creatinine 2.9 mg/dL (0.8-1.3) H 12/24/21 03:54 Estimated GFR 29 ml/min 12/24/21 03:54 BUN/Creatinine Ratio 9 % 12/24/21 03:54 Glucose 96 mg/dL (75-100) 12/24/21 03:54 POC Glucose 124 mg/dL (70-105) H 12/24/21 07:22 Calcium 8.8 mg/dL (8.4-10.2) 12/24/21 03:54 Phosphorus 3.60 mg/dL (2.5-4.5) 12/23/21 05:50 Magnesium 1.80 mg/dL (1.7-2.3) 12/23/21 05:50 Total Bilirubin 0.70 mg/dL (0.1-1.2) 12/21/21 04:00 AST 65 units/L (5-40) H 12/21/21 04:00 ALT 36 units/L (7-56) 12/21/21 04:00 Alkaline Phosphatase 129 units/L (35-129) 12/21/21 04:00 NT-Pro-B Natriuret Pep 46125 pg/mL (0-450) H 12/20/21 04:16 Total Protein 6.5 g/dL (6.3-8.2) 12/21/21 04:00 Albumin 2.6 g/dL (3.9-5) L 12/21/21 04:00 Albumin/Globulin Ratio 0.7 % 12/21/21 04:00 Urine Osmolality 212 Mosm/kg 12/22/21 11:46 Urine Creatinine 62.6 mg/dL (0.1-20.0) H 12/22/21 07:10 Urine Sodium 26 mmol/L 12/22/21 07:10 Urine Total Protein 15 mg/dL (5-11.8) H 12/22/21 07:10 Hepatitis A IgM Ab Non-reactive (NonReactive) 12/20/21 11:10 Hep Bs Antigen Non-reactive (Negative) 12/20/21 11:10 Hep B Core IgM Ab Non-reactive (NonReactive) 12/20/21 11:10 Hepatitis C Antibody Non-reactive (NonReactive) 12/20/21 11:10 Microbiology: Microbiology 12/20/21 18:00 Peripheral/Venous Blood Culture - Preliminary NO GROWTH AFTER 72 HOURS 12/20/21 18:00 Peripheral/Venous Blood Culture - Preliminary NO GROWTH AFTER 72 HOURS Silver/IV: Voiding Method Urinal Active Medications - Current Medications Current Medications: Generic Name Dose Route Start Last Admin Trade Name Freq PRN Reason Stop Dose Admin Acetaminophen 650 mg 12/19/21 16:54 12/21/21 09:52 Acetaminophen 325 Mg Tab PO 650 mg Q4H PRN Administration Pain MILD(1-3)/Fever >100.5/CARCAMO Amiodarone HCl 200 mg 12/22/21 11:00 12/23/21 21:32 Amiodarone 200 Mg Tab PO 200 mg BID KAROLINA Administration Aspirin 325 mg 12/20/21 10:00 12/23/21 10:58 Aspirin 325 Mg Tab PO 325 mg QDAY KAROLINA Administration Dextrose 50 ml 12/20/21 10:45 Dextrose 50% In Water (25gm) 50 Ml Syringe IV Q30MIN PRN Hypoglycemia Protocol Glucagon 1 mg 12/19/21 15:39 12/19/21 16:08 Glucagon (Human Recombinant) 1 Mg/Ml Inj IV 1 mg Q1H PRN Administration Hypoglycemia Sodium Chloride 100 mls @ 999 mls/hr 12/20/21 07:08 Nacl 0.9% IV KEVIN PRN Hypotension Amiodarone HCl 900 mg/ 500 mls @ 33.333 mls/hr 12/21/21 11:15 12/22/21 10:00 Dextrose IV 0.5 mg/min DIRECT KAROLINA 16.667 mls/hr Administration Protocol 1 MG/MIN Heparin Sodium/Sodium Chloride 25,000 unit in 500 mls @ 30 mls/hr 12/21/21 12:00 12/24/21 00:27 Heparin/ 0.45% Nacl-25,000 Unit/500 Ml IV 1,800 units/hr TITR KAROLINA 36 mls/hr Titration Protocol 1,500 UNITS/HR Ceftriaxone Sodium 2 gm in 100 mls @ 200 mls/hr 12/21/21 12:00 12/23/21 13:21 Rocephin/Ns 2 Gm/100 Ml IV 12/26/21 11:59 Not Given Q24H KAROLINA Protocol Amiodarone HCl 900 mg/ 500 mls @ 33.333 mls/hr 12/23/21 17:00 12/23/21 16:27 Dextrose IV 1 mg/min DIRECT KAROLINA 33.333 mls/hr Administration Protocol 1 MG/MIN Insulin Human Regular 0 units 12/23/21 16:30 12/24/21 07:58 Insulin Regular, Human 100 Units/1 Ml SUB-Q Not Given ACHS [facility] Protocol Metoprolol Tartrate 25 mg 12/23/21 11:30 12/23/21 21:32 Metoprolol Tartrate 25 Mg Tab PO 25 mg BID KAROLINA Administration Morphine Sulfate 2 mg 12/19/21 16:54 12/21/21 13:48 Morphine 2 Mg/1 Ml Inj IV 2 mg Q4H PRN Administration Pain, Moderate (4-6) Ondansetron HCl 4 mg 12/21/21 12:00 12/21/21 13:48 Ondansetron 4 Mg/2 Ml Inj IV 4 mg Q6H PRN Administration Nausea And Vomiting Oxycodone/Acetaminophen 1 tab 12/19/21 16:54 12/23/21 10:58 Oxycodone /Acetaminophen 5-325mg Tab PO 1 tab Q6H PRN Administration Pain, Moderate (4-6) Sodium Chloride 10 ml 12/19/21 22:00 12/23/21 21:32 Sodium Chloride 0.9% 10 Ml Flush Syringe IV 10 ml BID KAROLINA Administration Sodium Chloride 10 ml 12/19/21 16:54 Sodium Chloride 0.9% 10 Ml Flush Syringe IV PRN PRN LINE FLUSH
--- NOTE | 2021-12-24 10:18 | Event Note ---
Date: 12/24/21 Awaiting return of renal function back to baseline for further workup of PVD. Cr still elevated.
[2021-12-24] MEDS: ASPIRIN 325 MG TAB PO SCH (10:36)
[2021-12-24] MEDS: AMIODARONE 200 MG TAB PO SCH ×3 (10:36→21:35)
[2021-12-24] MEDS: METOPROLOL TARTRATE 25 MG TAB PO SCH ×3 (10:36→22:27)
[2021-12-24] MEDS: HEPARIN/ 0.45% NACL DRIP 25,000 UNIT/500 ML BAG IV SCH ×3 (10:45→21:39)
--- NOTE | 2021-12-24 16:12 | Progress Note ---
Assessment and Plan Will switch amiodarone to PO. Increase metoprolol dose. - Patient Problems (1) GRANT (acute kidney injury) Current Visit: Yes Status: Acute (2) Permanent atrial fibrillation with RVR Current Visit: Yes Status: Acute (3) NSVT (nonsustained ventricular tachycardia) Current Visit: Yes Status: Acute (4) Acute on chronic HFrEF (heart failure with reduced ejection fraction) Current Visit: Yes Status: Acute (5) Cardiomyopathy Current Visit: Yes Status: Chronic (6) PAD (peripheral artery disease) Current Visit: Yes Status: Acute (7) Hyperkalemia Current Visit: Yes Status: Acute (8) Elevated troponin Current Visit: Yes Status: Acute (9) Hypertension Current Visit: Yes Status: Chronic Qualifiers: Hypertension type: primary hypertension Qualified Code(s): I10 - Essential (primary) hypertension (10) COPD (chronic obstructive pulmonary disease) Current Visit: Yes Status: Chronic (11) Diabetes mellitus Current Visit: Yes Status: Chronic Subjective Date of service: 12/24/21 Principal diagnosis: GRANT, Acute on chronic HFrEF, OPAD, NICMP, Permanent AF with RVR Interval history: No complaint. In AF at 122 bpm With brief intermittent runs of nonsustained VT. Objective Vital Signs Temp Pulse Pulse Resp BP Pulse Ox 12/24/21 15:35 98.9 F 100 H 142/98 96 12/24/21 12:36 100 H 12/24/21 12:00 100 H 98 12/24/21 11:25 98.3 F 70 131/98 97 12/24/21 11:21 98.3 F 131 H 89/46 97 12/24/21 08:28 98.3 F 109 H 137/91 96 12/24/21 03:36 99.5 F 69 18 129/94 93 12/24/21 01:06 97 12/23/21 20:30 128 H 12/23/21 20:20 99.5 F 54 L 20 135/82 97 12/23/21 19:56 126/86 12/23/21 19:01 110 H 15 98 12/23/21 18:01 121 H 20 100 12/23/21 17:01 98 H 12 97 - Physical Examination General: No Apparent Distress HEENT: Positive: EOMI, Normocephaly, Mucus Membranes Moist Neck: Positive: neck supple, trachea midline Cardiac: Positive: Irregularly Regular, S1/S2 Lungs: Positive: clear to auscultation Neuro: Positive: Grossly Intact Abdomen: Positive: Soft Skin: Positive: Other (Right great toe gangrene) Musculoskeletal: Normal Range of Motion Extremities: Present: edema (Trace pitting bilateral leg edema) - Labs and Meds CBC 12/24/21 Range/Units 03:54 WBC 15.1 H (4.5-11.0) K/mm3 RBC 4.44 (3.65-5.03) M/mm3 Hgb 13.3 (11.8-15.2) gm/dl Hct 40.2 (35.5-45.6) % Plt Count 312 (140-440) K/mm3 Comprehensive Metabolic Panel 12/24/21 Range/Units 03:54 Sodium 140 (137-145) mmol/L Potassium 4.8 D (3.6-5.0) mmol/L Chloride 99.3 (98-107) mmol/L Carbon Dioxide 25 (22-30) mmol/L BUN 25 H (9-20) mg/dL Creatinine 2.9 H (0.8-1.3) mg/dL Glucose 96 (75-100) mg/dL Calcium 8.8 (8.4-10.2) mg/dL - Telemetry EKG Rhythm: Atrial Fibrillation (with RVR; brief runs of nonsustained VT.)
[2021-12-25 04:33] LABS: Calcium 8.7 mg/dL (8.4-10.2)
[2021-12-25 05:12] LABS: Hematocrit 38.7 % (35.5-45.6); Hemoglobin 12.9 gm/dl (11.8-15.2); Mean Corpuscular HGB Conc 33 % (32-34); Mean Corpuscular Volume 91 fl (84-94); Platelet Count 336 K/mm3 (140-440); Red Blood Count 4.24 M/mm3 (3.65-5.03); Red Cell Distribution Width 14.4 % (13.2-15.2)
[2021-12-25] MEDS: METOPROLOL TARTRATE 25 MG TAB PO SCH ×3 (05:50→17:24)
[2021-12-25] MEDS: INSULIN REGULAR, HUMAN 100 UNITS/1 ML SUB-Q SCH ×4 (07:38→22:11)
[2021-12-25 09:44] LABS: Band Neutrophils # (Manual) 0.3 K/mm3; Total Cells Counted 100
[2021-12-25 09:45] LABS: Platelet Estimate Consistent w Auto; RBC Morphology Normal
[2021-12-25] MEDS: HEPARIN/ 0.45% NACL DRIP 25,000 UNIT/500 ML BAG IV SCH ×2 (10:38→22:04)
[2021-12-25] MEDS: AMIODARONE 200 MG TAB PO SCH ×3 (10:38→20:54)
[2021-12-25] MEDS: ASPIRIN 325 MG TAB PO SCH (10:38)
--- NOTE | 2021-12-25 10:38 | Progress Note ---
Assessment and Plan - Patient Problems (1) GRANT (acute kidney injury) Current Visit: Yes Status: Acute Plan to address problem: Patient has not required any further dialysis at this time and renal function continues to improve. He has excellent urine output at this time. We will plan to have the dialysis nurses remove his Vas-Cath tomorrow. (2) Acute on chronic HFrEF (heart failure with reduced ejection fraction) Current Visit: Yes Status: Acute Plan to address problem: Cardiology recommendations reviewed. Diuretics as recommended. Counseled on im portance of fluid and sodium restrictions. Currently patient seems euvolemic on examination. Overall respiratory status is stable. We will continue to monitor closely. (3) Hyperkalemia Current Visit: Yes Status: Acute Plan to address problem: Potassium levels have improved with dialysis. We will continue to monitor closely. Counseled patient on the importance of a low potassium diet in general. (4) Hyponatremia Current Visit: Yes Status: Acute Plan to address problem: Likely in the setting of volume overload. Improvement since admission. (5) Diabetes mellitus Current Visit: Yes Status: Chronic Plan to address problem: Diabetes management per primary attending. Subjective Date of service: 12/25/21 Principal diagnosis: GRANT, Acute on chronic HFrEF, OPAD, NICMP, Permanent AF with RVR Interval history: No acute issues this morning. Labs indicate further improvement of his renal function. We will plan to remove his Vas-Cath at present time. Urine output continues to improve. Objective - Vital Signs Vital signs: Vital Signs - 12hr 12/24/21 12/25/21 12/25/21 23:17 05:47 08:04 Temperature 98.9 F 98.5 F 98.2 F Pulse Rate 88 96 H 100 H Respiratory 18 18 Rate Blood Pressure 117/96 150/94 138/91 O2 Sat by Pulse 96 98 99 Oximetry - General Appearance General appearance: well-developed, appears stated age, obese EENT: ATNC Neck: no JVD Respiratory: Present: Clear to Ascultation Cardiology: regular Gastrointestinal: normal Integumentary: no rash Neurologic: no focal deficit Musculoskeletal: deferred Psychiatric: cooperative - Lab 12/25/21 03:59 12/25/21 03:59 Most recent lab results Calcium 8.7 mg/dL (8.4-10.2) 12/25/21 03:59 Phosphorus 3.60 mg/dL (2.5-4.5) 12/23/21 05:50 Magnesium 1.80 mg/dL (1.7-2.3) 12/23/21 05:50 Urine Creatinine 62.6 mg/dL (0.1-20.0) H 12/22/21 07:10 Urine Sodium 26 mmol/L 12/22/21 07:10 Urine Total Protein 15 mg/dL (5-11.8) H 12/22/21 07:10 - Imaging Chest x-ray: pending - Allied health notes Allied health notes reviewed: nursing Medications & Allergies - Medications Allergies/Adverse Reactions: Allergies adhesive Allergy (Verified 12/19/21 14:07) Rash ibuprofen [From Motrin] Allergy (Verified 12/19/21 14:07) Swelling lisinopril Allergy (Verified 12/19/21 14:07) COUGH metoprolol Allergy (Verified 12/19/21 14:07) Nausea amiodarone Adverse Reaction (Verified 12/19/21 14:07) Nausea Iodinated Contrast Media [Iodinated Contrast Media - IV Dye] Adverse Reaction (Verified 12/19/21 14:07) KIDNEYS SHUT DOWN Home Medications: Home Medications Medication Instructions Recorded Confirmed Last Taken Type Digoxin [Lanoxin] 0.25 mg PO DAILY@1700 #30 tablet 06/01/14 11/21/16 11/20/16 Rx Aspirin 325 mg PO QDAY 11/21/16 11/21/16 11/20/16 History Furosemide [Lasix TAB] 40 mg PO QDAY 11/21/16 11/21/16 11/20/16 History Losartan [Cozaar] 50 mg PO QDAY 11/21/16 11/21/16 11/20/16 History HYDROcodone/APAP 5-325 [[place] 1 each PO Q6HR PRN #20 tablet 07/24/19 Unknown Rx 5/325] Penicillin Vk [Veetids TAB] 500 mg PO QID #21 tablet 07/24/19 Unknown Rx Acetaminophen [Acetaminophen TAB] 1,000 mg PO Q6HR #30 tablet 10/22/19 Unknown Rx cephALEXin [Keflex] 500 mg PO Q8HR #30 cap 10/22/19 Unknown Rx Active Medications: Generic Name Dose Route Start Last Admin Trade Name Freq PRN Reason Stop Dose Admin Acetaminophen 650 mg 12/19/21 16:54 12/21/21 09:52 Acetaminophen 325 Mg Tab PO 650 mg Q4H PRN Administration Pain MILD(1-3)/Fever >100.5/CARCAMO Amiodarone HCl 400 mg 12/24/21 17:00 12/24/21 21:35 Amiodarone 200 Mg Tab PO 400 mg TID KAROLINA Administration Aspirin 325 mg 12/20/21 10:00 12/24/21 10:36 Aspirin 325 Mg Tab PO 325 mg QDAY KAROLINA Administration Dextrose 50 ml 12/20/21 10:45 Dextrose 50% In Water (25gm) 50 Ml Syringe IV Q30MIN PRN Hypoglycemia Protocol Glucagon 1 mg 12/19/21 15:39 12/19/21 16:08 Glucagon (Human Recombinant) 1 Mg/Ml Inj IV 1 mg Q1H PRN Administration Hypoglycemia Sodium Chloride 100 mls @ 999 mls/hr 12/20/21 07:08 Nacl 0.9% IV KEVIN PRN Hypotension Heparin Sodium/Sodium Chloride 25,000 unit in 500 mls @ 30 mls/hr 12/21/21 12 :00 12/25/21 03:29 Heparin/ 0.45% Nacl-25,000 Unit/500 Ml IV 2,300 units/hr TITR KAROLINA 46 mls/hr Titration Protocol 1,500 UNITS/HR Insulin Human Regular 0 units 12/23/21 16:30 12/25/21 07:38 Insulin Regular, Human 100 Units/1 Ml SUB-Q Not Given ACHS [facility] Protocol Metoprolol Tartrate 25 mg 12/24/21 17:00 12/25/21 05:50 Metoprolol Tartrate 25 Mg Tab PO 25 mg Q6H KAROLINA Administration Morphine Sulfate 2 mg 12/19/21 16:54 12/21/21 13:48 Morphine 2 Mg/1 Ml Inj IV 2 mg Q4H PRN Administration Pain, Moderate (4-6) Ondansetron HCl 4 mg 12/21/21 12:00 12/21/21 13:48 Ondansetron 4 Mg/2 Ml Inj IV 4 mg Q6H PRN Administration Nausea And Vomiting Oxycodone/Acetaminophen 1 tab 12/19/21 16:54 12/23/21 10:58 Oxycodone /Acetaminophen 5-325mg Tab PO 1 tab Q6H PRN Administration Pain, Moderate (4-6) Sodium Chloride 10 ml 12/19/21 22:00 12/24/21 21:35 Sodium Chloride 0.9% 10 Ml Flush Syringe IV 10 ml BID KAROLINA Administration Sodium Chloride 10 ml 12/19/21 16:54 Sodium Chloride 0.9% 10 Ml Flush Syringe IV PRN PRN LINE FLUSH
--- NOTE | 2021-12-25 13:11 | Progress Note ---
Assessment and Plan Assessment and plan: This is a 41-year-old male with HTN, right-sided CVA with residual left-sided hemiplegia and bedridden's, HFrEF, MO s/p stent placement, DM, asthma, COPD, current nicotine abuse, A. fib and noncompliance with A. fib with RVR, acute kidney injury with hypoglycemia and severe hyperkalemia. #GRANT secondary to vasomotor nephropathyimproving Creatinine 1.7 (previously 2.9) Renally dose medications and avoid nephrotoxic drugs. Currently holding WILLIE inhibitors and ARB's. Nephrology consulted; appreciate recs Continue to monitor #Peripheral arterial disease #Dry gangrene of right great toe Vascular surgery consulted; appreciate recs Pending angiogram and revascularization once patient's renal status has returned back to baseline. Continue heparin drip #Atrial fibrillation #History of MO status post stent placement #Nonischemic cardiomyopathy Continue amiodarone 400 mg twice daily, heparin drip, and metoprolol tartrate 25 mg every 6 hours Cardiology consulted; appreciate recs Continue to monitor #Leukocytosis Continue to monitor. #History of right sided CVA with residual left-sided hemiplegia #Bedridden Continue goal-directed therapy #COPD Continue DuoNebs and albuterol nebs as needed #Mild protein caloric malnutrition Continue dietary supplementation #Morbid obesity #Weight loss counseling #Exercise counseling - BMI 41.4 - Counseled patient on the importance of weight loss, incorporating exercise, and dietary changes (lean meats, fresh fruits and vegetables, and water intake). Patient expresses understanding. - Time: +15 min #Tobacco dependence #Tobacco/Smoking cessation counseling - Counseled patient about the importance of smoking cessation and the possible sequelae as a result of continued tobacco consumption. The patient expresses understanding. -Time: +15 mins Resolved diagnoses: Hyponatremia Hypochloremia SIRS Hypoglycemia Acute metabolic encephalopathy Acute on chronic systolic heart failure Sepsis #Advanced care planning -Disease education conducted, care plan discussed, diagnoses discussed, prognosis discussed, and patient acknowledges understanding with care plan -Time: +30 min History Interval history: This is a 41-year-old male with HTN, right CVA (05/2020) with residual left-sided hemiplegia and bedridden, heart failure with reduced EF (EF 20 to 25% in 2012), MO in 2015, s/p stent placement in 2017, DM, COPD, current nicotine abuse, A. fib and noncompliance who presented to the emergency department on 12/19 via EMS for generalized weakness and low blood glucose. Per EMS patient's blood glucose levels were in the 40s and he complained of inability to urinate for 2 days and shortness of breath. Patient was admitted to [facility] in May 2020 and is status BUN/creatinine on 10/22/2019 was noted to be 18/1.0. Patient presented to emergency department with fever of 99, HR 120, BP 150/90, lab work showed leukocytosis, hyponatremia at 128, hyperkalemia at 7.2, metabolic acidosis of 17, elevated BUN/creatinine at 107/15.7 and hyperglycemia 54. Patient was medically treated with calcium gluconate and bicarbonate, received 2 L normal saline bolus and it was noted that patient refused Silver catheter placement. Nephrology was consulted in the emergency department. Patient was admitted to the hospitalist service with hypertensive emergency, hypoglycemia, hyperkalemia, acute kidney injury, A. fib RVR and CHF with consults to [facility] and cardiology. Hospital course to date: 12/20: Vas-Cath placed for emergent hemodialysis for which she received. RN aske d to [facility] the patient for possible placement of Silver catheter. Renal ultrasound pending. Sodium bicarbonate drip was discontinued due to bicarbonate improvement into the 20s and D10 was decreased to 75. Digoxin discontinued. Neurology consulted for guidance for anticoagulation as patient was initially not anticoagulated for risk of hemorrhagic conversion of CVA. 12/21: Cardio will start amio as documented allergy is not a true allergy. HD again today. DC hydral given and decrease amlodipine re soft BPs. Bladder scan revealed no urine. [facility] will like to continue D10 but decrease rate and will start heparin gtt given afib (was on home eliquis) given possible need for vascath. 12/22: Cardiology started patient on p.o. amiodarone to be given along with amiodarone drip, hemodialysis today. Patient started having urine output. Vascular surgery consulted for great toe. Patient will be transferred to [facility]. 12/23: No acute vents reported overnight, occlusion of right posterior tib and DP artery on vascular ultrasound. Continue on amiodarone drip and p.o. Patient started on metoprolol also. 12/24: Patient has been transferred to the floor. Patient having clinical improvement with creatinine decreasing from 4.0 to 2.9. Vascular surgery documented the following: "The patient had an arterial duplex that demonstrated evidence of aortoiliac occlusive disease as well as tibial disease in his right lower extremity. He is in need of a diagnostic angiogram with possible intervention to improve flow to his leg and heel his right first toe wounds. We will continue to follow and observe his renal function. Once he is back to his baseline we will discuss with nephrology the potential for the angiogram." 12/25: Patient continued to have improvement of renal function with creatinine of 1.7. Continue with medical management. Disposition Plan: continue medical management Total Time Spent with Patient (Minutes): 45 minutes History Interval history: No acute events overnight. Hospitalist Physical - Constitutional Vitals: Temp Pulse Resp BP Pulse Ox 98.0 F 98 H 18 138/106 100 12/25/21 12:18 12/25/21 12:19 12/25/21 05:47 12/25/21 12:18 12/25/21 12:18 General appearance: Present: no acute distress, well-nourished, obese - EENT Eyes: Present: PERRL, EOM intact ENT: hearing intact, clear oral mucosa, dentition normal - Neck Neck: Present: supple, normal ROM - Respiratory Respiratory effort: normal Respiratory: bilateral: CTA - Cardiovascular Rhythm: irregularly irregular Heart Sounds: Present: S1 & S2 - Extremities Extremities: no ischemia, pulses intact, pulses symmetrical, No edema, normal temperature, normal color Extremity abnormal: black (Dry gangrene of right great toe) Peripheral Pulses: within normal limits - Abdominal General gastrointestinal: soft, non-tender, non-distended, normal bowel sounds - Integumentary Integumentary: Present: clear, warm, dry - Psychiatric Psychiatric: appropriate mood/affect, intact judgment & insight, cooperative - Neurologic Neurologic: CNII-XII intact - Allied Health Allied health notes reviewed: nursing HEART Score - HEART Score Age: 45-65 Risk factors: > 3 risk factors or hx of atherosclerotic disease Troponin: 1-3x normal limit - Critical Actions Critical Actions: 4-6 pts:12-16.6% risk of adverse cardiac event. Should be admitted Results - Labs CBC & Chem 7: 12/25/21 03:59 12/25/21 03:59 Labs: Laboratory Last Values WBC 13.2 K/mm3 (4.5-11.0) H 12/25/21 03:59 RBC 4.24 M/mm3 (3.65-5.03) 12/25/21 03:59 Hgb 12.9 gm/dl (11.8-15.2) 12/25/21 03:59 Hct 38.7 % (35.5-45.6) 12/25/21 03:59 MCV 91 fl (84-94) 12/25/21 03:59 MCH 30 pg (28-32) 12/25/21 03:59 MCHC 33 % (32-34) 12/25/21 03:59 RDW 14.4 % (13.2-15.2) 12/25/21 03:59 Plt Count 336 K/mm3 (140-440) 12/25/21 03:59 Add Manual Diff Complete 12/25/21 03:59 Total Counted 100 12/25/21 03:59 Seg Neuts % (Manual) 74.0 % (40.0-70.0) H 12/25/21 03:59 Band Neutrophils % 2.0 % 12/25/21 03:59 Lymphocytes % (Manual) 12.0 % (13.4-35.0) L 12/25/21 03:59 Reactive Lymphs % (Man) 0 % 12/25/21 03:59 Monocytes % (Manual) 6.0 % (0.0-7.3) 12/25/21 03:59 Eosinophils % (Manual) 4.0 % (0.0-4.3) 12/25/21 03:59 Basophils % (Manual) 2.0 % (0.0-1.8) H 12/25/21 03:59 Metamyelocytes % 0 % 12/25/21 03:59 Myelocytes % 0 % 12/25/21 03:59 Promyelocytes % 0 % 12/25/21 03:59 Blast Cells % 0 % 12/25/21 03:59 Nucleated RBC % Not Reportable 12/25/21 03:59 Seg Neutrophils # Man 9.8 K/mm3 (1.8-7.7) H 12/25/21 03:59 Band Neutrophils # 0.3 K/mm3 12/25/21 03:59 Lymphocytes # (Manual) 1.6 K/mm3 (1.2-5.4) 12/25/21 03:59 Abs React Lymphs (Man) 0.0 K/mm3 12/25/21 03:59 Monocytes # (Manual) 0.8 K/mm3 (0.0-0.8) 12/25/21 03:59 Eosinophils # (Manual) 0.5 K/mm3 (0.0-0.4) H 12/25/21 03:59 Basophils # (Manual) 0.3 K/mm3 (0.0-0.1) H 12/25/21 03:59 Metamyelocytes # 0.0 K/mm3 12/25/21 03:59 Myelocytes # 0.0 K/mm3 12/25/21 03:59 Promyelocytes # 0.0 K/mm3 12/25/21 03:59 Blast Cells # 0.0 K/mm3 12/25/21 03:59 WBC Morphology Not Reportable 12/25/21 03:59 Hypersegmented Neuts Not Reportable 12/25/21 03:59 Hyposegmented Neuts Not Reportable 12/25/21 03:59 Hypogranular Neuts Not Reportable 12/25/21 03:59 Smudge Cells Not Reportable 12/25/21 03:59 Toxic Granulation Not Reportable 12/25/21 03:59 Toxic Vacuolation Not Reportable 12/25/21 03:59 Dohle Bodies Not Reportable 12/25/21 03:59 Pelger-Huet Anomaly Not Reportable 12/25/21 03:59 Fern Rods Not Reportable 12/25/21 03:59 Platelet Estimate Consistent w auto 12/25/21 03:59 Clumped Platelets Not Reportable 12/25/21 03:59 Plt Clumps, EDTA Not Reportable 12/25/21 03:59 Large Platelets Not Reportable 12/25/21 03:59 Giant Platelets Not Reportable 12/25/21 03:59 Platelet Satelliting Not Reportable 12/25/21 03:59 Plt Morphology Comment Not Reportable 12/25/21 03:59 RBC Morphology Normal 12/25/21 03:59 Dimorphic RBCs Not Reportable 12/25/21 03:59 Polychromasia Not Reportable 12/25/21 03:59 Hypochromasia Not Reportable 12/25/21 03:59 Poikilocytosis Not Reportable 12/25/21 03:59 Anisocytosis Not Reportable 12/25/21 03:59 Microcytosis Not Reportable 12/25/21 03:59 Macrocytosis Not Reportable 12/25/21 03:59 Spherocytes Not Reportable 12/25/21 03:59 Pappenheimer Bodies Not Reportable 12/25/21 03:59 Sickle Cells Not Reportable 12/25/21 03:59 Target Cells Not Reportable 12/25/21 03:59 Tear Drop Cells Not Reportable 12/25/21 03:59 Ovalocytes Not Reportable 12/25/21 03:59 Helmet Cells Not Reportable 12/25/21 03:59 George-Belton Bodies Not Reportable 12/25/21 03:59 Sanger Rings Not Reportable 12/25/21 03:59 Hunter Cells Not Reportable 12/25/21 03:59 Bite Cells Not Reportable 12/25/21 03:59 Crenated Cell Not Reportable 12/25/21 03:59 Elliptocytes Not Reportable 12/25/21 03:59 Acanthocytes (Spur) Not Reportable 12/25/21 03:59 Rouleaux Not Reportable 12/25/21 03:59 Hemoglobin C Crystals Not Reportable 12/25/21 03:59 Schistocytes Not Reportable 12/25/21 03:59 Malaria parasites Not Reportable 12/25/21 03:59 Abhishek Bodies Not Reportable 12/25/21 03:59 Hem Pathologist Commnt No 12/25/21 03:59 PT 15.8 Sec. (12.2-14.9) H 12/21/21 12:54 INR 1.13 (0.87-1.13) 12/21/21 12:54 APTT 33.5 Sec. (24.2-36.6) 12/21/21 12:54 Heparin Anti-Xa Level 0.16 U.I./ml (0.3-0.7) L 12/25/21 02:02 Sodium 134 mmol/L (137-145) L 12/25/21 03:59 Potassium 4.0 mmol/L (3.6-5.0) 12/25/21 03:59 Chloride 101.5 mmol/L (98-107) 12/25/21 03:59 Carbon Dioxide 25 mmol/L (22-30) 12/25/21 03:59 Anion Gap 12 mmol/L 12/25/21 03:59 BUN 20 mg/dL (9-20) 12/25/21 03:59 Creatinine 1.7 mg/dL (0.8-1.3) H 12/25/21 03:59 Estimated GFR 54 ml/min 12/25/21 03:59 BUN/Creatinine Ratio 12 % 12/25/21 03:59 Glucose 171 mg/dL (75-100) H 12/25/21 03:59 POC Glucose 140 mg/dL (70-105) H 12/25/21 12:05 Calcium 8.7 mg/dL (8.4-10.2) 12/25/21 03:59 Phosphorus 3.60 mg/dL (2.5-4.5) 12/23/21 05:50 Magnesium 1.80 mg/dL (1.7-2.3) 12/23/21 05:50 Total Bilirubin 0.70 mg/dL (0.1-1.2) 12/21/21 04:00 AST 65 units/L (5-40) H 12/21/21 04:00 ALT 36 units/L (7-56) 12/21/21 04:00 Alkaline Phosphatase 129 units/L (35-129) 12/21/21 04:00 NT-Pro-B Natriuret Pep 13496 pg/mL (0-450) H 12/20/21 04:16 Total Protein 6.5 g/dL (6.3-8.2) 12/21/21 04:00 Albumin 2.6 g/dL (3.9-5) L 12/21/21 04:00 Albumin/Globulin Ratio 0.7 % 12/21/21 04:00 Urine Osmolality 212 Mosm/kg 12/22/21 11:46 Urine Creatinine 62.6 mg/dL (0.1-20.0) H 12/22/21 07:10 Urine Sodium 26 mmol/L 12/22/21 07:10 Urine Total Protein 15 mg/dL (5-11.8) H 12/22/21 07:10 Coronavirus (PCR) Negative (Negative) 12/24/21 11:58 Hepatitis A IgM Ab Non-reactive (NonReactive) 12/20/21 11:10 Hep Bs Antigen Non-reactive (Negative) 12/20/21 11:10 Hep B Core IgM Ab Non-reactive (NonReactive) 12/20/21 11:10 Hepatitis C Antibody Non-reactive (NonReactive) 12/20/21 11:10 Microbiology: Microbiology 12/20/21 18:00 Peripheral/Venous Blood Culture - Preliminary NO GROWTH AFTER 4 DAYS 12/20/21 18:00 Peripheral/Venous Blood Culture - Preliminary NO GROWTH AFTER 4 DAYS Silver/IV: Voiding Method Urinal Active Medications - Current Medications Current Medications: Generic Name Dose Route Start Last Admin Trade Name Freq PRN Reason Stop Dose Admin Acetaminophen 650 mg 12/19/21 16:54 12/21/21 09:52 Acetaminophen 325 Mg Tab PO 650 mg Q4H PRN Administration Pain MILD(1-3)/Fever >100.5/CARCAMO Amiodarone HCl 400 mg 12/24/21 17:00 12/25/21 10:38 Amiodarone 200 Mg Tab PO 400 mg TID KAROLINA Administration Aspirin 325 mg 12/20/21 10:00 12/25/21 10:38 Aspirin 325 Mg Tab PO 325 mg QDAY KAROLINA Administration Dextrose 50 ml 12/20/21 10:45 Dextrose 50% In Water (25gm) 50 Ml Syringe IV Q30MIN PRN Hypoglycemia Protocol Glucagon 1 mg 12/19/21 15:39 12/19/21 16:08 Glucagon (Human Recombinant) 1 Mg/Ml Inj IV 1 mg Q1H PRN Administration Hypoglycemia Sodium Chloride 100 mls @ 999 mls/hr 12/20/21 07:08 Nacl 0.9% IV KEVIN PRN Hypotension Heparin Sodium/Sodium Chloride 25,000 unit in 500 mls @ 30 mls/hr 12/21/21 12:00 12/25/21 10:38 Heparin/ 0.45% Nacl-25,000 Unit/500 Ml IV 2,300 units/hr TITR KAROLINA 46 mls/hr Administration Protocol 1,500 UNITS/HR Insulin Human Regular 0 units 12/23/21 16:30 12/25/21 12:13 Insulin Regular, Human 100 Units/1 Ml SUB-Q Not Given ACHS [facility] Protocol Metoprolol Tartrate 25 mg 12/24/21 17:00 12/25/21 10:40 Metoprolol Tartrate 25 Mg Tab PO 25 mg Q6H KAROLINA Administration Morphine Sulfate 2 mg 12/19/21 16:54 12/21/21 13:48 Morphine 2 Mg/1 Ml Inj IV 2 mg Q4H PRN Administration Pain, Moderate (4-6) Ondansetron HCl 4 mg 12/21/21 12:00 12/21/21 13:48 Ondansetron 4 Mg/2 Ml Inj IV 4 mg Q6H PRN Administration Nausea And Vomiting Oxycodone/Acetaminophen 1 tab 12/19/21 16:54 12/23/21 10:58 Oxycodone /Acetaminophen 5-325mg Tab PO 1 tab Q6H PRN Administration Pain, Moderate (4-6) Sodium Chloride 10 ml 12/19/21 22:00 12/25/21 10:38 Sodium Chloride 0.9% 10 Ml Flush Syringe IV 10 ml BID KAROLINA Administration Sodium Chloride 10 ml 12/19/21 16:54 Sodium Chloride 0.9% 10 Ml Flush Syringe IV PRN PRN LINE FLUSH
--- NOTE | 2021-12-25 13:35 | Event Note ---
Date: 12/25/21 Awaiting return of renal function back to baseline for further workup of PVD. Cr still elevated above baseline. Maintain on heparin drip. Once arterial disease addressed, then can convert to pharmacy services representative anticoagulation.
[2021-12-25] MEDS: oxyCODONE /ACETAMINOPHEN 5-325MG TAB PO PRN ×2 (15:24→22:03)
--- NOTE | 2021-12-25 16:22 | Progress Note ---
Assessment and Plan Continue loading doses of amiodarone for now. Increase metoprolol to 50 mg Q8 hours. - Patient Problems (1) GRANT (acute kidney injury) Current Visit: Yes Status: Acute (2) Permanent atrial fibrillation with RVR Current Visit: Yes Status: Acute (3) NSVT (nonsustained ventricular tachycardia) Current Visit: Yes Status: Acute (4) Acute on chronic HFrEF (heart failure with reduced ejection fraction) Current Visit: Yes Status: Acute (5) Cardiomyopathy Current Visit: Yes Status: Chronic (6) PAD (peripheral artery disease) Current Visit: Yes Status: Acute (7) Hyperkalemia Current Visit: Yes Status: Acute (8) Elevated troponin Current Visit: Yes Status: Acute (9) Hypertension Current Visit: Yes Status: Chronic Qualifiers: Hypertension type: primary hypertension Qualified Code(s): I10 - Essential (primary) hypertension (10) COPD (chronic obstructive pulmonary disease) Current Visit: Yes Status: Chronic (11) Diabetes mellitus Current Visit: Yes Status: Chronic Subjective Date of service: 12/25/21 Principal diagnosis: GRANT, Acute on chronic HFrEF, OPAD, NICMP, Permanent AF with RVR Interval history: No complaint. Remains in AF with mildly RVR. Objective Vital Signs Temp Pulse Resp BP Pulse Ox 12/25/21 12:19 98 H 12/25/21 12:18 98.0 F 96 H 138/106 100 12/25/21 12:00 97 12/25/21 08:04 98.2 F 100 H 138/91 99 12/25/21 05:47 98.5 F 96 H 18 150/94 98 12/24/21 23:17 98.9 F 88 18 117/96 96 12/24/21 22:00 114 H 12/24/21 20:00 98 12/24/21 19:29 98.6 F 83 19 138/95 98 - Physical Examination General: No Apparent Distress HEENT: Positive: EOMI, Normocephaly, Mucus Membranes Moist Neck: Positive: neck supple, trachea midline Cardiac: Positive: irregularly irregular, S1/S2 Lungs: Positive: clear to auscultation Neuro: Positive: Grossly Intact Abdomen: Positive: Soft, Active Bowel Sounds. Negative: Tender Skin: Positive: Other (Right great toe gangrene) Musculoskeletal: Normal Range of Motion Extremities: Present: edema (Trace pitting bilateral leg edema) - Labs and Meds CBC 12/25/21 Range/Units 03:59 WBC 13.2 H (4.5-11.0) K/mm3 RBC 4.24 (3.65-5.03) M/mm3 Hgb 12.9 (11.8-15.2) gm/dl Hct 38.7 (35.5-45.6) % Plt Count 336 (140-440) K/mm3 Comprehensive Metabolic Panel 12/25/21 Range/Units 03:59 Sodium 134 L (137-145) mmol/L Potassium 4.0 (3.6-5.0) mmol/L Chloride 101.5 (98-107) mmol/L Carbon Dioxide 25 (22-30) mmol/L BUN 20 (9-20) mg/dL Creatinine 1.7 H (0.8-1.3) mg/dL Glucose 171 H (75-100) mg/dL Calcium 8.7 (8.4-10.2) mg/dL - Telemetry EKG Rhythm: Atrial Fibrillation (with RVR) - Allied health notes Allied health notes reviewed: nursing
[2021-12-26] MEDS: METOPROLOL TARTRATE 25 MG TAB PO SCH ×3 (01:45→18:34)
[2021-12-26 04:21] LABS: Hematocrit 37.4 % (35.5-45.6); Hemoglobin 12.2 gm/dl (11.8-15.2); Mean Corpuscular HGB Conc 33 % (32-34); Mean Corpuscular Volume 92 fl (84-94); Platelet Count 367 K/mm3 (140-440); Red Blood Count 4.09 M/mm3 (3.65-5.03); Red Cell Distribution Width 14.5 % (13.2-15.2)
[2021-12-26 04:28] LABS: BUN/Creatinine Ratio 13; Blood Urea Nitrogen 19 mg/dL (9-20); Calcium 9.1 mg/dL (8.4-10.2); Hemolysis Index 2
[2021-12-26 05:38] LABS: Anisocytosis 1+; Basophils % (Manual) 0 % (0.0-1.8); Platelet Estimate Consistent w Auto; Total Cells Counted 100
[2021-12-26] MEDS: INSULIN REGULAR, HUMAN 100 UNITS/1 ML SUB-Q SCH ×3 (07:57→18:33)
[2021-12-26] MEDS: AMIODARONE 200 MG TAB PO SCH ×2 (08:23→21:40)
--- NOTE | 2021-12-26 09:21 | Progress Note ---
Assessment and Plan - Patient Problems (1) GRANT (acute kidney injury) Current Visit: Yes Status: Acute Plan to address problem: Patient has not required any further dialysis at this time and renal function continues to improve. He has excellent urine output at this time. We will plan to have the dialysis nurses remove his Vas-Cath today. (2) Acute on chronic HFrEF (heart failure with reduced ejection fraction) Current Visit: Yes Status: Acute Plan to address problem: Cardiology recommendations reviewed. Diuretics as recommended. Counseled on importance of fluid and sodium restrictions. Currently patient seems euvolemic on examination. Overall respiratory status is stable. We will continue to monitor closely. (3) Hyperkalemia Current Visit: Yes Status: Acute Plan to address problem: Potassium levels have improved with dialysis. We will continue to monitor closely. Counseled patient on the importance of a low potassium diet in general. (4) Hyponatremia Current Visit: Yes Status: Acute Plan to address problem: Likely in the setting of volume overload. Improvement since admission. (5) Diabetes mellitus Current Visit: Yes Status: Chronic Plan to address problem: Diabetes management per primary attending. Subjective Date of service: 12/26/21 Principal diagnosis: GRANT, Acute on chronic HFrEF, OPAD, NICMP, Permanent AF with RVR Interval history: No acute issues overnight and renal function continues to show improvement at this time. I have discussed with the dialysis team and we will plan to remove Vas-Cath today. Objective - Vital Signs Vital signs: Vital Signs - 12hr 12/26/21 12/26/21 12/26/21 00:14 00:58 04:19 Temperature 98.1 F 98.0 F Pulse Rate 73 93 H 91 H Respiratory 18 18 Rate Blood Pressure 142/96 147/94 O2 Sat by Pulse 97 99 Oximetry 12/26/21 04:24 Temperature 97.8 F Pulse Rate 72 Respiratory 22 Rate Blood Pressure 116/67 O2 Sat by Pulse 99 Oximetry - General Appearance General appearance: well-developed, obese EENT: ATNC Neck: no JVD Respiratory: Present: Clear to Ascultation Cardiology: regular Gastrointestinal: normal Integumentary: no rash Neurologic: no focal deficit Musculoskeletal: deferred Psychiatric: cooperative - Lab 12/26/21 03:56 12/26/21 03:56 Most recent lab results Calcium 9.1 mg/dL (8.4-10.2) 12/26/21 03:56 Phosphorus 3.60 mg/dL (2.5-4.5) 12/23/21 05:50 Magnesium 1.80 mg/dL (1.7-2.3) 12/23/21 05:50 Urine Creatinine 62.6 mg/dL (0.1-20.0) H 12/22/21 07:10 Urine Sodium 26 mmol/L 12/22/21 07:10 Urine Total Protein 15 mg/dL (5-11.8) H 12/22/21 07:10 - Allied health notes Allied health notes reviewed: nursing Medications & Allergies - Medications Allergies/Adverse Reactions: Allergies adhesive Allergy (Verified 12/19/21 14:07) Rash ibuprofen [From Motrin] Allergy (Verified 12/19/21 14:07) Swelling lisinopril Allergy (Verified 12/19/21 14:07) COUGH Iodinated Contrast Media [Iodinated Contrast Media - IV Dye] Adverse Reaction (Verified 12/19/21 14:07) KIDNEYS SHUT DOWN Home Medications: Home Medications Medication Instructions Recorded Confirmed Last Taken Type Digoxin [Lanoxin] 0.25 mg PO DAILY@1700 #30 tablet 06/01/14 12/26/21 12/19/21 10:00 Rx Aspirin 325 mg PO QDAY 11/21/16 12/26/21 12/19/21 10:00 History 325 Furosemide [Lasix TAB] 40 mg PO QDAY 11/21/16 12/26/21 12/19/21 History Losartan [Cozaar] 50 mg PO QDAY 11/21/16 12/26/21 12/19/21 10:00 History HYDROcodone/APAP 5-325 [[place] 1 each PO Q6HR PRN #20 tablet 07/24/19 12/26/21 12/19/21 10:00 Rx 5/325] 1 Penicillin Vk [Veetids TAB] 500 mg PO QID #21 tablet 07/24/19 12/26/21 12/19/21 10:00 Rx Acetaminophen [Acetaminophen TAB] 1,000 mg PO Q6HR #30 tablet 10/22/19 12/26/21 12/19/21 10:00 Rx 1000 cephALEXin [Keflex] 500 mg PO Q8HR #30 cap 10/22/19 12/26/21 12/18/21 10:00 Rx Active Medications: Generic Name Dose Route Start Last Admin Trade Name Freq PRN Reason Stop Dose Admin Acetaminophen 650 mg 12/19/21 16:54 12/21/21 09:52 Acetaminophen 325 Mg Tab PO 650 mg Q4H PRN Administration Pain MILD(1-3)/Fever >100.5/CARCAMO Amiodarone HCl 400 mg 12/24/21 17:00 12/26/21 08:23 Amiodarone 200 Mg Tab PO 400 mg TID KAROLINA Administration Aspirin 325 mg 12/20/21 10:00 12/25/21 10:38 Aspirin 325 Mg Tab PO 325 mg QDAY KAROLINA Administration Dextrose 50 ml 12/20/21 10:45 Dextrose 50% In Water (25gm) 50 Ml Syringe IV Q30MIN PRN Hypoglycemia Protocol Glucagon 1 mg 12/19/21 15:39 12/19/21 16:08 Glucagon (Human Recombinant) 1 Mg/Ml Inj IV 1 mg Q1H PRN Administration Hypoglycemia Sodium Chloride 100 mls @ 999 mls/hr 12/20/21 07:08 Nacl 0.9% IV KEVIN PRN Hypotension Heparin Sodium/Sodium Chloride 25,000 unit in 500 mls @ 30 mls/hr 12/21/21 12:00 12/26/21 02:10 Heparin/ 0.45% Nacl-25,000 Unit/500 Ml IV 2,300 units/hr TITR KAROLINA 46 mls/hr Titration Protocol 1,500 UNITS/HR Insulin Human Regular 0 units 12/23/21 16:30 12/26/21 07:57 Insulin Regular, Human 100 Units/1 Ml SUB-Q Not Given ACHS [facility] Protocol Metoprolol Tartrate 50 mg 12/25/21 17:00 12/26/21 01:45 Metoprolol Tartrate 25 Mg Tab PO 50 mg Q8H KAROLINA Administration Morphine Sulfate 2 mg 12/19/21 16:54 12/21/21 13:48 Morphine 2 Mg/1 Ml Inj IV 2 mg Q4H PRN Administration Pain, Moderate (4-6) Ondansetron HCl 4 mg 12/21/21 12:00 12/21/21 13:48 Ondansetron 4 Mg/2 Ml Inj IV 4 mg Q6H PRN Administration Nausea And Vomiting Oxycodone/Acetaminophen 1 tab 12/19/21 16:54 12/25/21 22:03 Oxycodone /Acetaminophen 5-325mg Tab PO 1 tab Q6H PRN Administration Pain, Moderate (4-6) Sodium Chloride 10 ml 12/19/21 22:00 12/25/21 22:45 Sodium Chloride 0.9% 10 Ml Flush Syringe IV 10 ml BID KAROLINA Administration Sodium Chloride 10 ml 12/19/21 16:54 Sodium Chloride 0.9% 10 Ml Flush Syringe IV PRN PRN LINE FLUSH
[2021-12-26] MEDS: HEPARIN/ 0.45% NACL DRIP 25,000 UNIT/500 ML BAG IV SCH ×2 (09:52→21:41)
[2021-12-26] MEDS: ASPIRIN 325 MG TAB PO SCH (09:52)
--- NOTE | 2021-12-26 11:14 | Progress Note ---
Assessment and Plan Patient is a 41-year-old male with a past medical history of HFrEF, nonischemic cardiomyopathy, chronic A. 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 fib Echo 04/04/2020-the study was technically difficult in quality. Arrhythmia was noted during the study LVEF is moderately decreased 35-40%. Regional wall motion abnormalities noted RV moderately dilated. RV systolic function is moderately reduced. RVSP is mildly elevated No pericardial effusion No definite or significant change in the EF from 03/11/2018 Consider an infiltrative cardiomyopathy such as amyloid Echo 12/20/2021-EF 20 to 25% moderate concentric LVH. Right ventricle is dilated. Right ventricle hypokinetic. Left atrium is severely dilated. Right atrium dilated Per documentation outpatient medications: Losartan 50 mg p.o. daily Lasix 40 mg p.o. daily, digoxin 0.25 mg p.o. daily, asa Plan: Telemetry reviewed patient is in A. fib rate 90s to low 100 Decreased to amiodarone 200 mg p.o. twice daily Continue metoprolol 50 mg p.o. every 8 hourly. Patient currently anticoagulated on heparin. Recommend transitioning to Eliquis however will wait until cleared by vascular Will defer to nephrology recommendations for volume management No WILLIE/ARB due to renal function and documented allergy Discussed plan of care with patient who verbalized understanding and acknowledgment Patient seen in conjunction with Dr. Valenzuela who agrees with plan of care - Patient Problems (1) GRANT (acute kidney injury) Current Visit: Yes Status: Acute (2) Hyperkalemia Current Visit: Yes Status: Acute (3) Hypoglycemia Current Visit: Yes Status: Acute (4) Hyponatremia Current Visit: Yes Status: Acute (5) Acute on chronic systolic CHF (congestive heart failure) Current Visit: No Status: Acute (6) Atrial fibrillation with RVR Current Visit: No Status: Acute (7) COPD (chronic obstructive pulmonary disease) Current Visit: Yes Status: Chronic (8) History of noncompliance with medical treatment Current Visit: No Status: Acute (9) Obesity Current Visit: No Status: Acute (10) Cardiomyopathy Current Visit: Yes Status: Chronic Subjective Date of service: 12/26/21 Principal diagnosis: GRANT, Acute on chronic HFrEF, OPAD, NICMP, Permanent AF with RVR Interval history: Patient resting in bed in no acute distress. A. fib rates 90s to low 100s Objective Vital Signs Temp Pulse Resp Resp BP Pulse Ox 12/26/21 04:24 97.8 F 72 22 116/67 99 12/26/21 04:19 98.0 F 91 H 18 147/94 99 12/26/21 00:58 93 H 12/26/21 00:14 98.1 F 73 18 142/96 97 12/25/21 20:15 20 94 12/25/21 19:49 97.9 F 109 H 20 142/90 97 12/25/21 15:29 98.3 F 99 H 147/110 99 12/25/21 12:19 98 H 12/25/21 12:18 98.0 F 96 H 138/106 100 12/25/21 12:00 97 - Physical Examination General: No Apparent Distress HEENT: Positive: EOMI, Normocephaly, Mucus Membranes Moist Neck: Positive: neck supple, trachea midline Cardiac: Positive: irregularly irregular Lungs: Positive: Normal Breath Sounds Neuro: Positive: Grossly Intact Abdomen: Positive: Soft, Active Bowel Sounds. Negative: Tender Skin: Positive: Other (Right great toe gangrene) Musculoskeletal: Normal Range of Motion Extremities: Present: edema (Trace pitting bilateral leg edema) - Labs and Meds CBC 12/26/21 Range/Units 03:56 WBC 14.2 H (4.5-11.0) K/mm3 RBC 4.09 (3.65-5.03) M/mm3 Hgb 12.2 (11.8-15.2) gm/dl Hct 37.4 (35.5-45.6) % Plt Count 367 (140-440) K/mm3 Comprehensive Metabolic Panel 12/26/21 Range/Units 03:56 Sodium 139 (137-145) mmol/L Potassium 3.8 (3.6-5.0) mmol/L Chloride 103.5 (98-107) mmol/L Carbon Dioxide 26 (22-30) mmol/L BUN 19 (9-20) mg/dL Creatinine 1.5 H (0.8-1.3) mg/dL Glucose 131 H (75-100) mg/dL Calcium 9.1 (8.4-10.2) mg/dL - Imaging and Cardiology EKG: report reviewed (Atrial fibrillation with heart rate of 120) Echo: report reviewed - Telemetry EKG Rhythm: Atrial Fibrillation - EKG Supraventricular dysrhythmia: atrial fibrillation - Allied health notes Allied health notes reviewed: nursing
--- NOTE | 2021-12-26 12:36 | Progress Note ---
Assessment and Plan Patient continues to improve from a renal point of view. Creatinine today 1.5. Would anticipate patient may be able to undergo interventional procedure on Sunday if this trend continues. Subjective Date of service: 12/26/21 Principal diagnosis: GRANT, Acute on chronic HFrEF, OPAD, NICMP, Permanent AF with RVR Interval history: Patient with a history of severe peripheral vascular disease and right first toe gangrene as well as acute renal failure. Patient resting comfortably on examination. Nonpalpable right pedal pulses. Right first toe painted with Betadine. Objective - Constitutional Vitals: Vital Signs - 12hr 12/26/21 12/26/21 12/26/21 00:58 04:19 04:24 Temperature 98.0 F 97.8 F Pulse Rate 93 H 91 H 72 Respiratory 18 22 Rate Blood Pressure 147/94 116/67 O2 Sat by Pulse 99 99 Oximetry 12/26/21 10:00 Temperature Pulse Rate Respiratory Rate Blood Pressure O2 Sat by Pulse 97 Oximetry General appearance: Present: no acute distress - EENT Eyes: EOM intact ENT: hearing intact - Neck Neck: supple, normal ROM - Respiratory Respiratory effort: normal Extremities: abnormal - Gastrointestinal General gastrointestinal: Present: deferred Rectal Exam: deferred - Psychiatric Psychiatric: appropriate mood/affect, cooperative - Labs CBC & Chem 7: 12/26/21 03:56 12/26/21 03:56 Labs: Abnormal lab results 12/25/21 12/25/21 12/26/21 Range/Units 15:39 20:42 02:02 WBC (4.5-11.0) K/mm3 Seg Neuts % (Manual) (40.0-70.0) % Lymphocytes % (Manual) (13.4-35.0) % Seg Neutrophils # Man (1.8-7.7) K/mm3 Heparin Anti-Xa Level 0.29 L (0.3-0.7) U.I./ml Creatinine (0.8-1.3) mg/dL Glucose (75-100) mg/dL POC Glucose 149 H 143 H (70-105) mg/dL 12/26/21 12/26/21 12/26/21 Range/Units 03:56 03:56 07:49 WBC 14.2 H (4.5-11.0) K/mm3 Seg Neuts % (Manual) 81.0 H (40.0-70.0) % Lymphocytes % (Manual) 11.0 L (13.4-35.0) % Seg Neutrophils # Man 11.5 H (1.8-7.7) K/mm3 Heparin Anti-Xa Level (0.3-0.7) U.I./ml Creatinine 1.5 H (0.8-1.3) mg/dL Glucose 131 H (75-100) mg/dL POC Glucose 128 H (70-105) mg/dL 12/26/21 Range/Units 11:59 WBC (4.5-11.0) K/mm3 Seg Neuts % (Manual) (40.0-70.0) % Lymphocytes % (Manual) (13.4-35.0) % Seg Neutrophils # Man (1.8-7.7) K/mm3 Heparin Anti-Xa Level (0.3-0.7) U.I./ml Creatinine (0.8-1.3) mg/dL Glucose (75-100) mg/dL POC Glucose 132 H (70-105) mg/dL Medications & Allergies - Medications Allergies/Adverse Reactions: Allergies adhesive Allergy (Verified 12/19/21 14:07) Rash ibuprofen [From Motrin] Allergy (Verified 12/19/21 14:07) Swelling lisinopril Allergy (Verified 12/19/21 14:07) COUGH Iodinated Contrast Media [Iodinated Contrast Media - IV Dye] Adverse Reaction (Verified 12/19/21 14:07) KIDNEYS SHUT DOWN Home Medications: Home Medications Medication Instructions Recorded Confirmed Last Taken Type Digoxin [Lanoxin] 0.25 mg PO DAILY@1700 #30 tablet 06/01/14 12/26/21 12/19/21 10:00 Rx Aspirin 325 mg PO QDAY 11/21/16 12/26/21 12/19/21 10:00 History 325 Furosemide [Lasix TAB] 40 mg PO QDAY 11/21/16 12/26/21 12/19/21 History Losartan [Cozaar] 50 mg PO QDAY 11/21/16 12/26/21 12/19/21 10:00 History HYDROcodone/APAP 5-325 [[place] 1 each PO Q6HR PRN #20 tablet 07/24/19 12/26/21 12/19/21 10:00 Rx 5/325] 1 Penicillin Vk [Veetids TAB] 500 mg PO QID #21 tablet 07/24/19 12/26/21 12/19/21 10:00 Rx Acetaminophen [Acetaminophen TAB] 1,000 mg PO Q6HR #30 tablet 10/22/19 12/26/21 12/19/21 10:00 Rx 1000 cephALEXin [Keflex] 500 mg PO Q8HR #30 cap 10/22/19 12/26/21 12/18/21 10:00 Rx Active Medications: Generic Name Dose Route Start Last Admin Trade Name Freq PRN Reason Stop Dose Admin Acetaminophen 650 mg 12/19/21 16:54 12/21/21 09:52 Acetaminophen 325 Mg Tab PO 650 mg Q4H PRN Administration Pain MILD(1-3)/Fever >100.5/CARCAMO Amiodarone HCl 200 mg 12/26/21 22:00 Amiodarone 200 Mg Tab PO BID KAROLINA Aspirin 325 mg 12/20/21 10:00 12/26/21 09:52 Aspirin 325 Mg Tab PO 325 mg QDAY KAROLINA Administration Dextrose 50 ml 12/20/21 10:45 Dextrose 50% In Water (25gm) 50 Ml Syringe IV Q30MIN PRN Hypoglycemia Protocol Glucagon 1 mg 12/19/21 15:39 12/19/21 16:08 Glucagon (Human Recombinant) 1 Mg/Ml Inj IV 1 mg Q1H PRN Administration Hypoglycemia Sodium Chloride 100 mls @ 999 mls/hr 12/20/21 07:08 Nacl 0.9% IV KEVIN PRN Hypotension Heparin Sodium/Sodium Chloride 25,000 unit in 500 mls @ 30 mls/hr 12/21/21 12:00 12/26/21 09:52 Heparin/ 0.45% Nacl-25,000 Unit/500 Ml IV 2,300 units/hr TITR KAROLINA 46 mls/hr Administration Protocol 1,500 UNITS/HR Insulin Human Regular 0 units 12/23/21 16:30 12/26/21 12:10 Insulin Regular, Human 100 Units/1 Ml SUB-Q Not Given ACHS [facility] Protocol Metoprolol Tartrate 50 mg 12/25/21 17:00 12/26/21 09:52 Metoprolol Tartrate 25 Mg Tab PO 50 mg Q8H KAROLINA Administration Morphine Sulfate 2 mg 12/19/21 16:54 12/21/21 13:48 Morphine 2 Mg/1 Ml Inj IV 2 mg Q4H PRN Administration Pain, Moderate (4-6) Ondansetron HCl 4 mg 12/21/21 12:00 12/21/21 13:48 Ondansetron 4 Mg/2 Ml Inj IV 4 mg Q6H PRN Administration Nausea And Vomiting Oxycodone/Acetaminophen 1 tab 12/19/21 16:54 12/25/21 22:03 Oxycodone /Acetaminophen 5-325mg Tab PO 1 tab Q6H PRN Administration Pain, Moderate (4-6) Sodium Chloride 10 ml 12/19/21 22:00 12/26/21 09:52 Sodium Chloride 0.9% 10 Ml Flush Syringe IV 10 ml BID KAROLINA Administration Sodium Chloride 10 ml 12/19/21 16:54 Sodium Chloride 0.9% 10 Ml Flush Syringe IV PRN PRN LINE FLUSH HEART Score - HEART Score Age: 45-65 Risk factors: > 3 risk factors or hx of atherosclerotic disease Troponin: 1-3x normal limit - Critical Actions Critical Actions: 4-6 pts:12-16.6% risk of adverse cardiac event. Should be admitted
--- NOTE | 2021-12-26 13:06 | Progress Note ---
Assessment and Plan Assessment and plan: This is a 41-year-old male with HTN, right-sided CVA with residual left-sided hemiplegia and bedridden's, HFrEF, [place] s/p stent placement, DM, asthma, COPD, current nicotine abuse, A. fib and noncompliance with A. fib with RVR, acute kidney injury with hypoglycemia and severe hyperkalemia. #GRANT secondary to vasomotor nephropathyimproving Creatinine 1.7 (previously 2.9)-->1.5 Renally dose medications and avoid nephrotoxic drugs. Currently holding WILLIE inhibitors and ARB's. Nephrology consulted; appreciate recs Continue to monitor #Peripheral arterial disease #Dry gangrene of right great toe Vascular surgery consulted; appreciate recs Pending angiogram and revascularization once patient's renal status has returned back to baseline. Possibly as early as 12/28/2021. Continue heparin drip #Atrial fibrillationstable #History of [place] status post stent placement #Nonischemic cardiomyopathy Continue amiodarone 400 mg twice daily, heparin drip, and metoprolol tartrate 25 mg every 6 hours Cardiology consulted; appreciate recs Continue to monitor #Leukocytosis Continue to monitor. #History of right sided CVA with residual left-sided hemiplegia #Bedridden Continue goal-directed therapy #COPD Continue DuoNebs and albuterol nebs as needed #Mild protein caloric malnutrition Continue dietary supplementation #Morbid obesity #Weight loss counseling #Exercise counseling - BMI 41.4 - Counseled patient on the importance of weight loss, incorporating exercise, and dietary changes (lean meats, fresh fruits and vegetables, and water intake). Patient expresses understanding. - Time: +15 min #Tobacco dependence #Tobacco/Smoking cessation counseling - Counseled patient about the importance of smoking cessation and the possible sequelae as a result of continued tobacco consumption. The patient expresses understanding. -Time: +15 mins Resolved diagnoses: Hyponatremia Hypochloremia SIRS Hypoglycemia Acute metabolic encephalopathy Acute on chronic systolic heart failure Sepsis #Advanced care planning -Disease education conducted, care plan discussed, diagnoses discussed, prognosis discussed, and patient acknowledges understanding with care plan -Time: +30 min History Interval history: This is a 41-year-old male with HTN, right CVA (05/2020) with residual left-sided hemiplegia and bedridden, heart failure with reduced EF (EF 20 to 25% in 2012), [place] in 2016, s/p stent placement in 2017, DM, COPD, current nicotine abuse, A. fib and noncompliance who presented to the emergency department on 12/19 via EMS for generalized weakness and low blood glucose. Per EMS patient's blood glucose levels were in the 40s and he complained of inability to urinate for 2 days and shortness of breath. Patient was admitted to [facility] in May 2020 and is status BUN/creatinine on 10/22/2019 was noted to be 18/1.0. Patient presented to emergency department with fever of 99, HR 120, BP 150/90, lab work showed leukocytosis, hyponatremia at 128, hyperkalemia at 7.2, metabolic acidosis of 17, elevated BUN/creatinine at 107/15.7 and hyperglycemia 54. Patient was medically treated with calcium gluconate and bicarbonate, received 2 L normal saline bolus and it was noted that patient refused Silver catheter placement. Nephrology was consulted in the emergency department. Patient was admitted to the hospitalist service with hypertensive emergency, hypoglycemia, hyperkalemia, acute kidney injury, A. fib RVR and CHF with consults to [facility] and cardiology. Hospital course to date: 12/20: Vas-Cath placed for emergent hemodialysis for which she received. RN asked to BladderScan the patient for possible placement of Silver catheter. Renal ultrasound pending. Sodium bicarbonate drip was discontinued due to bicarbonate improvement into the 20s and D10 was decreased to 75. Digoxin discontinued. Neurology consulted for guidance for anticoagulation as patient was initially not anticoagulated for risk of hemorrhagic conversion of CVA. 12/21: Cardio will start amio as documented allergy is not a true allergy. HD again today. DC hydral given and decrease amlodipine re soft BPs. Bladder scan revealed no urine. CCM will like to continue D10 but decrease rate and will start heparin gtt given afib (was on home eliquis) given possible need for vascath. 12/22: Cardiology started patient on p.o. amiodarone to be given along with amiodarone drip, hemodialysis today. Patient started having urine output. Vascular surgery consulted for great toe. Patient will be transferred to [facility]. 12/23: No acute vents reported overnight, occlusion of right posterior tib and DP artery on vascular ultrasound. Continue on amiodarone drip and p.o. Patient started on metoprolol also. 12/24: Patient has been transferred to the floor. Patient having clinical improvement with creatinine decreasing from 4.0 to 2.9. Vascular surgery documented the following: "The patient had an arterial duplex that demonstrated evidence of aortoiliac occlusive disease as well as tibial disease in his right lower extremity. He is in need of a diagnostic angiogram with possible intervention to improve flow to his leg and heel his right first toe wounds. We will continue to follow and observe his renal function. Once he is back to his baseline we will discuss with nephrology the potential for the angiogram." 12/25: Patient continued to have improvement of renal function with creatinine of 1.7. Continue with medical management. 12/26: Patient continues have improvement in renal function with creatinine of 1.5. Continue medical management. Possible revascularization of right lower extremity by vascular surgery on 12/28/2021. Disposition Plan: Continue medical management Total Time Spent with Patient (Minutes): 45 minutes History Interval history: No acute events overnight. Hospitalist Physical - Constitutional Vitals: Temp Pulse Resp BP Pulse Ox 97.8 F 72 22 116/67 97 12/26/21 04:24 12/26/21 04:24 12/26/21 04:24 12/26/21 04:12/26/21 10:00 General appearance: Present: no acute distress, well-nourished, obese, other (Bedridden) - EENT Eyes: Present: PERRL, EOM intact ENT: hearing intact, clear oral mucosa, dentition normal - Neck Neck: Present: supple, normal ROM - Respiratory Respiratory effort: normal Respiratory: bilateral: CTA - Cardiovascular Rhythm: regular Heart Sounds: Present: S1 & S2 - Extremities Extremities: no ischemia, pulses intact, pulses symmetrical, No edema, normal temperature, normal color Extremity abnormal: ulceration (Dry gangrene of right great toe) Peripheral Pulses: within normal limits - Abdominal General gastrointestinal: soft, non-tender, non-distended, normal bowel sounds - Integumentary Integumentary: Present: clear, warm, dry - Psychiatric Psychiatric: appropriate mood/affect, intact judgment & insight, memory intact, cooperative - Neurologic Neurologic: CNII-XII intact - Allied Health Allied health notes reviewed: nursing HEART Score - HEART Score Age: 45-65 Risk factors: > 3 risk factors or hx of atherosclerotic disease Troponin: 1-3x normal limit - Critical Actions Critical Actions: 4-6 pts:12-16.6% risk of adverse cardiac event. Should be admitted Results - Labs CBC & Chem 7: 12/26/21 03:56 12/26/21 03:56 Labs: Laboratory Last Values WBC 14.2 K/mm3 (4.5-11.0) H 12/26/21 03:56 RBC 4.09 M/mm3 (3.65-5.03) 12/26/21 03:56 Hgb 12.2 gm/dl (11.8-15.2) 12/26/21 03:56 Hct 37.4 % (35.5-45.6) 12/26/21 03:56 MCV 92 fl (84-94) 12/26/21 03:56 MCH 30 pg (28-32) 12/26/21 03:56 MCHC 33 % (32-34) 12/26/21 03:56 RDW 14.5 % (13.2-15.2) 12/26/21 03:56 Plt Count 367 K/mm3 (140-440) 12/26/21 03:56 Add Manual Diff Complete 12/26/21 03:56 Total Counted 100 12/26/21 03:56 Seg Neuts % (Manual) 81.0 % (40.0-70.0) H 12/26/21 03:56 Band Neutrophils % 0 % 12/26/21 03:56 Lymphocytes % (Manual) 11.0 % (13.4-35.0) L 12/26/21 03:56 Reactive Lymphs % (Man) 0 % 12/26/21 03:56 Monocytes % (Manual) 5.0 % (0.0-7.3) 12/26/21 03:56 Eosinophils % (Manual) 3.0 % (0.0-4.3) 12/26/21 03:56 Basophils % (Manual) 0 % (0.0-1.8) 12/26/21 03:56 Metamyelocytes % 0 % 12/26/21 03:56 Myelocytes % 0 % 12/26/21 03:56 Promyelocytes % 0 % 12/26/21 03:56 Blast Cells % 0 % 12/26/21 03:56 Nucleated RBC % Not Reportable 12/26/21 03:56 Seg Neutrophils # Man 11.5 K/mm3 (1.8-7.7) H 12/26/21 03:56 Band Neutrophils # 0.0 K/mm3 12/26/21 03:56 Lymphocytes # (Manual) 1.6 K/mm3 (1.2-5.4) 12/26/21 03:56 Abs React Lymphs (Man) 0.0 K/mm3 12/26/21 03:56 Monocytes # (Manual) 0.7 K/mm3 (0.0-0.8) 12/26/21 03:56 Eosinophils # (Manual) 0.4 K/mm3 (0.0-0.4) 12/26/21 03:56 Basophils # (Manual) 0.0 K/mm3 (0.0-0.1) 12/26/21 03:56 Metamyelocytes # 0.0 K/mm3 12/26/21 03:56 Myelocytes # 0.0 K/mm3 12/26/21 03:56 Promyelocytes # 0.0 K/mm3 12/26/21 03:56 Blast Cells # 0.0 K/mm3 12/26/21 03:56 WBC Morphology Not Reportable 12/26/21 03:56 Hypersegmented Neuts Not Reportable 12/26/21 03:56 Hyposegmented Neuts Not Reportable 12/26/21 03:56 Hypogranular Neuts Not Reportable 12/26/21 03:56 Smudge Cells Not Reportable 12/26/21 03:56 Toxic Granulation Not Reportable 12/26/21 03:56 Toxic Vacuolation Not Reportable 12/26/21 03:56 Dohle Bodies Not Reportable 12/26/21 03:56 Pelger-Huet Anomaly Not Reportable 12/26/21 03:56 Fern Rods Not Reportable 12/26/21 03:56 Platelet Estimate Consistent w auto 12/26/21 03:56 Clumped Platelets Not Reportable 12/26/21 03:56 Plt Clumps, EDTA Not Reportable 12/26/21 03:56 Large Platelets Not Reportable 12/26/21 03:56 Giant Platelets Not Reportable 12/26/21 03:56 Platelet Satelliting Not Reportable 12/26/21 03:56 Plt Morphology Comment Not Reportable 12/26/21 03:56 RBC Morphology Not Reportable 12/26/21 03:56 Dimorphic RBCs Not Reportable 12/26/21 03:56 Polychromasia Not Reportable 12/26/21 03:56 Hypochromasia Not Reportable 12/26/21 03:56 Poikilocytosis Not Reportable 12/26/21 03:56 Anisocytosis 1+ 12/26/21 03:56 Microcytosis Not Reportable 12/26/21 03:56 Macrocytosis Not Reportable 12/26/21 03:56 Spherocytes Not Reportable 12/26/21 03:56 Pappenheimer Bodies Not Reportable 12/26/21 03:56 Sickle Cells Not Reportable 12/26/21 03:56 Target Cells Not Reportable 12/26/21 03:56 Tear Drop Cells Not Reportable 12/26/21 03:56 Ovalocytes Not Reportable 12/26/21 03:56 Helmet Cells Not Reportable 12/26/21 03:56 [place] Bodies Not Reportable 12/26/21 03:56 Lasara Rings Not Reportable 12/26/21 03:56 Hunter Cells Not Reportable 12/26/21 03:56 Bite Cells Not Reportable 12/26/21 03:56 Crenated Cell Not Reportable 12/26/21 03:56 Elliptocytes Not Reportable 12/26/21 03:56 Acanthocytes (Spur) Not Reportable 12/26/21 03:56 Rouleaux Not Reportable 12/26/21 03:56 Hemoglobin C Crystals Not Reportable 12/26/21 03:56 Schistocytes Not Reportable 12/26/21 03:56 Malaria parasites Not Reportable 12/26/21 03:56 Abhishek Bodies Not Reportable 12/26/21 03:56 Hem Pathologist Commnt No 12/26/21 03:56 PT 15.8 Sec. (12.2-14.9) H 12/21/21 12:54 INR 1.13 (0.87-1.13) 12/21/21 12:54 APTT 33.5 Sec. (24.2-36.6) 12/21/21 12:54 Heparin Anti-Xa Level 0.29 U.I./ml (0.3-0.7) L 12/26/21 02:02 Sodium 139 mmol/L (137-145) 12/26/21 03:56 Potassium 3.8 mmol/L (3.6-5.0) 12/26/21 03:56 Chloride 103.5 mmol/L (98-107) 12/26/21 03:56 Carbon Dioxide 26 mmol/L (22-30) 12/26/21 03:56 Anion Gap 13 mmol/L 12/26/21 03:56 BUN 19 mg/dL (9-20) 12/26/21 03:56 Creatinine 1.5 mg/dL (0.8-1.3) H 12/26/21 03:56 Estimated GFR > 60 ml/min 12/26/21 03:56 BUN/Creatinine Ratio 13 % 12/26/21 03:56 Glucose 131 mg/dL (75-100) H 12/26/21 03:56 POC Glucose 132 mg/dL (70-105) H 12/26/21 11:59 Calcium 9.1 mg/dL (8.4-10.2) 12/26/21 03:56 Phosphorus 3.60 mg/dL (2.5-4.5) 12/23/21 05:50 Magnesium 1.80 mg/dL (1.7-2.3) 12/23/21 05:50 Total Bilirubin 0.70 mg/dL (0.1-1.2) 12/21/21 04:00 AST 65 units/L (5-40) H 12/21/21 04:00 ALT 36 units/L (7-56) 12/21/21 04:00 Alkaline Phosphatase 129 units/L (35-129) 12/21/21 04:00 NT-Pro-B Natriuret Pep 93947 pg/mL (0-450) H 12/20/21 04:16 Total Protein 6.5 g/dL (6.3-8.2) 12/21/21 04:00 Albumin 2.6 g/dL (3.9-5) L 12/21/21 04:00 Albumin/Globulin Ratio 0.7 % 12/21/21 04:00 Urine Osmolality 212 Mosm/kg 12/22/21 11:46 Urine Creatinine 62.6 mg/dL (0.1-20.0) H 12/22/21 07:10 Urine Sodium 26 mmol/L 12/22/21 07:10 Urine Total Protein 15 mg/dL (5-11.8) H 12/22/21 07:10 Coronavirus (PCR) Negative (Negative) 12/24/21 11:58 Hepatitis A IgM Ab Non-reactive (NonReactive) 12/20/21 11:10 Hep Bs Antigen Non-reactive (Negative) 12/20/21 11:10 Hep B Core IgM Ab Non-reactive (NonReactive) 12/20/21 11:10 Hepatitis C Antibody Non-reactive (NonReactive) 12/20/21 11:10 Microbiology: Microbiology 12/20/21 18:00 Peripheral/Venous Blood Culture - Final NO GROWTH AFTER 5 DAYS 12/20/21 18:00 Peripheral/Venous Blood Culture - Final NO GROWTH AFTER 5 DAYS Silver/IV: Voiding Method Toilet Active Medications - Current Medications Current Medications: Generic Name Dose Route Start Last Admin Trade Name Freq PRN Reason Stop Dose Admin Acetaminophen 650 mg 12/19/21 16:54 12/21/21 09:52 Acetaminophen 325 Mg Tab PO 650 mg Q4H PRN Administration Pain MILD(1-3)/Fever >100.5/CARCAMO Amiodarone HCl 200 mg 12/26/21 22:00 Amiodarone 200 Mg Tab PO BID KAROLINA Aspirin 325 mg 12/20/21 10:00 12/26/21 09:52 Aspirin 325 Mg Tab PO 325 mg QDAY KAROLINA Administration Dextrose 50 ml 12/20/21 10:45 Dextrose 50% In Water (25gm) 50 Ml Syringe IV Q30MIN PRN Hypoglycemia Protocol Glucagon 1 mg 12/19/21 15:39 12/19/21 16:08 Glucagon (Human Recombinant) 1 Mg/Ml Inj IV 1 mg Q1H PRN Administration Hypoglycemia Sodium Chloride 100 mls @ 999 mls/hr 12/20/21 07:08 Nacl 0.9% IV KEVIN PRN Hypotension Heparin Sodium/Sodium Chloride 25,000 unit in 500 mls @ 30 mls/hr 12/21/21 12:00 12/26/21 09:52 Heparin/ 0.45% Nacl-25,000 Unit/500 Ml IV 2,300 units/hr TITR KAROLINA 46 mls/hr Administration Protocol 1,500 UNITS/HR Insulin Human Regular 0 units 12/23/21 16:30 12/26/21 12:10 Insulin Regular, Human 100 Units/1 Ml SUB-Q Not Given ACHS [facility] Protocol Metoprolol Tartrate 50 mg 12/25/21 17:00 12/26/21 09:52 Metoprolol Tartrate 25 Mg Tab PO 50 mg Q8H KAROLINA Administration Morphine Sulfate 2 mg 12/19/21 16:54 12/21/21 13:48 Morphine 2 Mg/1 Ml Inj IV 2 mg Q4H PRN Administration Pain, Moderate (4-6) Ondansetron HCl 4 mg 12/21/21 12:00 12/21/21 13:48 Ondansetron 4 Mg/2 Ml Inj IV 4 mg Q6H PRN Administration Nausea And Vomiting Oxycodone/Acetaminophen 1 tab 12/19/21 16:54 12/25/21 22:03 Oxycodone /Acetaminophen 5-325mg Tab PO 1 tab Q6H PRN Administration Pain, Moderate (4-6) Sodium Chloride 10 ml 12/19/21 22:00 12/26/21 09:52 Sodium Chloride 0.9% 10 Ml Flush Syringe IV 10 ml BID KAROLINA Administration Sodium Chloride 10 ml 12/19/21 16:54 Sodium Chloride 0.9% 10 Ml Flush Syringe IV PRN PRN LINE FLUSH
[2021-12-26] MEDS: oxyCODONE /ACETAMINOPHEN 5-325MG TAB PO PRN (21:40)
[2021-12-27] MEDS: HEPARIN/ 0.45% NACL DRIP 25,000 UNIT/500 ML BAG IV SCH ×2 (07:36→18:11)
[2021-12-27] MEDS: INSULIN REGULAR, HUMAN 100 UNITS/1 ML SUB-Q SCH ×5 (08:25→21:18)
[2021-12-27] MEDS: ASPIRIN 325 MG TAB PO SCH (09:06)
[2021-12-27] MEDS: METOPROLOL TARTRATE 25 MG TAB PO SCH ×3 (09:06→18:09)
[2021-12-27] MEDS: AMIODARONE 200 MG TAB PO SCH ×2 (09:07→21:20)
--- NOTE | 2021-12-27 09:20 | Progress Note ---
Assessment and Plan - Patient Problems (1) GRANT (acute kidney injury) Current Visit: Yes Status: Acute Plan to address problem: Patient has not required any further dialysis at this time and renal function continues to improve. He has excellent urine output at this time. Vascath has been removed. (2) Acute on chronic HFrEF (heart failure with reduced ejection fraction) Current Visit: Yes Status: Acute Plan to address problem: Cardiology recommendations reviewed. Diuretics as recommended. Counseled on importance of fluid and sodium restrictions. Currently patient seems euvolemic on examination. Overall respiratory status is stable. We will continue to monitor closely. (3) Hyperkalemia Current Visit: Yes Status: Acute Plan to address problem: Potassium levels have improved with dialysis. We will continue to monitor closely. Counseled patient on the importance of a low potassium diet in general. (4) Hyponatremia Current Visit: Yes Status: Acute Plan to address problem: Likely in the setting of volume overload. Improvement since admission. (5) Diabetes mellitus Current Visit: Yes Status: Chronic Plan to address problem: Diabetes management per primary attending. Subjective Date of service: 12/27/21 Principal diagnosis: GRANT, Acute on chronic HFrEF, OPAD, NICMP, Permanent AF with RVR Interval history: No acute complaints. He had vascath removed yesterday. Pending am labs. Objective - Vital Signs Vital signs: Vital Signs - 12hr 12/26/21 12/26/21 12/27/21 22:00 23:25 01:00 Temperature 98.7 F Pulse Rate 97 H 95 H Respiratory 20 Rate Blood Pressure 146/93 O2 Sat by Pulse 96 96 Oximetry 12/27/21 12/27/21 04:26 08:04 Temperature 97.9 F 98.6 F Pulse Rate 79 116 H Respiratory 18 18 Rate Blood Pressure 141/99 140/98 O2 Sat by Pulse 97 96 Oximetry - General Appearance General appearance: well-developed, obese EENT: ATNC Neck: no JVD Respiratory: Present: Clear to Ascultation Cardiology: regular Gastrointestinal: normal Integumentary: no rash Neurologic: no focal deficit Musculoskeletal: deferred Psychiatric: cooperative - Lab 12/26/21 03:56 12/26/21 03:56 Most recent lab results Calcium 9.1 mg/dL (8.4-10.2) 12/26/21 03:56 Phosphorus 3.60 mg/dL (2.5-4.5) 12/23/21 05:50 Magnesium 1.80 mg/dL (1.7-2.3) 12/23/21 05:50 Urine Creatinine 62.6 mg/dL (0.1-20.0) H 12/22/21 07:10 Urine Sodium 26 mmol/L 12/22/21 07:10 Urine Total Protein 15 mg/dL (5-11.8) H 12/22/21 07:10 - Allied health notes Allied health notes reviewed: nursing Medications & Allergies - Medications Allergies/Adverse Reactions: Allergies adhesive Allergy (Verified 12/19/21 14:07) Rash ibuprofen [From Motrin] Allergy (Verified 12/19/21 14:07) Swelling lisinopril Allergy (Verified 12/19/21 14:07) COUGH Iodinated Contrast Media [Iodinated Contrast Media - IV Dye] Adverse Reaction (Verified 12/19/21 14:07) KIDNEYS SHUT DOWN Home Medications: Home Medications Medication Instructions Recorded Confirmed Last Taken Type Digoxin [Lanoxin] 0.25 mg PO DAILY@1700 #30 tablet 06/01/14 12/26/21 12/19/21 10:00 Rx Aspirin 325 mg PO QDAY 11/21/16 12/26/21 12/19/21 10:00 History 325 Furosemide [Lasix TAB] 40 mg PO QDAY 11/21/16 12/26/21 12/19/21 History Losartan [Cozaar] 50 mg PO QDAY 11/21/16 12/26/21 12/19/21 10:00 History HYDROcodone/APAP 5-325 [[place] 1 each PO Q6HR PRN #20 tablet 07/24/19 12/26/21 12/19/21 10:00 Rx 5/325] 1 Penicillin Vk [Veetids TAB] 500 mg PO QID #21 tablet 07/24/19 12/26/21 12/19/21 10:00 Rx Acetaminophen [Acetaminophen TAB] 1,000 mg PO Q6HR #30 tablet 10/22/19 12/26/21 12/19/21 10:00 Rx 1000 cephALEXin [Keflex] 500 mg PO Q8HR #30 cap 10/22/19 12/26/21 12/18/21 10:00 Rx Active Medications: Generic Name Dose Route Start Last Admin Trade Name Freq PRN Reason Stop Dose Admin Acetaminophen 650 mg 12/19/21 16:54 12/21/21 09:52 Acetaminophen 325 Mg Tab PO 650 mg Q4H PRN Administration Pain MILD(1-3)/Fever >100.5/CARCAMO Amiodarone HCl 200 mg 12/26/21 22:00 12/27/21 09:07 Amiodarone 200 Mg Tab PO 200 mg BID KAROLINA Administration Aspirin 325 mg 12/20/21 10:00 12/27/21 09:06 Aspirin 325 Mg Tab PO 325 mg QDAY KAROLINA Administration Dextrose 50 ml 12/20/21 10:45 Dextrose 50% In Water (25gm) 50 Ml Syringe IV Q30MIN PRN Hypoglycemia Protocol Glucagon 1 mg 12/19/21 15:39 12/19/21 16:08 Glucagon (Human Recombinant) 1 Mg/Ml Inj IV 1 mg Q1H PRN Administration Hypoglycemia Heparin Sodium/Sodium Chloride 25,000 unit in 500 mls @ 30 mls/hr 12/21/21 12:00 12/27/21 07:36 Heparin/ 0.45% Nacl-25,000 Unit/500 Ml IV 2,300 units/hr TITR KAROLINA 46 mls/hr Administration Protocol 1,500 UNITS/HR Insulin Human Regular 0 units 12/23/21 16:30 12/27/21 08:26 Insulin Regular, Human 100 Units/1 Ml SUB-Q Not Given ACHS [facility] Protocol Metoprolol Tartrate 50 mg 12/25/21 17:00 12/27/21 09:06 Metoprolol Tartrate 25 Mg Tab PO 50 mg Q8H KAROLINA Administration Morphine Sulfate 2 mg 12/19/21 16:54 12/21/21 13:48 Morphine 2 Mg/1 Ml Inj IV 2 mg Q4H PRN Administration Pain, Moderate (4-6) Ondansetron HCl 4 mg 12/21/21 12:00 12/21/21 13:48 Ondansetron 4 Mg/2 Ml Inj IV 4 mg Q6H PRN Administration Nausea And Vomiting Oxycodone/Acetaminophen 1 tab 12/19/21 16:54 12/26/21 21:40 Oxycodone /Acetaminophen 5-325mg Tab PO 1 tab Q6H PRN Administration Pain, Moderate (4-6) Sodium Chloride 10 ml 12/19/21 22:00 12/27/21 09:07 Sodium Chloride 0.9% 10 Ml Flush Syringe IV 10 ml BID KAROLINA Administration Sodium Chloride 10 ml 12/19/21 16:54 Sodium Chloride 0.9% 10 Ml Flush Syringe IV PRN PRN LINE FLUSH
--- NOTE | 2021-12-27 10:33 | Progress Note ---
Assessment and Plan Patient is a 41-year-old male with a past medical history of HFrEF, nonischemic cardiomyopathy, chronic A. 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 fib Echo 04/04/2020-the study was technically difficult in quality. Arrhythmia was noted during the study LVEF is moderately decreased 35-40%. Regional wall motion abnormalities noted RV moderately dilated. RV systolic function is moderately reduced. RVSP is mildly elevated No pericardial effusion No definite or significant change in the EF from 03/11/2018 Consider an infiltrative cardiomyopathy such as amyloid Echo 12/20/2021-EF 20 to 25% moderate concentric LVH. Right ventricle is dilated. Right ventricle hypokinetic. Left atrium is severely dilated. Right atrium dilated Per documentation outpatient medications: Losartan 50 mg p.o. daily Lasix 40 mg p.o. daily, digoxin 0.25 mg p.o. daily, asa Plan: Telemetry reviewed patient is in A. fib rate 90s to low 110s Continue amiodarone 200 mg p.o. twice daily Increase to metoprolol 75 mg p.o. every 8 hourly for further rate control Patient currently anticoagulated on heparin. Recommend transitioning to Eliquis however will wait until cleared by vascular Will defer to nephrology recommendations for volume management No WILLIE/ARB due to renal function and documented allergy Discussed plan of care with patient who verbalized understanding and acknowledgment Patient seen in conjunction with Dr. Valenzuela who agrees with plan of care - Patient Problems (1) GRANT (acute kidney injury) Current Visit: Yes Status: Acute (2) Hyperkalemia Current Visit: Yes Status: Acute (3) Hypoglycemia Current Visit: Yes Status: Acute (4) Hyponatremia Current Visit: Yes Status: Acute (5) Acute on chronic systolic CHF (congestive heart failure) Current Visit: No Status: Acute (6) Atrial fibrillation with RVR Current Visit: No Status: Acute (7) COPD (chronic obstructive pulmonary disease) Current Visit: Yes Status: Chronic (8) History of noncompliance with medical treatment Current Visit: No Status: Acute (9) Obesity Current Visit: No Status: Acute (10) Cardiomyopathy Current Visit: Yes Status: Chronic Subjective Date of service: 12/27/21 Principal diagnosis: GRANT, Acute on chronic HFrEF, OPAD, NICMP, Permanent AF with RVR Interval history: Patient resting in bed in no acute distress. A. fib rates 90s to low 110s Objective Vital Signs Temp Pulse Resp BP Pulse Ox 12/27/21 08:04 98.6 F 116 H 18 140/98 96 12/27/21 04:26 97.9 F 79 18 141/99 97 12/27/21 01:00 95 H 12/26/21 23:25 98.7 F 97 H 20 146/93 96 12/26/21 22:00 96 12/26/21 20:07 98.2 F 80 20 139/96 97 12/26/21 13:00 72 - Physical Examination General: No Apparent Distress HEENT: Positive: EOMI, Normocephaly, Mucus Membranes Moist Neck: Positive: neck supple, trachea midline Cardiac: Positive: irregularly irregular Lungs: Positive: Normal Breath Sounds Neuro: Positive: Grossly Intact Abdomen: Positive: Soft, Active Bowel Sounds. Negative: Tender Skin: Positive: Other (Right great toe gangrene) Musculoskeletal: Normal Range of Motion Extremities: Absent: edema (Trace pitting bilateral leg edema) - Imaging and Cardiology EKG: report reviewed (Atrial fibrillation with heart rate of 120) Echo: report reviewed - Telemetry EKG Rhythm: Atrial Fibrillation - EKG Supraventricular dysrhythmia: atrial fibrillation - Allied health notes Allied health notes reviewed: nursing
[2021-12-27 11:50] LABS: Basophils # (Auto) 0.2 K/mm3 (0.0-0.1); Basophils % (Auto) 1.6 % (0.0-1.8); Eosinophils # (Auto) 0.3 K/mm3 (0.0-0.4); Eosinophils % (Auto) 1.7 % (0.0-4.3); Hematocrit 39.8 % (35.5-45.6); Lymphocytes # (Auto) 2.4 K/mm3 (1.2-5.4); Lymphocytes % (Auto) 15.2 % (13.4-35.0); Mean Corpuscular HGB Conc 33 % (32-34); Mean Corpuscular Volume 90 fl (84-94); Monocytes # (Auto) 1.1 K/mm3 (0.0-0.8); Monocytes % (Auto) 7.3 % (0.0-7.3); Platelet Count 369 K/mm3 (140-440); Red Cell Distribution Width 14.7 % (13.2-15.2)
[2021-12-27 12:03] LABS: INR 0.87 (0.87-1.13)
[2021-12-27 12:04] LABS: Partial Thromboplastin Time 51.9 Sec. (24.2-36.6)
--- NOTE | 2021-12-27 12:06 | Progress Note ---
Assessment and Plan Assessment and plan: This is a 41-year-old male with HTN, right-sided CVA with residual left-sided hemiplegia and bedridden's, HFrEF, CA s/p stent placement, DM, asthma, COPD, current nicotine abuse, A. fib and noncompliance with A. fib with RVR, acute kidney injury with hypoglycemia and severe hyperkalemia. #GRANT secondary to vasomotor nephropathyimproving Creatinine now 1.4 Renally dose medications and avoid nephrotoxic drugs. Currently holding WILLIE inhibitors and ARB's. - vasc cath removed Nephrology consulted; appreciate recs Continue to monitor #Peripheral arterial disease #Dry gangrene of right great toe Vascular surgery consulted; appreciate recs Pending angiogram and revascularization once patient's renal status has returned back to baseline. Possibly as early as 12/28/2021. Continue heparin drip for now #Atrial fibrillationstable #History of CA status post stent placement #Nonischemic cardiomyopathy Continue amiodarone 400 mg twice daily, heparin drip, and metoprolol tartrate 25 mg every 6 hours Cardiology consulted; appreciate recs Continue to monitor #Leukocytosis-stable Continue to monitor #History of right sided CVA with residual left-sided hemiplegia #Bedridden Continue goal-directed therapy #COPD Continue DuoNebs and albuterol nebs as needed #Mild protein caloric malnutrition Continue dietary supplementation #Morbid obesity #Weight loss counseling #Exercise counseling - BMI 41.4 - Counseled patient on the importance of weight loss, incorporating exercise, and dietary changes (lean meats, fresh fruits and vegetables, and water intake). Patient expresses understanding. - Time: +15 min #Tobacco dependence #Tobacco/Smoking cessation counseling - Counseled patient about the importance of smoking cessation and the possible sequelae as a result of continued tobacco consumption. The patient expresses understanding. -Time: +15 mins Resolved diagnoses: Hyponatremia Hypochloremia SIRS Hypoglycemia Acute metabolic encephalopathy Acute on chronic systolic heart failure Sepsis #Advanced care planning -Disease education conducted, care plan discussed, diagnoses discussed, prognosis discussed, and patient acknowledges understanding with care plan -Time: +30 min History Interval history: No acute events overnight. Patient reports pain in right great toe not different from baseline pain. He has no complaints at this time. We discussed the current care plan, patient agreeable. Hospitalist Physical - Physical exam Narrative exam: GENERAL: Well-developed well-nourished. In no acute distress. HEENT: Normocephalic. Atraumatic. NECK: Supple. CHEST/LUNGS: CTAB on room air HEART/CARDIOVASCULAR: RRR. No murmur, rubs or gallops appreciated. ABDOMEN: +BS. NT/ND. SKIN: No rashes noted. NEURO: No focal motor deficit. Follows all commands. MUSCULOSKELETAL: No joint effusion EXTREMITIES: No cyanosis, clubbing or edema. PSYCH: Cooperative. - Constitutional Vitals: Temp Pulse Resp BP Pulse Ox 98.6 F 116 H 18 140/98 96 12/27/21 08:04 12/27/21 08:04 12/27/21 08:04 12/27/21 08:04 12/27/21 08:04 General appearance: Present: no acute distress, well-nourished, obese, other (Bedridden) HEART Score - HEART Score Age: 45-65 Risk factors: > 3 risk factors or hx of atherosclerotic disease Troponin: 1-3x normal limit - Critical Actions Critical Actions: 4-6 pts:12-16.6% risk of adverse cardiac event. Should be admitted Results - Labs CBC & Chem 7: 12/27/21 11:33 12/27/21 11:33 Labs: Laboratory Last Values WBC 15.4 K/mm3 (4.5-11.0) H 12/27/21 11:33 RBC 4.40 M/mm3 (3.65-5.03) 12/27/21 11:33 Hgb 13.0 gm/dl (11.8-15.2) 12/27/21 11:33 Hct 39.8 % (35.5-45.6) 12/27/21 11:33 MCV 90 fl (84-94) 12/27/21 11:33 MCH 30 pg (28-32) 12/27/21 11:33 MCHC 33 % (32-34) 12/27/21 11:33 RDW 14.7 % (13.2-15.2) 12/27/21 11:33 Plt Count 369 K/mm3 (140-440) 12/27/21 11:33 Lymph % (Auto) 15.2 % (13.4-35.0) 12/27/21 11:33 [place] % (Auto) 7.3 % (0.0-7.3) 12/27/21 11:33 Eos % (Auto) 1.7 % (0.0-4.3) 12/27/21 11:33 Baso % (Auto) 1.6 % (0.0-1.8) 12/27/21 11:33 Lymph # (Auto) 2.4 K/mm3 (1.2-5.4) 12/27/21 11:33 [place] # (Auto) 1.1 K/mm3 (0.0-0.8) H 12/27/21 11:33 Eos # (Auto) 0.3 K/mm3 (0.0-0.4) 12/27/21 11:33 Baso # (Auto) 0.2 K/mm3 (0.0-0.1) H 12/27/21 11:33 Add Manual Diff Complete 12/26/21 03:56 Total Counted 100 12/26/21 03:56 Seg Neutrophils % 74.2 % (40.0-70.0) H 12/27/21 11:33 Seg Neuts % (Manual) 81.0 % (40.0-70.0) H 12/26/21 03:56 Band Neutrophils % 0 % 12/26/21 03:56 Lymphocytes % (Manual) 11.0 % (13.4-35.0) L 12/26/21 03:56 Reactive Lymphs % (Man) 0 % 12/26/21 03:56 Monocytes % (Manual) 5.0 % (0.0-7.3) 12/26/21 03:56 Eosinophils % (Manual) 3.0 % (0.0-4.3) 12/26/21 03:56 Basophils % (Manual) 0 % (0.0-1.8) 12/26/21 03:56 Metamyelocytes % 0 % 12/26/21 03:56 Myelocytes % 0 % 12/26/21 03:56 Promyelocytes % 0 % 12/26/21 03:56 Blast Cells % 0 % 12/26/21 03:56 Nucleated RBC % Not Reportable 12/26/21 03:56 Seg Neutrophils # 11.5 K/mm3 (1.8-7.7) H 12/27/21 11:33 Seg Neutrophils # Man 11.5 K/mm3 (1.8-7.7) H 12/26/21 03:56 Band Neutrophils # 0.0 K/mm3 12/26/21 03:56 Lymphocytes # (Manual) 1.6 K/mm3 (1.2-5.4) 12/26/21 03:56 Abs React Lymphs (Man) 0.0 K/mm3 12/26/21 03:56 Monocytes # (Manual) 0.7 K/mm3 (0.0-0.8) 12/26/21 03:56 Eosinophils # (Manual) 0.4 K/mm3 (0.0-0.4) 12/26/21 03:56 Basophils # (Manual) 0.0 K/mm3 (0.0-0.1) 12/26/21 03:56 Metamyelocytes # 0.0 K/mm3 12/26/21 03:56 Myelocytes # 0.0 K/mm3 12/26/21 03:56 Promyelocytes # 0.0 K/mm3 12/26/21 03:56 Blast Cells # 0.0 K/mm3 12/26/21 03:56 WBC Morphology Not Reportable 12/26/21 03:56 Hypersegmented Neuts Not Reportable 12/26/21 03:56 Hyposegmented Neuts Not Reportable 12/26/21 03:56 Hypogranular Neuts Not Reportable 12/26/21 03:56 Smudge Cells Not Reportable 12/26/21 03:56 Toxic Granulation Not Reportable 12/26/21 03:56 Toxic Vacuolation Not Reportable 12/26/21 03:56 Dohle Bodies Not Reportable 12/26/21 03:56 Pelger-Huet Anomaly Not Reportable 12/26/21 03:56 Fern Rods Not Reportable 12/26/21 03:56 Platelet Estimate Consistent w auto 12/26/21 03:56 Clumped Platelets Not Reportable 12/26/21 03:56 Plt Clumps, EDTA Not Reportable 12/26/21 03:56 Large Platelets Not Reportable 12/26/21 03:56 Giant Platelets Not Reportable 12/26/21 03:56 Platelet Satelliting Not Reportable 12/26/21 03:56 Plt Morphology Comment Not Reportable 12/26/21 03:56 RBC Morphology Not Reportable 12/26/21 03:56 Dimorphic RBCs Not Reportable 12/26/21 03:56 Polychromasia Not Reportable 12/26/21 03:56 Hypochromasia Not Reportable 12/26/21 03:56 Poikilocytosis Not Reportable 12/26/21 03:56 Anisocytosis 1+ 12/26/21 03:56 Microcytosis Not Reportable 12/26/21 03:56 Macrocytosis Not Reportable 12/26/21 03:56 Spherocytes Not Reportable 12/26/21 03:56 Pappenheimer Bodies Not Reportable 12/26/21 03:56 Sickle Cells Not Reportable 12/26/21 03:56 Target Cells Not Reportable 12/26/21 03:56 Tear Drop Cells Not Reportable 12/26/21 03:56 Ovalocytes Not Reportable 12/26/21 03:56 Helmet Cells Not Reportable 12/26/21 03:56 George-Bowdon Bodies Not Reportable 12/26/21 03:56 Bimble Rings Not Reportable 12/26/21 03:56 Buchanan Cells Not Reportable 12/26/21 03:56 Bite Cells Not Reportable 12/26/21 03:56 Crenated Cell Not Reportable 12/26/21 03:56 Elliptocytes Not Reportable 12/26/21 03:56 Acanthocytes (Spur) Not Reportable 12/26/21 03:56 Rouleaux Not Reportable 12/26/21 03:56 Hemoglobin C Crystals Not Reportable 12/26/21 03:56 Schistocytes Not Reportable 12/26/21 03:56 Malaria parasites Not Reportable 12/26/21 03:56 Abhishek Bodies Not Reportable 12/26/21 03:56 Hem Pathologist Commnt No 12/26/21 03:56 PT 13.0 Sec. (12.2-14.9) 12/27/21 11:33 INR 0.87 (0.87-1.13) 12/27/21 11:33 APTT 51.9 Sec. (24.2-36.6) H 12/27/21 11:33 Heparin Anti-Xa Level 0.14 U.I./ml (0.3-0.7) L 12/27/21 11:33 Sodium 139 mmol/L (137-145) 12/26/21 03:56 Potassium 3.8 mmol/L (3.6-5.0) 12/26/21 03:56 Chloride 103.5 mmol/L (98-107) 12/26/21 03:56 Carbon Dioxide 26 mmol/L (22-30) 12/26/21 03:56 Anion Gap 13 mmol/L 12/26/21 03:56 BUN 19 mg/dL (9-20) 12/26/21 03:56 Creatinine 1.5 mg/dL (0.8-1.3) H 12/26/21 03:56 Estimated GFR > 60 ml/min 12/26/21 03:56 BUN/Creatinine Ratio 13 % 12/26/21 03:56 Glucose 131 mg/dL (75-100) H 12/26/21 03:56 POC Glucose 135 mg/dL (70-105) H 12/27/21 11:21 Calcium 9.1 mg/dL (8.4-10.2) 12/26/21 03:56 Phosphorus 3.60 mg/dL (2.5-4.5) 12/23/21 05:50 Magnesium 1.80 mg/dL (1.7-2.3) 12/23/21 05:50 Total Bilirubin 0.70 mg/dL (0.1-1.2) 12/21/21 04:00 AST 65 units/L (5-40) H 12/21/21 04:00 ALT 36 units/L (7-56) 12/21/21 04:00 Alkaline Phosphatase 129 units/L (35-129) 12/21/21 04:00 NT-Pro-B Natriuret Pep 39936 pg/mL (0-450) H 12/20/21 04:16 Total Protein 6.5 g/dL (6.3-8.2) 12/21/21 04:00 Albumin 2.6 g/dL (3.9-5) L 12/21/21 04:00 Albumin/Globulin Ratio 0.7 % 12/21/21 04:00 Urine Osmolality 212 Mosm/kg 12/22/21 11:46 Urine Creatinine 62.6 mg/dL (0.1-20.0) H 12/22/21 07:10 Urine Sodium 26 mmol/L 12/22/21 07:10 Urine Total Protein 15 mg/dL (5-11.8) H 12/22/21 07:10 Coronavirus (PCR) Negative (Negative) 12/24/21 11:58 Hepatitis A IgM Ab Non-reactive (NonReactive) 12/20/21 11:10 Hep Bs Antigen Non-reactive (Negative) 12/20/21 11:10 Hep B Core IgM Ab Non-reactive (NonReactive) 12/20/21 11:10 Hepatitis C Antibody Non-reactive (NonReactive) 12/20/21 11:10 Silver/IV: Voiding Method Urinal Active Medications - Current Medications Current Medications: Generic Name Dose Route Start Last Admin Trade Name Freq PRN Reason Stop Dose Admin Acetaminophen 650 mg 12/19/21 16:54 12/21/21 09:52 Acetaminophen 325 Mg Tab PO 650 mg Q4H PRN Administration Pain MILD(1-3)/Fever >100.5/CARCAMO Amiodarone HCl 200 mg 12/26/21 22:00 12/27/21 09:07 Amiodarone 200 Mg Tab PO 200 mg BID KAROLINA Administration Aspirin 325 mg 12/20/21 10:00 12/27/21 09:06 Aspirin 325 Mg Tab PO 325 mg QDAY KAROLINA Administration Dextrose 50 ml 12/20/21 10:45 Dextrose 50% In Water (25gm) 50 Ml Syringe IV Q30MIN PRN Hypoglycemia Protocol Glucagon 1 mg 12/19/21 15:39 12/19/21 16:08 Glucagon (Human Recombinant) 1 Mg/Ml Inj IV 1 mg Q1H PRN Administration Hypoglycemia Heparin Sodium/Sodium Chloride 25,000 unit in 500 mls @ 30 mls/hr 12/21/21 12:00 12/27/21 07:36 Heparin/ 0.45% Nacl-25,000 Unit/500 Ml IV 2,300 units/hr TITR KAROLINA 46 mls/hr Administration Protocol 1,500 UNITS/HR Insulin Human Regular 0 units 12/23/21 16:30 12/27/21 08:26 Insulin Regular, Human 100 Units/1 Ml SUB-Q Not Given ACHS [facility] Protocol Metoprolol Tartrate 75 mg 12/27/21 10:17 12/27/21 11:15 Metoprolol Tartrate 25 Mg Tab PO 25 mg Q8H KAROLINA Administration Morphine Sulfate 2 mg 12/19/21 16:54 12/21/21 13:48 Morphine 2 Mg/1 Ml Inj IV 2 mg Q4H PRN Administration Pain, Moderate (4-6) Ondansetron HCl 4 mg 12/21/21 12:00 12/21/21 13:48 Ondansetron 4 Mg/2 Ml Inj IV 4 mg Q6H PRN Administration Nausea And Vomiting Oxycodone/Acetaminophen 1 tab 12/19/21 16:54 12/26/21 21:40 Oxycodone /Acetaminophen 5-325mg Tab PO 1 tab Q6H PRN Administration Pain, Moderate (4-6) Sodium Chloride 10 ml 12/19/21 22:00 12/27/21 09:07 Sodium Chloride 0.9% 10 Ml Flush Syringe IV 10 ml BID KAROLINA Administration Sodium Chloride 10 ml 12/19/21 16:54 Sodium Chloride 0.9% 10 Ml Flush Syringe IV PRN PRN LINE FLUSH Nutrition/Malnutrition Assess - Dietary Evaluation Nutrition/Malnutrition Findings: Nutrition Notes Start: 12/26/21 14:11 Freq: Status: Active Protocol: Document 12/26/21 14:11 DVAON (Rec: 12/26/21 14:51 DAVON [id number]) Nutrition Notes Need for Assessment generated from: LOS Initial or Follow up Assessment Current Diagnosis Acute Kidney Injury,COPD, Malnutrition,Stroke Other Pertinent Diagnosis PAD, R-Great Toe Gangrene, Cardiomyopathy, Leukocytosis, Atrial Fibrilation Current Diet Renal Diet (since D 12/19). Labs/Tests 12/26: Crea 1.5, Glu 131. Pertinent Medications 12/26: Nutritionally unremarkable. Height 6 ft Weight 138 kg [place] Body Weight (kg) 80.90 BMI 41.2 Intake Prior to Admission Good Weight change and time frame Pt denies having loss body weight [employer]. Weight Status Morbidly Obese Subjective/Other Information RD consult for LOS assessment. No reports available on Pt's PO intake of meals, but states that dies has been well tolerated at the time, according to Progress notes. Pt is on Room Air, O2 saturation @ 07%, according to Physical Assessment History notes. Pt has missing teeth, according to Physical Assessment History notes. Pt presents R-Toe gangrene and a sacral area of concern for skin risk at the time, according to Physical Assessment History notes. I will prescribe dietary supplements to support wound healing processes during LOS. Pt presents bilateral-LE Pitting Edema 1+, according to Physical Assessment History notes. Pt is bedridden, according to Physical Assessment History notes. Pt will undergo for possible revascularization on 12/28, according to Progress notes. Percent of energy/protein needs met: Prescribed Renal Diet provides for energy/protein needs (2, 072 Kcal/77 g) during LOS; additionally, Dietary Supplements will support wound healing processes with 190 Kcal and 5 g of protein. Burn Absent Trauma Absent GI Symptoms None Food Allergy No Skin Integrity/Comment R-Toe gangrene & sacral area of con Current % PO Good (75-100%) Minimum of two criteria No Fluid Accumulation Mild (non-severe) Reduced Range Rider Strength N/A (non-severe) Protein-Calorie Malnutrition N\A #1 Nutrition Diagnosis Increased nutrient needs ( specify in comment below) Comments: Protein to support wound healing processes. Etiology Pt being bedridden, negligence . As Evidenced by Signs and Symptoms Pt presents R-Toe gangrene and a sacral area of concern for skin risk at the time, according to Physical Assessment History notes. Is patient on ventilator? No Is Patient Ambulatory and/or Out of Bed No REE-([facility]-confined to bed) 2795.784 Kcal/Kg value to use for calculation 16 Approximate Energy Requirements Using 2208 kcal/Kg Calculation Used for Recommendations Kcal/kg Additional Notes Protein: 1.25-1.5 g/Kg AdjBW; 138-165 g/day. Fluids: 1 ml/Kcal, or as per MD. Nutrition Intervention Change Diet Order: Continue Renal Diet. Add Supplement/Snack (indicate name/kcal Start 28.8 g pkt Zackary; BID. /protein ) Provides kCal: 190 Provides Protein (gm) 5 Goal #1 Support, through dietary supplementation, wound healing processes during LOS. Goal #2 Adjust the dietary intervention to better serve Pt's needs and clinical conditions during LOS. Follow-Up By: 01/02/22 Additional Comments Continue monitoring food tolerance, %PO intake of meals , dietary supplements, and BM.
[2021-12-27] MEDS: oxyCODONE /ACETAMINOPHEN 5-325MG TAB PO PRN (13:29)
[2021-12-27 13:34] LABS: BUN/Creatinine Ratio 11; Blood Urea Nitrogen 16 mg/dL (9-20); Calcium 9.1 mg/dL (8.4-10.2); Hemolysis Index 15
[2021-12-28] MEDS: METOPROLOL TARTRATE 25 MG TAB PO SCH ×2 (03:24→11:16)
[2021-12-28 06:24] LABS: BUN/Creatinine Ratio 12; Blood Urea Nitrogen 16 mg/dL (9-20); Calcium 8.8 mg/dL (8.4-10.2); Hemolysis Index 10
[2021-12-28] MEDS: HEPARIN/ 0.45% NACL DRIP 25,000 UNIT/500 ML BAG IV SCH (07:17)
[2021-12-28 09:02] VITALS: BP 130/99
--- NOTE | 2021-12-28 09:33 | Progress Note ---
Assessment and Plan - Patient Problems (1) GRANT (acute kidney injury) Current Visit: Yes Status: Acute Plan to address problem: Patient has not required any further dialysis at this time and renal function continues to improve. Renal function now at baseline. He has excellent urine output at this time. Vascath has been removed. (2) Acute on chronic HFrEF (heart failure with reduced ejection fraction) Current Visit: Yes Status: Acute Plan to address problem: Cardiology recommendations reviewed. Diuretics as recommended. Counseled on importance of fluid and sodium restrictions. Currently patient seems euvolemic on examination. Overall respiratory status is stable. We will continue to monitor closely. (3) Hyperkalemia Current Visit: Yes Status: Acute Plan to address problem: Potassium levels have improved with dialysis. We will continue to monitor closely. Counseled patient on the importance of a low potassium diet in general. (4) Hyponatremia Current Visit: Yes Status: Acute Plan to address problem: Likely in the setting of volume overload. Improvement since admission. (5) Diabetes mellitus Current Visit: Yes Status: Chronic Plan to address problem: Diabetes management per primary attending. Subjective Date of service: 12/28/21 Principal diagnosis: GRANT, Acute on chronic HFrEF, OPAD, NICMP, Permanent AF with RVR Interval history: No acute changes. Renal function stable. Objective - Vital Signs Vital signs: Vital Signs - 12hr 12/27/21 12/27/21 12/28/21 21:59 23:03 03:16 Temperature 97.7 F 97.6 F Pulse Rate 71 92 H Respiratory 14 16 Rate Blood Pressure 129/91 147/96 O2 Sat by Pulse 98 98 94 Oximetry 12/28/21 12/28/21 03:24 07:37 Temperature 98.0 F Pulse Rate 92 H 70 Respiratory 18 Rate Blood Pressure 147/96 130/99 O2 Sat by Pulse 98 Oximetry - General Appearance General appearance: well-developed EENT: ATNC Neck: no JVD Respiratory: Present: Clear to Ascultation Cardiology: regular Gastrointestinal: normal Integumentary: no rash Neurologic: no focal deficit Musculoskeletal: deferred Psychiatric: cooperative - Lab 12/27/21 11:33 12/28/21 05:21 Most recent lab results Calcium 8.8 mg/dL (8.4-10.2) 12/28/21 05:21 Phosphorus 3.60 mg/dL (2.5-4.5) 12/23/21 05:50 Magnesium 1.80 mg/dL (1.7-2.3) 12/23/21 05:50 Urine Creatinine 62.6 mg/dL (0.1-20.0) H 12/22/21 07:10 Urine Sodium 26 mmol/L 12/22/21 07:10 Urine Total Protein 15 mg/dL (5-11.8) H 12/22/21 07:10 - Imaging Chest x-ray: pending - Allied health notes Allied health notes reviewed: nursing Medications & Allergies - Medications Allergies/Adverse Reactions: Allergies adhesive Allergy (Verified 12/19/21 14:07) Rash ibuprofen [From Motrin] Allergy (Verified 12/19/21 14:07) Swelling lisinopril Allergy (Verified 12/19/21 14:07) COUGH Iodinated Contrast Media [Iodinated Contrast Media - IV Dye] Adverse Reaction (Verified 12/19/21 14:07) KIDNEYS SHUT DOWN Home Medications: Home Medications Medication Instructions Recorded Confirmed Last Taken Type Digoxin [Lanoxin] 0.25 mg PO DAILY@1700 #30 tablet 06/01/14 12/26/21 12/19/21 10:00 Rx Aspirin 325 mg PO QDAY 11/21/16 12/26/21 12/19/21 10:00 History 325 Furosemide [Lasix TAB] 40 mg PO QDAY 11/21/16 12/26/21 12/19/21 History Losartan [Cozaar] 50 mg PO QDAY 11/21/16 12/26/21 12/19/21 10:00 History HYDROcodone/APAP 5-325 [Newcomb 1 each PO Q6HR PRN #20 tablet 07/24/19 12/26/21 12/19/21 10:00 Rx 5/325] 1 Penicillin Vk [Veetids TAB] 500 mg PO QID #21 tablet 07/24/19 12/26/21 12/19/21 10:00 Rx Acetaminophen [Acetaminophen TAB] 1,000 mg PO Q6HR #30 tablet 10/22/19 12/26/21 12/19/21 10:00 Rx 1000 cephALEXin [Keflex] 500 mg PO Q8HR #30 cap 10/22/19 12/26/21 12/18/21 10:00 Rx Active Medications: Generic Name Dose Route Start Last Admin Trade Name Freq PRN Reason Stop Dose Admin Acetaminophen 650 mg 12/19/21 16:54 12/21/21 09:52 Acetaminophen 325 Mg Tab PO 650 mg Q4H PRN Administration Pain MILD(1-3)/Fever >100.5/CARCAMO Amiodarone HCl 200 mg 12/26/21 22:00 12/27/21 21:20 Amiodarone 200 Mg Tab PO 200 mg BID KAROLINA Administration Aspirin 325 mg 12/20/21 10:00 12/27/21 09:06 Aspirin 325 Mg Tab PO 325 mg QDAY KAROLINA Administration Dextrose 50 ml 12/20/21 10:45 Dextrose 50% In Water (25gm) 50 Ml Syringe IV Q30MIN PRN Hypoglycemia Protocol Glucagon 1 mg 12/19/21 15:39 12/19/21 16:08 Glucagon (Human Recombinant) 1 Mg/Ml Inj IV 1 mg Q1H PRN Administration Hypoglycemia Heparin Sodium/Sodium Chloride 25,000 unit in 500 mls @ 30 mls/hr 12/21/21 12:00 12/28/21 07:17 Heparin/ 0.45% Nacl-25,000 Unit/500 Ml IV 2,550 units/hr TITR KAROLINA 51 mls/hr Administration Protocol 1,500 UNITS/HR Insulin Human Regular 0 units 12/23/21 16:30 12/27/21 21:18 Insulin Regular, Human 100 Units/1 Ml SUB-Q Not Given A[facility]S [facility] Protocol Metoprolol Tartrate 75 mg 12/27/21 10:17 12/28/21 03:24 Metoprolol Tartrate 25 Mg Tab PO 75 mg Q8H [facility] Administration Morphine Sulfate 2 mg 12/19/21 16:54 12/21/21 13:48 Morphine 2 Mg/1 Ml Inj IV 2 mg Q4H PRN Administration Pain, Moderate (4-6) Ondansetron HCl 4 mg 12/21/21 12:00 12/21/21 13:48 Ondansetron 4 Mg/2 Ml Inj IV 4 mg Q6H PRN Administration Nausea And Vomiting Oxycodone/Acetaminophen 1 tab 12/19/21 16:54 12/27/21 13:29 Oxycodone /Acetaminophen 5-325mg Tab PO 1 tab Q6H PRN Administration Pain, Moderate (4-6) Sodium Chloride 10 ml 12/19/21 22:00 12/27/21 21:19 Sodium Chloride 0.9% 10 Ml Flush Syringe IV 10 ml BID KAROLINA Administration Sodium Chloride 10 ml 12/19/21 16:54 Sodium Chloride 0.9% 10 Ml Flush Syringe IV PRN PRN LINE FLUSH
[2021-12-28] MEDS: ASPIRIN 325 MG TAB PO SCH (11:12)
[2021-12-28] MEDS: AMIODARONE 200 MG TAB PO SCH (11:12)
--- NOTE | 2021-12-28 11:16 | Progress Note ---
Assessment and Plan Patient is a 41-year-old male with a past medical history of HFrEF, nonischemic cardiomyopathy, chronic A. 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 fib Echo 04/04/2020-the study was technically difficult in quality. Arrhythmia was noted during the study LVEF is moderately decreased 35-40%. Regional wall motion abnormalities noted RV moderately dilated. RV systolic function is moderately reduced. RVSP is mildly elevated No pericardial effusion No definite or significant change in the EF from 03/11/2018 Consider an infiltrative cardiomyopathy such as amyloid Echo 12/20/2021-EF 20 to 25% moderate concentric LVH. Right ventricle is dilated. Right ventricle hypokinetic. Left atrium is severely dilated. Right atrium dilated Per documentation outpatient medications: Losartan 50 mg p.o. daily Lasix 40 mg p.o. daily, digoxin 0.25 mg p.o. daily, asa Plan: Telemetry reviewed patient is in A. fib rate 80s to 90 Continue amiodarone 200 mg p.o. twice daily, metoprolol 75 mg p.o. every 8 hourly for further rate control Patient currently anticoagulated on heparin. Recommend transitioning to Eliquis however will wait until cleared by vascular Will defer to nephrology recommendations for volume management No WILLIE/ARB due to renal function and documented allergy Discussed plan of care with patient who verbalized understanding and acknowledgment Cardiac otherwise stable Patient should follow-up with her primary requirements analyst in 1 to 2 weeks after discharge. If patient wishes patient may also follow-up with [facility] release specialist. Phone #[phone] Patient seen in conjunction with Dr. Valenzuela who agrees with plan of care - Patient Problems (1) GRANT (acute kidney injury) Current Visit: Yes Status: Acute (2) Hyperkalemia Current Visit: Yes Status: Acute (3) Hypoglycemia Current Visit: Yes Status: Acute (4) Hyponatremia Current Visit: Yes Status: Acute (5) Acute on chronic systolic CHF (congestive heart failure) Current Visit: No Status: Acute (6) Atrial fibrillation with RVR Current Visit: No Status: Acute (7) COPD (chronic obstructive pulmonary disease) Current Visit: Yes Status: Chronic (8) History of noncompliance with medical treatment Current Visit: No Status: Acute (9) Obesity Current Visit: No Status: Acute (10) Cardiomyopathy Current Visit: Yes Status: Chronic Subjective Date of service: 12/28/21 Principal diagnosis: GRANT, Acute on chronic HFrEF, OPAD, NICMP, Permanent AF with RVR Interval history: Patient resting in bed in no acute distress. A. fib rates 80s to 90s Objective Vital Signs Temp Pulse Resp BP BP Pulse Ox 12/28/21 07:37 98.0 F 70 18 130/99 98 12/28/21 03:24 92 H 147/96 12/28/21 03:16 97.6 F 92 H 16 147/96 94 12/27/21 23:03 97.7 F 71 14 129/91 98 12/27/21 21:59 98 12/27/21 20:03 98.2 F 99 H 17 137/94 98 12/27/21 15:52 97.9 F 79 18 140/88 98 12/27/21 13:34 97.3 F L 95 H 18 130/89 98 12/27/21 13:00 86 - Physical Examination General: No Apparent Distress HEENT: Positive: EOMI, Normocephaly, Mucus Membranes Moist Neck: Positive: neck supple, trachea midline Cardiac: Positive: irregularly irregular Lungs: Positive: Normal Breath Sounds Neuro: Positive: Grossly Intact Abdomen: Positive: Soft, Active Bowel Sounds. Negative: Tender Skin: Positive: Other (Right great toe gangrene) Musculoskeletal: Normal Range of Motion Extremities: Absent: edema (Trace pitting bilateral leg edema) - Labs and Meds Coagulation 12/27/21 Range/Units 11:33 PT 13.0 (12.2-14.9) Sec. INR 0.87 (0.87-1.13) APTT 51.9 H (24.2-36.6) Sec. CBC 12/27/21 Range/Units 11:33 WBC 15.4 H (4.5-11.0) K/mm3 RBC 4.40 (3.65-5.03) M/mm3 Hgb 13.0 (11.8-15.2) gm/dl Hct 39.8 (35.5-45.6) % Plt Count 369 (140-440) K/mm3 Lymph # (Auto) 2.4 (1.2-5.4) K/mm3 Faulkner # (Auto) 1.1 H (0.0-0.8) K/mm3 Eos # (Auto) 0.3 (0.0-0.4) K/mm3 Baso # (Auto) 0.2 H (0.0-0.1) K/mm3 Comprehensive Metabolic Panel 12/27/21 12/28/21 Range/Units 11:33 05:21 Sodium 141 142 (137-145) mmol/L Potassium 4.5 4.0 (3.6-5.0) mmol/L Chloride 103.6 105.2 (98-107) mmol/L Carbon Dioxide 24 23 (22-30) mmol/L BUN 16 16 (9-20) mg/dL Creatinine 1.4 H 1.3 (0.8-1.3) mg/dL Glucose 123 H 124 H (75-100) mg/dL Calcium 9.1 8.8 (8.4-10.2) mg/dL - Imaging and Cardiology EKG: report reviewed (Atrial fibrillation with heart rate of 120) Echo: report reviewed - Telemetry EKG Rhythm: Atrial Fibrillation - EKG Supraventricular dysrhythmia: atrial fibrillation - Allied health notes Allied health notes reviewed: nursing
--- NOTE | 2021-12-28 13:11 | Discharge Summary ---
Providers - Providers Date of Admission: 12/19/21 16:54 Date of discharge: 12/28/21 Attending physician: CEDRICK HACKETT MD 12/19/21 15:42 Consult to Physician [CONS] Routine Comment: Consulting Provider: MU WILEY Physician Instructions: Reason For Exam: End-stage renal disease-newly diagnosed 12/19/21 15:55 Speech Therapy Evaluation and Treat [CONS] Stat Reason For Exam: Pt lethargic with L sided paralysis d/t CVA 12/20/21 05:05 Consult to Wound/ET Nurse [CONS] Stat Reason For Exam: wound eval- great toe 12/20/21 06:17 Consult to Physician [CONS] Routine Comment: called office/jhughes Consulting Provider: VICTORINO GARCIA Physician Instructions: Reason For Exam: CHF 12/20/21 15:01 Consult to Physician [CONS] Routine Comment: called office/jhughes Consulting Provider: NATANAEL GODINEZ Physician Instructions: Reason For Exam: hx CVA 2020, ? anticougulation re afib 12/21/21 12:37 Occupational Therapy Evaluate and Treat [CONS] Routine Comment: Reason For Exam: weakness, debility Physical Therapy Evaluation and Treat [CONS] Routine Comment: Reason For Exam: weakness, debility 12/22/21 12:07 Consult to Physician [CONS] Routine Comment: called office/ tomás Consulting Provider: NIRMAL BOONE Physician Instructions: Reason For Exam: ?dry gangrene Primary care physician: FNP Hospitalization Reason for admission: GRANT, hyperkalemia Condition: Stable Hospital course: Patient is a 41-year-old male with history of hypertension, CVA medication noncompliance who presented with hypoglycemia and weakness. He was found to have a significant GRANT and hyperkalemia. He was admitted for hypertensive emergency and transferred to ICU. Nephrology was consulted and dialysis was initiated. Echocardiogram showed left ventricular ejection fraction of 20 to 25% with a severely dilated left atrium. Due to abnormal pulses and right first toe gangrene, vascular surgery was consulted. Vascular intervention was delayed due to awaiting renal recovery. Once his creatinine improve the Vas- Cath was removed. Patient's GRANT resolved and he opted to not continue vascular intervention. Once stable, he was discharged home with updated medications and instructions to follow-up with his pr specialist and vascular surgeon. Disposition: 06 HOME HEALTH CARE SERVICE Final Discharge Diagnosis (Prints w/discharge instructions): Acute kidney injury secondary to vasomotor nephropathy. Peripheral artery disease. Dry gangrene of right great toe. Atrial fibrillation. History of VA status post stenting. Nonischemic cardiomyopathy, systolic heart failure. Leukocytosis. History of CVA with residual left-sided hemiplegia. COPD. Mild protein calorie malnutrition. Morbid obesity. Tobacco dependence Time spent for discharge: 40 minutes Core Measure Documentation - Palliative Care Palliative Care/ Comfort Measures: Not Applicable - Core Measures Any of the following diagnoses?: none Exam - Physical Exam Narrative exam: GENERAL: Well-developed well-nourished. In no acute distress. HEENT: Normocephalic. Atraumatic. NECK: Supple. CHEST/LUNGS: CTAB on room air HEART/CARDIOVASCULAR: RRR. No murmur, rubs or gallops appreciated. ABDOMEN: +BS. NT/ND. SKIN: No rashes noted. NEURO: No focal motor deficit. Follows all commands. MUSCULOSKELETAL: No joint effusion EXTREMITIES: No cyanosis, clubbing or edema. PSYCH: Cooperative. - Constitutional Vitals: Temp Pulse Resp BP Pulse Ox 98.0 F 70 18 130/99 98 12/28/21 07:37 12/28/21 11:16 12/28/21 07:37 12/28/21 07:37 12/28/21 07:37 Plan Care Plan Goals: Please schedule appointment with the vascular surgeon in 2 weeks. Please follow-up with your pr specialist in the next 1 to 2 weeks. If you wish, you may also follow-up with [facility] Heart specialists. Call phone #[phone] to schedule an appointment. Please take all medications as they are prescribed to you. Follow up with: PRIMARY MD AIDEN [Primary Care Provider] - 3-5 Days NIRMAL BOONE MD [Staff Physician] - 14 Days Prescriptions: Amiodarone [Cordarone 200 MG TAB] 200 mg PO BID 30 Days #60 tablet Apixaban [Eliquis] 5 mg PO Q12HR 30 Days #60 tablet Metoprolol [Lopressor TAB] 75 mg PO Q8H 30 Days #270 tablet
[2021-12-28] MEDS ORDERED: APIXABAN 5 MG TAB PO SCH (22:00)
== END 2021-12-28 14:20 | disposition home health service (06) | DRG 682 ==
LOC: ED 11:34 → IMCU 16:54 → CC1 23:35 → IMCU 12-22 15:55 → 4A 12-23 20:19
PROVIDERS: ADMIT Internal Medicine; ATTEND Student in an Organized Health Care Education/Training Program
PROC: 02HV33Z Insertion of Infusion Device into Superior Vena Cava, Percutaneous Approach (ICD-10-PCS; principal; 2021-12-20)
PROC: 5A1D70Z Performance of Urinary Filtration, Intermittent, Less than 6 Hours Per Day (ICD-10-PCS; 2021-12-20)
PROC: 5A1D70Z Performance of Urinary Filtration, Intermittent, Less than 6 Hours Per Day (ICD-10-PCS; 2021-12-21)
PROC: 5A1D70Z Performance of Urinary Filtration, Intermittent, Less than 6 Hours Per Day (ICD-10-PCS; 2021-12-22)
DX: N17.0 Acute kidney failure with tubular necrosis (principal); G93.41 Metabolic encephalopathy; I50.23 Acute on chronic systolic (congestive) heart failure; I16.1 Hypertensive emergency; Z68.41 Body mass index [BMI] 40.0-44.9, adult; E87.1 Hypo-osmolality and hyponatremia; I42.8 Other cardiomyopathies; I48.21 Permanent atrial fibrillation; I69.354 Hemiplegia and hemiparesis following cerebral infarction affecting left non-dominant side; E11.52 Type 2 diabetes mellitus with diabetic peripheral angiopathy with gangrene; I96 Gangrene, not elsewhere classified; I47.1 Supraventricular tachycardia; E44.1 Mild protein-calorie malnutrition; Z20.822 Contact with and (suspected) exposure to COVID-19; E66.01 Morbid (severe) obesity due to excess calories; Z71.3 Dietary counseling and surveillance; Z71.6 Tobacco abuse counseling; E11.649 Type 2 diabetes mellitus with hypoglycemia without coma; E87.5 Hyperkalemia; Z88.8 Allergy status to other drugs, medicaments and biological substances; Z91.041 Radiographic dye allergy status; Z79.82 Long term (current) use of aspirin; Z79.899 Other long term (current) drug therapy; I25.2 Old myocardial infarction; J44.9 Chronic obstructive pulmonary disease, unspecified; F17.200 Nicotine dependence, unspecified, uncomplicated; Z74.01 Bed confinement status; Z82.49 Family history of ischemic heart disease and other diseases of the circulatory system; Z98.61 Coronary angioplasty status
CPT/HCPCS: 36415; 71045; 76770; 80048; 80053; 80074; 82570; 82962; 83735; 83880; 83935; 84100; 84156; 84300; 85007; 85025; 85027; 85520; 85610; 85730; 87040; 93005; 93306; 93925; 99406; G0378; J3490; J7060; Q9967; C8929; J0282; J0610; J0696; J1610; J1644; J1815; J2270; J2405; J3475; J7030; J7070; U0003

== ENCOUNTER 2022-01-17 06:02 | Emergency (ER) | payer MEDICARE ==
--- NOTE | 2022-01-17 07:30 | Emergency Department Report ---
ED Shortness of Breath HPI - General Chief Complaint: Dyspnea/Respdistress Stated Complaint: TROUBLE BREATHING Time Seen by Provider: 01/17/22 07:19 Source: EMS Mode of arrival: Stretcher Limitations: No Limitations - History of Present Illness Initial Comments: Patient is a 41-year-old male with history of hypertension, CVA presenting to ED with complaint of shortness of breath and flank pain beginning last night. He was admitted here roughly 2 weeks ago and found to be in acute renal failure requiring emergent dialysis. Echocardiogram showed left ventricular ejection fraction of 20 to 25%. He was also found to have a gangrenous right toe with decreased pulses for which vascular surgery was consulted. Vascular intervention was delayed due to his GRANT. Once his GRANT resolved he declined vascular intervention. He was discharged with instructions to follow-up with cardiology and vascular surgery. - Related Data Home Medications Medication Instructions Recorded Confirmed Last Taken Aspirin 325 mg PO QDAY 11/21/16 12/26/21 12/19/21 10:00 325 Furosemide [Lasix TAB] 40 mg PO QDAY 11/21/16 12/26/21 12/19/21 Previous Rx's Medication Instructions Recorded Last Taken Type HYDROcodone/APAP 5-325 [[place] 1 each PO Q6HR PRN #20 tablet 07/24/19 12/19/21 10:00 Rx 5-325 mg TAB] 1 Acetaminophen [Acetaminophen TAB] 1,000 mg PO Q6HR #30 tablet 10/22/19 12/19/21 10:00 Rx 1000 Amiodarone [Cordarone 200 MG TAB] 200 mg PO BID 30 Days #60 tablet 12/28/21 Un known Rx Apixaban [Eliquis] 5 mg PO Q12HR 30 Days #60 tablet 12/28/21 Unknown Rx Metoprolol [Lopressor TAB] 75 mg PO Q8H 30 Days #270 tablet 12/28/21 Unknown Rx Allergies Allergy/AdvReac Type Severity Reaction Status Date / Time adhesive Allergy Rash Verified 12/19/21 14:07 ibuprofen [From Motrin] Allergy Swelling Verified 12/19/21 14:07 lisinopril Allergy COUGH Verified 12/19/21 14:07 Iodinated Contrast Media AdvReac KIDNEYS Verified 12/19/21 14:07 [Iodinated Contrast Media - SHUT DOWN IV Dye] ED Review of Systems ROS: Stated complaint: TROUBLE BREATHING Other details as noted in HPI Constitutional: denies: chills, fever Respiratory: shortness of breath Cardiovascular: denies: chest pain, palpitations Gastrointestinal: abdominal pain (Flank pain) Genitourinary: denies: urgency, dysuria Musculoskeletal: denies: back pain, joint swelling, arthralgia Skin: denies: rash, lesions Neurological: denies: headache Psychiatric: denies: anxiety, depression ED Past Medical Hx - Past Medical History Previous Medical History?: Yes Hx Hypertension: Yes Hx CVA: Yes Hx Heart Attack/AMI: Yes (2015) Hx Congestive Heart Failure: Yes Hx Diabetes: No Hx Renal Disease: Yes Hx Arthritis: Yes Hx Seizures: No Hx Kidney Stones: Yes Hx Asthma: Yes Hx COPD: Yes Additional medical history: a fib. , Cardiomyopathy 20% ejection fraction, atrial clot - Surgical History Past Surgical History?: Yes Hx Coronary Stent: Yes (2016) Additional Surgical History: r/l lithotripsy Mar 2019 - Social History Smoking Status: Current Every Day Smoker Substance Use Type: Alcohol - Medications Home Medications: Home Medications Medication Instructions Recorded Confirmed Last Taken Type Aspirin 325 mg PO QDAY 11/21/16 12/26/21 12/19/21 10:00 History 325 Furosemide [Lasix TAB] 40 mg PO QDAY 11/21/16 12/26/21 12/19/21 History HYDROcodone/APAP 5-325 [[place] 1 each PO Q6HR PRN #20 tablet 07/24/19 12/26/21 12/19/21 10:00 Rx 5-325 mg TAB] 1 Acetaminophen [Acetaminophen TAB] 1,000 mg PO Q6HR #30 tablet 10/22/19 12/26/21 12/19/21 10:00 Rx 1000 Amiodarone [Cordarone 200 MG TAB] 200 mg PO BID 30 Days #60 tablet 12/28/21 Unknown Rx Apixaban [Eliquis] 5 mg PO Q12HR 30 Days #60 tablet 12/28/21 Unknown Rx Metoprolol [Lopressor TAB] 75 mg PO Q8H 30 Days #270 tablet 12/28/21 Unknown Rx ED Physical Exam - General Limitations: No Limitations General appearance: obese - Head Head exam: Present: atraumatic, normocephalic - Respiratory Respiratory exam: Present: normal lung sounds bilaterally. Absent: respiratory distress - Cardiovascular Cardiovascular Exam: Present: normal rhythm, tachycardia, normal heart sounds - GI/Abdominal GI/Abdominal exam: Present: soft. Absent: distended, tenderness - Rectal Rectal exam: Present: deferred - Neurological Exam Neurological exam: Present: alert, oriented X3, other (Left hemiplegia) - Psychiatric Psychiatric exam: Present: normal affect, normal mood - Skin Skin exam: Present: warm, dry, intact, normal color ED Course Vital Signs 01/17/22 01/17/22 01/17/22 06:12 07:43 07:46 Temperature 98.7 F Pulse Rate 97 H 115 H Respiratory 18 15 Rate Blood Pressure 157/115 125/93 O2 Sat by Pulse 98 99 97 Oximetry 01/17/22 01/17/22 01/17/22 07:47 08:00 08:16 Temperature 97.5 F L Pulse Rate Respiratory Rate Blood Pressure 125/93 125/93 O2 Sat by Pulse 99 99 Oximetry 01/17/22 01/17/22 01/17/22 08:30 08:46 09:00 Temperature Pulse Rate Respiratory Rate Blood Pressure 125/93 111/85 111/85 O2 Sat by Pulse 98 97 100 Oximetry 01/17/22 01/17/22 01/17/22 09:16 09:30 09:45 Temperature Pulse Rate 119 H 114 H 120 H Respiratory 16 15 17 Rate Blood Pressure 111/85 111/85 150/108 O2 Sat by Pulse 97 99 98 Oximetry 01/17/22 01/17/22 01/17/22 10:00 10:16 10:30 Temperature Pulse Rate 134 H 129 H 103 H Respiratory 20 16 17 Rate Blood Pressure 150/108 150/108 150/108 O2 Sat by Pulse 97 99 97 Oximetry 01/17/22 01/17/22 01/17/22 10:45 11:02 11:16 Temperature Pulse Rate 114 H 113 H 113 H Respiratory 19 18 18 Rate Blood Pressure 130/79 130/79 130/79 O2 Sat by Pulse 96 98 97 Oximetry 01/17/22 01/17/22 01/17/22 11:30 11:46 12:00 Temperature Pulse Rate 111 H 120 H 114 H Respiratory 13 21 19 Rate Blood Pressure 130/79 136/82 130/79 O2 Sat by Pulse 99 97 99 Oximetry 01/17/22 01/17/22 01/17/22 12:16 12:30 12:46 Temperature Pulse Rate 99 H 121 H 114 H Respiratory 22 18 18 Rate Blood Pressure 130/79 130/79 120/89 O2 Sat by Pulse 99 99 99 Oximetry 01/17/22 13:00 Temperature Pulse Rate 126 H Respiratory 21 Rate Blood Pressure 120/89 O2 Sat by Pulse 97 Oximetry ED Medical Decision Making - Lab Data Result diagrams: 01/17/22 08:01 01/17/22 08:01 - Medical Decision Making Patient presenting to ED with complaint of flank pain. WBC count today is 14 which is actually decreased compared to previous visit. Magnesium 1.6. Patient given IV replacement. Lactic acid is 2.6. IV fluids given. Patient was also given IV morphine for pain. CT abdomen and pelvis was ordered however patient initially declined stating that he was still in pain and requested more pain medication prior to going to CT. He was given 1 mg of Dilaudid IV. Patient again declined CT stating that he is unable to lie on the table due to discomfort. I explained to him the need for CT in diagnosing his condition. States he wishes to sign out AMA. I discussed potential risks of signing out AMA including . Patient voiced understanding. Still request to sign out AMA. Critical care attestation.: If time is entered above; I have spent that time in minutes in the direct care of this critically ill patient, excluding procedure time. ED Disposition Clinical Impression: Flank pain, Tachycardia, Elevated lactic acid level Disposition: 07 LEFT AGAINST MEDICAL ADVICE Is pt being admited?: No Instructions: Flank Pain, Adult Time of Disposition: 13:15
--- NOTE | 2022-01-17 08:03 | XRay Report ---
CHEST 1 VIEW 01/17/2022 7:47 AM INDICATION / CLINICAL INFORMATION: Dyspnea. COMPARISON: 12/20/2021 FINDINGS: SUPPORT DEVICES: None. HEART / MEDIASTINUM: Stable mild to moderate cardiomegaly LUNGS / PLEURA: There is mild central pulmonary venous congestion although it has decreased since the previous exam. No obvious infiltrate, large pleural effusion or pneumothorax. ADDITIONAL FINDINGS: No significant additional findings. IMPRESSION: 1. Cardiomegaly and central pulmonary venous congestion, slightly improved since 12/20/2021 exam. Signer Name: Tony Duckworth Jr, MD Signed: 01/17/2022 7:59 AM Workstation Name: [id number]
[2022-01-17 08:26] LABS: Basophils # (Auto) 0.1 K/mm3 (0.0-0.1); Basophils % (Auto) 0.8 % (0.0-1.8); Eosinophils # (Auto) 0.1 K/mm3 (0.0-0.4); Eosinophils % (Auto) 0.6 % (0.0-4.3); Hematocrit 47.5 % (35.5-45.6); Hemoglobin 15.8 gm/dl (11.8-15.2); Lymphocytes % (Auto) 13.8 % (13.4-35.0); Mean Corpuscular HGB Conc 33 % (32-34); Mean Corpuscular Volume 92 fl (84-94); Monocytes # (Auto) 0.8 K/mm3 (0.0-0.8); Monocytes % (Auto) 5.8 % (0.0-7.3); Platelet Count 321 K/mm3 (140-440); Red Cell Distribution Width 15.8 % (13.2-15.2)
[2022-01-17] MEDS ORDERED: MORPHINE 4 MG/1 ML INJ IV ONE (08:40)
[2022-01-17 08:45] LABS: Alanine Aminotransferase 15 units/L (7-56); Albumin 4.3 g/dL (3.9-5); BUN/Creatinine Ratio 14; Blood Urea Nitrogen 19 mg/dL (9-20); Calcium 9.7 mg/dL (8.4-10.2); Hemolysis Index 3
[2022-01-17] MEDS ORDERED: ONDANSETRON 4 MG/2 ML INJ ONE (09:07)
[2022-01-17 09:28] LABS: Mucus,Urine FEW /HPF
[2022-01-17 09:31] LABS: Color,Urine Straw (Yellow)
[2022-01-17] MEDS ORDERED: SODIUM CHLORIDE 0.9% 500 ML 500 ML IV ONE ×2 (09:49→09:52)
[2022-01-17] MEDS ORDERED: MAGNESIUM SULFATE 1 GM in SODIUM CHLORIDE 0.9% 50 ML IV ONE (11:00)
[2022-01-17] MEDS ORDERED: HYDROmorphone 1 MG/1 ML INJ IV ONE (11:36)
[2022-01-17] MEDS ORDERED: ONDANSETRON 4 MG/2 ML INJ IV ONE (11:39)
[2022-01-17 14:18] VITALS: BP 117/90
== END 2022-01-17 17:22 | disposition left against medical advice (07) ==
LOC: ED 06:02
DX: R10.9 Unspecified abdominal pain (principal); R00.0 Tachycardia, unspecified; R74.02 Elevation of levels of lactic acid dehydrogenase [LDH]; F17.200 Nicotine dependence, unspecified, uncomplicated; F10.20 Alcohol dependence, uncomplicated; Z88.8 Allergy status to other drugs, medicaments and biological substances; I10 Essential (primary) hypertension; Z88.6 Allergy status to analgesic agent; Z91.041 Radiographic dye allergy status
CPT/HCPCS: 36415; 71045; 80053; 81001; 82140; 83735; 83880; 84484; 85025; 96361; 96365; 96375; 99284; J1170; J2270; J2405; J3475; J7040